=== PATIENT | female | born 1970 | race Two or more races ===

== ENCOUNTER 2016-06-03 14:31 | Emergency (ER) | payer SELFPAY ==
[2016-06-03] MEDS ORDERED: ACETAMINOPHEN 325 MG TABLET PO ONE (14:44)
--- NOTE | 2016-06-03 14:45 | ER Document Report ---
ED Medical Screen (RME) - General Stated Complaint: HEADACHE Mode of Arrival: Ambulatory Information source: Patient Notes: Patient presents to the emergency department with high blood pressure headache. Reports she's taken 2 doses of clonidine without relief of symptoms. Reports hot flashes denies fever vomiting diarrhea. She took 5 200 mg Advil and two 0.3 clonidine's. (0630 and 1130) I have consulted the attending provider dr hull per [facility] guidelines for medication order, advised tylenol at this time. I have greeted and performed a rapid initial assessment of this patient. A comprehensive ED assessment and evaluation of the patient, analysis of test results and completion of the medical decision making process will be conducted by additional ED providers. TRAVEL OUTSIDE OF THE [place] IN LAST 30 DAYS: No - Related Data Allergies/Adverse Reactions: ondansetron HCl [From Zofran] Allergy (Severe, Verified 06/03/16 14:43) resp distress azithromycin [From Zithromax] Allergy (Verified 06/03/16 14:43) Past Medical History - Past Medical History Cardiac Medical History: Reports: Hx Hypertension, Hx Heart Murmur - with Denies: Hx Atrial Fibrillation, Hx Congestive Heart Failure, Hx Coronary Artery Disease, Hx Heart Attack, Hx Hypercholesterolemia, Hx Peripheral Vascular Disease, Hx Pulmonary Embolism Pulmonary Medical History: Reports: Hx Pneumonia Denies: Hx Asthma, Hx Bronchitis, Hx COPD, Hx Respiratory Failure, Hx Sleep Apnea, Hx Tuberculosis Neurological Medical History: Denies: Hx Seizures Renal/ Medical History: Reports: Hx Ovarian Cysts - x 2. Denies: Hx Pelvic Inflammatory Disease Malignancy Medical History: Denies: Hx Breast Cancer, Hx Cervical Cancer, Hx Leukemia, Hx Lung Cancer, Hx Ovarian Cancer Musculoskeltal Medical History: Reports Hx Arthritis, Denies Hx Fibromyalgia, Denies Hx Muscular Dystrophy Skin Medical History: Denies Hx MRSA Psychiatric Medical History: Reports: Hx Depression Traumatic Medical History: Reports: Hx Fractures - rt knee, rt elbow Infectious Medical History: Denies: Hx HIV Past Surgical History: Reports: Hx Cholecystectomy, Hx Orthopedic Surgery - R knee replacement, elbow, Hx Tubal Ligation. Denies: Hx Appendectomy, Hx Bowel Surgery, Hx Section, Hx Coronary Artery Bypass Graft, Hx Gastric Bypass Surgery, Hx Herniorrhaphy, Hx Hysterectomy, Hx Mastectomy, Hx Pacemaker, Hx Tonsillectomy - Immunizations Hx Diphtheria, Pertussis, Tetanus Vaccination: Yes Physical Exam - Vital signs Vitals: Temp Pulse Resp BP Pulse Ox 98.0 F 95 18 230/114 H 99 06/03/16 14:36 06/03/16 14:36 06/03/16 14:36 06/03/16 14:36 06/03/16 14:36 Course - Vital Signs Vital signs: Temp Pulse Resp BP Pulse Ox 98.0 F 95 18 230/114 H 99 06/03/16 14:36 06/03/16 14:36 06/03/16 14:36 06/03/16 14:36 06/03/16 14:36
[2016-06-03 15:18] LABS: ABSOLUTE BASOPHILS # (AUTO) 0.1 10^3/uL (0.0-0.2); ABSOLUTE EOSINOPHILS # (AUTO) 0.3 10^3/uL (0.0-0.6); ABSOLUTE LYMPHOCYTES (AUTO) 3.3 10^3/uL (0.5-4.7); ABSOLUTE MONOCYTES (AUTO) 0.7 10^3/uL (0.1-1.4); ABSOLUTE NEUT (AUTO) 5.2 10^3/uL (1.7-8.2); BASOPHILS % (AUTO) 0.8 % (0-2); EOSINOPHILS % (AUTO) 2.6 % (0-6); HEMATOCRIT 43.5 % (36.0-47.0); HEMOGLOBIN 13.4 g/dL (12.0-15.5); HGB HCT DIFFERENCE -3.3; MEAN CORPUSCULAR HEMOGLOBIN 22.8 pg (27.0-33.4); MEAN CORPUSCULAR HGB CONC 30.7 g/dL (32.0-36.0); MEAN CORPUSCULAR VOLUME 74 fl (80-97); MONOCYTES % (AUTO) 7.6 % (3-13); RED BLOOD COUNT 5.86 10^6/uL (3.72-5.28); RED CELL DISTRIBUTION WIDTH 16.7 % (11.5-14.0); WHITE BLOOD COUNT 9.5 10^3/uL (4.0-10.5)
[2016-06-03 15:29] LABS: APPEARANCE,URINE SLIGHTLY-CLOUDY; BILIRUBIN,URINE NEGATIVE (NEGATIVE); GLUCOSE, URINE NEGATIVE (NEGATIVE); KETONES,URINE NEGATIVE (NEGATIVE); LEUKOCYTE ESTERASE,URINE MODERATE (NEGATIVE); NITRITE,URINE NEGATIVE (NEGATIVE); PROTEIN,URINE 100 mg/dL (NEGATIVE); URINE SPECIFIC GRAVITY 1.023; UROBILINOGEN,URINE NEGATIVE mg/dL (<2.0)
[2016-06-03 15:41] LABS: ALANINE AMINOTRANSFERASE 32 U/L (9-52); ALKALINE PHOSPHATASE 96 U/L (38-126); ANION GAP 13 (5-19); ASPARTATE AMINO TRANSFERASE 20 U/L (14-36); BILIRUBIN,TOTAL 0.4 mg/dL (0.2-1.3); BLOOD UREA NITROGEN 20 mg/dL (7-20); CALCIUM 9.5 mg/dL (8.4-10.2); CARBON DIOXIDE 27 mmol/L (22-30); CHLORIDE 103 mmol/L (98-107); CREATININE RESULT 0.62 mg/dL (0.52-1.25); GLUCOSE 86 mg/dL (75-110); POTASSIUM 4.1 mmol/L (3.6-5.0); SODIUM 143.1 mmol/L (137-145); TOTAL PROTEIN 7.8 g/dL (6.3-8.2)
[2016-06-03] MEDS ORDERED: PROMETHAZINE HCL INJ 25 MG/1 ML VIAL IV ONE (17:49)
[2016-06-03] MEDS ORDERED: HYDRALAZINE HCL INJ/PF 20 MG/1 ML SDV IV ONE ×2 (17:50→18:45)
[2016-06-03] MEDS ORDERED: MORPHINE SULFATE 10 MG/ML INJ IV ONE (17:50)
--- NOTE | 2016-06-03 18:14 | ER Document Report ---
ED General - General Chief Complaint: Headache Stated Complaint: HEADACHE Time seen by provider: 17:45 Mode of Arrival: Ambulatory Information source: Patient Notes: 45-year-old female who complains about bilateral occipital headache beginning this morning. This headache is typical for what she has been her blood pressures out of control. He reports that she has been compliant with all of her medications and took Advil and her usual morning blood pressure medicines after the headache began without improvement this morning. She took a second clonidine 0.3 mg about 11:30 again without improvement in her headache. She reports some nausea with it but no vomiting. She denies photophobia. She denies pain numbness weakness to extremities. She reports that in the past she' s required admission for uncontrolled hypertension and headaches like this. She denies earache, sore throat, chest pain, shortness of breath, vomiting, abdominal pain, or back pain. Physical Exam: General: Alert, appears uncomfortable. HEENT: Normocephalic. Atraumatic. PERRLA. Extraocular movements intact. Discs sharp tympanic membranes and canals clear Oropharynx clear. Neck: Supple. Non-tender. No adenopathy no JVD no nuchal rigidity Respiratory: No respiratory distress. Clear and equal breath sounds bilaterally. Cardiovascular: Regular rate and rhythm. Abdominal: Normal Inspection. Soft, non-tender. No distension. Normal Bowel Sounds. Back: Non-tender. No deformity or step off. Extremities: Moves all four extremities. Upper extremities: Normal inspection. Non-tender. Normal color. Normal ROM. Normal temperature. Lower extremities: Normal inspection. Non-tender. No edema. Normal color. Normal ROM. Normal temperature. Neurological: Cranial nerves III-XII grossly intact bilaterally. Strength 5/5 throughout. Sensation intact to light touch. Normal cognition. AAOx4. Normal speech. Cerebellar function intact by finger-nose test bilaterally Psychological: Normal affect. Normal Mood. Skin: Warm. Dry. Normal color. TRAVEL OUTSIDE OF THE [place] IN LAST 30 DAYS: No - Related Data Allergies/Adverse Reactions: ondansetron HCl [From Zofran] Allergy (Severe, Verified 06/03/16 14:43) resp distress azithromycin [From Zithromax] Allergy (Verified 06/03/16 14:43) Past Medical History - General Information source: Patient - Social History Smoking Status: Never Smoker Chew tobacco use (# tins/day): No Frequency of alcohol use: None Drug Abuse: None Family History: Reviewed & Not Pertinent Patient has suicidal ideation: No Patient has homicidal ideation: No - Past Medical History Cardiac Medical History: Reports: Hx Hypertension, Hx Heart Murmur - with Denies: Hx Atrial Fibrillation, Hx Congestive Heart Failure, Hx Coronary Artery Disease, Hx Heart Attack, Hx Hypercholesterolemia, Hx Peripheral Vascular Disease, Hx Pulmonary Embolism Pulmonary Medical History: Reports: Hx Pneumonia Denies: Hx Asthma, Hx Bronchitis, Hx COPD, Hx Respiratory Failure, Hx Sleep Apnea, Hx Tuberculosis Neurological Medical History: Denies: Hx Seizures Renal/ Medical History: Reports: Hx Ovarian Cysts - x 2. Denies: Hx Peritoneal Dialysis, Hx Pelvic Inflammatory Disease Malignancy Medical History: Denies: Hx Breast Cancer, Hx Cervical Cancer, Hx Leukemia, Hx Lung Cancer, Hx Ovarian Cancer Musculoskeltal Medical History: Reports Hx Arthritis, Denies Hx Fibromyalgia, Denies Hx Muscular Dystrophy Skin Medical History: Denies Hx MRSA Psychiatric Medical History: Reports: Hx Depression Traumatic Medical History: Reports: Hx Fractures - rt knee, rt elbow Infectious Medical History: Denies: Hx HIV Past Surgical History: Reports: Hx Cholecystectomy, Hx Orthopedic Surgery - R knee replacement, elbow, Hx Tubal Ligation. Denies: Hx Appendectomy, Hx Bowel Surgery, Hx Section, Hx Coronary Artery Bypass Graft, Hx Gastric Bypass Surgery, Hx Herniorrhaphy, Hx Hysterectomy, Hx Mastectomy, Hx Pacemaker, Hx Tonsillectomy - Immunizations Hx Diphtheria, Pertussis, Tetanus Vaccination: Yes Hx Pneumococcal Vaccination: 07/06/12 Review of Systems - Review of Systems Constitutional: denies: Chills, Fever EENT: denies: Blurred vision, Ear pain, Throat pain Cardiovascular: denies: Chest pain, Syncope, Dizziness Respiratory: denies: Cough, Short of breath Gastrointestinal: denies: Abdominal pain, Vomiting Genitourinary: denies: Burning, Dysuria Musculoskeletal: denies: Back pain Hematologic/Lymphatic: denies: Swollen glands Neurological/Psychological: denies: Weakness, Numbness Physical Exam - Vital signs Vitals: Temp Pulse Resp BP Pulse Ox 98.0 F 95 18 230/114 H 99 06/03/16 14:36 06/03/16 14:36 06/03/16 14:36 06/03/16 14:36 06/03/16 14:36 Course - Re-evaluation Re-evalutation: 06/03/16 20:35 Patient received 2 doses of 10 mg IV hydralazine in addition to her usual evening medications for blood pressure and with this her blood pressure is now 129/86 and she reports resolution of all of her symptoms. She is eager for discharge as emulating without difficulty. She reports that when her blood pressures well-controlled this is a normal range for her and do not have concerns at this point that we have overcorrected her blood pressure. She does have primary care physician follow-up has been managing her blood pressure closely recently - Vital Signs Vital signs: Temp Pulse Resp BP Pulse Ox 97.5 F 95 20 159/105 H 98 06/03/16 19:30 06/03/16 19:30 06/03/16 19:30 06/03/16 19:30 06/03/16 19:30 - Laboratory Result Diagrams: 06/03/16 14:50 06/03/16 14:50 Laboratory results interpreted by me: 06/03/16 06/03/16 14:50 14:50 RBC 5.86 H MCV 74 L MCH 22.8 L MCHC 30.7 L RDW 16.7 H Urine Protein 100 H Urine Blood SMALL H Ur Leukocyte Esterase MODERATE H Discharge - Discharge Clinical Impression: Hypertension Qualifiers: Hypertension type: essential hypertension Qualified Code(s): I10 - Essential ( primary) hypertension Headache Qualifiers: Headache type: unspecified Headache chronicity pattern: acute headache Intractability: not intractable Qualified Code(s): R51 - Headache Condition: Stable Disposition: HOME, SELF-CARE Instructions: Headache ([facility]) Additional Instructions: High Blood Pressure When your blood pressure was taken today it was elevated. Today's reading was . Pre-hypertension/Hypertension: The patient has been informed that they may have pre-hypertension or Hypertension based on a blood pressure reading in the emergency department. I recommend that the patient call the primary care provider listed on their dischargge instructions or a physician of their choice this wee to arrage follow up for further evaluation of possible pre- hypertension or Hypertension. Sometimes, stress or illness causes a temporary elevation of your blood pressure. We suggest that you get your blood pressure measured three more times during the next few days to see if this is more than a temporary abnormality. If your blood pressure is greater than 150/90 on each occasion, you must have treatment. Some simple things you can do to help are: If you have blood pressure medicine but aren't using it regularly, start taking it again. Get some aerobic exercise for at least 20 minutes on a daily basis. (See your doctor before beginning a new exercise program.) Eat a low-fat diet. Lose excess weight. Avoid salty foods and avoid adding salt to any of the foods you eat. Avoid diet pills, decongestants, "energizing" herbs, and other medicines that elevate blood pressure. If left untreated, hypertension greatly enhances your risk for developing heart disease and strokes. Please don't ignore this problem. Referrals: STEPHANI YAO MD [ACTIVE STAFF] - Follow up as needed
[2016-06-03] MEDS ORDERED: METOPROLOL TARTRATE 50 MG TABLET PO ONE (18:44)
[2016-06-03] MEDS ORDERED: CLONIDINE HCL 0.1 MG TABLET PO ONE (18:45)
[2016-06-03] MEDS ORDERED: ENALAPRIL MALEATE 10 MG TABLET PO ONE (18:45)
[2016-06-03] MEDS ORDERED: NORMAL SALINE 1000 ML 1,000 ML IV ONE (21:14)
[2016-06-03 22:14] VITALS: BP 132/61
== END 2016-06-03 22:00 | disposition home or self-care (01) ==
LOC: ER 14:31
DX: R51 Headache (principal); I10 Essential (primary) hypertension; R11.0 Nausea; R53.1 Weakness; Z88.3 Allergy status to other anti-infective agents; Z90.49 Acquired absence of other specified parts of digestive tract; Z96.651 Presence of right artificial knee joint; Z96.621 Presence of right artificial elbow joint; Z98.51 Tubal ligation status
CPT/HCPCS: 96376; 99283; 96361; 96374; 96375; 36415; 85025; 80053; 81001; J3490; J0360; J2270; J2550; J7030

== ENCOUNTER 2016-07-06 11:53 | Emergency (ER) | payer SELFPAY ==
[2016-07-06] MEDS ORDERED: PROMETHAZINE HCL 25 MG TABLET PO ONE (12:52)
--- NOTE | 2016-07-06 12:52 | ER Document Report ---
ED Medical Screen (RME) - General Stated Complaint: VOMITING Time seen by provider: 12:50 Mode of Arrival: Ambulatory Information source: Patient Notes: I have greeted and performed a rapid initial assessment of this patient. A comprehensive ED assessment and evaluation of the patient, analysis of test results and completion of the medical decision making process will be conducted by additional ED providers. TRAVEL OUTSIDE OF THE [place] IN LAST 30 DAYS: No - HPI Patient complains to provider of: CARDOSO, VOMITING AND DIARRHEA. Onset: This morning Onset/Duration: Sudden Quality of pain: Cramping Severity: Moderate Pain Level: 3 Associated Symptoms: Abdominal pain, Diarrhea, Nausea, Vomiting. denies: Fever Exacerbated by: Denies Relieved by: Denies Similar symptoms previously: No Recently seen / treated by doctor: No - Related Data Smoking: Non-smoker Frequency of alcohol use: None Drug Abuse: None Pertinent History: HTN - TAKES MEDS DAILY PER PT. Allergies/Adverse Reactions: ondansetron HCl [From Zofran] Allergy (Severe, Verified 07/06/16 12:49) resp distress azithromycin [From Zithromax] Allergy (Verified 07/06/16 12:49) Past Medical History - Past Medical History Cardiac Medical History: Reports: Hx Hypertension, Hx Heart Murmur - with Denies: Hx Atrial Fibrillation, Hx Congestive Heart Failure, Hx Coronary Artery Disease, Hx Heart Attack, Hx Hypercholesterolemia, Hx Peripheral Vascular Disease, Hx Pulmonary Embolism Pulmonary Medical History: Reports: Hx Pneumonia Denies: Hx Asthma, Hx Bronchitis, Hx COPD, Hx Respiratory Failure, Hx Sleep Apnea, Hx Tuberculosis Neurological Medical History: Denies: Hx Seizures Renal/ Medical History: Reports: Hx Ovarian Cysts - x 2. Denies: Hx Peritoneal Dialysis, Hx Pelvic Inflammatory Disease Malignancy Medical History: Denies: Hx Breast Cancer, Hx Cervical Cancer, Hx Leukemia, Hx Lung Cancer, Hx Ovarian Cancer Musculoskeltal Medical History: Reports Hx Arthritis, Denies Hx Fibromyalgia, Denies Hx Muscular Dystrophy Skin Medical History: Denies Hx MRSA Psychiatric Medical History: Reports: Hx Depression Traumatic Medical History: Reports: Hx Fractures - rt knee, rt elbow Infectious Medical History: Denies: Hx HIV Past Surgical History: Reports: Hx Cholecystectomy, Hx Orthopedic Surgery - R knee replacement, elbow, Hx Tubal Ligation. Denies: Hx Appendectomy, Hx Bowel Surgery, Hx Section, Hx Coronary Artery Bypass Graft, Hx Gastric Bypass Surgery, Hx Herniorrhaphy, Hx Hysterectomy, Hx Mastectomy, Hx Pacemaker, Hx Tonsillectomy - Immunizations Hx Diphtheria, Pertussis, Tetanus Vaccination: Yes Physical Exam - Vital signs Vitals: Temp Pulse Resp BP Pulse Ox 97.7 F 95 18 202/146 H 97 07/06/16 12:39 07/06/16 12:39 07/06/16 12:39 07/06/16 12:39 07/06/16 12:39 Course - Vital Signs Vital signs: Temp Pulse Resp BP Pulse Ox 97.7 F 95 18 202/146 H 97 07/06/16 12:39 07/06/16 12:39 07/06/16 12:39 07/06/16 12:39 07/06/16 12:39
[2016-07-06 13:23] LABS: ABSOLUTE BASOPHILS # (AUTO) 0.1 10^3/uL (0.0-0.2); ABSOLUTE EOSINOPHILS # (AUTO) 0.1 10^3/uL (0.0-0.6); ABSOLUTE LYMPHOCYTES (AUTO) 2.3 10^3/uL (0.5-4.7); ABSOLUTE MONOCYTES (AUTO) 0.6 10^3/uL (0.1-1.4); ABSOLUTE NEUT (AUTO) 8.2 10^3/uL (1.7-8.2); BASOPHILS % (AUTO) 1.1 % (0-2); EOSINOPHILS % (AUTO) 1.2 % (0-6); HEMATOCRIT 43.6 % (36.0-47.0); HEMOGLOBIN 13.9 g/dL (12.0-15.5); HGB HCT DIFFERENCE -1.9; MEAN CORPUSCULAR HEMOGLOBIN 23.2 pg (27.0-33.4); MEAN CORPUSCULAR HGB CONC 31.9 g/dL (32.0-36.0); MEAN CORPUSCULAR VOLUME 73 fl (80-97); MONOCYTES % (AUTO) 5.2 % (3-13); RED CELL DISTRIBUTION WIDTH 16.6 % (11.5-14.0); SEGMENTED NEUTROPHILS % (AUTO) 72.5 % (42-78); WHITE BLOOD COUNT 11.3 10^3/uL (4.0-10.5)
[2016-07-06 13:35] LABS: APPEARANCE,URINE CLOUDY; BILIRUBIN,URINE NEGATIVE (NEGATIVE); GLUCOSE, URINE NEGATIVE (NEGATIVE); KETONES,URINE NEGATIVE (NEGATIVE); LEUKOCYTE ESTERASE,URINE MODERATE (NEGATIVE); NITRITE,URINE NEGATIVE (NEGATIVE); PROTEIN,URINE 100 mg/dL (NEGATIVE); URINE SPECIFIC GRAVITY 1.026; UROBILINOGEN,URINE NEGATIVE mg/dL (<2.0)
[2016-07-06] MEDS ORDERED: NORMAL SALINE 1000 ML 1,000 ML IV PRN (13:42)
[2016-07-06] MEDS ORDERED: METOCLOPRAMIDE HCL INJ/PF 10 MG/2 ML SDV IV ONE (13:43)
--- NOTE | 2016-07-06 13:43 | ER Document Report ---
ED General - General Chief Complaint: High Blood Pressure Stated Complaint: VOMITING Mode of Arrival: Ambulatory Information source: Patient Notes: 45-year-old female presents with complaints of headache nausea vomiting dizziness. Patient noted to have a history of high blood pressure with vomiting episodes. Note she took clonidine 0.6 mg prior to arrival and blood pressure was still elevated. Denies any pain anywhere except for headache TRAVEL OUTSIDE OF THE [place] IN LAST 30 DAYS: No - HPI Onset: Just prior to arrival Onset/Duration: Persistent Quality of pain: Achy Severity: Mild Pain Level: 1 Associated symptoms: Headache, Nausea, Vomiting Exacerbated by: Denies Relieved by: Denies Similar symptoms previously: Yes Recently seen / treated by doctor: Yes - Related Data Allergies/Adverse Reactions: ondansetron HCl [From Zofran] Allergy (Severe, Verified 07/06/16 12:49) resp distress azithromycin [From Zithromax] Allergy (Verified 07/06/16 12:49) Past Medical History - General Information source: Patient - Social History Smoking Status: Never Smoker Cigarette use (# per day): No Chew tobacco use (# tins/day): No Smoking Education Provided: No Frequency of alcohol use: None Drug Abuse: None Family History: Reviewed & Not Pertinent Patient has suicidal ideation: No Patient has homicidal ideation: No - Past Medical History Cardiac Medical History: Reports: Hx Hypertension, Hx Heart Murmur - with Denies: Hx Atrial Fibrillation, Hx Congestive Heart Failure, Hx Coronary Artery Disease, Hx Heart Attack, Hx Hypercholesterolemia, Hx Peripheral Vascular Disease, Hx Pulmonary Embolism Pulmonary Medical History: Reports: Hx Pneumonia Denies: Hx Asthma, Hx Bronchitis, Hx COPD, Hx Respiratory Failure, Hx Sleep Apnea, Hx Tuberculosis Neurological Medical History: Denies: Hx Seizures Renal/ Medical History: Reports: Hx Ovarian Cysts - x 2. Denies: Hx Peritoneal Dialysis, Hx Pelvic Inflammatory Disease Malignancy Medical History: Denies: Hx Breast Cancer, Hx Cervical Cancer, Hx Leukemia, Hx Lung Cancer, Hx Ovarian Cancer Musculoskeltal Medical History: Reports Hx Arthritis, Denies Hx Fibromyalgia, Denies Hx Muscular Dystrophy Skin Medical History: Denies Hx MRSA Psychiatric Medical History: Reports: Hx Depression Traumatic Medical History: Reports: Hx Fractures - rt knee, rt elbow Infectious Medical History: Denies: Hx HIV Past Surgical History: Reports: Hx Cholecystectomy, Hx Orthopedic Surgery - R knee replacement, elbow, Hx Tubal Ligation. Denies: Hx Appendectomy, Hx Bowel Surgery, Hx Section, Hx Coronary Artery Bypass Graft, Hx Gastric Bypass Surgery, Hx Herniorrhaphy, Hx Hysterectomy, Hx Mastectomy, Hx Pacemaker, Hx Tonsillectomy - Immunizations Hx Diphtheria, Pertussis, Tetanus Vaccination: Yes Hx Pneumococcal Vaccination: 07/06/12 Review of Systems - Review of Systems Notes: REVIEW OF SYSTEMS: CONSTITUTIONAL : Denies fever, chills, or sweats. Denies recent illness. EENT: Denies eye, ear, throat, or mouth pain or symptoms. Denies nasal or sinus congestion or discharge. Denies throat, tongue, or mouth swelling or difficulty swallowing. CARDIOVASCULAR: Denies chest pain. Denies palpitations or racing or irregular heart beat. Denies ankle edema. RESPIRATORY: Denies cough, cold, or chest congestion. Denies shortness of breath, difficulty breathing, or wheezing. GASTROINTESTINAL: Admits nausea vomiting GENITOURINARY: Denies difficulty urinating, painful urination, burning, frequency, blood in urine, or discharge. FEMALE GENITOURINARY: Denies vaginal bleeding, heavy or abnormal periods, irregular periods. Denies vaginal discharge or odor. MUSCULOSKELETAL: Denies back or neck pain or stiffness. Denies joint pain or swelling. SKIN: Denies rash, lesions or sores. HEMATOLOGIC : Denies easy bruising or bleeding. LYMPHATIC: Denies swollen, enlarged glands. NEUROLOGICAL: Admits to headache PSYCHIATRIC: Denies anxiety or stress. Denies depression, suicidal ideation, or homicidal ideation. ALL OTHER SYSTEMS REVIEWED AND NEGATIVE. Dictation was performed using [employer] voice recognition software PHYSICAL EXAMINATION: GENERAL: Well-appearing, well-nourished and in no acute distress. Patient was actively vomiting HEAD: Atraumatic, normocephalic. EYES: Pupils equal round and reactive to light, extraocular movements intact, conjunctiva are normal. ENT: Nares patent, oropharynx clear without exudates. Moist mucous membranes. NECK: Normal range of motion, supple without lymphadenopathy LUNGS: Breath sounds clear to auscultation bilaterally and equal. No wheezes rales or rhonchi. HEART: Regular rate and rhythm without murmurs ABDOMEN: Soft, nontender, nondistended abdomen. No guarding, no rebound. No masses appreciated. Female : deferred Musculoskeletal: Normal range of motion, no pitting or edema. No cyanosis. NEUROLOGICAL: Cranial nerves grossly intact. Normal speech, normal gait. Normal sensory, motor exams PSYCH: Normal mood, normal affect. SKIN: Warm, Dry, normal turgor, no rashes or lesions noted. Physical Exam - Vital signs Vitals: Temp Pulse Resp BP Pulse Ox 97.7 F 95 18 202/146 H 97 07/06/16 12:39 07/06/16 12:39 07/06/16 12:39 07/06/16 12:39 07/06/16 12:39 Course - Re-evaluation Re-evalutation: 07/06/16 13:43 pt noted to be hypertensive, keerthi ordered, dr jane paged 07/06/16 15:18 Patient's blood pressure is improved significantly she is no longer vomiting is sleeping comfortably fluids have been bolused I expect discharge at this time 07/06/16 15:56 Patient blood pressure stable, she states she wishes to go home, she'll be discharged at this time After performing a Medical Screening Examination, I estimate there is LOW risk for ACUTE APPENDICITIS, BOWEL OBSTRUCTION, ACUTE CHOLECYSTITIS, PERFORATED DIVERTICULITIS, INCARCERATED HERNIA, PANCREATITIS, PELVIC INFLAMMATORY DISEASE, PERFORATED ULCER, ECTOPIC , or TUBO-OVARIAN ABSCESS, thus I consider the discharge disposition reasonable. Also, there is no evidence or peritonitis , sepsis, or toxicity. The patient and I have discussed the diagnosis and risks , and we agree with discharging home with close follow-up with the understanding that symptoms and presentations can change. We also discussed returning to the Emergency Department immediately if new or worsening symptoms occur. We have discussed the symptoms which are most concerning (e.g., bloody stool, fever, changing or worsening pain, vomiting) that necessitate immediate return. - Vital Signs Vital signs: Temp Pulse Resp BP Pulse Ox 97.7 F 95 25 H 139/78 H 99 07/06/16 12:39 07/06/16 12:39 07/06/16 14:37 07/06/16 14:37 07/06/16 14:37 - Laboratory Result Diagrams: 07/06/16 12:58 07/06/16 12:58 Laboratory results interpreted by me: 07/06/16 07/06/16 12:58 12:58 WBC 11.3 H RBC 6.00 H MCV 73 L MCH 23.2 L MCHC 31.9 L RDW 16.6 H Urine Protein 100 H Urine Blood SMALL H Ur Leukocyte Esterase MODERATE H Discharge - Discharge Clinical Impression: Hypertensive urgency Headache Qualifiers: Headache type: unspecified Headache chronicity pattern: acute headache Intractability: not intractable Qualified Code(s): R51 - Headache Nausea & vomiting Qualifiers: Vomiting type: unspecified Vomiting Intractability: non-intractable Qualified Code(s): R11.2 - Nausea with vomiting, unspecified Condition: Stable Disposition: HOME, SELF-CARE Instructions: Vomiting ([facility]) Prescriptions: Promethazine HCl [Phenergan 25 mg Tablet] 1 - 2 tab PO Q6H PRN #15 tablet PRN Reason: Referrals: LUIS MIGUEL VALLES MD [Primary Care Provider] - Follow up in 3-5 days
[2016-07-06] MEDS ORDERED: METOPROLOL TARTRATE PF/INJ 5 MG/5 ML SDV IV ONE (13:46)
[2016-07-06 13:47] LABS: ALANINE AMINOTRANSFERASE 26 U/L (9-52); ALBUMIN 4.2 g/dL (3.5-5.0); ALKALINE PHOSPHATASE 102 U/L (38-126); ANION GAP 10 (5-19); ASPARTATE AMINO TRANSFERASE 18 U/L (14-36); BILIRUBIN,TOTAL 0.5 mg/dL (0.2-1.3); BLOOD UREA NITROGEN 16 mg/dL (7-20); CALCIUM 9.4 mg/dL (8.4-10.2); CARBON DIOXIDE 26 mmol/L (22-30); CHLORIDE 102 mmol/L (98-107); CREATININE RESULT 0.56 mg/dL (0.52-1.25); GLUCOSE 96 mg/dL (75-110); LIPASE 149.2 U/L (23-300); POTASSIUM 4.2 mmol/L (3.6-5.0); SODIUM 138.2 mmol/L (137-145); TOTAL PROTEIN 7.7 g/dL (6.3-8.2)
[2016-07-06 16:09] VITALS: BP 167/101
== END 2016-07-06 16:10 | disposition home or self-care (01) ==
LOC: ER 11:53
DX: I16.0 Hypertensive urgency (principal); I10 Essential (primary) hypertension; R51 Headache; R11.2 Nausea with vomiting, unspecified; R42 Dizziness and giddiness; Z88.1 Allergy status to other antibiotic agents; Z88.8 Allergy status to other drugs, medicaments and biological substances
CPT/HCPCS: 99283; 96361; 96374; 96375; 36415; 83690; 85025; 80053; 81001; J2765; J3490; J7030

== ENCOUNTER 2016-08-04 17:29 | Inpatient (IN) | payer SELFPAY ==
--- NOTE | 2016-08-04 19:07 | ER Document Report ---
ED Medical Screen (RME) - General Stated Complaint: BLOOD PRESSURE PROBLEM Notes: 45 yo female c/o headache, elevated blood pressure. pt took double dose of Clonidine. posterior headache. typical headache for patient. no n/v, no chest pain. pt neurologically intact TRAVEL OUTSIDE OF THE [place] IN LAST 30 DAYS: No - Related Data Allergies/Adverse Reactions: ondansetron HCl [From Zofran] Allergy (Severe, Verified 08/04/16 19:04) resp distress azithromycin [From Zithromax] Allergy (Verified 08/04/16 19:04) Past Medical History - Past Medical History Cardiac Medical History: Reports: Hx Hypertension, Hx Heart Murmur - with Denies: Hx Atrial Fibrillation, Hx Congestive Heart Failure, Hx Coronary Artery Disease, Hx Heart Attack, Hx Hypercholesterolemia, Hx Peripheral Vascular Disease, Hx Pulmonary Embolism Pulmonary Medical History: Reports: Hx Pneumonia Denies: Hx Asthma, Hx Bronchitis, Hx COPD, Hx Respiratory Failure, Hx Sleep Apnea, Hx Tuberculosis Neurological Medical History: Denies: Hx Seizures Renal/ Medical History: Reports: Hx Ovarian Cysts - x 2. Denies: Hx Peritoneal Dialysis, Hx Pelvic Inflammatory Disease Malignancy Medical History: Denies: Hx Breast Cancer, Hx Cervical Cancer, Hx Leukemia, Hx Lung Cancer, Hx Ovarian Cancer Musculoskeltal Medical History: Reports Hx Arthritis, Denies Hx Fibromyalgia, Denies Hx Muscular Dystrophy Skin Medical History: Denies Hx MRSA Psychiatric Medical History: Reports: Hx Depression Traumatic Medical History: Reports: Hx Fractures - rt knee, rt elbow Infectious Medical History: Denies: Hx HIV Past Surgical History: Reports: Hx Cholecystectomy, Hx Orthopedic Surgery - R knee replacement, elbow, Hx Tubal Ligation. Denies: Hx Appendectomy, Hx Bowel Surgery, Hx Section, Hx Coronary Artery Bypass Graft, Hx Gastric Bypass Surgery, Hx Herniorrhaphy, Hx Hysterectomy, Hx Mastectomy, Hx Pacemaker, Hx Tonsillectomy - Immunizations Hx Diphtheria, Pertussis, Tetanus Vaccination: Yes Physical Exam - Vital signs Vitals: Temp Pulse Resp BP Pulse Ox 98.2 F 103 H 16 213/117 H 98 08/04/16 17:51 08/04/16 17:51 08/04/16 17:51 08/04/16 17:51 08/04/16 17:51 Course - Vital Signs Vital signs: Temp Pulse Resp BP Pulse Ox 98.2 F 103 H 16 213/117 H 98 08/04/16 17:51 08/04/16 17:51 08/04/16 17:51 08/04/16 17:51 08/04/16 17:51
[2016-08-04 19:34] LABS: ABSOLUTE BASOPHILS # (AUTO) 0.1 10^3/uL (0.0-0.2); ABSOLUTE EOSINOPHILS # (AUTO) 0.2 10^3/uL (0.0-0.6); ABSOLUTE LYMPHOCYTES (AUTO) 3.6 10^3/uL (0.5-4.7); ABSOLUTE MONOCYTES (AUTO) 0.8 10^3/uL (0.1-1.4); ABSOLUTE NEUT (AUTO) 8.5 10^3/uL (1.7-8.2); BASOPHILS % (AUTO) 0.5 % (0-2); EOSINOPHILS % (AUTO) 1.6 % (0-6); HEMOGLOBIN 13.1 g/dL (12.0-15.5); HGB HCT DIFFERENCE -1.7; LYMPHOCYTES % (AUTO) 27.3 % (13-45); MEAN CORPUSCULAR HGB CONC 31.9 g/dL (32.0-36.0); MEAN CORPUSCULAR VOLUME 72 fl (80-97); RED BLOOD COUNT 5.69 10^6/uL (3.72-5.28); RED CELL DISTRIBUTION WIDTH 16.6 % (11.5-14.0); SEGMENTED NEUTROPHILS % (AUTO) 64.6 % (42-78); WHITE BLOOD COUNT 13.1 10^3/uL (4.0-10.5)
[2016-08-04 19:42] LABS: APPEARANCE,URINE SLIGHTLY-CLOUDY; BILIRUBIN,URINE NEGATIVE (NEGATIVE); GLUCOSE, URINE NEGATIVE (NEGATIVE); KETONES,URINE NEGATIVE (NEGATIVE); LEUKOCYTE ESTERASE,URINE NEGATIVE (NEGATIVE); NITRITE,URINE NEGATIVE (NEGATIVE); PROTEIN,URINE 100 mg/dL (NEGATIVE); URINE SPECIFIC GRAVITY 1.026; UROBILINOGEN,URINE NEGATIVE mg/dL (<2.0)
[2016-08-04 19:47] LABS: ALANINE AMINOTRANSFERASE 20 U/L (9-52); ALKALINE PHOSPHATASE 96 U/L (38-126); ANION GAP 10 (5-19); ASPARTATE AMINO TRANSFERASE 17 U/L (14-36); BILIRUBIN,DIRECT 0.1 mg/dL (0.0-0.4); BILIRUBIN,TOTAL 0.3 mg/dL (0.2-1.3); BLOOD UREA NITROGEN 16 mg/dL (7-20); CALCIUM 9.5 mg/dL (8.4-10.2); CARBON DIOXIDE 28 mmol/L (22-30); CHLORIDE 103 mmol/L (98-107); CREATININE RESULT 0.64 mg/dL (0.52-1.25); GLUCOSE 90 mg/dL (75-110); POTASSIUM 4.1 mmol/L (3.6-5.0); SODIUM 141.3 mmol/L (137-145); TOTAL PROTEIN 7.1 g/dL (6.3-8.2)
[2016-08-04] MEDS ORDERED: HYDRALAZINE HCL INJ/PF 20 MG/1 ML SDV IV ONE (21:54)
[2016-08-04] MEDS ORDERED: NICARDIPINE HCL RTU, ISO-OS 200 ML IV PRN (22:47)
--- NOTE | 2016-08-04 22:49 | ER Document Report ---
ED General - General Chief Complaint: Headache Stated Complaint: BLOOD PRESSURE PROBLEM Notes: Patient is a 45-year-old female past medical history of severe hypertension and morbid obesity who presents with a headache. She described as a severe, constant, gradually worsening headache over the last 2 days. States this feels identical to when she's had severe hypertension the past for her headaches. She 's been taking all medications as prescribed and states that this has not controlled her blood pressure. She has required hospitalization in the past for similar presentations. Nothing is known to worsen her symptoms. Denies any associated weakness, numbness, altered mental status or fever. TRAVEL OUTSIDE OF THE [place] IN LAST 30 DAYS: No - Related Data Allergies/Adverse Reactions: ondansetron HCl [From Zofran] Allergy (Severe, Verified 08/04/16 19:04) resp distress azithromycin [From Zithromax] Allergy (Verified 08/04/16 19:04) Past Medical History - General Information source: Patient - Social History Smoking Status: Never Smoker Chew tobacco use (# tins/day): No Frequency of alcohol use: None Drug Abuse: None Lives with: Spouse/Significant other Family History: Reviewed & Not Pertinent Patient has suicidal ideation: No Patient has homicidal ideation: No - Past Medical History Cardiac Medical History: Reports: Hx Hypertension, Hx Heart Murmur - with Denies: Hx Atrial Fibrillation, Hx Congestive Heart Failure, Hx Coronary Artery Disease, Hx Heart Attack, Hx Hypercholesterolemia, Hx Peripheral Vascular Disease, Hx Pulmonary Embolism Pulmonary Medical History: Reports: Hx Pneumonia Denies: Hx Asthma, Hx Bronchitis, Hx COPD, Hx Respiratory Failure, Hx Sleep Apnea, Hx Tuberculosis Neurological Medical History: Denies: Hx Seizures Renal/ Medical History: Reports: Hx Ovarian Cysts - x 2. Denies: Hx Peritoneal Dialysis, Hx Pelvic Inflammatory Disease Malignancy Medical History: Denies: Hx Breast Cancer, Hx Cervical Cancer, Hx Leukemia, Hx Lung Cancer, Hx Ovarian Cancer Musculoskeltal Medical History: Reports Hx Arthritis, Denies Hx Fibromyalgia, Denies Hx Muscular Dystrophy Skin Medical History: Denies Hx MRSA Psychiatric Medical History: Reports: Hx Depression Traumatic Medical History: Reports: Hx Fractures - rt knee, rt elbow Infectious Medical History: Denies: Hx HIV Past Surgical History: Reports: Hx Cholecystectomy, Hx Orthopedic Surgery - R knee replacement, elbow, Hx Tubal Ligation. Denies: Hx Appendectomy, Hx Bowel Surgery, Hx Section, Hx Coronary Artery Bypass Graft, Hx Gastric Bypass Surgery, Hx Herniorrhaphy, Hx Hysterectomy, Hx Mastectomy, Hx Pacemaker, Hx Tonsillectomy - Immunizations Hx Diphtheria, Pertussis, Tetanus Vaccination: Yes Hx Pneumococcal Vaccination: 07/06/12 Review of Systems - Review of Systems Notes: Constitutional: Negative for fever. HENT: Negative for sore throat. Eyes: Negative for visual changes. Cardiovascular: Negative for chest pain. Respiratory: Negative for shortness of breath. Gastrointestinal: Negative for abdominal pain, vomiting or diarrhea. Genitourinary: Negative for dysuria. Musculoskeletal: Negative for back pain. Skin: Negative for rash. Neurological: Positive for headache 10 point ROS negative except as marked above and in HPI. Physical Exam - Vital signs Vitals: Temp Pulse Resp BP Pulse Ox 98.2 F 103 H 16 213/117 H 98 08/04/16 17:51 08/04/16 17:51 08/04/16 17:51 08/04/16 17:51 08/04/16 17:51 Interpretation: Hypertensive Notes: PHYSICAL EXAMINATION: GENERAL: Appears uncomfortable but in no acute distress HEAD: Atraumatic, normocephalic. EYES: Pupils equal round and reactive to light, extraocular movements intact, sclera anicteric, conjunctiva are normal. ENT: nares patent, oropharynx clear without exudates. Moist mucous membranes. NECK: Normal range of motion, supple without lymphadenopathy LUNGS: Breath sounds clear to auscultation bilaterally and equal. No wheezes rales or rhonchi. HEART: Regular tachycardia without murmurs ABDOMEN: Soft, nontender, normoactive bowel sounds. No guarding, no rebound. No masses appreciated. EXTREMITIES: Normal range of motion, no pitting or edema. No cyanosis. NEUROLOGICAL: Face symmetric. Tongue protrudes midline. Extraocular motions intact. Pupils are 2 mm and equally reactive. Normal speech, normal gait. 5 out of 5 strength in both the distal and proximal upper and lower extremities bilaterally. Sensation is grossly intact throughout. Finger to nose testing normal. Pronator drift normal. PSYCH: Normal mood, normal affect. SKIN: Warm, Dry, normal turgor, no rashes or lesions noted. Course - Re-evaluation Re-evalutation: 08/04/16 22:47 Patient presents with a severe headache in conjunction with critically high blood pressure. Patient has already taken 0.6 of clonidine at home with apparently no effect as her initial blood pressure time of presentation is 213/ 117. An initial bolus of hydralazine 10 mg was trialed with no effect. Patient 's laboratories are overall unremarkable with exception of proteinuria likely secondary to her hypertension. Given her ongoing headache and severely elevated blood pressure she will be started on nicardipine drip. Also obtain a CT of the head to evaluate for intraparenchymal bleed for which I have a low clinical suspicion. I do not suspect a subarachnoid hemorrhage as her headache was not sudden or maximal in onset and she states this is very similar to prior headaches in the setting of severe hypertension. 08/05/16 00:03 On the nicardipine drip patient's blood pressure is now decreased to the 150s systolic and her headache has resolved. Awaiting head CT and will plan for admission. 08/05/16 01:47 Patient's blood pressure has now mostly normalized at 140s systolic, nicardipine at 2.5 per hour. Headache has resolved. CT head unremarkable. I have discussed with who will admit. 08/05/16 03:20 Patient's nicardipine drip has required up titration to 5 mg per hour to maintain a normal blood pressure and to continue to keep her headache from recurring. Patient is otherwise remained well in appearance without any focal neurologic deficits. - Vital Signs Vital signs: Temp Pulse Resp BP Pulse Ox 98.2 F 103 H 32 H 174/120 H 93 08/04/16 17:51 08/04/16 20:59 08/05/16 02:30 08/05/16 02:30 08/05/16 02:30 - Laboratory Result Diagrams: 08/04/16 19:15 08/04/16 19:15 Laboratory results interpreted by me: 08/04/16 08/04/16 19:15 19:20 WBC 13.1 H RBC 5.69 H MCV 72 L MCH 23.0 L MCHC 31.9 L RDW 16.6 H Absolute Neutrophils 8.5 H Urine Protein 100 H - Diagnostic Test Radiology reviewed: Image reviewed, Reports reviewed Radiology results interpreted by me: 08/05/16 01:50 CT head: No acute intracranial bleed Critical Care Note - Critical Care Note Total time excluding time spent on procedures (mins): 35 Comments: Critical care time spent obtaining history from patient or surrogate, discussions with consultants, development of treatment plan with patient or surrogate, evaluation of patient's response to treatment, examination of patient , ordering and performing treatments and interventions, ordering and review of laboratory studies, re-evaluation of patient's condition, ordering and review of radiographic studies and review of old charts Discharge - Discharge Clinical Impression: Hypertensive urgency Headache Qualifiers: Headache type: unspecified Headache chronicity pattern: acute headache Intractability: not intractable Qualified Code(s): R51 - Headache Condition: Fair Disposition: ADMITTED INPATIENT Admitting Provider: [facility] Admitted: ICU
[2016-08-04] MEDS ORDERED: PROCHLORPERAZINE EDISYLATE INJ 10 MG/2 ML VIAL IV ONE (23:11)
[2016-08-04] MEDS ORDERED: DIPHENHYDRAMINE HCL 50 MG/ML VIAL IV ONE (23:11)
--- NOTE | 2016-08-05 08:14 | EKG REPORT ---
SEVERITY:- NORMAL ECG - SINUS RHYTHM : Confirmed by: Eddie Engel 05-Aug-2016 08:13:51
[2016-08-05] MEDS: CLONIDINE HCL 0.2 MG TABLET PO SCH ×3 (09:18→22:13)
[2016-08-05] MEDS: VALSARTAN 160 MG TABLET PO SCH ×2 (09:19→22:14)
[2016-08-05] MEDS: METOPROLOL TARTRATE 100 MG TABLET PO SCH ×2 (09:19→22:14)
[2016-08-05] MEDS: AMLODIPINE BESYLATE 10 MG TABLET PO SCH (09:20)
[2016-08-05] MEDS ORDERED: INFLUENZA ADLT QUAD (36MOS+) 2016-17 VAC 0.5 ML SYR IM PRN (12:03)
--- NOTE | 2016-08-05 19:54 | PDOC H&P ---
History of Present Illness Admission Date/PCP: 08/05/16 07:13 STEPHANI YAO MD History of Present Illness: BILL MARQUEZ is a 45 year old female with morbid obesity, body mass index 56 and uncontrolled chronic hypertension with multiple ED visits, poor compliance with office visits, she has no medical insurance and she does not follow up on a regular basis for the management of her blood pressure. She has severe uncontrolled hypertension she was evaluated in the past for secondary hypertension on all the evaluation came back negative. The obesity is also a factor in the etiology of the blood pressure, she came emergency room last night because of headache and she was found to have severely elevated blood pressure it was about 200 systolic, she was managed in the emergency room with nicardipine infusion and she also had CT head done and this was negative for any intracranial pathology. I have explained to patient on multiple occasions that she needs complete lifestyle therapeutic intervention she has to lose this massive weight ,changed her eating habits and also exercise regularly to achieve normalization of her blood pressure. Past Medical History Cardiac Medical History: Reports: Hypertension, Heart Murmur - with Pulmonary Medical History: Reports: Pneumonia Musculoskeltal Medical History: Reports: Arthritis Psychiatric Medical History: Reports: Depression Hematology: Reports: Anemia - heavy menses related Past Surgical History Past Surgical History: Reports: Cholecystectomy, Orthopedic Surgery - R knee replacement, elbow, Tubal Ligation Social History Lives with: Spouse/Significant other Smoking Status: Never Smoker Frequency of Alcohol Use: None Hx Recreational Drug Use: No Hx Prescription Drug Abuse: No Family History Family History: Reviewed & Not Pertinent Parental Family History Reviewed: Yes Children Family History Reviewed: Yes Sibling(s) Family History Reviewed.: Yes Medication/Allergy Home Medications: No Home Medications 08/05/16 Allergies/Adverse Reactions: ondansetron HCl [From Zofran] Allergy (Severe, Verified 08/04/16 19:04) resp distress azithromycin [From Zithromax] Allergy (Verified 08/04/16 19:04) Review of Systems Constitutional: ABSENT: chills, fever(s), headache(s), weight gain, weight loss Eyes: ABSENT: visual disturbances Ears: ABSENT: hearing changes Cardiovascular: ABSENT: chest pain, dyspnea on exertion, edema, orthropnea, palpitations Respiratory: ABSENT: cough, hemoptysis Gastrointestinal: ABSENT: abdominal pain, constipation, diarrhea, hematemesis, hematochezia, nausea, vomiting Genitourinary: ABSENT: dysuria, hematuria Musculoskeletal: ABSENT: joint swelling Integumentary: ABSENT: rash, wounds Neurological: PRESENT: other - Headache Psychiatric: PRESENT: depression Endocrine: ABSENT: cold intolerance, heat intolerance, menstrual abnormalities, polydipsia, polyuria Hematologic/Lymphatic: ABSENT: easy bleeding, easy bruising, lymphadenopathy Physical Exam Vital Signs: Temp Pulse Resp BP Pulse Ox 97.7 F 90 16 123/63 97 08/05/16 15:23 08/05/16 15:23 08/05/16 15:23 08/05/16 15:23 08/05/16 15:23 Intake & Output 08/04/16 08/05/16 08/06/16 06:59 06:59 06:59 Intake Total 1159 Balance 1159 Weight 157.5 kg General appearance: PRESENT: no acute distress, well-developed, well-nourished Head exam: PRESENT: atraumatic, normocephalic Eye exam: PRESENT: conjunctiva pink, EOMI, PERRLA Ear exam: PRESENT: normal external ear exam Mouth exam: PRESENT: moist, tongue midline Neck exam: PRESENT: full ROM Respiratory exam: PRESENT: clear to auscultation kelly Cardiovascular exam: PRESENT: RRR, +S1, +S2 GI/Abdominal exam: PRESENT: normal bowel sounds, soft Rectal exam: PRESENT: deferred Neurological exam: PRESENT: alert, CN II-XII grossly intact Psychiatric exam: PRESENT: appropriate affect, normal mood Skin exam: PRESENT: dry, intact, warm. ABSENT: cyanosis, rash Results Impressions: Head CT 08/04/16 22:47 IMPRESSION: New moderate pansinusitis with acute inflammatory components. No acute intracranial findings. Assessment & Plan - Diagnosis (1) Hypertensive emergency Is this a current diagnosis for this admission?: YesPlan: She has hypertensive emergency with a blood pressure of more than 180 on she is symptomatic, treatment was started in the emergency room with nicardipine infusion on she is presently off nicardipine infusion and she is started on p.o. medication (2) Proteinuria Qualifiers: Proteinuria type: unspecified Qualified Code(s): R80.9 - Proteinuria , unspecified Is this a current diagnosis for this admission?: YesPlan: She has proteinuria on dipstick, urine protein creatinine ratio will be requested this correlates nicely with 24-hour urine protein.
[2016-08-06] MEDS: CLONIDINE HCL 0.2 MG TABLET PO SCH ×2 (05:53→13:17)
[2016-08-06] MEDS: METOPROLOL TARTRATE 100 MG TABLET PO SCH (10:03)
[2016-08-06] MEDS: AMLODIPINE BESYLATE 10 MG TABLET PO SCH (10:03)
[2016-08-06] MEDS: VALSARTAN 160 MG TABLET PO SCH (10:04)
--- NOTE | 2016-08-06 18:05 | PDOC DISCHARGE SUMMARY ---
General - Admit/Disc Date/PCP Admission Date/Primary Care Provider: 08/05/16 07:13 STEPHANI YAO MD Discharge Date: 08/06/16 - Discharge Diagnosis (1) Hypertensive emergency Is this a current diagnosis for this admission?: Yes (2) Proteinuria Is this a current diagnosis for this admission?: Yes - Additional Information Home Medications: Amlodipine Besylate [Norvasc 10 mg Tablet] 10 mg PO DAILY #30 tablet 08/06/16 Clonidine HCl [Catapres 0.2 mg Tablet] 0.3 mg PO Q8 #90 tablet 08/06/16 Metoprolol Tartrate [Lopressor 100 mg Tablet] 100 mg PO Q12 #120 tablet Valsartan [Diovan 160 mg Tablet] 160 mg PO Q12 #120 tablet 08/06/16 History of Present Illness History of Present Illness: BILL MARQUEZ is a 45 year old female with morbid obesity, body mass index 56 and uncontrolled chronic hypertension with multiple ED visits, poor compliance with office visits, she has no medical insurance and she does not follow up on a regular basis for the management of her blood pressure. She has severe uncontrolled hypertension she was evaluated in the past for secondary hypertension on all the evaluation came back negative. The obesity is also a factor in the etiology of the blood pressure, she came emergency room last night because of headache and she was found to have severely elevated blood pressure it was about 200 systolic, she was managed in the emergency room with nicardipine infusion and she also had CT head done and this was negative for any intracranial pathology. I have explained to patient on multiple occasions that she needs complete lifestyle therapeutic intervention she has to lose this massive weight ,changed her eating habits and also exercise regularly to achieve normalization of her blood pressure. Hospital Course Hospital Course: Patient was admitted for hypertensive emergency, she was treated with p.o. medications and the blood pressure is well controlled on p.o. medications Physical Exam Vital Signs: Temp Pulse Resp BP Pulse Ox 97.7 F 83 19 95/49 L 93 08/06/16 15:33 08/06/16 15:33 08/06/16 15:33 08/06/16 15:33 08/06/16 15:33 Intake & Output 08/05/16 08/06/16 08/07/16 06:59 06:59 06:59 Intake Total 2974 237 Balance 2974 237 Weight 159.2 kg 159.2 kg General appearance: PRESENT: no acute distress, well-developed, well-nourished Head exam: PRESENT: atraumatic, normocephalic Eye exam: PRESENT: conjunctiva pink, EOMI, PERRLA Ear exam: PRESENT: normal external ear exam Mouth exam: PRESENT: moist, tongue midline Neck exam: PRESENT: full ROM Respiratory exam: PRESENT: clear to auscultation kelly Cardiovascular exam: PRESENT: RRR, +S1, +S2 Pulses: PRESENT: normal dorsalis pedis pul, +2 pedal pulses bilateral Vascular exam: PRESENT: normal capillary refill GI/Abdominal exam: PRESENT: normal bowel sounds, soft Rectal exam: PRESENT: deferred Neurological exam: PRESENT: alert, awake, oriented to person, oriented to place , oriented to time, oriented to situation, CN II-XII grossly intact Psychiatric exam: PRESENT: appropriate affect, normal mood Skin exam: PRESENT: dry, intact, warm Results Impressions: Head CT 08/04/16 22:47 IMPRESSION: New moderate pansinusitis with acute inflammatory components. No acute intracranial findings.
[2016-08-06 18:24] VITALS: BP 170/109
[2016-08-07 10:37] LABS: CREATININE URINE 199.4 mg/dL (Not Estab.)
== END 2016-08-06 18:53 | disposition home or self-care (01) | DRG 305 ==
LOC: ER 17:29 → EH 08-05 02:45 → UNDOADMIN 08-05 02:45 → 3W 08-05 07:11 → EH 08-05 07:11 → 3W 08-05 07:13
PROVIDERS: ADMIT Internal Medicine; ATTEND Internal Medicine
DX: I16.1 Hypertensive emergency (principal); Z68.43 Body mass index [BMI] 50.0-59.9, adult; R80.9 Proteinuria, unspecified; E66.01 Morbid (severe) obesity due to excess calories; F32.9 Major depressive disorder, single episode, unspecified
CPT/HCPCS: 36415; 70450; 80053; 81001; 82570; 84156; 85025; 90686; 93005; 93010; J0360; J0780; J1200; J3490

== ENCOUNTER 2016-09-09 07:46 | Emergency (ER) | payer SELFPAY ==
[2016-09-09] MEDS ORDERED: ALBUTEROL SULFATE 0.083% NEB 2.5 MG/3 ML AMPUL NEB ONE ×2 (08:36→09:36)
[2016-09-09] MEDS ORDERED: PREDNISONE 20 MG TABLET PO ONE (08:36)
[2016-09-09] MEDS ORDERED: IPRATROPIUM/ALBUTEROL 0.5-2.5 MG/3 ML AMPUL NEB ONE (08:36)
--- NOTE | 2016-09-09 10:24 | ER Document Report ---
ED Respiratory Problem - General Chief Complaint: Cough Stated Complaint: COUGH Mode of Arrival: Ambulatory Information source: Patient Notes: Patient presents complaining of body aches, cough and wheezing for the past 5 days. Patient reports fever off and on. Patient reports sick contacts in the household recently. Patient states she has had symptoms like this in the past when she was diagnosed with pneumonia and suspects the same today. Patient does have a history of hypertension but reports that she took all of her medications this morning as prescribed. TRAVEL OUTSIDE OF THE [place] IN LAST 30 DAYS: No - HPI Patient complains to provider of: Chest pain, Cough Onset: Other - 5 days Duration: Worse/persistent Initiating Event: URI Quality of pain: Achy Pain Level: 4 Context: denies: Hx asthma, Hx COPD, Recent foreign travel, Recent long distance trvl, Recent immobilization, Recent surgery, Smoker Cough: Nonproductive Associated symptoms: Chest pain/discomfort - Chest pain with coughing, Cough, Fever, Muscle spasms, Wheezing. denies: Bloody cough Similar symptoms previously: Yes Recently seen / treated by doctor: No - Related Data Allergies/Adverse Reactions: ondansetron HCl [From Zofran] Allergy (Severe, Verified 09/09/16 07:55) resp distress azithromycin [From Zithromax] Allergy (Verified 09/09/16 07:55) Past Medical History - General Information source: Patient - Social History Smoking Status: Never Smoker Chew tobacco use (# tins/day): No Frequency of alcohol use: None Drug Abuse: None Occupation: none Lives with: Family Family History: Reviewed & Not Pertinent. denies: CAD Patient has suicidal ideation: No Patient has homicidal ideation: No - Past Medical History Cardiac Medical History: Reports: Hx Hypertension, Hx Heart Murmur - with Denies: Hx Atrial Fibrillation, Hx Congestive Heart Failure, Hx Coronary Artery Disease, Hx Heart Attack, Hx Hypercholesterolemia, Hx Peripheral Vascular Disease, Hx Pulmonary Embolism Pulmonary Medical History: Reports: Hx Pneumonia Denies: Hx Asthma, Hx Bronchitis, Hx COPD, Hx Respiratory Failure, Hx Sleep Apnea, Hx Tuberculosis Neurological Medical History: Denies: Hx Seizures Renal/ Medical History: Reports: Hx Ovarian Cysts - x 2. Denies: Hx Peritoneal Dialysis, Hx Pelvic Inflammatory Disease Malignancy Medical History: Denies: Hx Breast Cancer, Hx Cervical Cancer, Hx Leukemia, Hx Lung Cancer, Hx Ovarian Cancer Musculoskeltal Medical History: Reports Hx Arthritis, Denies Hx Fibromyalgia, Denies Hx Muscular Dystrophy Skin Medical History: Denies Hx MRSA Psychiatric Medical History: Reports: Hx Depression Traumatic Medical History: Reports: Hx Fractures - rt knee, rt elbow Infectious Medical History: Denies: Hx HIV Past Surgical History: Reports: Hx Cholecystectomy, Hx Orthopedic Surgery - R knee replacement, elbow, Hx Tubal Ligation. Denies: Hx Appendectomy, Hx Bowel Surgery, Hx Section, Hx Coronary Artery Bypass Graft, Hx Gastric Bypass Surgery, Hx Herniorrhaphy, Hx Hysterectomy, Hx Mastectomy, Hx Pacemaker, Hx Tonsillectomy - Immunizations Hx Diphtheria, Pertussis, Tetanus Vaccination: Yes Hx Pneumococcal Vaccination: 07/06/12 Review of Systems - Review of Systems Constitutional: Fever EENT: No symptoms reported Cardiovascular: Chest pain - With coughing Respiratory: Cough, Wheezing Gastrointestinal: No symptoms reported. denies: Abdominal pain, Nausea, Vomiting Genitourinary: No symptoms reported Female Genitourinary: No symptoms reported Musculoskeletal: Muscle pain - Generalized body aches Skin: No symptoms reported Hematologic/Lymphatic: No symptoms reported Neurological/Psychological: No symptoms reported Physical Exam - Vital signs Vitals: Temp Pulse Resp BP Pulse Ox 98.4 F 104 H 20 185/97 H 98 09/09/16 07:59 09/09/16 07:59 09/09/16 07:59 09/09/16 07:59 09/09/16 07:59 - General General appearance: Appears well, Alert In distress: None - HEENT Head: Normocephalic, Atraumatic Eyes: Normal Conjunctiva: Normal Ears: Normal External canal: Normal Nasal: Normal Mouth/Lips: Normal Mucous membranes: Normal Pharynx: Erythema. No: Exudate, Peritonsillar abscess, Tonsillar hypertrophy Neck: Normal, Supple. No: Lymphadenopathy, Meningismus - Respiratory Respiratory status: No respiratory distress Chest status: Pain with cough Breath sounds: Nonproductive cough, Wheezing - With coughing Chest palpation: Tender - Anterior upper chest wall tenderness, tenderness along lower costal margin - Cardiovascular Rhythm: Regular Heart sounds: S1 appreciated, S2 appreciated Murmur: No - Abdominal Inspection: Morbidly Obese - Back Back: Normal, Nontender. No: CVA tenderness, Vertebra tenderness - Extremities General upper extremity: Normal inspection, Normal strength General lower extremity: Normal inspection, Normal strength - Neurological Neuro grossly intact: Yes Cognition: Normal Marce Coma Scale Eye Opening: Spontaneous [place] Coma Scale Verbal: Oriented [place] Coma Scale Motor: Obeys Commands [place] Coma Scale Total: 15 - Psychological Associated symptoms: Normal affect, Normal mood - Skin Skin Temperature: Warm Skin Moisture: Dry Skin Color: Normal Course - Re-evaluation Re-evalutation: 09/09/16 10:19 Patient with improved air movement to bilateral upper lobes. Patient continues with bilateral upper lobe wheezing. Patient still complains of chest tightness that is worse when she coughs. Consulted with Dr. Arellano regarding patient presentation, exam findings, ekg, and diagnostic evaluation. Does not recommend any additional diagnostic tests at this time. 09/09/16 The patient has atypical chest pain as the patient's chest pain is not suggestive of pulmonary embolus, cardiac ischemia, aortic dissection, or other serious etiology. Given the extremely low risk of these diagnoses for the test in evaluation for these possibilities does not appear to be indicated at this time. Patient has been instructed to return if the symptoms worsen or change in any way. - Vital Signs Vital signs: Temp Pulse Resp BP Pulse Ox 97.9 F 104 H 20 185/107 H 95 09/09/16 11:09 09/09/16 11:09 09/09/16 11:09 09/09/16 11:09 09/09/16 11:09 - Diagnostic Test Radiology reviewed: Reports reviewed Discharge - Discharge Clinical Impression: Hx of essential hypertension, Wheezing Upper respiratory infection Qualifiers: URI type: unspecified URI Qualified Code(s): J06.9 - Acute upper respiratory infection, unspecified Chest pain Qualifiers: Chest pain type: unspecified Qualified Code(s): R07.9 - Chest pain, unspecified Condition: Stable Disposition: HOME, SELF-CARE Additional Instructions: Return immediately for any new or worsening symptoms, worsening cough, fever, shortness of breath, or any concerning new symptoms. Followup with your primary care provider, call tomorrow to make a followup appointment Your blood pressure was elevated today, recheck with your primary doctor in 1-2 days, they may need to adjust her medications. UPPER RESPIRATORY ILLNESS: You have a viral infection of the respiratory passages -- a "cold." This common infection causes nasal congestion, drainage, and often sore throat and cough. It is highly contagious. The disease usually lasts about 10 to 14 days. There is no "cure" for the viral infection -- it must run its course. If there is a complication, such as bacterial infection in the nose, sinuses, middle ear, or bronchial tubes, antibiotics may be required. The antibiotics won't affect the virus. Drink plenty of fluids. A humidifier may help. An expectorant medication or decongestant may make you more comfortable. Use acetaminophen or ibuprofen for fever or aches. See the doctor if fever persists over two days, if there is any significant worsening of your symptoms, or if you simply fail to improve as expected. BRONCHOSPASM: You have tightness in the bronchial tubes, called bronchospasm. This often occurs with bronchial infections. Allergies, inhaled chemicals, and polluted or cold air can also provoke bronchospasm. It's more likely in patients with asthma in the family. Emergency treatment of bronchospasm may include adrenaline shots or bronchodilator aerosol. You may feel lightheaded and have a rapid pulse for an hour or two. Rest and get plenty of fluids. At home, we'll treat you with a bronchodilator inhaler. Antibiotics and corticosteroids may be required for some patients. Until you recover, avoid chemical fumes, dusts, pollens, and exercising in very cold or dry air. If you smoke, stop now!! If you develop a fever, increased wheezing, chest pain, or severe shortness of breath, you should contact the doctor immediately. INHALED BRONCHODILATORS: You have received a treatment of and/or prescription for an inhaled bronchodilator -- a medication which stimulates the airways in the lung to dilate. This improves the flow of air in asthma, bronchitis, and emphysema. These medicines have some similarity to adrenaline, and can cause similar side effects: shakiness, racing heart, and a sense of nervousness. These side effects decrease with time. Contact your doctor if these side effects are severe. Do not over-use the medicine. Too-frequent use of the inhaler may make it ineffective. Call your doctor if the inhaler is not controlling your symptoms at the prescribed doses. STEROID MEDICATION: You have been given an injection of or oral medicine of the cortisone/ steroid class. This medication is used to control inflammation or allergy. Andreas t is usually only given for a short period of time, until the acute process subsides. There are usually no side effects from short-term use of cortisone-like medications. Some persons feel an increased sense of well-being and are not sleepy at bedtime. Long-term use of cortisone medications is best avoided, unless required for a severe condition. If your condition does not remit, or relapses after the course of corticosteroid medication, you should consult your physician. USE OF ACETAMINOPHEN (Tylenol): Acetaminophen may be taken for pain relief or fever control. It's much safer than aspirin, offering a wider range of "safe" dosages. It is safe during . Some brand names are Tylenol, Panadol, Datril, Anacin 3, Tempra, and Liquiprin. Acetaminophen can be repeated every four hours. The following are maximum recommended dosages: >89 pounds or adults 650 mg to 900 mg Acetaminophen can be repeated every four hours. Maximum dose not to exceed 4000 mg a day. FOLLOW-UP CARE: If you have been referred to a physician for follow-up care, call the physician s office for an appointment as you were instructed or within the next two days. If you experience worsening or a significant change in your symptoms, notify the physician immediately or return to the Emergency Department at any time for re-evaluation. Prescriptions: Albuterol Sulfate [Ventolin Hfa] 2 puff IH Q4HP PRN #17 gm PRN Reason: Hydrocodone/Acetaminophen [[place] 5-325 Tablet] 1 each PO Q8 PRN #15 tablet PRN Reason: Prednisone [Deltasone 20 mg Tablet] 3 tab PO DAILY 4 Days Forms: Elevated Blood Pressure Referrals: STEPHANI YAO MD [ACTIVE STAFF] - Follow up tomorrow
[2016-09-09 11:11] VITALS: BP 185/107
--- NOTE | 2016-09-10 08:01 | EKG REPORT ---
SEVERITY:- ABNORMAL ECG - SINUS RHYTHM PROBABLE LEFT ATRIAL ABNORMALITY ABNORMAL T, CONSIDER ISCHEMIA, LATERAL LEADS : Confirmed by: Lele Garza MD 10-Sep-2016 08:01:04
== END 2016-09-09 11:20 | disposition home or self-care (01) ==
LOC: ER 07:46
DX: J06.9 Acute upper respiratory infection, unspecified (principal); R07.9 Chest pain, unspecified; I10 Essential (primary) hypertension; R06.2 Wheezing; R05 Cough; R50.9 Fever, unspecified
CPT/HCPCS: 93005; 94640 ×2; 99283; 71020; 93010; J7512; J7620

== ENCOUNTER 2016-11-25 13:23 | Emergency (ER) | payer SELFPAY ==
--- NOTE | 2016-11-25 13:39 | ER Document Report ---
ED Medical Screen (RME) - General Stated Complaint: HEADACHE,ELEVATED BLOOD PRESSURE Time Seen by Provider: 11/25/16 13:37 Notes: Patient presents with severe bilateral headache that started this morning. She states this is a kind of headache she gets when her blood pressure is elevated. Patient states that one month ago her blood pressure medications were changed by her family practice medical doctor. She has been taking them as prescribed. Her initial blood pressure here is approximately 225/130. Patient denies any significant chest pain or shortness of breath. Patient will be expedited to the main emergency department for blood pressure control. TRAVEL OUTSIDE OF THE [place] IN LAST 30 DAYS: No - Related Data Allergies/Adverse Reactions: ondansetron HCl [From Zofran] Allergy (Severe, Verified 09/09/16 07:55) resp distress azithromycin [From Zithromax] Allergy (Verified 09/09/16 07:55) Past Medical History - Past Medical History Cardiac Medical History: Reports: Hx Hypertension, Hx Heart Murmur - with Denies: Hx Atrial Fibrillation, Hx Congestive Heart Failure, Hx Coronary Artery Disease, Hx Heart Attack, Hx Hypercholesterolemia, Hx Peripheral Vascular Disease, Hx Pulmonary Embolism Pulmonary Medical History: Reports: Hx Pneumonia Denies: Hx Asthma, Hx Bronchitis, Hx COPD, Hx Respiratory Failure, Hx Sleep Apnea, Hx Tuberculosis Neurological Medical History: Denies: Hx Seizures Renal/ Medical History: Reports: Hx Ovarian Cysts - x 2. Denies: Hx Peritoneal Dialysis, Hx Pelvic Inflammatory Disease Malignancy Medical History: Denies: Hx Breast Cancer, Hx Cervical Cancer, Hx Leukemia, Hx Lung Cancer, Hx Ovarian Cancer Musculoskeltal Medical History: Reports Hx Arthritis, Denies Hx Fibromyalgia, Denies Hx Muscular Dystrophy Skin Medical History: Denies Hx MRSA Psychiatric Medical History: Reports: Hx Depression Traumatic Medical History: Reports: Hx Fractures - rt knee, rt elbow Infectious Medical History: Denies: Hx HIV Past Surgical History: Reports: Hx Cholecystectomy, Hx Orthopedic Surgery - R knee replacement, elbow, Hx Tubal Ligation. Denies: Hx Appendectomy, Hx Bowel Surgery, Hx Section, Hx Coronary Artery Bypass Graft, Hx Gastric Bypass Surgery, Hx Herniorrhaphy, Hx Hysterectomy, Hx Mastectomy, Hx Pacemaker, Hx Tonsillectomy - Immunizations Hx Diphtheria, Pertussis, Tetanus Vaccination: Yes
[2016-11-25] MEDS ORDERED: OXYCODONE-ACETAMINOPHEN 5-325 MG TABLET PO ONE (14:01)
[2016-11-25] MEDS ORDERED: FUROSEMIDE 20 MG TABLET PO ONE (14:01)
[2016-11-25] MEDS ORDERED: PROMETHAZINE HCL 25 MG TABLET PO ONE (14:01)
[2016-11-25] MEDS ORDERED: SPIRONOLACTONE 25 MG TABLET PO ONE (14:02)
[2016-11-25 14:07] LABS: ABSOLUTE BASOPHILS # (AUTO) 0.1 10^3/uL (0.0-0.2); ABSOLUTE EOSINOPHILS # (AUTO) 0.2 10^3/uL (0.0-0.6); ABSOLUTE MONOCYTES (AUTO) 0.7 10^3/uL (0.1-1.4); ABSOLUTE NEUT (AUTO) 6.9 10^3/uL (1.7-8.2); BASOPHILS % (AUTO) 0.9 % (0-2); HEMATOCRIT 42.3 % (36.0-47.0); HEMOGLOBIN 13.7 g/dL (12.0-15.5); HGB HCT DIFFERENCE -1.2; LYMPHOCYTES % (AUTO) 27.1 % (13-45); MEAN CORPUSCULAR HEMOGLOBIN 23.8 pg (27.0-33.4); MEAN CORPUSCULAR HGB CONC 32.3 g/dL (32.0-36.0); MEAN CORPUSCULAR VOLUME 74 fl (80-97); MONOCYTES % (AUTO) 6.8 % (3-13); RED BLOOD COUNT 5.73 10^6/uL (3.72-5.28); RED CELL DISTRIBUTION WIDTH 16.8 % (11.5-14.0); SEGMENTED NEUTROPHILS % (AUTO) 63.2 % (42-78); WHITE BLOOD COUNT 10.9 10^3/uL (4.0-10.5)
--- NOTE | 2016-11-25 14:07 | ER Document Report ---
ED Blood Pressure Problem - General Chief Complaint: Blood Pressure Problem Stated Complaint: HEADACHE,ELEVATED BLOOD PRESSURE Time Seen by Provider: 11/25/16 13:37 Notes: Patient is complaining of high blood pressure starting this morning when she awakened, along with headache, nausea, and tingling of her fingers and swelling of her fingers. Patient has had headaches like this previously due to elevated blood pressure. She says her headache is located in the occipital region of her head. Has not had any neurologic deficits or loss of consciousness. Has not been sick recently. Denies chest pains, shortness of breath, fever, UTI symptoms. Patient has a history of severe hypertension for which she currently is seen by Dr. Jennifer Weiss at [facility] in [place]. Her current medications for hypertension are: Amlodipine 10 mg twice a day Clonidine 0.3 mg 3 times daily Furosemide 20 mg daily Metoprolol XL 100 mg twice a day Spironolactone 25 mg daily Valsartan 160 mg twice a day Patient says that she saw that doctor in [place] about a month and a half ago and she stopped a couple of medications and added the furosemide, Spironolactone, and valsartan. Previously was a patient of Dr. Yao's TRAVEL OUTSIDE OF THE [place] IN LAST 30 DAYS: No - Related Data Allergies/Adverse Reactions: ondansetron HCl [From Zofran] Allergy (Severe, Verified 09/09/16 07:55) resp distress azithromycin [From Zithromax] Allergy (Verified 09/09/16 07:55) Past Medical History - Social History Smoking Status: Unknown if Ever Smoked Cigarette use (# per day): No Family History: Reviewed & Not Pertinent. denies: CAD Patient has suicidal ideation: No Patient has homicidal ideation: No - Past Medical History Cardiac Medical History: Reports: Hx Hypertension, Hx Heart Murmur - with Pulmonary Medical History: Reports: Hx Pneumonia Renal/ Medical History: Reports: Hx Ovarian Cysts - x 2 Musculoskeltal Medical History: Reports Hx Arthritis Psychiatric Medical History: Reports: Hx Depression Traumatic Medical History: Reports: Hx Fractures - rt knee, rt elbow Past Surgical History: Reports: Hx Cholecystectomy, Hx Orthopedic Surgery - R knee replacement, elbow, Hx Tubal Ligation - Immunizations Hx Diphtheria, Pertussis, Tetanus Vaccination: Yes Hx Pneumococcal Vaccination: 07/06/12 Review of Systems - Review of Systems Notes: REVIEW OF SYSTEMS: CONSTITUTIONAL : Denies fever. EENT: Denies eye, ear, nose or mouth or throat pain or other symptoms. CARDIOVASCULAR: Denies chest pain. RESPIRATORY: Denies cough, chest congestion, or shortness of breath. GASTROINTESTINAL: Denies abdominal pain or nausea, vomiting, or diarrhea. GENITOURINARY: Denies difficulty or painful urinating, urinary frequency, blood in urine. MUSCULOSKELETAL: Denies back or neck pain. Denies joint pain or swelling. SKIN: Denies rash or skin lesions. NEUROLOGICAL: Denies LOC or altered mental status. Has an occipital headache which she has had previously with elevated blood pressures. Denies sensory loss or motor deficits. ALL OTHER SYSTEMS REVIEWED AND NEGATIVE. Physical Exam - Vital signs Vitals: Temp Pulse Resp BP Pulse Ox 97.9 F 112 H 20 226/134 H 94 11/25/16 13:34 11/25/16 13:34 11/25/16 13:34 11/25/16 13:34 11/25/16 13:34 Interpretation: Hypertensive - Notes Notes: PHYSICAL EXAMINATION: GENERAL: Well-appearing, appears uncomfortable, but in no acute distress. HEAD: Atraumatic, normocephalic. EYES: Pupils equal round and reactive to light, extraocular movements intact. ENT: oropharynx clear without exudates. Moist mucous membranes. NECK: Normal range of motion, supple. LUNGS: Breath sounds clear and equal bilaterally. HEART: Regular rate and rhythm without murmurs. ABDOMEN: Soft, nontender. No guarding or rebound. BACK: No tenderness throughout entire back. EXTREMITIES: Normal range of motion without pain. NEUROLOGICAL: Normal speech, normal gait. Normal sensory, motor, and reflex exams. Awake, alert, and oriented x3. Cranial nerves normal. PSYCH: Normal mood, normal affect. SKIN: Warm, dry, no rashes. Course - Re-evaluation Re-evalutation: 11/25/16 19:01 Patient was given additional doses of her Spironolactone and her furosemide. In addition, she was given a Percocet and Phenergan. She said she got some very minimal relief of her to take with these medications. I then gave her a Dilaudid 2 mg and she got significant relief of her headache. Her blood pressure also trended down during this time from 202/125 at my initial evaluation to 183/112 at the time that we decided she is wanted to go home. I called her convention services manager office in [place] and that doctor is out of the country for vacation for a couple of weeks. I was not able to contact another doctor with [facility] nephrology. I spoke with the patient about either admitting her for further control of her blood pressure or letting her try to take some additional medications for her headache to see if that may help with the blood pressure medicines and lowering her blood pressure and she wishes to go home and try that approach. She has her own blood pressure device at home and is very familiar with her medications and how to take them. She was cautioned to return if she develops significantly worsened symptoms or headache or elevation of her blood pressure. - Vital Signs Vital signs: Temp Pulse Resp BP Pulse Ox 97.9 F 112 H 23 H 183/112 H 98 11/25/16 13:34 11/25/16 13:34 11/25/16 18:17 11/25/16 18:17 11/25/16 17:02 - Laboratory Result Diagrams: 11/25/16 13:55 11/25/16 13:55 Laboratory results interpreted by me: 11/25/16 11/25/16 13:55 14:50 WBC 10.9 H RBC 5.73 H MCV 74 L MCH 23.8 L RDW 16.8 H Urine Protein 100 H Ur Leukocyte Esterase SMALL H - Diagnostic Test Radiology reviewed: Image reviewed, Reports reviewed - CT scan of the brain is normal. Discharge - Discharge Clinical Impression: Hypertension Qualifiers: Hypertension type: essential hypertension Qualified Code(s): I10 - Essential ( primary) hypertension Headache Qualifiers: Headache type: unspecified Headache chronicity pattern: episodic headache Intractability: not intractable Qualified Code(s): R51 - Headache Condition: Stable Disposition: HOME, SELF-CARE Additional Instructions: HEADACHE: The physician does not feel that the headache you are experiencing has a serious underlying cause. Most headaches are due to emotional stress, with resultant muscle tension (tension headache). Occasionally, headaches are secondary to changes in the blood vessels of the scalp (vascular headache and migraine headache). Sometimes, a headache is the first symptom of another developing illness, such as a viral infection. You have no evidence of stroke, bleeding, meningitis, or other serious cause of your headache. The treatment of headaches varies with the severity and cause of the pain. Not all headaches need pain shots. In fact, there is evidence that using narcotics for headaches may make them worse in the long run. The physician will determine the therapy that's in your best interest. If you develop a fever, if the headache is different from any you've previously experienced, or if the headache progressively worsens, then call your physician at once or go to the emergency room. HIGH BLOOD PRESSURE REQUIRING TREATMENT: Your blood pressure is high. This is called "hypertension." Today's reading was (normal is less than 140/90). Your history and exam suggest that this is not a temporary problem. You need treatment of your blood pressure. If left untreated, high blood pressure greatly increases your risk of heart attack and stroke. Please don't ignore this problem. If you have blood pressure medicine but aren't using it regularly, start taking it again. Some simple things you can do to help are: Get some aerobic exercise for at least 20 minutes on a daily basis. (See your doctor before beginning any new exercise program.) Eat a low-fat diet. Lose excess weight. Avoid salty foods and avoid adding salt to any of the foods you eat. Avoid diet pills, decongestants, "energizing" herbs, and other medicines that elevate blood pressure. There are many different medicines that treat blood pressure. If your medication causes unpleasant side effects, call your doctor. There are others you can try. Treating hypertension is a life-long investment in your health. CLONIDINE (CATAPRES): Clonidine is blood-pressure medicine. It works in your brain, making the nervous system relax the blood vessels. This medicine can also be used for symptoms of narcotic withdrawal. Clonidine frequently causes dry mouth, drowsiness, and dizziness. These symptoms go away as you continue to use it. Rest for the first couple of days. Don't drive or use machinery until you're back to normal. Never stop clonidine suddenly! There can be a "rebound" severe increase in blood pressure, headache, and agitation. Be sure you always have enough of the medicine. Call the doctor if you have any new symptoms such as skin rash, weakness, severe lightheadedness, chest pain, headache, or depression. HYDROCHLOROTHIAZIDE: Hydrochlorothiazide is a diuretic medication. Diuretics are often called "water pills." The medicine flushes excess salt and water from the body. Diuretics are used for fluid retention (such as heart failure, cirrhosis, or lung disease) and for blood pressure control. Often hydrochlorothiazide is combined with other medicines in the same pill. Most patients prefer to take the medicine in the morning. Hydrochlorothiazide makes extra urine, which can be a problem if you take the pill at night. Diuretics make you lose potassium. Sometimes a good diet with plenty of fruit is enough to replace it. Sometimes a potassium supplement is necessary. Or, hydrochlorothiazide may be combined with medicines that prevent potassium loss. We usually recommend a blood potassium test in a few weeks. Contact your doctor if you develop extreme fatigue, muscle weakness, lethargy, confusion, or palpitations. ANGIOTENSIN CONVERTING ENZYME INHIBITOR MEDICATION: "ANA MARIA inhibitor" drugs are used to lower high blood pressure (or to reduce the "work" of the heart in patients with heart failure). These drugs block an enzyme that makes your blood vessels constrict and makes you retain salt. The result is lower blood pressure. ANA MARIA inhibitors cause few side effects. The most common side effect is a dry nagging cough. Occasionally, lightheadedness may occur while you get used to the medicine. Some patients may retain extra potassium (this is a problem if you are taking potassium supplements, potassium-containing salt substitutes, or a potassium-retaining drug such as triamterene, spironolactone, or amiloride) . If you are taking lithium, the lithium level must be rechecked after starting an ANA MARIA inhibitor. ANA MARIA inhibitors should NOT be used during . Contact the doctor or return if you develop severe lightheadedness, wheeze , weakness, palpitations or other new symptoms. CALCIUM CHANNEL BLOCKERS: A medication of the calcium channel rolando type has been prescribed for you. Examples of this type of medicine are Calan, Isoptin, Procardia, and Cardizem. These medicines have a variety of uses, including prevention of angina attacks, treatment of blood pressure, regulation of certain heart rhythm problems, and prevention of migraine headaches. Calcium channel blockers work by interfering with the flow of calcium in cell membranes. This results in dilation of blood vessels, and slowing of electrical conduction in the heart. A slight dizziness (due to a fall in blood pressure) may occur with the first dose, and sometimes even with later doses. This may make you prone to dizziness if you stand up suddenly. Call the doctor if lightheadedness is severe, or if you develop palpitations, shortness of breath, or any other new or alarming symptoms. BETA BLOCKERS: You have been given a prescription for a beta-rolando medication. This class of drugs is used for many purposes, including angina, high blood pressure , heart rhythm disturbances, tremors, and migraines. The medication works by interfering with the effects of the sympathetic nervous system (the sympathetic system has adrenaline-like effects of constricting blood vessels, increasing heart rate, and increasing blood pressure). This medication is usually well-tolerated. However, some patients have side effects such as fatigue, depression, or dizziness. Persons with asthma may develop wheezing from this medicine. Contact your doctor if you are bothered by any side effects. Do not take any cold or allergy medication without first consulting your doctor. Do not stop the medicine without consulting your doctor, as a "rebound " worsening of your condition can result. ORAL NARCOTIC MEDICATION: You have been given a prescription for pain control. This medication is a narcotic. It's best taken with food, as nausea can result if taken on an empty stomach. Don't operate machinery or drive within six hours of taking this medication. Do not combine this medicine with alcohol, or with any medication which can cause sedation (such as cold tablets or sleeping pills) unless you get permission from the physician. Narcotics tend to cause constipation. If possible, drink plenty of fluids and eat a diet high in fiber and fruits. Benzodiazepines You have been given a benzodiazepine medication. Examples of this type of medicine include Valium, Xanax, Librium, Ativan, and Halcion. Benzodiazepines have many uses. Medications of this type are used for insomnia, anxiety, muscle spasms, seizures, and drug and alcohol withdrawal. You may become very drowsy when you first take the medication. You should not drive or operate machinery while under its effects. Do not combine the medication with alcohol, or with any other medication without talking to your doctor. Do not take if without specific instruction from your oil dispenser. Some benzodiazepines may have harmful interactions with oral antifungal medicines such as ketoconazole, itraconazole, and nefazodone. If you are taking an antifungal medicine, discuss this with your doctor before taking benzodiazepines. Antinausea Medication You have been given a medication to suppress nausea and vomiting. This type of medication can be given as a shot, pill, or suppository. It will usually last for many hours. Pills and shots usually last six to eight hours, suppositories last about 12 hours. For the typical illness, only one or two doses of the medication may be necessary. Mild lightheadedness may occur. This type of medicine can cause drowsiness. Do not drive or operate dangerous machinery while under its influence. Do not mix with alcohol. See your doctor at once if you have muscle spasms or tightness, or uncontrollable motions (particularly of the neck, mouth, or jaw). Persistent vomiting or severe lightheadedness should also be evaluated by the physician. Increase your furosemide to 20 mg twice a day. Increase your Spironolactone 25 mg to twice a day Return if your blood pressure gets as high as it was earlier an you are having continued symptoms. FOLLOW-UP CARE: If you have been referred to a physician for follow-up care, call the physician s office for an appointment as you were instructed or within the next two days. If you experience worsening or a significant change in your symptoms, notify the physician immediately or return to the Emergency Department at any time for re-evaluation. Follow-up with your doctor in [place] next week. Prescriptions: Hydromorphone HCl [Dilaudid 2 mg Tablet] 2 mg PO Q4HP PRN #12 tablet PRN Reason: Lorazepam [Ativan 1 mg Tablet] 1 - 2 mg PO Q4 PRN #15 tab PRN Reason: Promethazine HCl [Phenergan 25 mg Tablet] 1 - 2 tab PO Q6H PRN #15 tablet PRN Reason: Referrals: STEPHANI YAO MD [Primary Care Provider] - Follow up as needed
[2016-11-25 14:27] LABS: ALANINE AMINOTRANSFERASE 26 U/L (9-52); ALKALINE PHOSPHATASE 90 U/L (38-126); ANION GAP 10 (5-19); ASPARTATE AMINO TRANSFERASE 17 U/L (14-36); BILIRUBIN,DIRECT 0.3 mg/dL (0.0-0.4); BILIRUBIN,TOTAL 0.3 mg/dL (0.2-1.3); BLOOD UREA NITROGEN 18 mg/dL (7-20); CALCIUM 8.9 mg/dL (8.4-10.2); CARBON DIOXIDE 27 mmol/L (22-30); CHLORIDE 103 mmol/L (98-107); CREATININE RESULT 0.67 mg/dL (0.52-1.25); GLUCOSE 92 mg/dL (75-110); POTASSIUM 4.2 mmol/L (3.6-5.0); SODIUM 139.9 mmol/L (137-145); TOTAL PROTEIN 7.3 g/dL (6.3-8.2)
--- NOTE | 2016-11-25 14:50 | RADIOLOGY REPORT (SQ) ---
EXAM DESCRIPTION: CT HEAD WITHOUT COMPLETED DATE/TIME: 11/25/2016 2:40 pm REASON FOR STUDY: Headache with severe hypertension. COMPARISON: 08/05/2016 TECHNIQUE: Axial images acquired through the brain without intravenous contrast. Images reviewed wi th bone, brain and subdural windows. Images stored on PACS. All CT scanners at this facility use dose modulation, iterative reconstruction, and/or weight based d osing when appropriate to reduce radiation dose to as low as reasonably achievable (ALARA). [facility]: Dose Right [facility]: CareDose [facility]: Dose Right [facility]: Teradose 4D [facility]: Smart Juristat RADIATION DOSE: Up-to-date CT equipment and radiation dose reduction techniques were employed. CTDIv ol: 63.3 mGy. DLP: 1163 mGy-cm. mGy. LIMITATIONS: None. FINDINGS: VENTRICLES: Normal size and contour. CEREBRUM: No masses. No hemorrhage. No midline shift. Normal monroy/white matter differentiation. N o evidence for acute infarction. CEREBELLUM: No masses. No hemorrhage. No alteration of density. No evidence for acute infarction. EXTRAAXIAL SPACES: No fluid collections. No masses. ORBITS AND GLOBE: No intra- or extraconal masses. Normal contour of globe without masses. CALVARIUM: No fracture. PARANASAL SINUSES: No fluid or mucosal thickening. SOFT TISSUES: No mass or hematoma. OTHER: No other significant finding. IMPRESSION: NORMAL BRAIN CT WITHOUT CONTRAST. TECHNICAL DOCUMENTATION: JOB ID: [id number] Quality ID # [id number]: Final reports with documentation of one or more dose reduction techniques (e.g., Au tomated exposure control, adjustment of the mA and/or kV according to patient size, use of iterative reconstruction technique) 2010 [employer]- All Rights Reserved
[2016-11-25 15:19] LABS: APPEARANCE,URINE CLOUDY; BILIRUBIN,URINE NEGATIVE (NEGATIVE); GLUCOSE, URINE NEGATIVE (NEGATIVE); KETONES,URINE NEGATIVE (NEGATIVE); LEUKOCYTE ESTERASE,URINE SMALL (NEGATIVE); NITRITE,URINE NEGATIVE (NEGATIVE); PROTEIN,URINE 100 mg/dL (NEGATIVE); URINE SPECIFIC GRAVITY 1.026; UROBILINOGEN,URINE NEGATIVE mg/dL (<2.0)
[2016-11-25] MEDS ORDERED: HYDROMORPHONE HCL 2 MG TABLET PO ONE (17:15)
[2016-11-25 18:18] VITALS: BP 183/112
== END 2016-11-25 18:52 | disposition home or self-care (01) ==
LOC: ER 13:23
DX: I10 Essential (primary) hypertension (principal); Z79.899 Other long term (current) drug therapy; R51 Headache; R11.0 Nausea; R20.2 Paresthesia of skin; M79.89 Other specified soft tissue disorders; Z88.8 Allergy status to other drugs, medicaments and biological substances; Z88.1 Allergy status to other antibiotic agents
CPT/HCPCS: 36415; 70450; 80053; 81001; 85025; 99284

== ENCOUNTER 2016-12-07 12:27 | Emergency (ER) | payer SELFPAY ==
[2016-12-07] MEDS ORDERED: LABETALOL HCL INJ 20 MG/4 ML DISP.SYRIN IV ONE (12:58)
--- NOTE | 2016-12-07 13:01 | ER Document Report ---
ED Medical Screen (RME) - General Chief Complaint: Hyperventilation Stated Complaint: BLOOD PRESSURE PROBLEM Time Seen by Provider: 12/07/16 12:55 Notes: Patient states she is here for blood pressure control. Patient was seen here 2 days ago and given multiple oral medications which eventually brought the blood pressure down to approximately 180/110. Today blood pressure was back up to 230 systolic. She did try the oral Dilaudid that she was given but this did not help with the headache. She also states she took all of her blood pressure medications this morning with no relief. 2 of her blood pressure medications were just recently increased 2 days ago. Patient denies any significant chest pain or shortness of breath. Patient denies drug use. Is followed by nephrology. TRAVEL OUTSIDE OF THE [place] IN LAST 30 DAYS: No - Related Data Allergies/Adverse Reactions: ondansetron HCl [From Zofran] Allergy (Severe, Verified 12/07/16 12:33) resp distress azithromycin [From Zithromax] Allergy (Verified 12/07/16 12:33) Past Medical History - Past Medical History Cardiac Medical History: Reports: Hx Hypertension, Hx Heart Murmur - with Denies: Hx Atrial Fibrillation, Hx Congestive Heart Failure, Hx Coronary Artery Disease, Hx Heart Attack, Hx Hypercholesterolemia, Hx Peripheral Vascular Disease, Hx Pulmonary Embolism Pulmonary Medical History: Reports: Hx Pneumonia Denies: Hx Asthma, Hx Bronchitis, Hx COPD, Hx Respiratory Failure, Hx Sleep Apnea, Hx Tuberculosis Neurological Medical History: Denies: Hx Seizures Renal/ Medical History: Reports: Hx Ovarian Cysts - x 2. Denies: Hx Peritoneal Dialysis, Hx Pelvic Inflammatory Disease Malignancy Medical History: Denies: Hx Breast Cancer, Hx Cervical Cancer, Hx Leukemia, Hx Lung Cancer, Hx Ovarian Cancer Musculoskeltal Medical History: Reports Hx Arthritis, Denies Hx Fibromyalgia, Denies Hx Muscular Dystrophy Skin Medical History: Denies Hx MRSA Psychiatric Medical History: Reports: Hx Depression Traumatic Medical History: Reports: Hx Fractures - rt knee, rt elbow Infectious Medical History: Denies: Hx HIV Past Surgical History: Reports: Hx Cholecystectomy, Hx Orthopedic Surgery - R knee replacement, elbow, Hx Tubal Ligation. Denies: Hx Appendectomy, Hx Bowel Surgery, Hx Section, Hx Coronary Artery Bypass Graft, Hx Gastric Bypass Surgery, Hx Herniorrhaphy, Hx Hysterectomy, Hx Mastectomy, Hx Pacemaker, Hx Tonsillectomy - Immunizations Hx Diphtheria, Pertussis, Tetanus Vaccination: Yes Physical Exam - Vital signs Vitals: BP 218/128 H 12/07/16 12:52 Course - Vital Signs Vital signs: Temp Pulse Resp BP Pulse Ox 218/128 H 12/07/16 12:52
[2016-12-07] MEDS ORDERED: DIPHENHYDRAMINE HCL 50 MG/ML VIAL IV ONE (13:29)
[2016-12-07] MEDS ORDERED: PROCHLORPERAZINE EDISYLATE INJ 10 MG/2 ML VIAL IV ONE (13:29)
--- NOTE | 2016-12-07 13:29 | ER Document Report ---
ED General - General Chief Complaint: Hyperventilation Stated Complaint: BLOOD PRESSURE PROBLEM Time Seen by Provider: 12/07/16 12:55 Mode of Arrival: Ambulatory Information source: Patient Notes: 46-year-old female history of hypertension who is on extensive medications which she states she has been taking appropriately presents with complaints of a headache. Patient denies any nausea or vomiting. Admits to headaches. Patient has been seen here multiple times for similar episodes. Pt is seen by Dr. Jennifer Weiss at [facility] in [place]. Her current medications for hypertension are: Amlodipine 10 mg twice a day Clonidine 0.3 mg 3 times daily Furosemide 20 mg daily Metoprolol XL 100 mg twice a day Spironolactone 25 mg daily Valsartan 160 mg twice a day TRAVEL OUTSIDE OF THE [place] IN LAST 30 DAYS: No - HPI Onset: Other Onset/Duration: Intermittent Quality of pain: Pressure Severity: Mild Pain Level: 1 Associated symptoms: Headache Exacerbated by: Denies Relieved by: Denies Similar symptoms previously: Yes Recently seen / treated by doctor: Yes - Related Data Allergies/Adverse Reactions: ondansetron HCl [From Zofran] Allergy (Severe, Verified 12/07/16 12:33) resp distress azithromycin [From Zithromax] Allergy (Verified 12/07/16 12:33) Past Medical History - Social History Smoking Status: Never Smoker Cigarette use (# per day): No Chew tobacco use (# tins/day): No Smoking Education Provided: No Family History: Reviewed & Not Pertinent. denies: CAD - Past Medical History Cardiac Medical History: Reports: Hx Hypertension, Hx Heart Murmur - with Denies: Hx Atrial Fibrillation, Hx Congestive Heart Failure, Hx Coronary Artery Disease, Hx Heart Attack, Hx Hypercholesterolemia, Hx Peripheral Vascular Disease, Hx Pulmonary Embolism Pulmonary Medical History: Reports: Hx Pneumonia Denies: Hx Asthma, Hx Bronchitis, Hx COPD, Hx Respiratory Failure, Hx Sleep Apnea, Hx Tuberculosis Neurological Medical History: Denies: Hx Seizures Renal/ Medical History: Reports: Hx Ovarian Cysts - x 2. Denies: Hx Peritoneal Dialysis, Hx Pelvic Inflammatory Disease Malignancy Medical History: Denies: Hx Breast Cancer, Hx Cervical Cancer, Hx Leukemia, Hx Lung Cancer, Hx Ovarian Cancer Musculoskeltal Medical History: Reports Hx Arthritis, Denies Hx Fibromyalgia, Denies Hx Muscular Dystrophy Skin Medical History: Denies Hx MRSA Psychiatric Medical History: Reports: Hx Depression Traumatic Medical History: Reports: Hx Fractures - rt knee, rt elbow Infectious Medical History: Denies: Hx HIV Past Surgical History: Reports: Hx Cholecystectomy, Hx Orthopedic Surgery - R knee replacement, elbow, Hx Tubal Ligation. Denies: Hx Appendectomy, Hx Bowel Surgery, Hx Section, Hx Coronary Artery Bypass Graft, Hx Gastric Bypass Surgery, Hx Herniorrhaphy, Hx Hysterectomy, Hx Mastectomy, Hx Pacemaker, Hx Tonsillectomy - Immunizations Hx Diphtheria, Pertussis, Tetanus Vaccination: Yes Hx Pneumococcal Vaccination: 07/06/12 Review of Systems - Review of Systems Notes: REVIEW OF SYSTEMS: CONSTITUTIONAL : Denies fever, chills, or sweats. Denies recent illness. EENT: Denies eye, ear, throat, or mouth pain or symptoms. Denies nasal or sinus congestion or discharge. Denies throat, tongue, or mouth swelling or difficulty swallowing. CARDIOVASCULAR: Denies chest pain. Denies palpitations or racing or irregular heart beat. Denies ankle edema. RESPIRATORY: Denies cough, cold, or chest congestion. Denies shortness of breath, difficulty breathing, or wheezing. GASTROINTESTINAL: Denies abdominal pain or distention. Denies nausea, vomiting , or diarrhea. Denies blood in vomitus, stools, or per rectum. Denies black, tarry stools. Denies constipation. GENITOURINARY: Denies difficulty urinating, painful urination, burning, frequency, blood in urine, or discharge. FEMALE GENITOURINARY: Denies vaginal bleeding, heavy or abnormal periods, irregular periods. Denies vaginal discharge or odor. MUSCULOSKELETAL: Denies back or neck pain or stiffness. Denies joint pain or swelling. SKIN: Denies rash, lesions or sores. HEMATOLOGIC : Denies easy bruising or bleeding. LYMPHATIC: Denies swollen, enlarged glands. NEUROLOGICAL: Admits to headache PSYCHIATRIC: Denies anxiety or stress. Denies depression, suicidal ideation, or homicidal ideation. ALL OTHER SYSTEMS REVIEWED AND NEGATIVE. PHYSICAL EXAMINATION: GENERAL: Well-appearing, well-nourished and in no acute distress. Patient is noted to be hypertensive HEAD: Atraumatic, normocephalic. EYES: Pupils equal round and reactive to light, extraocular movements intact, conjunctiva are normal. ENT: Nares patent, oropharynx clear without exudates. Moist mucous membranes. NECK: Normal range of motion, supple without lymphadenopathy LUNGS: Breath sounds clear to auscultation bilaterally and equal. No wheezes rales or rhonchi. HEART: Regular rate and rhythm without murmurs ABDOMEN: Soft, nontender, nondistended abdomen. No guarding, no rebound. No masses appreciated. Female : deferred Musculoskeletal: Normal range of motion, no pitting or edema. No cyanosis. NEUROLOGICAL: Cranial nerves grossly intact. Normal speech, normal gait. Normal sensory, motor exams PSYCH: Normal mood, normal affect. SKIN: Warm, Dry, normal turgor, no rashes or lesions noted. Dictation was performed using [employer] voice recognition software Physical Exam - Vital signs Vitals: Temp Pulse Resp BP Pulse Ox 98.7 F 110 H 20 231/149 H 93 12/07/16 12:34 12/07/16 12:34 12/07/16 12:34 12/07/16 12:34 12/07/16 12:34 Course - Re-evaluation Re-evalutation: 12/07/16 13:29 Patient has been noted to be here multiple times for uncontrolled hypertension, lab work has been ordered. Patient denies any neurological deficits therefore do not believe a CT head is appropriate at this time. 12/07/16 15:20 Patient was given labetalolBlood pressures improved significantly, she was also given Benadryl Compazine for headache. On evaluation patient states she feels much better wishes to be discharged home. I will discharge her with understand that she must return immediately if there are any other concerns. Patient is very happy with this plan After performing a Medical Screening Examination, I estimate there is LOW risk for ACUTE GLAUCOMA, TEMPORAL ARTERITIS, MENINGITIS, INCRANIAL HEMORRHAGE, or ISCHEMIC STROKE thus I consider the discharge disposition reasonable. I have reevaluated this patient multiple times and no significant life threatening changes are noted. The patient and I have discussed the diagnosis and risks, and we agree with discharging home with close follow-up with the understanding that symptoms and presentations can change. We also discussed returning to the Emergency Department immediately if new or worsening symptoms occur. We have discussed the symptoms which are most concerning (e.g., changing or worsening symptoms, new numbness or weakness, vomiting, fever) that necessitate immediate return. - Vital Signs Vital signs: Temp Pulse Resp BP Pulse Ox 98.7 F 110 H 20 151/93 H 95 12/07/16 12:34 12/07/16 12:34 12/07/16 14:01 12/07/16 14:01 12/07/16 14:01 - Laboratory Result Diagrams: 12/07/16 13:05 12/07/16 13:05 Laboratory results interpreted by me: 12/07/16 12/07/16 13:05 13:05 RBC 5.36 H MCV 74 L MCH 24.3 L RDW 16.7 H Urine Protein 100 H Urine Blood LARGE H Ur Leukocyte Esterase TRACE H Critical Care Note - Critical Care Note Total time excluding time spent on procedures (mins): 32 Comments: minutes of critical care time spent in direct contact evaluating and reevaluating the patient, treating symptoms, reviewing labs and studies and speaking with family and consultants excluding any procedures Discharge - Discharge Clinical Impression: Hypertensive urgency Hypertension Qualifiers: Hypertension type: essential hypertension Qualified Code(s): I10 - Essential ( primary) hypertension Headache Qualifiers: Headache type: unspecified Headache chronicity pattern: acute headache Intractability: not intractable Qualified Code(s): R51 - Headache Condition: Stable Disposition: HOME, SELF-CARE Instructions: High Blood Pressure, Requiring Treatment ([facility]), Headache ([facility]) Additional Instructions: You were given 20mg of labetolol which improved your blood pressure Return immediately if there are any other concerns Referrals: STEPHANI YAO MD [Primary Care Provider] - Follow up as needed
[2016-12-07 13:33] LABS: APPEARANCE,URINE SLIGHTLY-CLOUDY; BILIRUBIN,URINE NEGATIVE (NEGATIVE); GLUCOSE, URINE NEGATIVE (NEGATIVE); KETONES,URINE NEGATIVE (NEGATIVE); LEUKOCYTE ESTERASE,URINE TRACE (NEGATIVE); NITRITE,URINE NEGATIVE (NEGATIVE); PROTEIN,URINE 100 mg/dL (NEGATIVE); URINE SPECIFIC GRAVITY 1.013; UROBILINOGEN,URINE NEGATIVE mg/dL (<2.0)
[2016-12-07 13:38] LABS: ABSOLUTE BASOPHILS # (AUTO) 0.1 10^3/uL (0.0-0.2); ABSOLUTE EOSINOPHILS # (AUTO) 0.2 10^3/uL (0.0-0.6); ABSOLUTE LYMPHOCYTES (AUTO) 2.6 10^3/uL (0.5-4.7); ABSOLUTE MONOCYTES (AUTO) 0.6 10^3/uL (0.1-1.4); ABSOLUTE NEUT (AUTO) 5.1 10^3/uL (1.7-8.2); BASOPHILS % (AUTO) 0.7 % (0-2); EOSINOPHILS % (AUTO) 2.3 % (0-6); HEMATOCRIT 39.5 % (36.0-47.0); HGB HCT DIFFERENCE -0.5; MEAN CORPUSCULAR HEMOGLOBIN 24.3 pg (27.0-33.4); MEAN CORPUSCULAR HGB CONC 32.9 g/dL (32.0-36.0); MEAN CORPUSCULAR VOLUME 74 fl (80-97); MONOCYTES % (AUTO) 6.6 % (3-13); RED BLOOD COUNT 5.36 10^6/uL (3.72-5.28); RED CELL DISTRIBUTION WIDTH 16.7 % (11.5-14.0); SEGMENTED NEUTROPHILS % (AUTO) 59.4 % (42-78); WHITE BLOOD COUNT 8.5 10^3/uL (4.0-10.5)
[2016-12-07 13:46] LABS: URINE BARBITURATES SCREEN NEGATIVE; URINE METHADONE SCREEN NEGATIVE; URINE OPIATES LOW NEGATIVE; URINE PHENCYCLIDINE SCREEN NEGATIVE
[2016-12-07 13:54] LABS: ALANINE AMINOTRANSFERASE 28 U/L (9-52); ALKALINE PHOSPHATASE 102 U/L (38-126); ANION GAP 10 (5-19); ASPARTATE AMINO TRANSFERASE 18 U/L (14-36); BILIRUBIN,DIRECT 0.3 mg/dL (0.0-0.4); BILIRUBIN,TOTAL 0.4 mg/dL (0.2-1.3); BLOOD UREA NITROGEN 15 mg/dL (7-20); CALCIUM 8.7 mg/dL (8.4-10.2); CARBON DIOXIDE 28 mmol/L (22-30); CHLORIDE 102 mmol/L (98-107); CREATININE RESULT 0.73 mg/dL (0.52-1.25); GLUCOSE 89 mg/dL (75-110); POTASSIUM 4.4 mmol/L (3.6-5.0); SODIUM 140.2 mmol/L (137-145); TOTAL PROTEIN 7.3 g/dL (6.3-8.2)
[2016-12-07 14:29] VITALS: BP 151/93
== END 2016-12-07 14:55 | disposition home or self-care (01) ==
LOC: ER 12:27
DX: I16.0 Hypertensive urgency (principal); I10 Essential (primary) hypertension; R51 Headache; Z79.899 Other long term (current) drug therapy; Z88.8 Allergy status to other drugs, medicaments and biological substances; Z88.1 Allergy status to other antibiotic agents
CPT/HCPCS: 99285; 36415; 85025; 80053; 81001; 80307; J1200; J3490; J0780

== ENCOUNTER 2017-01-13 08:45 | Emergency (ER) | payer SELFPAY ==
[2017-01-13] MEDS ORDERED: LABETALOL HCL INJ 20 MG/4 ML DISP.SYRIN IV ONE (09:12)
--- NOTE | 2017-01-13 09:13 | ER Document Report ---
ED Medical Screen (RME) - General Chief Complaint: High Blood Pressure Stated Complaint: BLOOD PRESSURE PROBLEM Time Seen by Provider: 01/13/17 09:11 Notes: Patient presents stating that she feels "bad". She states her blood pressure is elevated. She states she has felt like this before when her blood pressures been elevated. She is on multiple medications for blood pressure states she has had an extensive workup with her unable to diagnose why her blood pressure is still high. At triage blood pressure was significantly different in the right arm versus the left arm. However patient denies any chest pain or shortness of breath. She complains only of headache. TRAVEL OUTSIDE OF THE [place] IN LAST 30 DAYS: No - Related Data Allergies/Adverse Reactions: ondansetron HCl [From Zofran] Allergy (Severe, Verified 01/13/17 08:46) resp distress azithromycin [From Zithromax] Allergy (Verified 01/13/17 08:46) Past Medical History - Social History Frequency of alcohol use: None Drug Abuse: None - Past Medical History Cardiac Medical History: Reports: Hx Hypertension, Hx Heart Murmur - with Denies: Hx Atrial Fibrillation, Hx Congestive Heart Failure, Hx Coronary Artery Disease, Hx Heart Attack, Hx Hypercholesterolemia, Hx Peripheral Vascular Disease, Hx Pulmonary Embolism Pulmonary Medical History: Reports: Hx Pneumonia Denies: Hx Asthma, Hx Bronchitis, Hx COPD, Hx Respiratory Failure, Hx Sleep Apnea, Hx Tuberculosis Neurological Medical History: Denies: Hx Seizures Renal/ Medical History: Reports: Hx Ovarian Cysts - x 2. Denies: Hx Peritoneal Dialysis, Hx Pelvic Inflammatory Disease Malignancy Medical History: Denies: Hx Breast Cancer, Hx Cervical Cancer, Hx Leukemia, Hx Lung Cancer, Hx Ovarian Cancer Musculoskeltal Medical History: Reports Hx Arthritis, Denies Hx Fibromyalgia, Denies Hx Muscular Dystrophy Skin Medical History: Denies Hx MRSA Psychiatric Medical History: Reports: Hx Depression Traumatic Medical History: Reports: Hx Fractures - rt knee, rt elbow Infectious Medical History: Denies: Hx HIV Past Surgical History: Reports: Hx Cholecystectomy, Hx Orthopedic Surgery - R knee replacement, elbow, Hx Tubal Ligation. Denies: Hx Appendectomy, Hx Bowel Surgery, Hx Section, Hx Coronary Artery Bypass Graft, Hx Gastric Bypass Surgery, Hx Herniorrhaphy, Hx Hysterectomy, Hx Mastectomy, Hx Pacemaker, Hx Tonsillectomy - Immunizations Hx Diphtheria, Pertussis, Tetanus Vaccination: Yes Physical Exam - Vital signs Vitals: Temp Pulse Resp BP Pulse Ox 97.6 F 114 H 22 H 115/112 H 95 01/13/17 08:46 01/13/17 08:46 01/13/17 08:46 01/13/17 08:46 01/13/17 08:46 Course - Vital Signs Vital signs: Temp Pulse Resp BP Pulse Ox 97.6 F 114 H 22 H 155/112 H 95 01/13/17 08:50 01/13/17 08:50 01/13/17 08:50 01/13/17 08:50 01/13/17 08:50
[2017-01-13] MEDS ORDERED: PROCHLORPERAZINE EDISYLATE INJ 10 MG/2 ML VIAL IV ONE (09:39)
[2017-01-13] MEDS ORDERED: DIPHENHYDRAMINE HCL 50 MG/ML VIAL IV ONE (09:39)
[2017-01-13 09:46] LABS: ABSOLUTE BASOPHILS # (AUTO) 0.1 10^3/uL (0.0-0.2); ABSOLUTE EOSINOPHILS # (AUTO) 0.1 10^3/uL (0.0-0.6); ABSOLUTE LYMPHOCYTES (AUTO) 1.9 10^3/uL (0.5-4.7); ABSOLUTE MONOCYTES (AUTO) 0.4 10^3/uL (0.1-1.4); ABSOLUTE NEUT (AUTO) 4.9 10^3/uL (1.7-8.2); BASOPHILS % (AUTO) 0.8 % (0-2); EOSINOPHILS % (AUTO) 1.9 % (0-6); HEMATOCRIT 44.3 % (36.0-47.0); HEMOGLOBIN 13.9 g/dL (12.0-15.5); HGB HCT DIFFERENCE -2.6; MEAN CORPUSCULAR HEMOGLOBIN 23.1 pg (27.0-33.4); MEAN CORPUSCULAR HGB CONC 31.4 g/dL (32.0-36.0); MEAN CORPUSCULAR VOLUME 74 fl (80-97); MONOCYTES % (AUTO) 5.9 % (3-13); RED BLOOD COUNT 6.01 10^6/uL (3.72-5.28); RED CELL DISTRIBUTION WIDTH 16.6 % (11.5-14.0); SEGMENTED NEUTROPHILS % (AUTO) 65.4 % (42-78); WHITE BLOOD COUNT 7.5 10^3/uL (4.0-10.5)
--- NOTE | 2017-01-13 09:47 | ER Document Report ---
ED Blood Pressure Problem - General Chief Complaint: High Blood Pressure Stated Complaint: BLOOD PRESSURE PROBLEM Time Seen by Provider: 01/13/17 09:11 Mode of Arrival: Ambulatory Information source: Patient, [facility] Records Notes: This 46-year-old female patient comes emergency room complaining of posterior cervical headache with blood pressure extremely high. There is nausea vomiting associated with this. She reports it started about 7 AM this morning. The patient denies any chest pain with this. She does report yesterday evening it felt like her heart was skipping beats. She was last seen here 5 weeks ago for the same problem. She has a long history of blood pressure which is quite difficult to control and is followed by Dr. Jennifer Weiss at [facility] in [place]. She reports that they have never identified why her pressure remains so difficult to control. They have never identified the triggers for spikes in her blood pressure such as today. She reports her blood pressure normally runs about 160/100. At triage her blood pressure was 243/120. Her medications for hypertension are: Amlodipine 10 mg twice a day Clonidine 0.3 mg 3 times a day Furosemide 20 mg daily Metoprolol XL 100 mg twice a day Spironolactone 25 mg daily Valsartan 160 mg twice a day She has not missed any doses of her medication. TRAVEL OUTSIDE OF THE [place] IN LAST 30 DAYS: No - Related Data Allergies/Adverse Reactions: ondansetron HCl [From Zofran] Allergy (Severe, Verified 01/13/17 08:46) resp distress azithromycin [From Zithromax] Allergy (Verified 01/13/17 08:46) Past Medical History - General Information source: Patient, [facility] Records - Social History Smoking Status: Never Smoker Cigarette use (# per day): No Chew tobacco use (# tins/day): No Smoking Education Provided: No Frequency of alcohol use: None Drug Abuse: None Occupation: Unemployed Lives with: Family Family History: CAD - Father, Hypertension - Father Patient has suicidal ideation: No Patient has homicidal ideation: No - Past Medical History Cardiac Medical History: Reports: Hx Hypertension, Hx Heart Murmur - with Pulmonary Medical History: Reports: Hx Pneumonia EENT Medical History: Reports: None Neurological Medical History: Reports: None Endocrine Medical History: Reports: None Renal/ Medical History: Reports: Hx Ovarian Cysts - x 2 GI Medical History: Reports: None Musculoskeltal Medical History: Reports Hx Arthritis Psychiatric Medical History: Reports: Hx Depression Traumatic Medical History: Reports: Hx Fractures - rt knee, rt elbow Past Surgical History: Reports: Hx Cholecystectomy, Hx Orthopedic Surgery - R knee replacement, elbow, Hx Tubal Ligation - Immunizations Hx Diphtheria, Pertussis, Tetanus Vaccination: Yes Hx Pneumococcal Vaccination: 07/06/12 Review of Systems - Review of Systems Constitutional: No symptoms reported EENT: No symptoms reported Cardiovascular: No symptoms reported. denies: Chest pain Respiratory: No symptoms reported Gastrointestinal: No symptoms reported Genitourinary: No symptoms reported Female Genitourinary: No symptoms reported Musculoskeletal: No symptoms reported Skin: No symptoms reported Hematologic/Lymphatic: No symptoms reported Neurological/Psychological: Depression, Headaches Physical Exam - Vital signs Vitals: Temp Pulse Resp Pulse Ox 97.6 F 114 H 22 H 95 01/13/17 08:46 01/13/17 08:46 01/13/17 08:46 01/13/17 08:46 Interpretation: Hypertensive - General General appearance: Alert In distress: Mild - Nausea with headache - HEENT Head: Normocephalic, Atraumatic Eyes: Normal Pupils: PERRL Neck: Other - Posterior cervical muscles are tender to palpate more on the left than the right. Neck is supple with good range of motion. - Respiratory Respiratory status: No respiratory distress Breath sounds: Normal - Cardiovascular Rhythm: Regular Heart sounds: Normal auscultation Murmur: No - Abdominal Inspection: Morbidly Obese Bowel sounds: Normal Tenderness: Nontender - Back Back: Normal - Extremities General upper extremity: Normal inspection General lower extremity: Normal inspection - Neurological Neuro grossly intact: Yes - Psychological Associated symptoms: Normal affect, Normal mood - Skin Skin Temperature: Warm Skin Moisture: Dry Skin Color: Normal Course - Re-evaluation Re-evalutation: 01/13/17 10:47 Patient is feeling much better, she has been napping. She states her headache is improved but not completely gone. Her blood pressure is much improved. She does feel comfortable going home and continue her regular medications and resting. - Vital Signs Vital signs: Temp Pulse Resp BP Pulse Ox 97.6 F 114 H 21 H 182/112 H 98 01/13/17 08:50 01/13/17 08:50 01/13/17 10:21 01/13/17 10:21 01/13/17 10:21 - Laboratory Result Diagrams: 01/13/17 09:20 01/13/17 09:20 Laboratory results interpreted by me: 01/13/17 09:20 RBC 6.01 H MCV 74 L MCH 23.1 L MCHC 31.4 L RDW 16.6 H - EKG Interpretation by Me EKG shows normal: Sinus rhythm, [place], Intervals, QRS Complexes. abnormal: ST-T Waves - Lateral T abnormalities Rate: Normal - 91 Rhythm: NSR When compared to previous EKG there are: No significant change Discharge - Discharge Clinical Impression: Tension-type headache Qualifiers: Headache chronicity pattern: acute headache Intractability: not intractable Qualified Code(s): G44.209 - Tension-type headache, unspecified, not intractable Hypertension Qualifiers: Hypertension type: essential hypertension Qualified Code(s): I10 - Essential ( primary) hypertension Nausea and vomiting Qualifiers: Vomiting type: unspecified Vomiting Intractability: non-intractable Qualified Code(s): R11.2 - Nausea with vomiting, unspecified Condition: Stable Disposition: HOME, SELF-CARE Additional Instructions: Tension Headache: Your problem has been diagnosed as muscle tension headache. This very common type of headache occurs because of tightness in the muscles of the head and neck. The cause may be neck or jaw joint problems, but most commonly the cause is emotional stress. The headache may last hours or days. The treatment of uncomplicated tension headaches is rest and pain medication. Often, the newer antiinflammatory pain medications are prescribed, as these also decrease the irritability of the painful tissues. Muscle relaxers , cold packs, or warm packs are sometimes helpful. Anti-anxiety medication or narcotics are sometimes needed temporarily, but are best avoided in the long run. Your doctor has evaluated your headache problem, and finds no evidence of a serious health problem as a cause for the headache. If your headache becomes more severe, or if new symptoms develop (such as fever, stiff neck, vomiting, or decreasing alertness) you should be re-examined by the physician. High Blood Pressure: Your blood pressure is high. If left uncontrolled, high blood pressure greatly increases your risk of heart attack and stroke. Some simple things you can do to help are: Get some aerobic exercise for at least 20 minutes on a daily basis. (See your doctor before beginning any new exercise program.) Eat a low-fat diet. Lose excess weight. Avoid salty foods and avoid adding salt to any of the foods you eat. Avoid diet pills, decongestants, "energizing" herbs, and other medicines that elevate blood pressure. There are many different medicines that treat blood pressure. If your medication causes unpleasant side effects, call your doctor. There are others you can try. Treating hypertension is a life-long investment in your health. Continue your regular medications. Try ice packs and/or moist heat to the painful posterior neck muscles. Rest. Follow-up with your doctor if not improving. RETURN TO THE EMERGENCY ROOM IF ANY NEW OR WORSENING SYMPTOMS. Referrals: STEPHANI YAO MD [Primary Care Provider] - Follow up as needed
[2017-01-13 09:55] LABS: ADD ON TESTING BLD IN LAB ACKNOWLEDGE
[2017-01-13 10:00] LABS: ALANINE AMINOTRANSFERASE 40 U/L (9-52); ALBUMIN 4.3 g/dL (3.5-5.0); ALKALINE PHOSPHATASE 114 U/L (38-126); ANION GAP 9 (5-19); ASPARTATE AMINO TRANSFERASE 35 U/L (14-36); BILIRUBIN,DIRECT 0.3 mg/dL (0.0-0.4); BILIRUBIN,TOTAL 0.8 mg/dL (0.2-1.3); BLOOD UREA NITROGEN 15 mg/dL (7-20); CALCIUM 9.5 mg/dL (8.4-10.2); CARBON DIOXIDE 29 mmol/L (22-30); CHLORIDE 103 mmol/L (98-107); CREATININE RESULT 0.64 mg/dL (0.52-1.25); GLUCOSE 110 mg/dL (75-110); POTASSIUM 4.1 mmol/L (3.6-5.0); SODIUM 141.3 mmol/L (137-145); TOTAL PROTEIN 7.5 g/dL (6.3-8.2)
[2017-01-13 10:14] LABS: CREATINE KINASE 60 U/L (30-135)
[2017-01-13 10:53] VITALS: BP 165/60
--- NOTE | 2017-01-13 13:48 | EKG REPORT ---
SEVERITY:- ABNORMAL ECG - SINUS RHYTHM ABNORMAL T, CONSIDER ISCHEMIA, LATERAL LEADS : Confirmed by: Lele Garza MD 13-Jan-2017 13:48:07
== END 2017-01-13 11:03 | disposition home or self-care (01) ==
LOC: ER 08:45
DX: G44.209 Tension-type headache, unspecified, not intractable (principal); I10 Essential (primary) hypertension; R11.2 Nausea with vomiting, unspecified; Z96.651 Presence of right artificial knee joint; Z98.51 Tubal ligation status; Z90.49 Acquired absence of other specified parts of digestive tract
CPT/HCPCS: 93005; 99284; 96374; 96375; 36415; 82550; 85025; 80053; 84484; 93010; J1200; J3490; J0780

== ENCOUNTER 2017-04-17 09:17 | Observation (INO) | payer OTHER ==
--- NOTE | 2017-04-17 09:51 | ER Document Report ---
ED Medical Screen (RME) - General Chief Complaint: Chest Congestion Stated Complaint: COUGH Time Seen by Provider: 04/17/17 09:33 Mode of Arrival: Ambulatory Information source: Patient Notes: 46-year-old female presents to ED for cough congestion short of breath. She states she woke up this morning because she could not breathe. She states she took her blood pressure this morning. States last night when she was coughing so hard that a vein popped out on the back of her left side of her neck. She is very short of breath. We checked her vital signs while I was examining her pulse was 118 O2 sat 94 temperature 98.4 respirations 32 blood pressure 232/ 147. We will transfer her over to the main ER and have another physician examine her. Her lungs are very coarse with wheezes and she states she feels like she is very tight. TRAVEL OUTSIDE OF THE [place] IN LAST 30 DAYS: No - Related Data Allergies/Adverse Reactions: ondansetron HCl [From Zofran] Allergy (Severe, Verified 04/17/17 09:18) resp distress azithromycin [From Zithromax] Allergy (Verified 04/17/17 09:18) Past Medical History - Past Medical History Cardiac Medical History: Reports: Hx Hypertension, Hx Heart Murmur - with Denies: Hx Atrial Fibrillation, Hx Congestive Heart Failure, Hx Coronary Artery Disease, Hx Heart Attack, Hx Hypercholesterolemia, Hx Peripheral Vascular Disease, Hx Pulmonary Embolism Pulmonary Medical History: Reports: Hx Pneumonia Denies: Hx Asthma, Hx Bronchitis, Hx COPD, Hx Respiratory Failure, Hx Sleep Apnea, Hx Tuberculosis Neurological Medical History: Denies: Hx Seizures Renal/ Medical History: Reports: Hx Ovarian Cysts - x 2. Denies: Hx Peritoneal Dialysis, Hx Pelvic Inflammatory Disease Malignancy Medical History: Denies: Hx Breast Cancer, Hx Cervical Cancer, Hx Leukemia, Hx Lung Cancer, Hx Ovarian Cancer Musculoskeltal Medical History: Reports Hx Arthritis, Denies Hx Fibromyalgia, Denies Hx Muscular Dystrophy Skin Medical History: Denies Hx MRSA Psychiatric Medical History: Reports: Hx Depression Traumatic Medical History: Reports: Hx Fractures - rt knee, rt elbow Infectious Medical History: Denies: Hx HIV Past Surgical History: Reports: Hx Cholecystectomy, Hx Orthopedic Surgery - R knee replacement, elbow, Hx Tubal Ligation. Denies: Hx Appendectomy, Hx Bowel Surgery, Hx Section, Hx Coronary Artery Bypass Graft, Hx Gastric Bypass Surgery, Hx Herniorrhaphy, Hx Hysterectomy, Hx Mastectomy, Hx Pacemaker, Hx Tonsillectomy - Immunizations Hx Diphtheria, Pertussis, Tetanus Vaccination: Yes Physical Exam - Vital signs Vitals: Temp Pulse Resp BP Pulse Ox 98.8 F 118 H 24 H 188/121 H 95 04/17/17 09:22 04/17/17 09:22 04/17/17 09:22 04/17/17 09:22 04/17/17 09:22 Course - Vital Signs Vital signs: Temp Pulse Resp BP Pulse Ox 98.8 F 118 H 24 H 188/121 H 95 04/17/17 09:22 04/17/17 09:22 04/17/17 09:22 04/17/17 09:22 04/17/17 09:22
--- NOTE | 2017-04-17 10:16 | RADIOLOGY REPORT (SQ) ---
EXAM DESCRIPTION: CHEST PA/LAT COMPLETED DATE/TIME: 04/17/2017 10:02 am REASON FOR STUDY: cough congestion short of breath COMPARISON: 09/09/2016 EXAM PARAMETERS: NUMBER OF VIEWS: two views TECHNIQUE: Digital Frontal and Lateral radiographic views of the chest acquired. RADIATION DOSE: NA LIMITATIONS: none FINDINGS: LUNGS AND PLEURA: No opacities, masses or pneumothorax. No pleural effusion. MEDIASTINUM AND HILAR STRUCTURES: No masses or contour abnormalities. HEART AND VASCULAR STRUCTURES: Heart normal size. No evidence for failure. BONES: No acute findings. HARDWARE: None in the chest. OTHER: No other significant finding. IMPRESSION: NO SIGNIFICANT RADIOGRAPHIC FINDING IN THE CHEST. TECHNICAL DOCUMENTATION: JOB ID: [id number] [email or web address] All Rights Reserved
[2017-04-17 10:32] LABS: ABSOLUTE BASOPHILS # (AUTO) 0.1 10^3/uL (0.0-0.2); ABSOLUTE EOSINOPHILS # (AUTO) 0.4 10^3/uL (0.0-0.6); ABSOLUTE LYMPHOCYTES (AUTO) 1.9 10^3/uL (0.5-4.7); ABSOLUTE MONOCYTES (AUTO) 0.9 10^3/uL (0.1-1.4); ABSOLUTE NEUT (AUTO) 12.5 10^3/uL (1.7-8.2); BASOPHILS % (AUTO) 0.6 % (0-2); EOSINOPHILS % (AUTO) 2.3 % (0-6); HEMATOCRIT 41.2 % (36.0-47.0); HEMOGLOBIN 13.3 g/dL (12.0-15.5); HGB HCT DIFFERENCE -1.3; LYMPHOCYTES % (AUTO) 11.9 % (13-45); MEAN CORPUSCULAR HEMOGLOBIN 23.3 pg (27.0-33.4); MEAN CORPUSCULAR HGB CONC 32.2 g/dL (32.0-36.0); MEAN CORPUSCULAR VOLUME 72 fl (80-97); RED BLOOD COUNT 5.71 10^6/uL (3.72-5.28); RED CELL DISTRIBUTION WIDTH 16.6 % (11.5-14.0); SEGMENTED NEUTROPHILS % (AUTO) 79.2 % (42-78); WHITE BLOOD COUNT 15.8 10^3/uL (4.0-10.5)
--- NOTE | 2017-04-17 10:38 | ER Document Report ---
ED Respiratory Problem - General Chief Complaint: Chest Congestion Stated Complaint: COUGH Time Seen by Provider: 04/17/17 09:33 Mode of Arrival: Ambulatory Notes: 46 years old female with no significant past medical history, presents with sudden onset of shortness of breath as well as chest tightness since this morning. She traveled to [place] by call and returned recently. Denies any swelling over the calf muscles. Denies any precordial chest pain left arm numbness tingling sensation. Denies any wheezing. Denies any cough. Denies any fever chills or other constitutional symptoms. Had a history of pneumonia in the past. TRAVEL OUTSIDE OF THE [place] IN LAST 30 DAYS: No - Related Data Allergies/Adverse Reactions: ondansetron HCl [From Zofran] Allergy (Severe, Verified 04/17/17 10:26) resp distress azithromycin [From Zithromax] Allergy (Verified 04/17/17 10:26) Past Medical History - General Information source: Patient - Social History Smoking Status: Never Smoker Family History: Reviewed & Not Pertinent - Past Medical History Cardiac Medical History: Reports: Hx Hypertension, Hx Heart Murmur - with Denies: Hx Atrial Fibrillation, Hx Congestive Heart Failure, Hx Coronary Artery Disease, Hx Heart Attack, Hx Hypercholesterolemia, Hx Peripheral Vascular Disease, Hx Pulmonary Embolism Pulmonary Medical History: Reports: Hx Pneumonia Denies: Hx Asthma, Hx Bronchitis, Hx COPD, Hx Respiratory Failure, Hx Sleep Apnea, Hx Tuberculosis Neurological Medical History: Denies: Hx Seizures Renal/ Medical History: Reports: Hx Ovarian Cysts - x 2. Denies: Hx Peritoneal Dialysis, Hx Pelvic Inflammatory Disease Malignancy Medical History: Denies: Hx Breast Cancer, Hx Cervical Cancer, Hx Leukemia, Hx Lung Cancer, Hx Ovarian Cancer Musculoskeltal Medical History: Reports Hx Arthritis, Denies Hx Fibromyalgia, Denies Hx Muscular Dystrophy Skin Medical History: Denies Hx MRSA Psychiatric Medical History: Reports: Hx Depression Traumatic Medical History: Reports: Hx Fractures - rt knee, rt elbow Infectious Medical History: Denies: Hx HIV Past Surgical History: Reports: Hx Cholecystectomy, Hx Orthopedic Surgery - R knee replacement, elbow, Hx Tubal Ligation. Denies: Hx Appendectomy, Hx Bowel Surgery, Hx Section, Hx Coronary Artery Bypass Graft, Hx Gastric Bypass Surgery, Hx Herniorrhaphy, Hx Hysterectomy, Hx Mastectomy, Hx Pacemaker, Hx Tonsillectomy - Immunizations Hx Diphtheria, Pertussis, Tetanus Vaccination: Yes Hx Pneumococcal Vaccination: 07/06/12 Review of Systems - Review of Systems Notes: REVIEW OF SYSTEMS: CONSTITUTIONAL : Denies fever, chills, or sweats. Denies recent illness. EENT: Denies eye, ear, throat, or mouth pain or symptoms. Denies nasal or sinus congestion or discharge. Denies throat, tongue, or mouth swelling or difficulty swallowing. CARDIOVASCULAR: Denies chest pain. Denies palpitations or racing or irregular heart beat. Denies ankle edema. RESPIRATORY: As per history of complain GASTROINTESTINAL: Denies abdominal pain or distention. Denies nausea, vomiting , or diarrhea. Denies blood in vomitus, stools, or per rectum. Denies black, tarry stools. Denies constipation. GENITOURINARY: Denies difficulty urinating, painful urination, burning, frequency, blood in urine, or discharge. FEMALE GENITOURINARY: Denies vaginal bleeding, heavy or abnormal periods, irregular periods. Denies vaginal discharge or odor. MUSCULOSKELETAL: Denies back or neck pain or stiffness. Denies joint pain or swelling. SKIN: Denies rash, lesions or sores. HEMATOLOGIC : Denies easy bruising or bleeding. LYMPHATIC: Denies swollen, enlarged glands. NEUROLOGICAL: Denies confusion or altered mental status. Denies passing out or loss of consciousness. Denies dizziness or lightheadedness. Denies headache. Denies weakness or paralysis or loss of use of either side. Denies problems with gait or speech. Denies sensory loss, numbness, or tingling. Denies seizures. PSYCHIATRIC: Denies anxiety or stress. Denies depression, suicidal ideation, or homicidal ideation. ALL OTHER SYSTEMS REVIEWED AND NEGATIVE. PHYSICAL EXAMINATION: GENERAL: Well-appearing, well-nourished and in moderate acute distress. Morbidly obese HEAD: Atraumatic, normocephalic. EYES: Pupils equal round and reactive to light, extraocular movements intact, conjunctiva are normal. ENT: Nares patent, oropharynx clear without exudates. Moist mucous membranes. NECK: Normal range of motion, supple without lymphadenopathy LUNGS: Breath sounds clear to auscultation bilaterally and equal. No wheezes rales or rhonchi. HEART: Regular rate and rhythm without murmurs ABDOMEN: Soft, nontender, nondistended abdomen. No guarding, no rebound. No masses appreciated. Female : deferred Musculoskeletal: Normal range of motion, no pitting or edema. No cyanosis. NEUROLOGICAL: Cranial nerves grossly intact. Normal speech, normal gait. Normal sensory, motor exams PSYCH: Normal mood, normal affect. SKIN: Warm, Dry, normal turgor, no rashes or lesions noted. Dictation was performed using [employer] voice recognition software Physical Exam - Vital signs Vitals: Temp Pulse Resp BP Pulse Ox 98.8 F 118 H 24 H 188/121 H 95 04/17/17 09:22 04/17/17 09:22 04/17/17 09:22 04/17/17 09:22 04/17/17 09:22 Course - Vital Signs Vital signs: Temp Pulse Resp BP Pulse Ox 98.8 F 118 H 24 H 188/121 H 95 04/17/17 09:22 04/17/17 09:22 04/17/17 09:22 04/17/17 09:22 04/17/17 09:22 - Laboratory Result Diagrams: 04/17/17 10:13 04/17/17 10:13 Laboratory results interpreted by me: 04/17/17 04/17/17 04/17/17 10:13 10:13 10:13 WBC 15.8 H RBC 5.71 H MCV 72 L MCH 23.3 L RDW 16.6 H Seg Neutrophils % 79.2 H Lymphocytes % 11.9 L Absolute Neutrophils 12.5 H ABG pO2 ABG Total CO2 ABG O2 Saturation AST 49 H Alkaline Phosphatase 151 H NT-Pro-B Natriuret Pep 314 H 04/17/17 15:06 WBC RBC MCV MCH RDW Seg Neutrophils % Lymphocytes % Absolute Neutrophils ABG pO2 66.0 L ABG Total CO2 27.1 H ABG O2 Saturation 93.7 L AST Alkaline Phosphatase NT-Pro-B Natriuret Pep Discharge - Discharge Clinical Impression: Lymphadenopathy of head and neck, Hypoxia Reactive airway disease Qualifiers: Asthma severity: moderate Asthma complication type: with acute exacerbation Condition: Fair Disposition: ADMITTED INPATIENT Admitting Provider: Hospitalist Unit Admitted: Telemetry
[2017-04-17 10:56] LABS: ALANINE AMINOTRANSFERASE 44 U/L (9-52); ALBUMIN 4.2 g/dL (3.5-5.0); ALKALINE PHOSPHATASE 151 U/L (38-126); ANION GAP 12 (5-19); ASPARTATE AMINO TRANSFERASE 49 U/L (14-36); BILIRUBIN,DIRECT 0.3 mg/dL (0.0-0.4); BILIRUBIN,TOTAL 0.9 mg/dL (0.2-1.3); BLOOD UREA NITROGEN 13 mg/dL (7-20); CALCIUM 8.8 mg/dL (8.4-10.2); CARBON DIOXIDE 27 mmol/L (22-30); CHLORIDE 101 mmol/L (98-107); CREATINE KINASE 58 U/L (30-135); CREATININE RESULT 0.61 mg/dL (0.52-1.25); GLUCOSE 104 mg/dL (75-110); POTASSIUM 4.2 mmol/L (3.6-5.0); SODIUM 139.8 mmol/L (137-145); TOTAL PROTEIN 7.7 g/dL (6.3-8.2)
[2017-04-17 11:08] LABS: CREATINE KINASE MB 0.92 ng/mL (<4.55)
[2017-04-17 11:09] LABS: TROPONIN I < 0.012 ng/mL
[2017-04-17] MEDS ORDERED: IPRATROPIUM/ALBUTEROL 0.5-2.5 MG/3 ML AMPUL NEB ONE (12:01)
--- NOTE | 2017-04-17 12:48 | RADIOLOGY REPORT (SQ) ---
EXAM DESCRIPTION: CTA CHEST COMPLETED DATE/TIME: 04/17/2017 11:20 am REASON FOR STUDY: Pulmonary embolism COMPARISON: Chest radiograph TECHNIQUE: CT scan of the chest performed using helical scanning technique with dynamic intravenous contrast injection. Images reviewed with lung, soft tissue and bone windows. Reconstructed coronal and sagittal MPR images reviewed. Additional 3 dimensional post-processing performed to develop Maximal Intensity Projection images (IN P). All images stored on PACS. All CT scanners at this facility use dose modulation, iterative reconstruction, and/or weight based d osing when appropriate to reduce radiation dose to as low as reasonably achievable (ALARA). [facility]: Dose Right [facility]: CareDose [facility]: Dose Right [facility]: Teradose 4D [facility]: Moverati CONTRAST TYPE AND DOSE: contrast/concentration: Isovue 370.00 mg/ml; Total Contrast Delivered: 86.0 ml; Total Saline Delivered: 110.0 ml Contrast bolus adequate for pulmonary arteries and aorta. RENAL FUNCTION: GFR > 60. RADIATION DOSE: . LIMITATIONS: None. FINDINGS: LUNGS AND PLEURA: No masses, infiltrates, pneumothorax. No pleural effusions, calcificati ons. AORTA AND GREAT VESSELS: No aneurysm. Contrast bolus not optimized for the aorta. HEART: No pericardial effusion. No significant coronary artery calcifications. PULMONARY ARTERIES: No emboli visualized in the main pulmonary arteries or the segmental branches. HILAR AND MEDIASTINAL STRUCTURES: No identified masses or abnormal nodes. HARDWARE: None in the chest. UPPER ABDOMEN: No significant findings. Limited exam. THYROID AND OTHER SOFT TISSUES: No masses. No adenopathy. BONES: No acute or significant finding. 3D MIPS: Confirm above findings. OTHER: No other significant finding. IMPRESSION: NORMAL CTA OF THE CHEST. NO PULMONARY EMBOLI. COMMENT: Quality ID # [id number]: Final reports with documentation of one or more dose reduction techniques (e.g., Automated exposure control, adjustment of the mA and/or kV according to patient size, use of iterative reconstruction technique) TECHNICAL DOCUMENTATION: JOB ID: [id number] [employer]- All Rights Reserved
[2017-04-17 15:18] LABS: ARTERIAL BLOOD BASE EXCESS 1.6 mmol/L; ARTERIAL BLOOD O2 SATURATION 93.7 % (94-98)
[2017-04-17] MEDS ORDERED: METHYLPREDNISOLONE INJ 125 MG/2 ML SDV IV ONE (15:29)
[2017-04-17] MEDS ORDERED: NORMAL SALINE 1000 ML 1,000 ML IV PRN (15:30)
[2017-04-17] MEDS ORDERED: CEFTRIAXONE 1 GM/D5W RTU 1 GM/50 ML RTUPB IV ONE (16:00)
[2017-04-17] MEDS ORDERED: ACETAMINOPHEN 325 MG TABLET PO PRN (16:56)
--- NOTE | 2017-04-17 16:56 | PDOC H&P ---
History of Present Illness Admission Date/PCP: April 17 2017 History of Present Illness: BILL MARQUEZ is a 46 year old female. The patient has had a long history of uncontrolled hypertension. Her medications have required readjustment on a frequent basis. The patient has had a nonproductive cough for the last 4 weeks. Her cough is worse with lying flat. She feels a smothering sensation as if she cannot breathe. She does not have any fevers. She has associated orthopnea, PND. She denies chest pain or palpitations. She has not had any hemoptysis. Her review of systems is otherwise unremarkable. She has not had any visual changes or headaches. She denies nausea, vomiting or diarrhea. She denies any pain or burning with urination. Past Medical History Cardiac Medical History: Reports: Hypertension, Heart Murmur - with Denies: Atrial Fibrillation, Congestive Heart Failure, Coronary Artery Disease, Myocardial Infarction, Hyperlipidema, Peripheral Vascular Disease, Pulmonary Embolism Pulmonary Medical History: Reports: Pneumonia Denies: Asthma, Bronchitis, Chronic Obstructive Pulmonary Disease (COPD), Respiratory Failure, Sleep Apnea, Tuberculosis Neurological Medical History: Denies: Seizures Malignancy Medical History: Denies: Breast Cancer, Cervical Cancer, Leukemia, Lung Cancer, Ovarian Cancer Musculoskeltal Medical History: Reports: Arthritis Denies: Fibromyalgia Psychiatric Medical History: Reports: Depression Hematology: Reports: Anemia - heavy menses related Infectious Medical History: Denies: HIV Past Surgical History Past Surgical History: Reports: Cholecystectomy, Orthopedic Surgery - R knee replacement, elbow, Tubal Ligation Denies: Appendectomy, Section, Coronary Artery Bypass Graft, Gastric Bypass Surgery, Herniorrhaphy, Hysterectomy, Mastectomy, Pacemaker, Tonsillectomy Social History Smoking Status: Never Smoker Frequency of Alcohol Use: None Hx Recreational Drug Use: No Hx Prescription Drug Abuse: No - Advance Directive Resuscitation Status: Full Code Family History Family History: Reviewed & Not Pertinent Parental Family History Reviewed: Yes Children Family History Reviewed: Yes Sibling(s) Family History Reviewed.: NA Medication/Allergy Home Medications: Amlodipine Besylate [Norvasc 10 mg Tablet] 10 mg PO DAILY #30 tablet 08/06/16 Clonidine HCl [Catapres 0.2 mg Tablet] 0.3 mg PO Q8 #90 tablet 08/06/16 Metoprolol Tartrate [Lopressor 100 mg Tablet] 100 mg PO Q12 #120 tablet Valsartan [Diovan 160 mg Tablet] 160 mg PO Q12 #120 tablet 08/06/16 Albuterol Sulfate [Ventolin Hfa] 2 puff IH Q4HP PRN #17 gm 09/09/16 Hydrocodone/Acetaminophen [Volga 5-325 Tablet] 1 each PO Q8 PRN #15 tablet 09/09 Prednisone [Deltasone 20 mg Tablet] 3 tab PO DAILY 4 Days tablet 09/09/16 Hydromorphone HCl [Dilaudid 2 mg Tablet] 2 mg PO Q4HP PRN #12 tablet 11/25/16 Lorazepam [Ativan 1 mg Tablet] 1 - 2 mg PO Q4 PRN #15 tab 11/25/16 Promethazine HCl [Phenergan 25 mg Tablet] 1 - 2 tab PO Q6H PRN #15 tablet Allergies/Adverse Reactions: ondansetron HCl [From Zofran] Allergy (Severe, Verified 04/17/17 10:26) resp distress azithromycin [From Zithromax] Allergy (Verified 04/17/17 10:26) Review of Systems Constitutional: ABSENT: chills, fever(s), headache(s), weight gain, weight loss Eyes: ABSENT: visual disturbances Ears: ABSENT: hearing changes Nose, Mouth, and Throat: ABSENT: as per HPI, headache(s), mouth pain, sore throat, vertigo, other Breasts: ABSENT: as per HPI, other Cardiovascular: PRESENT: as per HPI Respiratory: PRESENT: as per HPI Gastrointestinal: ABSENT: abdominal pain, constipation, diarrhea, hematemesis, hematochezia, nausea, vomiting Genitourinary: ABSENT: dysuria, hematuria Musculoskeletal: ABSENT: joint swelling Integumentary: ABSENT: rash, wounds Neurological: ABSENT: abnormal gait, abnormal speech, confusion, dizziness, focal weakness, syncope Psychiatric: ABSENT: anxiety, depression, homidical ideation, suicidal ideation Endocrine: ABSENT: cold intolerance, heat intolerance, polydipsia, polyuria Hematologic/Lymphatic: ABSENT: easy bleeding, easy bruising Allergic/Immunologic: ABSENT: as per HPI, seasonal rhinorrhea, other Physical Exam Vital Signs: Temp Pulse Resp BP Pulse Ox 98.8 F 118 H 24 H 188/121 H 95 04/17/17 09:22 04/17/17 09:22 04/17/17 09:22 04/17/17 09:22 04/17/17 09:22 Intake & Output 04/16/17 04/17/17 04/18/17 06:59 06:59 06:59 Weight 159.3 kg Additional comments: The patient is a super morbidly obese female who is sitting upright. She appears to be in mild distress. Her facial appearance is normal with the exception of wearing oxygen. Her lips are moist and mucous membranes are moist. Her oropharynx is benign. She does not have any JVD. Thyroid is nonpalpable. Trachea is midline. The patient's lungs do show end expiratory wheezing throughout all lung cespedes. Her cardiac exam is distant but regular. I do not appreciate any murmurs, gallops or rubs. The abdomen is obese. It appears to be benign, but the exam is limited. The patient's lower extremities do not demonstrate pitting edema. The skin is otherwise warm, dry and intact without pitting edema. Results Laboratory Results: 04/17/17 10:13 04/17/17 10:13 04/17/17 04/17/17 04/17/17 10:13 10:13 10:13 WBC 15.8 H RBC 5.71 H Hgb 13.3 Hct 41.2 MCV 72 L MCH 23.3 L MCHC 32.2 RDW 16.6 H Plt Count 292 Seg Neutrophils % 79.2 H Lymphocytes % 11.9 L Monocytes % 6.0 Eosinophils % 2.3 Basophils % 0.6 Absolute Neutrophils 12.5 H Absolute Lymphocytes 1.9 Absolute Monocytes 0.9 Absolute Eosinophils 0.4 Absolute Basophils 0.1 Carbonic Acid HCO3/H2CO3 Ratio ABG pH ABG pCO2 ABG pO2 ABG HCO3 ABG O2 Saturation ABG Base Excess FiO2 Sodium 139.8 Potassium 4.2 Chloride 101 Carbon Dioxide 27 Anion Gap 12 BUN 13 Creatinine 0.61 Est GFR ( Amer) > 60 Est GFR (Non-Af Amer) > 60 Glucose 104 Calcium 8.8 Total Bilirubin 0.9 AST 49 H ALT 44 Alkaline Phosphatase 151 H Total Protein 7.7 Albumin 4.2 Serum HCG, Qual NEGATIVE 04/17/17 15:06 WBC RBC Hgb Hct MCV MCH MCHC RDW Plt Count Seg Neutrophils % Lymphocytes % Monocytes % Eosinophils % Basophils % Absolute Neutrophils Absolute Lymphocytes Absolute Monocytes Absolute Eosinophils Absolute Basophils Carbonic Acid 1.19 HCO3/H2CO3 Ratio 21:1 ABG pH 7.43 ABG pCO2 39.5 ABG pO2 66.0 L ABG HCO3 25.9 ABG O2 Saturation 93.7 L ABG Base Excess 1.6 FiO2 2L Sodium Potassium Chloride Carbon Dioxide Anion Gap BUN Creatinine Est GFR ( Amer) Est GFR (Non-Af Amer) Glucose Calcium Total Bilirubin AST ALT Alkaline Phosphatase Total Protein Albumin Serum HCG, Qual 04/17/17 04/17/17 10:13 10:13 Creatine Kinase 58 CK-MB (CK-2) 0.92 Troponin I < 0.012 NT-Pro-B Natriuret Pep 314 H Impressions: Chest X-Ray 04/17/17 09:41 IMPRESSION: NO SIGNIFICANT RADIOGRAPHIC FINDING IN THE CHEST. Chest/Abdomen CTA 04/17/17 10:39 IMPRESSION: NORMAL CTA OF THE CHEST. NO PULMONARY EMBOLI. Assessment & Plan - Diagnosis (1) Hypertensive urgency Is this a current diagnosis for this admission?: Yes (2) Morbid obesity Is this a current diagnosis for this admission?: Yes (3) Leucocytosis Is this a current diagnosis for this admission?: Yes (4) Elevated liver function tests Is this a current diagnosis for this admission?: Yes - Inpatient Certification Medical Necessity: Failure to Improve With Outpatient Therapy, Need Close Monitoring Due to Risk of Patient Decompensation, Need For Continuous Telemetry Monitoring, Risk of Complication if Not Cared For in Hospital - Plan Summary Plan Summary: The patient presents with probable diastolic congestive heart failure with exacerbation secondary to uncontrolled blood pressure. Her diastolic congestive heart failure is also likely due to her super morbid obesity. She will be admitted for diuresis and urgent control of her blood pressure. She does have a leukocytosis but does not have any evidence of infection based on her clinical symptoms or based on her radiographs were performed in the emergency department which included chest x-ray and CTA of the chest. Therefore , I will not use antibiotics. The patient also has elevated LFTs including alkaline phosphatase. She is certainly at increased risk for Aviles. These need to be followed on a chronic basis. Patient will be placed on observation status pending additional tests. She will be ruled out overnight. If an echocardiogram has not been done in the last 6 months I will order an echocardiogram. Also, echocardiogram testing will be needed pending the results of troponins.
[2017-04-17] MEDS ORDERED: HYDROMORPHONE HCL 2 MG TABLET PO PRN (17:03)
[2017-04-17] MEDS ORDERED: LORAZEPAM 1 MG TABLET PO PRN (17:03)
[2017-04-17] MEDS ORDERED: HYDROCODONE/ACETAMINOPHEN 5-325 MG TABLET PO PRN (17:03)
[2017-04-17] MEDS ORDERED: HYDRALAZINE HCL INJ/PF 20 MG/1 ML SDV IV PRN (17:04)
[2017-04-17] MEDS ORDERED: INFLUENZA ADLT QUAD (36MOS+) 2017-18 VAC 0.5 ML SYR IM PRN (17:51)
[2017-04-17] MEDS ORDERED: PROMETHAZINE HCL 25 MG TABLET PO PRN (18:16)
[2017-04-17] MEDS: CLONIDINE HCL 0.2 MG TABLET PO SCH (20:41)
[2017-04-17] MEDS: IPRATROPIUM/ALBUTEROL 0.5-2.5 MG/3 ML AMPUL NEB PRN (21:37)
[2017-04-17] MEDS: METOPROLOL TARTRATE 100 MG TABLET PO SCH (21:44)
[2017-04-17] MEDS: VALSARTAN 160 MG TABLET PO SCH (21:45)
[2017-04-18] MEDS: GUAIFENESIN SYRP 200 MG/10 ML UDC PO PRN ×2 (01:49→10:17)
[2017-04-18] MEDS: CLONIDINE HCL 0.2 MG TABLET PO SCH ×2 (05:29→13:17)
[2017-04-18 05:57] LABS: HEMATOCRIT 41.4 % (36.0-47.0); HEMOGLOBIN 13.4 g/dL (12.0-15.5); HGB HCT DIFFERENCE -1.2; MEAN CORPUSCULAR HEMOGLOBIN 23.3 pg (27.0-33.4); MEAN CORPUSCULAR HGB CONC 32.4 g/dL (32.0-36.0); MEAN CORPUSCULAR VOLUME 72 fl (80-97); RED BLOOD COUNT 5.74 10^6/uL (3.72-5.28)
[2017-04-18 06:08] LABS: ANION GAP 13 (5-19); BLOOD UREA NITROGEN 18 mg/dL (7-20); CALCIUM 8.6 mg/dL (8.4-10.2); CARBON DIOXIDE 22 mmol/L (22-30); CHLORIDE 104 mmol/L (98-107); CHOLESTEROL 155.66 mg/dL (0-200); CREATININE RESULT 0.57 mg/dL (0.52-1.25); Direct HDL 75 mg/dL (>40); GLUCOSE 153 mg/dL (75-110); MAGNESIUM 1.8 mg/dL (1.6-2.3); PHOSPHORUS 2.6 mg/dL (2.5-4.5); POTASSIUM 4.4 mmol/L (3.6-5.0); SODIUM 139.1 mmol/L (137-145); TRIGLYCERIDES 56 mg/dL (<150)
[2017-04-18 06:18] LABS: DIRECT LDL 74 mg/dL (<100)
[2017-04-18] MEDS: VALSARTAN 160 MG TABLET PO SCH (09:17)
[2017-04-18] MEDS: METOPROLOL TARTRATE 100 MG TABLET PO SCH (09:17)
[2017-04-18] MEDS ORDERED: ENOXAPARIN SODIUM INJ 40 MG/0.4 ML DISP.SYRIN SUBCUT SCH (10:00)
[2017-04-18] MEDS: IPRATROPIUM/ALBUTEROL 0.5-2.5 MG/3 ML AMPUL NEB PRN (12:05)
[2017-04-18 12:31] VITALS: BP 136/72
[2017-04-18] MEDS ORDERED: ALBUTEROL SULFATE HFA (90 MCG/PUFF) 200 PUFF/8.5 GM MDI IH PRN (12:41)
--- NOTE | 2017-04-18 12:59 | PDOC DISCHARGE SUMMARY ---
General - Admit/Disc Date/PCP Admission Date/Primary Care Provider: 04/17/17 16:53 Discharge Date: 04/18/17 - Discharge Diagnosis (1) Hypertensive urgency Is this a current diagnosis for this admission?: Yes (2) Morbid obesity Is this a current diagnosis for this admission?: Yes (3) Leucocytosis Is this a current diagnosis for this admission?: Yes (4) Elevated liver function tests Is this a current diagnosis for this admission?: Yes (5) Acute bronchitis Is this a current diagnosis for this admission?: Yes - Additional Information Resuscitation Status: Full Code Discharge Diet: Other (Comments) - 2 gram sodium Discharge Activity: Balance Activity w/Rest Home Medications: Acetaminophen [Tylenol 325 mg Tablet] 650 mg PO Q4HP PRN tablet 04/18/17 Albuterol Sulfate [Proair HFA Inhalation Aerosol 8.5 gm MDI] 2 puff IH Q4HP PRN #1 hfa.aer.[id number] 04/18/17 Amox Tr/Potassium Clavulanate [Augmentin "500" Tablet] 1 tab PO MEALS 7 Days # 20 tablet 04/18/17 Benzonatate [Tessalon Perles 100 mg Capsule] 100 mg PO Q8 7 Days #20 capsule 03/25 Clonidine HCl [Catapres 0.2 mg Tablet] 0.3 mg PO Q8 tablet 04/18/17 Guaifenesin [Robitussin Syrup 200 mg/10 ml Ud Cup] 100 mg PO Q6HP PRN udc 04/18 Hydralazine HCl [Apresoline 25 mg Tablet] 25 mg PO Q8 7 Days #20 tablet Lorazepam [Ativan 1 mg Tablet] 1 mg PO Q4HP PRN tablet 04/18/17 Metoprolol Tartrate [Lopressor 100 mg Tablet] 100 mg PO Q12 tablet 04/18/17 Prednisone [Deltasone 20 mg Tablet] 40 mg PO DAILY 5 Days #10 tablet 04/18/17 Promethazine HCl [Phenergan 25 mg Tablet] 25 mg PO Q6HP PRN tablet 04/18/17 Valsartan [Diovan 160 mg Tablet] 160 mg PO Q12 tablet 04/18/17 History of Present Illness History of Present Illness: BILL MARQUEZ is a 46 year old female. The patient has had a long history of uncontrolled hypertension. Her medications have required readjustment on a frequent basis. The patient has had a nonproductive cough for the last 4 weeks. Her cough is worse with lying flat. She feels a smothering sensation as if she cannot breathe. She does not have any fevers. She has associated orthopnea, PND. She denies chest pain or palpitations. She has not had any hemoptysis. Her review of systems is otherwise unremarkable. She has not had any visual changes or headaches. She denies nausea, vomiting or diarrhea. She denies any pain or burning with urination. Hospital Course Hospital Course: Patient was admitted to observation status. Her blood pressure was well controlled once she was admitted. However, she did receive 1 dose of intravenous hydralazine. Therefore, upon discharge I will add hydralazine to her regimen. When I spoke to the patient this morning she told me that she was not receiving prednisone prior to this admission. While she does not have a diagnosis of asthma she did have significant wheezing both yesterday and today. She does feel some tightness in her chest and she is having a productive cough. Many of her family are ill at home. She has some young family members were diagnosed with Streptococcus pharyngitis. Therefore, I have initiated a short course of prednisone, therapy with inhaled albuterol and amoxicillin with clavulanate. Patient is afebrile. She is able to take oral medications. She does have a leukocytosis but this can be followed as an outpatient. Her white blood cell count did go up overnight, however, she did receive 125 mg of Solu- Medrol in the emergency department and this could account for the increase in her white blood cell count. She did have a chest x-ray and a CT angiogram of the chest which both did not demonstrate any concerns for infection. Therefore , I think that the patient has acute tracheobronchitis and not pneumonia. She may require further evaluation for asthma if her symptoms persist. She has been having uncontrolled blood pressure for many years. She has now been referred to see a alumina plant supervisor in [place] and she agrees to follow-up with alumina plant supervisor in [place]. Upon discharge, she does agree to follow-up with Dr. Hoyt. Physical Exam Vital Signs: Temp Pulse Resp BP Pulse Ox 97.8 F 86 20 136/72 H 93 04/18/17 11:24 04/18/17 12:06 04/18/17 12:06 04/18/17 11:24 04/18/17 12:06 Intake & Output 04/17/17 04/18/17 04/19/17 06:59 06:59 06:59 Intake Total 873 Balance 873 Weight 155.9 kg Additional comments: The patient is in no distress. She states that she is feeling better than yesterday. She does not appear to be tachypneic at all. She is speaking in full sentences. Her cognition and mentation are appropriate. She is extremely polite. She is morbidly obese. Her lung exam does show wheezing both anteriorly and posteriorly. Her cardiac exam is regular without murmurs, gallops or rubs. The abdomen is obese but soft. The lower extremities do not demonstrate any pitting edema on the skin is clean, warm, dry and intact. Results Laboratory Results: 04/18/17 05:41 04/18/17 05:41 04/18/17 04/18/17 04/18/17 05:41 05:41 05:41 WBC 18.0 H RBC 5.74 H Hgb 13.4 Hct 41.4 MCV 72 L MCH 23.3 L MCHC 32.4 RDW 17.0 H Plt Count 256 Sodium 139.1 Potassium 4.4 Chloride 104 Carbon Dioxide 22 Anion Gap 13 BUN 18 Creatinine 0.57 Est GFR ( Amer) > 60 Est GFR (Non-Af Amer) > 60 Glucose 153 H Calcium 8.6 Phosphorus 2.6 Magnesium 1.8 Triglycerides 56 Cholesterol 155.66 LDL Cholesterol Direct 74 VLDL Cholesterol 11.0 HDL Cholesterol 75 TSH 1.45 04/17/17 04/17/17 04/18/17 17:33 23:00 05:41 Troponin I < 0.012 < 0.012 < 0.012 Impressions: Chest X-Ray 04/17/17 09:41 IMPRESSION: NO SIGNIFICANT RADIOGRAPHIC FINDING IN THE CHEST. Chest/Abdomen CTA 04/17/17 10:39 IMPRESSION: NORMAL CTA OF THE CHEST. NO PULMONARY EMBOLI. Plan Discharge Plan: 1. The patient was counseled to follow a low sodium, 2 g limitation diet 2. Follow-up with Dr. Lai Laboy in 1 week 3. Follow-up with alumina plant supervisor in [place] as scheduled
[2017-04-18] MEDS ORDERED: BENZONATATE 100 MG CAPSULE PO SCH (14:00)
[2017-04-18] MEDS ORDERED: HYDRALAZINE HCL 25 MG TABLET PO SCH (14:00)
[2017-04-18] MEDS ORDERED: AMOXICILLIN TR/POT CLAVULANATE 500-125 MG TAB PO SCH (17:00)
[2017-04-19] MEDS ORDERED: PREDNISONE 20 MG TABLET PO SCH (10:00)
== END 2017-04-18 14:01 | disposition home or self-care (01) ==
LOC: ER 09:17 → EH 16:53 → INTOOBSV 16:53 → 3W 20:06
PROVIDERS: ADMIT Internal Medicine; ATTEND Internal Medicine
PROC: 3E0234Z Introduction of Serum, Toxoid and Vaccine into Muscle, Percutaneous Approach (ICD-10-PCS; principal; 2017-04-18)
PROC: 3E0F7GC Introduction of Other Therapeutic Substance into Respiratory Tract, Via Natural or Artificial Opening (ICD-10-PCS; 2017-04-18)
PROC: 5A09357 Assistance with Respiratory Ventilation, Less than 24 Consecutive Hours, Continuous Positive Airway Pressure (ICD-10-PCS; 2017-04-18)
DX: I16.0 Hypertensive urgency (principal); E66.01 Morbid (severe) obesity due to excess calories; D72.829 Elevated white blood cell count, unspecified; R79.89 Other specified abnormal findings of blood chemistry; J20.9 Acute bronchitis, unspecified; R74.8 Abnormal levels of other serum enzymes; Z79.899 Other long term (current) drug therapy; Z20.828 Contact with and (suspected) exposure to other viral communicable diseases; Z87.01 Personal history of pneumonia (recurrent); Z90.49 Acquired absence of other specified parts of digestive tract; Z98.51 Tubal ligation status; Z68.43 Body mass index [BMI] 50.0-59.9, adult; Z23 Encounter for immunization
CPT/HCPCS: 94640 ×3; 99285; 36415 ×2; 82553; 82803; 82550; 83735; 84100; 84443; 84703; 85025; 85027; 80048; 80053; 84484 ×2; 85379; 80061; 83880; 71020; 71275; 90686; 94660 ×2; J0360; J2930; J1650; J3490; J7030; J0696; J7620 ×2

== ENCOUNTER 2017-05-06 16:15 | Emergency (ER) | payer OTHER ==
[2017-05-06] MEDS ORDERED: NORMAL SALINE 1000 ML 1,000 ML IV ONE (16:44)
[2017-05-06] MEDS ORDERED: MORPHINE SULFATE 10 MG/ML INJ IV ONE (16:45)
[2017-05-06] MEDS ORDERED: METOCLOPRAMIDE HCL INJ/PF 10 MG/2 ML SDV IV ONE (16:45)
--- NOTE | 2017-05-06 16:54 | ER Document Report ---
ED Medical Screen (RME) - General Mode of Arrival: Ambulatory Information source: Patient TRAVEL OUTSIDE OF THE [place] IN LAST 30 DAYS: No <ALEX KELLOGG - Last Filed: 05/06/17 16:54> <LORIN BARTON - Last Filed: 05/06/17 19:26> - General Chief Complaint: Abdominal Pain Stated Complaint: ABDOMINAL PAIN Time Seen by Provider: 05/06/17 16:42 Notes: Patient is a 46 year old female presenting to the emergency department complaining of right lower quadrant abdominal pain onset 3 days ago. Patient states she is nauseous and has a decreased appetite. Patient denies any vomiting. I have greeted and performed a rapid initial assessment of this patient. A comprehensive ED assessment and evaluation of the patient, analysis of test results and completion of the medical decision making process will be conducted by additional ED providers. (ALEX KELLOGG) - Related Data Allergies/Adverse Reactions: ondansetron HCl [From Zofran] Allergy (Severe, Verified 05/06/17 17:52) resp distress azithromycin [From Zithromax] Allergy (Verified 05/06/17 17:52) Past Medical History - General Information source: Patient - Social History Chew tobacco use (# tins/day): No Frequency of alcohol use: None Drug Abuse: None - Past Medical History Cardiac Medical History: Reports: Hx Hypertension, Hx Heart Murmur - with Denies: Hx Atrial Fibrillation, Hx Congestive Heart Failure, Hx Coronary Artery Disease, Hx Heart Attack, Hx Hypercholesterolemia, Hx Peripheral Vascular Disease, Hx Pulmonary Embolism Pulmonary Medical History: Reports: Hx Pneumonia Denies: Hx Asthma, Hx Bronchitis, Hx COPD, Hx Respiratory Failure, Hx Sleep Apnea, Hx Tuberculosis Neurological Medical History: Denies: Hx Seizures Renal/ Medical History: Reports: Hx Ovarian Cysts - x 2. Denies: Hx Peritoneal Dialysis, Hx Pelvic Inflammatory Disease Malignancy Medical History: Denies: Hx Breast Cancer, Hx Cervical Cancer, Hx Leukemia, Hx Lung Cancer, Hx Ovarian Cancer Musculoskeltal Medical History: Reports Hx Arthritis, Denies Hx Fibromyalgia, Denies Hx Muscular Dystrophy Skin Medical History: Denies Hx MRSA Psychiatric Medical History: Reports: Hx Depression Traumatic Medical History: Reports: Hx Fractures - rt knee, rt elbow Infectious Medical History: Denies: Hx HIV Past Surgical History: Reports: Hx Cholecystectomy, Hx Orthopedic Surgery - R knee replacement, elbow, Hx Tubal Ligation. Denies: Hx Appendectomy, Hx Bowel Surgery, Hx Section, Hx Coronary Artery Bypass Graft, Hx Gastric Bypass Surgery, Hx Herniorrhaphy, Hx Hysterectomy, Hx Mastectomy, Hx Pacemaker, Hx Tonsillectomy - Immunizations Hx Diphtheria, Pertussis, Tetanus Vaccination: Yes History of Influenza Vaccine for 02/2017 - 07/2017 Season: Unknown <ALEX KELLOGG - Last Filed: 05/06/17 16:54> Physical Exam - General General appearance: Appears well, Alert In distress: None - HEENT Head: Normocephalic, Atraumatic - Respiratory Respiratory status: No respiratory distress - Abdominal Inspection: Obese Tenderness: Tender - RLQ tender to palpation. <ALEX KELLOGG - Last Filed: 05/06/17 16:54> - Vital signs Vitals: Temp Pulse Resp BP Pulse Ox 98.2 F 112 H 18 220/130 H 98 05/06/17 16:32 05/06/17 16:32 05/06/17 16:32 05/06/17 16:32 05/06/17 16:32 Course <ALEX KELLOGG - Last Filed: 05/06/17 16:54> - Laboratory Result Diagrams: 05/06/17 16:53 05/06/17 16:53 <LORIN BARTON - Last Filed: 05/06/17 19:26> - Re-evaluation Re-evalutation: 05/06/17 19:26 I personally performed the services described in the documentation, reviewed and edited the documentation which was dictated to the scribe in my presence, and it accurately records my words and actions. (LORIN BARTON) - Vital Signs Vital signs: Temp Pulse Resp BP Pulse Ox 98.2 F 93 18 230/122 H 99 05/06/17 16:32 05/06/17 18:52 05/06/17 16:32 05/06/17 18:52 05/06/17 18:52 - Laboratory Laboratory results interpreted by me: 05/06/17 05/06/17 16:53 16:53 RBC 5.64 H MCV 73 L MCH 23.2 L MCHC 31.9 L RDW 16.9 H Urine Protein >=500 H Ur Leukocyte Esterase TRACE H Doctor's Discharge <ALEX KELLOGG - Last Filed: 05/06/17 16:54> <LORIN BARTON - Last Filed: 05/06/17 19:26> - Discharge Clinical Impression: Abdominal pain, Sacroiliitis, Strain of right inguinal muscle, Hypertensive emergency Condition: Fair Disposition: HOME, SELF-CARE Instructions: Abdominal Pain ([facility]), Oral Narcotic Medication ([facility]), Pain Medication Injection ([facility]) Prescriptions: Clonidine HCl 0.3 mg PO BID #60 tablet Hydrocodone/Acetaminophen [[place] 10-325 Tablet] 1 each PO TID #14 tablet Scribe Documentation - Scribe Written by Jose F:: Jose F Flores, 05/06/2017 16:54 acting as scribe for :: Melani <ALEX KELLOGG - Last Filed: 05/06/17 16:54>
[2017-05-06 17:32] LABS: ABSOLUTE BASOPHILS # (AUTO) 0.1 10^3/uL (0.0-0.2); ABSOLUTE EOSINOPHILS # (AUTO) 0.2 10^3/uL (0.0-0.6); ABSOLUTE LYMPHOCYTES (AUTO) 2.6 10^3/uL (0.5-4.7); ABSOLUTE MONOCYTES (AUTO) 0.6 10^3/uL (0.1-1.4); ABSOLUTE NEUT (AUTO) 5.1 10^3/uL (1.7-8.2); EOSINOPHILS % (AUTO) 2.6 % (0-6); HEMATOCRIT 41.1 % (36.0-47.0); HEMOGLOBIN 13.1 g/dL (12.0-15.5); LYMPHOCYTES % (AUTO) 30.4 % (13-45); MEAN CORPUSCULAR HEMOGLOBIN 23.2 pg (27.0-33.4); MEAN CORPUSCULAR HGB CONC 31.9 g/dL (32.0-36.0); MEAN CORPUSCULAR VOLUME 73 fl (80-97); MONOCYTES % (AUTO) 7.5 % (3-13); PLATELET COUNT 299 10^3/uL (150-450); RED BLOOD COUNT 5.64 10^6/uL (3.72-5.28); RED CELL DISTRIBUTION WIDTH 16.9 % (11.5-14.0); SEGMENTED NEUTROPHILS % (AUTO) 58.5 % (42-78); TOTAL CELLS COUNTED % (AUTO) 100 %; WHITE BLOOD COUNT 8.7 10^3/uL (4.0-10.5)
--- NOTE | 2017-05-06 17:40 | RADIOLOGY REPORT (SQ) ---
EXAM DESCRIPTION: CT ABD/PELVIS NO ORAL OR IV COMPLETED DATE/TIME: 05/06/2017 5:29 pm REASON FOR STUDY: RLQ pain, nausea COMPARISON: 07/30/2014. TECHNIQUE: CT scan of the abdomen and pelvis performed without intravenous or oral contrast. Images reviewed with lung, soft tissue, and bone windows. Reconstructed coronal and sagittal MPR images revi ewed. All images stored on PACS. All CT scanners at this facility use dose modulation, iterative reconstruction, and/or weight based d osing when appropriate to reduce radiation dose to as low as reasonably achievable (ALARA). [facility]: Dose Right [facility]: CareDose [facility]: Dose Right [facility]: Teradose 4D [facility]: Smart [employer] RADIATION DOSE: CT Rad equipment meets quality standard of care and radiation dose reduction techniq ues were employed. CTDIvol: 27.2 mGy. DLP: 1602 mGy-cm.mGy. LIMITATIONS: None. FINDINGS: LOWER CHEST: No significant findings. No nodules or infiltrates. NON-CONTRASTED LIVER, SPLEEN, ADRENALS: Evaluation limited by lack of IV contrast. No identified sign ificant masses. PANCREAS: No masses. No peripancreatic inflammatory changes. GALLBLADDER: Surgically absent. RIGHT KIDNEY AND URETER: No suspicious masses. Assessment limited by lack of IV contrast. No signif icant calcifications. No hydronephrosis or hydroureter. LEFT KIDNEY AND URETER: No suspicious masses. Assessment limited by lack of IV contrast. No signifi cant calcifications. No hydronephrosis or hydroureter. AORTA AND RETROPERITONEUM: No aneurysm. No retroperitoneal masses or adenopathy. BOWEL AND PERITONEAL CAVITY: No obvious masses or inflammatory changes. No free fluid. APPENDIX: Not visualized. PELVIS, BLADDER, AND ABDOMINAL WALL:No abnormal masses. No free fluid. Bladder normal. BONES: No significant findings. OTHER: No other significant finding. IMPRESSION: NO SIGNIFICANT OR ACUTE PROCESS IN THE ABDOMEN OR PELVIS. COMMENT: Quality ID # [id number]: Final reports with documentation of one or more dose reduction techniques (e.g., Automated exposure control, adjustment of the mA and/or kV according to patient size, use of iterative reconstruction technique) TECHNICAL DOCUMENTATION: JOB ID: [id number]- All Rights Reserved
--- NOTE | 2017-05-06 17:43 | ER Document Report ---
ED General - General Chief Complaint: Abdominal Pain Stated Complaint: ABDOMINAL PAIN Time Seen by Provider: 05/06/17 16:42 Mode of Arrival: Ambulatory Information source: Patient Notes: 46 years old female presents today with 1 day history of right lower quadrant pain associated with nausea and radiating to the right sacroiliac region. Denies any dysuria frequency urgency denies any vaginal discharges. Denies any fever chills. Denies any vomiting. Denies any other constitutional symptoms Pain is not exacerbated by any change of position. TRAVEL OUTSIDE OF THE [place] IN LAST 30 DAYS: No - Related Data Allergies/Adverse Reactions: ondansetron HCl [From Zofran] Allergy (Severe, Verified 05/06/17 17:52) resp distress azithromycin [From Zithromax] Allergy (Verified 05/06/17 17:52) Past Medical History - General Information source: Patient - Social History Smoking Status: Never Smoker Chew tobacco use (# tins/day): No Frequency of alcohol use: None Drug Abuse: None Family History: Reviewed & Not Pertinent, Hyperlipidemia, Hypertension Patient has suicidal ideation: No Patient has homicidal ideation: No - Past Medical History Cardiac Medical History: Reports: Hx Hypertension, Hx Heart Murmur - with Denies: Hx Atrial Fibrillation, Hx Congestive Heart Failure, Hx Coronary Artery Disease, Hx Heart Attack, Hx Hypercholesterolemia, Hx Peripheral Vascular Disease, Hx Pulmonary Embolism Pulmonary Medical History: Reports: Hx Pneumonia Denies: Hx Asthma, Hx Bronchitis, Hx COPD, Hx Respiratory Failure, Hx Sleep Apnea, Hx Tuberculosis Neurological Medical History: Denies: Hx Seizures Renal/ Medical History: Reports: Hx Ovarian Cysts - x 2. Denies: Hx Peritoneal Dialysis, Hx Pelvic Inflammatory Disease Malignancy Medical History: Denies: Hx Breast Cancer, Hx Cervical Cancer, Hx Leukemia, Hx Lung Cancer, Hx Ovarian Cancer Musculoskeltal Medical History: Reports Hx Arthritis, Denies Hx Fibromyalgia, Denies Hx Muscular Dystrophy Skin Medical History: Denies Hx MRSA Psychiatric Medical History: Reports: Hx Depression Traumatic Medical History: Reports: Hx Fractures - rt knee, rt elbow Infectious Medical History: Denies: Hx HIV Past Surgical History: Reports: Hx Cholecystectomy, Hx Orthopedic Surgery - R knee replacement, elbow, Hx Tubal Ligation. Denies: Hx Appendectomy, Hx Bowel Surgery, Hx Section, Hx Coronary Artery Bypass Graft, Hx Gastric Bypass Surgery, Hx Herniorrhaphy, Hx Hysterectomy, Hx Mastectomy, Hx Pacemaker, Hx Tonsillectomy - Immunizations Hx Diphtheria, Pertussis, Tetanus Vaccination: Yes Hx Pneumococcal Vaccination: 07/06/12 Review of Systems - Review of Systems Notes: REVIEW OF SYSTEMS: CONSTITUTIONAL : Denies fever, chills, or sweats. Denies recent illness. EENT: Denies eye, ear, throat, or mouth pain or symptoms. Denies nasal or sinus congestion or discharge. Denies throat, tongue, or mouth swelling or difficulty swallowing. CARDIOVASCULAR: Denies chest pain. Denies palpitations or racing or irregular heart beat. Denies ankle edema. RESPIRATORY: Denies cough, cold, or chest congestion. Denies shortness of breath, difficulty breathing, or wheezing. GASTROINTESTINAL: As per history of complain. GENITOURINARY: Denies difficulty urinating, painful urination, burning, frequency, blood in urine, or discharge. FEMALE GENITOURINARY: Denies vaginal bleeding, heavy or abnormal periods, irregular periods. Denies vaginal discharge or odor. MUSCULOSKELETAL: Denies back or neck pain or stiffness. Denies joint pain or swelling. SKIN: Denies rash, lesions or sores. HEMATOLOGIC : Denies easy bruising or bleeding. LYMPHATIC: Denies swollen, enlarged glands. NEUROLOGICAL: Denies confusion or altered mental status. Denies passing out or loss of consciousness. Denies dizziness or lightheadedness. Denies headache. Denies weakness or paralysis or loss of use of either side. Denies problems with gait or speech. Denies sensory loss, numbness, or tingling. Denies seizures. PSYCHIATRIC: Denies anxiety or stress. Denies depression, suicidal ideation, or homicidal ideation. ALL OTHER SYSTEMS REVIEWED AND NEGATIVE. PHYSICAL EXAMINATION: GENERAL: Well-appearing, well-nourished and in no acute distress. Morbidly obese HEAD: Atraumatic, normocephalic. EYES: Pupils equal round and reactive to light, extraocular movements intact, conjunctiva are normal. ENT: Nares patent, oropharynx clear without exudates. Moist mucous membranes. NECK: Normal range of motion, supple without lymphadenopathy LUNGS: Breath sounds clear to auscultation bilaterally and equal. No wheezes rales or rhonchi. HEART: Regular rate and rhythm without murmurs ABDOMEN: Right lower quadrant sharp tenderness with guarding noted no rebound tenderness. Female : deferred Musculoskeletal: Normal range of motion, no pitting or edema. No cyanosis. NEUROLOGICAL: Cranial nerves grossly intact. Normal speech, normal gait. Normal sensory, motor exams PSYCH: Normal mood, normal affect. SKIN: Warm, Dry, normal turgor, no rashes or lesions noted. Dictation was performed using [employer] voice recognition software Physical Exam - Vital signs Vitals: Temp Pulse Resp BP Pulse Ox 98.2 F 112 H 18 220/130 H 98 05/06/17 16:32 05/06/17 16:32 05/06/17 16:32 05/06/17 16:32 05/06/17 16:32 Course - Re-evaluation Re-evalutation: 05/06/17 18:30 She was given trigger point injection to the right sacroiliac joint region, as well as clonidine. Her lower back pain has completely resolved but the pain over the right groin is still persistent. - Vital Signs Vital signs: Temp Pulse Resp BP Pulse Ox 98.2 F 112 H 18 220/130 H 98 05/06/17 16:32 05/06/17 16:32 05/06/17 16:32 05/06/17 16:32 05/06/17 16:32 - Laboratory Result Diagrams: 05/06/17 16:53 05/06/17 16:53 Laboratory results interpreted by me: 05/06/17 05/06/17 16:53 16:53 RBC 5.64 H MCV 73 L MCH 23.2 L MCHC 31.9 L RDW 16.9 H Urine Protein >=500 H Ur Leukocyte Esterase TRACE H Procedures - Additional Procedures Trigger point injection Time performed: 18:30 - Trigger point injection Notes: 05/06/17 18:31 Under aseptic condition using sterile technique after cleaning with alcohol 80 mg of Depo-Medrol mixed with Marcaine 8 cc was infiltrated along the right sacroiliac joint region without any complications. Discharge - Discharge Clinical Impression: Sacroiliitis, Hypertensive emergency Abdominal pain Qualifiers: Abdominal location: right lower quadrant Qualified Code(s): R10.31 - Right lower quadrant pain Strain of right inguinal muscle Qualifiers: Encounter type: initial encounter Qualified Code(s): S39.013A - Strain of muscle, fascia and tendon of pelvis, initial encounter Condition: Fair Disposition: HOME, SELF-CARE Instructions: Abdominal Pain ([facility]), Oral Narcotic Medication ([facility]), Pain Medication Injection ([facility]) Prescriptions: Clonidine HCl 0.3 mg PO BID #60 tablet Hydrocodone/Acetaminophen [[place] 10-325 Tablet] 1 each PO TID #14 tablet
[2017-05-06 17:50] LABS: ALANINE AMINOTRANSFERASE 25 U/L (9-52); ALBUMIN 4.2 g/dL (3.5-5.0); ALKALINE PHOSPHATASE 106 U/L (38-126); ANION GAP 9 (5-19); ASPARTATE AMINO TRANSFERASE 20 U/L (14-36); BILIRUBIN,DIRECT 0.3 mg/dL (0.0-0.4); BILIRUBIN,TOTAL 0.3 mg/dL (0.2-1.3); BLOOD UREA NITROGEN 15 mg/dL (7-20); CALCIUM 9.5 mg/dL (8.4-10.2); CARBON DIOXIDE 30 mmol/L (22-30); CHLORIDE 101 mmol/L (98-107); GLUCOSE 98 mg/dL (75-110); LIPASE 250.2 U/L (23-300); POTASSIUM 4.1 mmol/L (3.6-5.0); SODIUM 139.9 mmol/L (137-145); TOTAL PROTEIN 7.5 g/dL (6.3-8.2)
[2017-05-06] MEDS ORDERED: METHYLPREDNISOLONE ACETATE INJ 80 MG/1 ML VIAL IM PRN (18:08)
[2017-05-06] MEDS ORDERED: BUPIVACAINE HCL 0.75% INJ/PF (7.5 MG/1 ML) 10 ML SDV INJ ONE (18:08)
[2017-05-06 18:23] LABS: APPEARANCE,URINE SLIGHTLY-CLOUDY; BILIRUBIN,URINE NEGATIVE (NEGATIVE); COLOR,URINE YELLOW; GLUCOSE, URINE NEGATIVE (NEGATIVE); KETONES,URINE NEGATIVE (NEGATIVE); LEUKOCYTE ESTERASE,URINE TRACE (NEGATIVE); NITRITE,URINE NEGATIVE (NEGATIVE); PROTEIN,URINE >=500 mg/dL (NEGATIVE); URINE SPECIFIC GRAVITY 1.024; UROBILINOGEN,URINE NEGATIVE mg/dL (<2.0)
[2017-05-06] MEDS ORDERED: CLONIDINE HCL 0.2 MG TABLET PO ONE (18:30)
[2017-05-06 18:56] VITALS: BP 230/122
== END 2017-05-06 18:56 | disposition home or self-care (01) ==
LOC: ER 16:15
DX: M46.1 Sacroiliitis, not elsewhere classified (principal); S39.013A Strain of muscle, fascia and tendon of pelvis, initial encounter; X58.XXXA Exposure to other specified factors, initial encounter; I16.1 Hypertensive emergency; I10 Essential (primary) hypertension; R10.31 Right lower quadrant pain; M54.5 Low back pain; R11.0 Nausea; Z87.42 Personal history of other diseases of the female genital tract; Z90.49 Acquired absence of other specified parts of digestive tract; Z98.51 Tubal ligation status; Z88.8 Allergy status to other drugs, medicaments and biological substances; Z88.1 Allergy status to other antibiotic agents
CPT/HCPCS: 99284; 96372; 96361; 96374; 96375; 36415; 83690; 85025; 80053; 81001; 74176; 20552; J3490; J1040; J2765; J2270; J7030

== ENCOUNTER 2017-06-04 09:16 | Emergency (ER) | payer OTHER ==
[2017-06-04] MEDS ORDERED: HYDRALAZINE HCL INJ/PF 20 MG/1 ML SDV IV ONE ×2 (09:31→11:26)
--- NOTE | 2017-06-04 09:41 | ER Document Report ---
ED Medical Screen (RME) - General Chief Complaint: High Blood Pressure Stated Complaint: BLOOD PRESSURE CONCERN Time Seen by Provider: 06/04/17 09:35 Mode of Arrival: Ambulatory Information source: Patient Notes: 46-year-old female history of hypertension multiple previous episodes for hypertensive urgency requiring hydralazine presents with complaints of high blood pressure. Patient notes that she doubled on her clonidine in the past 2 days. She denies any other complaints except for mild headache TRAVEL OUTSIDE OF THE [place] IN LAST 30 DAYS: No - HPI Onset: Yesterday Onset/Duration: Persistent Quality of pain: Pressure Severity: Mild Pain Level: 1 Associated Symptoms: Headache Exacerbated by: Denies Relieved by: Denies Similar symptoms previously: Yes Recently seen / treated by doctor: Yes - Related Data Allergies/Adverse Reactions: ondansetron HCl [From Zofran] Allergy (Severe, Verified 06/04/17 09:17) resp distress azithromycin [From Zithromax] Allergy (Verified 06/04/17 09:17) Past Medical History - Social History Cigarette use (# per day): No Chew tobacco use (# tins/day): No Frequency of alcohol use: None Drug Abuse: None Family history: Hypertension - Past Medical History Cardiac Medical History: Reports: Hx Hypertension, Hx Heart Murmur - with Denies: Hx Atrial Fibrillation, Hx Congestive Heart Failure, Hx Coronary Artery Disease, Hx Heart Attack, Hx Hypercholesterolemia, Hx Peripheral Vascular Disease, Hx Pulmonary Embolism Pulmonary Medical History: Reports: Hx Pneumonia Denies: Hx Asthma, Hx Bronchitis, Hx COPD, Hx Respiratory Failure, Hx Sleep Apnea, Hx Tuberculosis Neurological Medical History: Denies: Hx Seizures Renal/ Medical History: Reports: Hx Ovarian Cysts - x 2. Denies: Hx Peritoneal Dialysis, Hx Pelvic Inflammatory Disease Malignancy Medical History: Denies: Hx Breast Cancer, Hx Cervical Cancer, Hx Leukemia, Hx Lung Cancer, Hx Ovarian Cancer Musculoskeltal Medical History: Reports Hx Arthritis, Denies Hx Fibromyalgia, Denies Hx Muscular Dystrophy Skin Medical History: Denies Hx MRSA Psychiatric Medical History: Reports: Hx Depression Traumatic Medical History: Reports: Hx Fractures - rt knee, rt elbow Infectious Medical History: Denies: Hx HIV Past Surgical History: Reports: Hx Cholecystectomy, Hx Orthopedic Surgery - R knee replacement, elbow, Hx Tubal Ligation. Denies: Hx Appendectomy, Hx Bowel Surgery, Hx Section, Hx Coronary Artery Bypass Graft, Hx Gastric Bypass Surgery, Hx Herniorrhaphy, Hx Hysterectomy, Hx Mastectomy, Hx Pacemaker, Hx Tonsillectomy - Immunizations Hx Diphtheria, Pertussis, Tetanus Vaccination: Yes History of Influenza Vaccine for 02/2017 - 07/2017 Season: Unknown Review of Systems - Review of Systems Notes: REVIEW OF SYSTEMS: CONSTITUTIONAL : Denies fever, chills, or sweats. Denies recent illness. EENT: Denies eye, ear, throat, or mouth pain or symptoms. Denies nasal or sinus congestion or discharge. Denies throat, tongue, or mouth swelling or difficulty swallowing. CARDIOVASCULAR: Denies chest pain. Denies palpitations or racing or irregular heart beat. Denies ankle edema. RESPIRATORY: Denies cough, cold, or chest congestion. Denies shortness of breath, difficulty breathing, or wheezing. GASTROINTESTINAL: Denies abdominal pain or distention. Denies nausea, vomiting , or diarrhea. Denies blood in vomitus, stools, or per rectum. Denies black, tarry stools. Denies constipation. GENITOURINARY: Denies difficulty urinating, painful urination, burning, frequency, blood in urine, or discharge. FEMALE GENITOURINARY: Denies vaginal bleeding, heavy or abnormal periods, irregular periods. Denies vaginal discharge or odor. MUSCULOSKELETAL: Denies back or neck pain or stiffness. Denies joint pain or swelling. SKIN: Denies rash, lesions or sores. HEMATOLOGIC : Denies easy bruising or bleeding. LYMPHATIC: Denies swollen, enlarged glands. NEUROLOGICAL: admits ot mild headache PSYCHIATRIC: Denies anxiety or stress. Denies depression, suicidal ideation, or homicidal ideation. ALL OTHER SYSTEMS REVIEWED AND NEGATIVE. PHYSICAL EXAMINATION: GENERAL: morbidly obese. HEAD: Atraumatic, normocephalic. EYES: Pupils equal round and reactive to light, extraocular movements intact, conjunctiva are normal. ENT: Nares patent, oropharynx clear without exudates. Moist mucous membranes. NECK: Normal range of motion, supple without lymphadenopathy LUNGS: Breath sounds clear to auscultation bilaterally and equal. No wheezes rales or rhonchi. HEART: Regular rate and rhythm without murmurs ABDOMEN: Soft, nontender, nondistended abdomen. No guarding, no rebound. No masses appreciated. Female : deferred Musculoskeletal: Normal range of motion, no pitting or edema. No cyanosis. NEUROLOGICAL: Cranial nerves grossly intact. Normal speech, normal gait. Normal sensory, motor exams PSYCH: Normal mood, normal affect. SKIN: Warm, Dry, normal turgor, no rashes or lesions noted. Dictation was performed using [employer] voice recognition software Physical Exam - Vital signs Vitals: Temp Pulse Resp BP Pulse Ox 97.9 F 81 20 208/122 H 96 06/04/17 09:21 06/04/17 09:21 06/04/17 09:21 06/04/17 09:21 06/04/17 09:21 Course - Re-evaluation Re-evalutation: 06/04/17 09:41 Patient will be given hydralazine otherwise she looks well is in no distress, 06/04/17 14:48 Patient required a second dose of hydralazine and her blood pressures improved her symptoms have been much better she wishes to be discharged After performing a Medical Screening Examination, I estimate there is LOW risk for ACUTE GLAUCOMA, TEMPORAL ARTERITIS, MENINGITIS, INCRANIAL HEMORRHAGE, or ISCHEMIC STROKE thus I consider the discharge disposition reasonable. I have reevaluated this patient multiple times and no significant life threatening changes are noted. The patient and I have discussed the diagnosis and risks, and we agree with discharging home with close follow-up with the understanding that symptoms and presentations can change. We also discussed returning to the Emergency Department immediately if new or worsening symptoms occur. We have discussed the symptoms which are most concerning (e.g., changing or worsening symptoms, new numbness or weakness, vomiting, fever) that necessitate immediate return. - Vital Signs Vital signs: Temp Pulse Resp BP Pulse Ox 97.5 F 71 15 158/109 H 100 06/04/17 11:24 06/04/17 11:24 06/04/17 12:55 06/04/17 12:51 06/04/17 12:55 - Laboratory Result Diagrams: 06/04/17 09:40 06/04/17 09:40 Laboratory results interpreted by me: 06/04/17 09:40 RBC 5.71 H MCV 74 L MCH 23.8 L RDW 17.5 H Critical Care Note - Critical Care Note Total time excluding time spent on procedures (mins): 34 Comments: 34 minutes of critical care time spent in direct contact evaluating and reevaluating the patient, treating symptoms, reviewing labs and studies and speaking with family and consultants excluding any procedures Doctor's Discharge - Discharge Clinical Impression: Accelerated hypertension Condition: Stable Disposition: HOME, SELF-CARE Instructions: High Blood Pressure ([facility]), High Blood Pressure, Requiring Treatment ([facility]) Additional Instructions: Follow up with your physician tomorrow for further care or return to the ED IMMEDIATELY if symptoms worsen or new concerns occur. If you cannot afford to follow up with your primary care physician a list of low cost clinics have been provided at the end of your discharge papers as well.
[2017-06-04 10:00] LABS: ABSOLUTE BASOPHILS # (AUTO) 0.1 10^3/uL (0.0-0.2); ABSOLUTE EOSINOPHILS # (AUTO) 0.2 10^3/uL (0.0-0.6); ABSOLUTE LYMPHOCYTES (AUTO) 2.2 10^3/uL (0.5-4.7); ABSOLUTE MONOCYTES (AUTO) 0.5 10^3/uL (0.1-1.4); ABSOLUTE NEUT (AUTO) 4.5 10^3/uL (1.7-8.2); EOSINOPHILS % (AUTO) 2.1 % (0-6); HEMATOCRIT 42.1 % (36.0-47.0); HEMOGLOBIN 13.6 g/dL (12.0-15.5); LYMPHOCYTES % (AUTO) 29.4 % (13-45); MEAN CORPUSCULAR HEMOGLOBIN 23.8 pg (27.0-33.4); MEAN CORPUSCULAR HGB CONC 32.2 g/dL (32.0-36.0); MEAN CORPUSCULAR VOLUME 74 fl (80-97); MONOCYTES % (AUTO) 6.4 % (3-13); PLATELET COUNT 266 10^3/uL (150-450); RED BLOOD COUNT 5.71 10^6/uL (3.72-5.28); RED CELL DISTRIBUTION WIDTH 17.5 % (11.5-14.0); SEGMENTED NEUTROPHILS % (AUTO) 61.1 % (42-78); TOTAL CELLS COUNTED % (AUTO) 100 %; WHITE BLOOD COUNT 7.4 10^3/uL (4.0-10.5)
[2017-06-04 10:15] LABS: ALANINE AMINOTRANSFERASE 23 U/L (9-52); ALBUMIN 3.9 g/dL (3.5-5.0); ALKALINE PHOSPHATASE 92 U/L (38-126); ANION GAP 8 (5-19); ASPARTATE AMINO TRANSFERASE 17 U/L (14-36); BILIRUBIN,DIRECT 0.1 mg/dL (0.0-0.4); BILIRUBIN,TOTAL 0.4 mg/dL (0.2-1.3); BLOOD UREA NITROGEN 16 mg/dL (7-20); CALCIUM 9.3 mg/dL (8.4-10.2); CARBON DIOXIDE 28 mmol/L (22-30); CHLORIDE 105 mmol/L (98-107); GLUCOSE 96 mg/dL (75-110); POTASSIUM 4.4 mmol/L (3.6-5.0); SODIUM 141.1 mmol/L (137-145)
[2017-06-04 13:03] VITALS: BP 158/109
--- NOTE | 2017-06-05 11:51 | EKG REPORT ---
SEVERITY:- ABNORMAL ECG - SINUS RHYTHM ABNORMAL T, CONSIDER ISCHEMIA, LATERAL LEADS : Confirmed by: Vanessa Lucas MD 05-Jun-2017 11:51:36
== END 2017-06-04 13:03 | disposition home or self-care (01) ==
LOC: ER 09:16
DX: I10 Essential (primary) hypertension (principal); Z79.899 Other long term (current) drug therapy; R51 Headache; E66.01 Morbid (severe) obesity due to excess calories; Z68.43 Body mass index [BMI] 50.0-59.9, adult; Z88.8 Allergy status to other drugs, medicaments and biological substances; Z88.1 Allergy status to other antibiotic agents
CPT/HCPCS: 93005; 96376; 99285; 96374; 36415; 85025; 80053; 93010; J0360

== ENCOUNTER 2017-07-01 08:53 | Emergency (ER) | payer OTHER ==
--- NOTE | 2017-07-01 10:29 | ER Document Report ---
ED General - General Chief Complaint: Knee Pain Stated Complaint: LEFT KNEE PAIN Time Seen by Provider: 07/01/17 09:55 Mode of Arrival: Ambulatory Information source: Patient TRAVEL OUTSIDE OF THE [place] IN LAST 30 DAYS: No - HPI Notes: 46-year-old female presents today with complaints of left knee pain 3 days, states she heard a "popping". Pain 6/10, throbbing and constant. Tried otc motrin without full relief. Reports some swelling. Has not tried any icing. denies previous injury of knee. Unable to bear full weight. Denies any n/t in affected limb. Worse with ambulation, better when at rest. denies hitting head or change in loc. .Patient had a right knee replacement back [place] [address] Epstein. Denies fevers, chills, chest pain,palpitations, shortness of breath, dyspnea, nausea, vomiting, diarrhea, abdominal pain, hematuria,blurred vision, double vision, loss of vision, speech changes, LH, dizziness, syncope, headaches , wheezing, ST, URI, neck pain, weakness, bowel or bladder dysfunction, saddle anesthesia, numbness or tingling in bilateral upper or lower extremities equally , muscle paralysis, weakness in bilateral upper or lower extremities equally or rash. Denies IV drug use. E - Related Data Allergies/Adverse Reactions: ondansetron HCl [From Zofran] Allergy (Severe, Verified 06/04/17 09:17) resp distress azithromycin [From Zithromax] Allergy (Verified 06/04/17 09:17) Past Medical History - General Information source: Patient - Social History Smoking Status: Never Smoker Chew tobacco use (# tins/day): No Frequency of alcohol use: None Drug Abuse: None Family History: Reviewed & Not Pertinent Patient has suicidal ideation: No Patient has homicidal ideation: No - Past Medical History Cardiac Medical History: Reports: Hx Hypertension, Hx Heart Murmur - with Denies: Hx Atrial Fibrillation, Hx Congestive Heart Failure, Hx Coronary Artery Disease, Hx Heart Attack, Hx Hypercholesterolemia, Hx Peripheral Vascular Disease, Hx Pulmonary Embolism Pulmonary Medical History: Reports: Hx Pneumonia Denies: Hx Asthma, Hx Bronchitis, Hx COPD, Hx Respiratory Failure, Hx Sleep Apnea, Hx Tuberculosis Neurological Medical History: Denies: Hx Seizures Renal/ Medical History: Reports: Hx Ovarian Cysts - x 2. Denies: Hx Peritoneal Dialysis, Hx Pelvic Inflammatory Disease Malignancy Medical History: Denies: Hx Breast Cancer, Hx Cervical Cancer, Hx Leukemia, Hx Lung Cancer, Hx Ovarian Cancer Musculoskeltal Medical History: Reports Hx Arthritis, Denies Hx Fibromyalgia, Denies Hx Muscular Dystrophy Skin Medical History: Denies Hx MRSA Psychiatric Medical History: Reports: Hx Depression Traumatic Medical History: Reports: Hx Fractures - rt knee, rt elbow Infectious Medical History: Denies: Hx HIV Past Surgical History: Reports: Hx Cholecystectomy, Hx Orthopedic Surgery - R knee replacement, elbow, Hx Tubal Ligation. Denies: Hx Appendectomy, Hx Bowel Surgery, Hx Section, Hx Coronary Artery Bypass Graft, Hx Gastric Bypass Surgery, Hx Herniorrhaphy, Hx Hysterectomy, Hx Mastectomy, Hx Pacemaker, Hx Tonsillectomy - Immunizations Hx Diphtheria, Pertussis, Tetanus Vaccination: Yes Hx Pneumococcal Vaccination: 07/06/12 Review of Systems - Review of Systems Notes: REVIEW OF SYSTEMS: CONSTITUTIONAL : Denies fever, chills, or sweats. Denies recent illness. EENT: Denies eye, ear, throat, or mouth pain or symptoms. Denies nasal or sinus congestion or discharge. Denies throat, tongue, or mouth swelling or difficulty swallowing. CARDIOVASCULAR: Denies chest pain. Denies palpitations or racing or irregular heart beat. Denies ankle edema. RESPIRATORY: Denies cough, cold, or chest congestion. Denies shortness of breath, difficulty breathing, or wheezing. GASTROINTESTINAL: Denies abdominal pain or distention. Denies nausea, vomiting , or diarrhea. Denies blood in vomitus, stools, or per rectum. Denies black, tarry stools. Denies constipation. GENITOURINARY: Denies difficulty urinating, painful urination, burning, frequency, blood in urine, or discharge. FEMALE GENITOURINARY: Denies vaginal bleeding, heavy or abnormal periods, irregular periods. Denies vaginal discharge or odor. MUSCULOSKELETAL: positive left knee pain Denies back or neck pain or stiffness. Denies joint pain or swelling. SKIN: Denies rash, lesions or sores. HEMATOLOGIC : Denies easy bruising or bleeding. LYMPHATIC: Denies swollen, enlarged glands. NEUROLOGICAL: Denies confusion or altered mental status. Denies passing out or loss of consciousness. Denies dizziness or lightheadedness. Denies headache. Denies weakness or paralysis or loss of use of either side. Denies problems with gait or speech. Denies sensory loss, numbness, or tingling. Denies seizures. PSYCHIATRIC: Denies anxiety or stress. Denies depression, suicidal ideation, or homicidal ideation. ALL OTHER SYSTEMS REVIEWED AND NEGATIVE. Physical Exam - Vital signs Vitals: Temp Pulse Resp BP Pulse Ox 98.5 F 89 18 222/154 H 100 07/01/17 09:24 07/01/17 09:24 07/01/17 09:24 07/01/17 09:24 07/01/17 09:24 - Notes Notes: PHYSICAL EXAMINATION: GENERAL: Well-appearing, well-nourished and in no acute distress. HEAD: Atraumatic, normocephalic. EYES: Pupils equal round and reactive to light, extraocular movements intact, conjunctiva are normal. ENT: Nares patent, oropharynx clear without exudates. Moist mucous membranes. NECK: Normal range of motion, supple without lymphadenopathy LUNGS: Breath sounds clear to auscultation bilaterally and equal. No wheezes rales or rhonchi. HEART: Regular rate and rhythm without murmurs ABDOMEN: Soft, nontender, nondistended abdomen. No guarding, no rebound. No masses appreciated. Female : deferred Musculoskeletal: Normal range of motion, no pitting or edema. No cyanosis. left knee pain with palpation to lateral aspect of knee with noted swelling. negative jovanny's sign. anterior and posterior drawer test negative.Dtr + 2 in BLE. Full motor and sensory function. Negative lachmans test and posterior/ anterior drawer test. No open wounds. No induration or drainage. pulses + 2 bilaterally and equally. NEUROLOGICAL: Cranial nerves grossly intact. Normal speech, normal gait. Normal sensory, motor exams PSYCH: Normal mood, normal affect. SKIN: Warm, Dry, normal turgor, no rashes or lesions noted. Dictation was performed using [employer] voice recognition software Course - Re-evaluation Re-evalutation: 60 mg of Toradol given IM. Discussed the results of the radiology as well as the diagnosis at great length. Advised patient that she had an effusion in her left knee. Discussed with patient that we will give her crutches and a knee immobilizer, rice, take ibuprofen as needed for pain and swelling. Following up with facility specialist. Patient states she suspected that she will likely need a knee replacement since she had a right knee replacement back in [address] Epstein. Discussed the need to return to the ER for any new or worsening sx. Patient understands to take the Rx as directed. All questions answered. Patient comfortable with the decision to go home. - Vital Signs Vital signs: Temp Pulse Resp BP Pulse Ox 98.5 F 89 18 222/154 H 100 07/01/17 09:24 07/01/17 09:24 07/01/17 09:24 07/01/17 09:24 07/01/17 09:24 Discharge - Discharge Clinical Impression: Effusion of left knee Condition: Good Disposition: HOME, SELF-CARE Instructions: Use of Crutches ([facility]), Ice & Elevation ([facility]), Knee Immobilizing Splint ([facility]), Sprained Knee ([facility]) Additional Instructions: Return immediately for any new or worsening symptoms. Follow up with primary care provider, call tomorrow to make followup appointment. Prescriptions: Ibuprofen 800 mg PO QIDP PRN #30 tablet PRN Reason: Forms: Return to Work Referrals: CECE CARLOS MD [ACTIVE STAFF] - Follow up in 3-5 days JUHI JEAN BAPTISTE MD [ACTIVE STAFF] - Follow up as needed
--- NOTE | 2017-07-01 11:07 | RADIOLOGY REPORT (SQ) ---
EXAM DESCRIPTION: KNEE LEFT 4 VIEW COMPLETED DATE/TIME: 07/01/2017 10:55 am REASON FOR STUDY: left knee pain COMPARISON: None. NUMBER OF VIEWS: Four views. TECHNIQUE: AP, lateral, and both oblique radiographic images acquired of the left knee. LIMITATIONS: None. FINDINGS: MINERALIZATION: Normal. BONES: No acute fracture or dislocation. No worrisome bone lesions. JOINT: Small suprapatellar knee joint effusion. There is moderate patellofemoral and medial compartm ent joint space narrowing and bony spurring. SOFT TISSUES: No soft tissue swelling. No radio-opaque foreign body. OTHER: No other significant finding. IMPRESSION: Small suprapatellar knee joint effusion Osteoarthritis in the patellofemoral and medial compartments No acute fracture. TECHNICAL DOCUMENTATION: JOB ID: [id number] [employer]- All Rights Reserved
[2017-07-01] MEDS ORDERED: KETOROLAC TROMETHAMINE 60 MG/2 ML SDV IM ONE (11:10)
[2017-07-01 11:35] VITALS: BP 199/124
== END 2017-07-01 11:35 | disposition home or self-care (01) ==
LOC: ER 08:53
DX: M25.462 Effusion, left knee (principal); M25.562 Pain in left knee; M79.89 Other specified soft tissue disorders; Z96.651 Presence of right artificial knee joint; I10 Essential (primary) hypertension
CPT/HCPCS: 99283; 96372; 73562; L1830; J1885

== ENCOUNTER 2017-07-06 16:20 | Emergency (ER) | payer OTHER ==
[2017-07-06] MEDS ORDERED: LABETALOL HCL INJ 20 MG/4 ML DISP.SYRIN IV ONE (16:50)
--- NOTE | 2017-07-06 16:51 | ER Document Report ---
ED Medical Screen (RME) - General Chief Complaint: Chest Pain Stated Complaint: DIZZY, CHEST PAIN Time Seen by Provider: 07/06/17 16:49 Notes: cp/andres and blurry vision. has not missed any med doses. denies hx dvt/pe TRAVEL OUTSIDE OF THE [place] IN LAST 30 DAYS: No - Related Data Allergies/Adverse Reactions: ondansetron HCl [From Zofran] Allergy (Severe, Verified 06/04/17 09:17) resp distress azithromycin [From Zithromax] Allergy (Verified 06/04/17 09:17) Past Medical History - Social History Family history: Hypertension - Past Medical History Cardiac Medical History: Reports: Hx Hypertension, Hx Heart Murmur - with Denies: Hx Atrial Fibrillation, Hx Congestive Heart Failure, Hx Coronary Artery Disease, Hx Heart Attack, Hx Hypercholesterolemia, Hx Peripheral Vascular Disease, Hx Pulmonary Embolism Pulmonary Medical History: Reports: Hx Pneumonia Denies: Hx Asthma, Hx Bronchitis, Hx COPD, Hx Respiratory Failure, Hx Sleep Apnea, Hx Tuberculosis Neurological Medical History: Denies: Hx Seizures Renal/ Medical History: Reports: Hx Ovarian Cysts - x 2. Denies: Hx Peritoneal Dialysis, Hx Pelvic Inflammatory Disease Malignancy Medical History: Denies: Hx Breast Cancer, Hx Cervical Cancer, Hx Leukemia, Hx Lung Cancer, Hx Ovarian Cancer Musculoskeltal Medical History: Reports Hx Arthritis, Denies Hx Fibromyalgia, Denies Hx Muscular Dystrophy Skin Medical History: Denies Hx MRSA Psychiatric Medical History: Reports: Hx Depression Traumatic Medical History: Reports: Hx Fractures - rt knee, rt elbow Infectious Medical History: Denies: Hx HIV Past Surgical History: Reports: Hx Cholecystectomy, Hx Orthopedic Surgery - R knee replacement, elbow, Hx Tubal Ligation. Denies: Hx Appendectomy, Hx Bowel Surgery, Hx Section, Hx Coronary Artery Bypass Graft, Hx Gastric Bypass Surgery, Hx Herniorrhaphy, Hx Hysterectomy, Hx Mastectomy, Hx Pacemaker, Hx Tonsillectomy - Immunizations Hx Diphtheria, Pertussis, Tetanus Vaccination: Yes History of Influenza Vaccine for 02/2017 - 07/2017 Season: Unknown Physical Exam - Vital signs Vitals: Temp Pulse Resp BP Pulse Ox 98.2 F 107 H 20 215/126 H 100 07/06/17 16:33 07/06/17 16:33 07/06/17 16:33 07/06/17 16:33 07/06/17 16:33 Course - Vital Signs Vital signs: Temp Pulse Resp BP Pulse Ox 98.2 F 107 H 20 215/126 H 100 07/06/17 16:33 07/06/17 16:33 07/06/17 16:33 07/06/17 16:33 07/06/17 16:33
[2017-07-06 17:23] LABS: ABSOLUTE BASOPHILS # (AUTO) 0.1 10^3/uL (0.0-0.2); ABSOLUTE EOSINOPHILS # (AUTO) 0.2 10^3/uL (0.0-0.6); ABSOLUTE LYMPHOCYTES (AUTO) 2.7 10^3/uL (0.5-4.7); ABSOLUTE MONOCYTES (AUTO) 0.4 10^3/uL (0.1-1.4); ABSOLUTE NEUT (AUTO) 5.7 10^3/uL (1.7-8.2); BASOPHILS % (AUTO) 0.7 % (0-2); EOSINOPHILS % (AUTO) 1.8 % (0-6); HEMATOCRIT 40.5 % (36.0-47.0); HEMOGLOBIN 13.1 g/dL (12.0-15.5); LYMPHOCYTES % (AUTO) 30.4 % (13-45); MEAN CORPUSCULAR HEMOGLOBIN 23.5 pg (27.0-33.4); MEAN CORPUSCULAR HGB CONC 32.3 g/dL (32.0-36.0); MEAN CORPUSCULAR VOLUME 73 fl (80-97); MONOCYTES % (AUTO) 4.4 % (3-13); PLATELET COUNT 264 10^3/uL (150-450); RED BLOOD COUNT 5.56 10^6/uL (3.72-5.28); RED CELL DISTRIBUTION WIDTH 16.8 % (11.5-14.0); SEGMENTED NEUTROPHILS % (AUTO) 62.7 % (42-78); TOTAL CELLS COUNTED % (AUTO) 100 %
[2017-07-06 17:38] LABS: ALANINE AMINOTRANSFERASE 24 U/L (9-52); ALBUMIN 4.1 g/dL (3.5-5.0); ALKALINE PHOSPHATASE 86 U/L (38-126); ANION GAP 9 (5-19); ASPARTATE AMINO TRANSFERASE 19 U/L (14-36); BILIRUBIN,DIRECT 0.3 mg/dL (0.0-0.4); BILIRUBIN,TOTAL 0.3 mg/dL (0.2-1.3); BLOOD UREA NITROGEN 18 mg/dL (7-20); CALCIUM 9.2 mg/dL (8.4-10.2); CARBON DIOXIDE 27 mmol/L (22-30); CHLORIDE 104 mmol/L (98-107); GLUCOSE 136 mg/dL (75-110); LIPASE 187.4 U/L (23-300); POTASSIUM 4.1 mmol/L (3.6-5.0); SODIUM 140.4 mmol/L (137-145); TOTAL PROTEIN 7.2 g/dL (6.3-8.2)
--- NOTE | 2017-07-06 18:06 | RADIOLOGY REPORT (SQ) ---
EXAM DESCRIPTION: CHEST PA/LAT COMPLETED DATE/TIME: 07/06/2017 5:34 pm REASON FOR STUDY: cp COMPARISON: 04/17/2017. EXAM PARAMETERS: NUMBER OF VIEWS: two views TECHNIQUE: Digital Frontal and Lateral radiographic views of the chest acquired. RADIATION DOSE: NA LIMITATIONS: none FINDINGS: LUNGS AND PLEURA: No opacities, masses or pneumothorax. No pleural effusion. MEDIASTINUM AND HILAR STRUCTURES: No masses or contour abnormalities. HEART AND VASCULAR STRUCTURES: Heart normal size. No evidence for failure. BONES: No acute findings. HARDWARE: None in the chest. OTHER: No other significant finding. IMPRESSION: NO SIGNIFICANT RADIOGRAPHIC FINDING IN THE CHEST. TECHNICAL DOCUMENTATION: JOB ID: [id number] [employer]- All Rights Reserved Reading location - IP/workstation name: [email or web address]
--- NOTE | 2017-07-06 19:53 | EKG REPORT ---
SEVERITY:- ABNORMAL ECG - SINUS TACHYCARDIA YUDY, CONSIDER BIATRIAL ABNORMALITIES CONSIDER POSTERIOR INFARCT REPOL ABNRM SUGGESTS ISCHEMIA, ANT-LAT LEADS : Confirmed by: Lele Garza MD 06-Jul-2017 19:53:16
[2017-07-06] MEDS ORDERED: MECLIZINE HCL 25 MG TABLET PO ONE (20:17)
[2017-07-06] MEDS ORDERED: ONDANSETRON 4 MG TAB.RAPDIS PO ONE (20:17)
--- NOTE | 2017-07-06 20:21 | ER Document Report ---
ED General - General Mode of Arrival: Ambulatory Information source: Patient TRAVEL OUTSIDE OF THE [place] IN LAST 30 DAYS: No <ALEX KELLOGG - Last Filed: 07/07/17 00:58> <LORIN BARTON - Last Filed: 07/07/17 02:11> - General Chief Complaint: Chest Pain Stated Complaint: DIZZY, CHEST PAIN Time Seen by Provider: 07/06/17 16:49 Notes: Patient is a 46 year old female with a history of hypertension presents to the emergency department complaining of dizziness with hot flashes, chest pain, and nausea onset 2 days ago worsening today. Patient states her dizziness is intermittent and she feels as if her ears close during the episode. Patient states she is currently on Clonidine. (ALEX KELLOGG) - Related Data Allergies/Adverse Reactions: ondansetron HCl [From Zofran] Allergy (Severe, Verified 06/04/17 09:17) resp distress azithromycin [From Zithromax] Allergy (Verified 06/04/17 09:17) Past Medical History - General Information source: Patient - Social History Smoking Status: Former Smoker Family History: Reviewed & Not Pertinent Patient has suicidal ideation: No Patient has homicidal ideation: No - Past Medical History Cardiac Medical History: Reports: Hx Hypertension, Hx Heart Murmur - with Pulmonary Medical History: Reports: Hx Pneumonia Renal/ Medical History: Reports: Hx Ovarian Cysts - x 2 Musculoskeltal Medical History: Reports Hx Arthritis Psychiatric Medical History: Reports: Hx Depression Traumatic Medical History: Reports: Hx Fractures - rt knee, rt elbow Past Surgical History: Reports: Hx Cholecystectomy, Hx Orthopedic Surgery - R knee replacement, elbow, Hx Tubal Ligation - Immunizations Hx Diphtheria, Pertussis, Tetanus Vaccination: Yes Hx Pneumococcal Vaccination: 07/06/12 <ALEX KELLOGG - Last Filed: 07/07/17 00:58> Review of Systems - Review of Systems Constitutional: See HPI EENT: See HPI, Blurred vision Cardiovascular: See HPI, Chest pain Respiratory: No symptoms reported Gastrointestinal: See HPI, Nausea Genitourinary: No symptoms reported Female Genitourinary: No symptoms reported Musculoskeletal: No symptoms reported Skin: No symptoms reported Hematologic/Lymphatic: No symptoms reported Neurological/Psychological: No symptoms reported -: Yes All other systems reviewed and negative <ALEX KELLOGG - Last Filed: 07/07/17 00:58> Physical Exam <ALEX KELLOGG - Last Filed: 07/07/17 00:58> <LORIN BARTON - Last Filed: 07/07/17 02:11> - Vital signs Vitals: Temp Pulse Resp BP Pulse Ox 98.2 F 107 H 20 215/126 H 100 07/06/17 16:33 07/06/17 16:33 07/06/17 16:33 07/06/17 16:33 07/06/17 16:33 - Notes Notes: GENERAL: Alert, interacts well. No acute distress. Hypertensive. HEAD: Normocephalic, atraumatic. EYES: Pupils equal, round, and reactive to light. Extraocular movements intact. ENT: Oral mucosa moist, tongue midline. TMs intact. NECK: Full range of motion. Supple. Trachea midline. LUNGS: Clear to auscultation bilaterally, no wheezes, rales, or rhonchi. No respiratory distress. HEART: Regular rate and rhythm. No murmurs, gallops, or rubs. ABDOMEN: Soft, non-tender, obese. Non-distended. Bowel sounds present in all 4 quadrants. EXTREMITIES: Moves all 4 extremities spontaneously. NEUROLOGICAL: Alert and oriented x3. Normal speech. PSYCH: Normal affect, normal mood. SKIN: Warm, dry, normal turgor. No rashes or lesions noted. (ALEX KELLOGG) Course - Laboratory Result Diagrams: 07/06/17 17:14 07/06/17 17:14 <ALEX KELLOGG - Last Filed: 07/07/17 00:58> - Laboratory Result Diagrams: 07/06/17 17:14 07/06/17 17:14 - Diagnostic Test Radiology reviewed: Reports reviewed <LORIN BARTON - Last Filed: 07/07/17 02:11> - Re-evaluation Re-evalutation: 07/07/17 01:40 Patient comes in complaining of dizziness that feels like room spinning sensation. Patient has not followed up with a primary care doctor since having more antihypertensive started in the emergency department. She says that she has an appointment on for this. No acute findings on blood work including 2 negative troponins. No acute findings on head CT. Patient feels better after meclizine. Patient would like to go home and she is feeling better. Ambulates without difficulty. She is neurologically intact. She will be given a prescription for meclizine. Patient's blood pressure has started to go up again. Patient is due for her home blood pressure medications and would prefer to go home at this time. Stable at time of discharge. Return for any worsening or concerning symptoms. (LORIN BARTON) - Vital Signs Vital signs: Temp Pulse Resp BP Pulse Ox 97.8 F 91 20 216/127 H 95 07/06/17 22:57 07/06/17 22:57 07/06/17 22:57 07/06/17 22:57 07/06/17 22:57 - Laboratory Laboratory results interpreted by me: 07/06/17 07/06/17 17:14 17:14 RBC 5.56 H MCV 73 L MCH 23.5 L RDW 16.8 H Glucose 136 H Discharge <ALEX KELLOGG - Last Filed: 07/07/17 00:58> <LORIN BARTON - Last Filed: 07/07/17 02:11> - Discharge Clinical Impression: Vertigo Hypertension Qualifiers: Hypertension type: unspecified Qualified Code(s): I10 - Essential (primary) hypertension Condition: Stable Disposition: HOME, SELF-CARE Instructions: Vertigo ([facility]) Additional Instructions: Please follow-up with your doctor on as scheduled. Please make sure you are taking your blood pressure medication as prescribed. Prescriptions: Meclizine HCl [Antivert 25 mg Tablet] 25 mg PO TID PRN #21 tablet PRN Reason: Scribe Attestation: 07/07/17 02:11 I personally performed the services described in the documentation, reviewed and edited the documentation which was dictated to the scribe in my presence, and it accurately records my words and actions. (LORIN BARTON) Scribe Documentation - Scribe Written by Jose F:: Jose F Flores, 07/06/2017 20:21 acting as scribe for :: Melani <ALEX KELLOGG - Last Filed: 07/07/17 00:58>
--- NOTE | 2017-07-06 20:49 | RADIOLOGY REPORT (SQ) ---
EXAM DESCRIPTION: CT HEAD WITHOUT COMPLETED DATE/TIME: 07/06/2017 8:36 pm REASON FOR STUDY: htn, dizziness COMPARISON: 11/25/2016. TECHNIQUE: Axial images acquired through the brain without intravenous contrast. Images reviewed wi th bone, brain and subdural windows. Images stored on PACS. All CT scanners at this facility use dose modulation, iterative reconstruction, and/or weight based d osing when appropriate to reduce radiation dose to as low as reasonably achievable (ALARA). [facility]: Dose Right [facility]: CareDose [facility]: Dose Right [facility]: Teradose 4D [facility]: Smart Plink Search RADIATION DOSE: CT Rad equipment meets quality standard of care and radiation dose reduction techniq ues were employed. CTDIvol: 64.6 mGy. DLP: 1163 mGy-cm. mGy. LIMITATIONS: None. FINDINGS: VENTRICLES: Normal size and contour. CEREBRUM: No masses. No hemorrhage. No midline shift. No evidence for acute infarction. Normal gra y/white matter differentiation. No areas of low density in the white matter. CEREBELLUM: No masses. No hemorrhage. No alteration of density. No evidence for acute infarction. EXTRAAXIAL SPACES: No fluid collections. No masses. ORBITS AND GLOBE: No intra- or extraconal masses. Normal contour of globe without masses. CALVARIUM: No fracture. PARANASAL SINUSES: No fluid or mucosal thickening. SOFT TISSUES: No mass or hematoma. OTHER: No other significant finding. IMPRESSION: NORMAL BRAIN CT WITHOUT CONTRAST. EVIDENCE OF ACUTE STROKE: NO. COMMENT: Quality ID # [id number]: Final reports with documentation of one or more dose reduction techniques (e.g., Automated exposure control, adjustment of the mA and/or kV according to patient size, use of iterative reconstruction technique) TECHNICAL DOCUMENTATION: JOB ID: [id number] [employer]- All Rights Reserved Reading location - IP/workstation name: [email or web address]
[2017-07-06 23:14] VITALS: BP 216/127
== END 2017-07-06 22:58 | disposition home or self-care (01) ==
LOC: ER 16:20
DX: R42 Dizziness and giddiness (principal); I10 Essential (primary) hypertension; R07.9 Chest pain, unspecified; R11.0 Nausea; Z87.891 Personal history of nicotine dependence
CPT/HCPCS: 93005; 99285; 96374; 36415; 83690; 85025; 80053; 84484; 85379; 71046; 70450; 93010; J3490

== ENCOUNTER → 2017-08-06 | Outpatient (CLI) | payer OTHER ==
--- NOTE | 2017-08-06 13:08 | RADIOLOGY REPORT (SQ) ---
EXAM DESCRIPTION: MRI LT LOWER JOINT WITHOUT COMPLETED DATE/TIME: 08/06/2017 11:27 am REASON FOR STUDY: INTERNAL DERANGEMENT OF LEFT KNEE M23.92 UNSPECIFIED INTERNAL DERANGEMENT OF LEFT KNEE COMPARISON: Plain radiograph 07/01/2017 TECHNIQUE: Leftknee images acquired and stored on PACS. Multiplanar images include fat sensitive se quences as T1, water sensitive sequences as FST2 or STIR, cartilage sensitive sequences as FSPD, and gradient echo sequences. LIMITATIONS: None. FINDINGS: JOINT AND BURSAE: Joint effusion. No popliteal cyst. BONE CORTEX AND MARROW: No alteration of signal to suggest marrow replacement. No worrisome bone lesi ons. No occult fracture. ACL: Intact. No degeneration or ganglion cyst. PCL: Intact. MCL: Intact. No periligamentous edema or fluid. LCL: Intact. No periligamentous edema or fluid. MEDIAL MENISCUS: Central flap tear. No displaced fragment. LATERAL MENISCUS: No tears. No abnormal signal. MEDIAL COMPARTMENT: Diffuse irregular cartilaginous loss along the medial femoral condyle with contou r deformity. Osteophytes. Reactive marrow edema. LATERAL COMPARTMENT: Cartilage preserved. No bone bruises or reactive marrow edema. No osteophytes. Loose body in the popliteal tendon sheath. PATELLA: Generalize chondromalacia. Cartilaginous loss of the trochlear cartilage. Patellofemoral. EXTENSOR MECHANISM: Intact. Quadriceps and patella tendons normal. SOFT TISSUES: Adjacent muscles and subcutaneous tissues normal. Normal flow void in popliteal artery and vein. OTHER: No other significant finding. IMPRESSION: Flap tear medial meniscus. Marked degenerative changes in medial compartment. Patellofemoral chondromalacia and osteophytes. Joint effusion. Loose body in the popliteal tendon sheath. TECHNICAL DOCUMENTATION: JOB ID: [id number] [email or web address]- All Rights Reserved Reading location - IP/workstation name: [email or web address]
== END ==
LOC: RAD 10:45
PROVIDERS: ATTEND Physician Assistant
DX: M23.92 Unspecified internal derangement of left knee (principal)

== ENCOUNTER 2017-08-12 15:44 | Inpatient (IN) | payer OTHER ==
[2017-08-12] MEDS ORDERED: LABETALOL HCL INJ 20 MG/4 ML DISP.SYRIN IV ONE (16:29)
--- NOTE | 2017-08-12 16:40 | ER Document Report ---
ED Medical Screen (RME) - General Chief Complaint: Feet Swelling Stated Complaint: BLOOD PRESSURE ISSUE, FEET SWELLING, HEADACHE Time Seen by Provider: 08/12/17 16:22 Notes: RME DISCLOSURE I have seen this patient as part of a Rapid Medical Evaluation and, if applicable, placed any initially appropriate orders. The patient will be seen and fully evaluated, including a full history and physical exam, by a provider ( in Main ED or Fast Track) when a room becomes available. 46-year-old female PMH hypertension on clonidine 0.3 mg daily here with complaints of shortness of breath, feet swelling, headache ongoing for the past 4 days. She reports that her baseline blood pressure is 200/100 but over the past few days it has been much higher and she has been doubling up on her blood pressure medications. She does not have any chest pain discomfort tightness. The last time she was here for this, "they gave me too much blood pressure medication through the IV and I bottomed out". TRAVEL OUTSIDE OF THE [place] IN LAST 30 DAYS: No - Related Data Allergies/Adverse Reactions: ondansetron HCl [From Zofran] Allergy (Severe, Verified 06/04/17 09:17) resp distress azithromycin [From Zithromax] Allergy (Verified 06/04/17 09:17) Past Medical History - Social History Chew tobacco use (# tins/day): No Frequency of alcohol use: None Drug Abuse: None Family history: Hypertension - Past Medical History Cardiac Medical History: Reports: Hx Hypertension, Hx Heart Murmur - with Denies: Hx Atrial Fibrillation, Hx Congestive Heart Failure, Hx Coronary Artery Disease, Hx Heart Attack, Hx Hypercholesterolemia, Hx Peripheral Vascular Disease, Hx Pulmonary Embolism Pulmonary Medical History: Reports: Hx Pneumonia Denies: Hx Asthma, Hx Bronchitis, Hx COPD, Hx Respiratory Failure, Hx Sleep Apnea, Hx Tuberculosis Neurological Medical History: Denies: Hx Seizures Renal/ Medical History: Reports: Hx Ovarian Cysts - x 2. Denies: Hx Peritoneal Dialysis, Hx Pelvic Inflammatory Disease Malignancy Medical History: Denies: Hx Breast Cancer, Hx Cervical Cancer, Hx Leukemia, Hx Lung Cancer, Hx Ovarian Cancer Musculoskeltal Medical History: Reports Hx Arthritis, Denies Hx Fibromyalgia, Denies Hx Muscular Dystrophy Skin Medical History: Denies Hx MRSA Psychiatric Medical History: Reports: Hx Depression Traumatic Medical History: Reports: Hx Fractures - rt knee, rt elbow Infectious Medical History: Denies: Hx HIV Past Surgical History: Reports: Hx Cholecystectomy, Hx Orthopedic Surgery - R knee replacement, elbow, Hx Tubal Ligation. Denies: Hx Appendectomy, Hx Bowel Surgery, Hx Section, Hx Coronary Artery Bypass Graft, Hx Gastric Bypass Surgery, Hx Herniorrhaphy, Hx Hysterectomy, Hx Mastectomy, Hx Pacemaker, Hx Tonsillectomy - Immunizations Hx Diphtheria, Pertussis, Tetanus Vaccination: Yes History of Influenza Vaccine for 02/2017 - 07/2017 Season: Unknown Physical Exam - Vital signs Vitals: Temp Pulse Resp BP Pulse Ox 98.3 F 115 H 20 228/124 H 96 08/12/17 16:00 08/12/17 16:00 08/12/17 16:00 08/12/17 16:00 08/12/17 16:00 Course - Vital Signs Vital signs: Temp Pulse Resp BP Pulse Ox 98.3 F 115 H 20 228/124 H 96 08/12/17 16:00 08/12/17 16:00 08/12/17 16:00 08/12/17 16:00 08/12/17 16:00
[2017-08-12 16:49] LABS: ABSOLUTE BASOPHILS # (AUTO) 0.1 10^3/uL (0.0-0.2); ABSOLUTE EOSINOPHILS # (AUTO) 0.2 10^3/uL (0.0-0.6); ABSOLUTE LYMPHOCYTES (AUTO) 2.3 10^3/uL (0.5-4.7); ABSOLUTE MONOCYTES (AUTO) 0.7 10^3/uL (0.1-1.4); ABSOLUTE NEUT (AUTO) 7.4 10^3/uL (1.7-8.2); BASOPHILS % (AUTO) 0.7 % (0-2); EOSINOPHILS % (AUTO) 1.8 % (0-6); HEMATOCRIT 41.9 % (36.0-47.0); HEMOGLOBIN 13.3 g/dL (12.0-15.5); LYMPHOCYTES % (AUTO) 21.7 % (13-45); MEAN CORPUSCULAR HEMOGLOBIN 23.1 pg (27.0-33.4); MEAN CORPUSCULAR HGB CONC 31.7 g/dL (32.0-36.0); MEAN CORPUSCULAR VOLUME 73 fl (80-97); MONOCYTES % (AUTO) 6.7 % (3-13); PLATELET COUNT 291 10^3/uL (150-450); RED BLOOD COUNT 5.75 10^6/uL (3.72-5.28); RED CELL DISTRIBUTION WIDTH 17.3 % (11.5-14.0); SEGMENTED NEUTROPHILS % (AUTO) 69.1 % (42-78); TOTAL CELLS COUNTED % (AUTO) 100 %; WHITE BLOOD COUNT 10.6 10^3/uL (4.0-10.5)
--- NOTE | 2017-08-12 17:09 | ER Document Report ---
ED General - General Chief Complaint: Feet Swelling Stated Complaint: BLOOD PRESSURE ISSUE, FEET SWELLING, HEADACHE Time Seen by Provider: 08/12/17 16:22 Notes: This is a pleasant 46-year-old female to emergency department chief complaint of shortness of breath. Swelling of her feet. Patient has long-standing history of significant hypertension. Has been hospitalized on multiple occasions for hypertensive urgency. Over the last several days she states that her feet have gotten progressively more swollen. Cannot get her blood pressure down. Is taking approximately 4 5 medications for blood pressure. Recently started having more swelling in her feet. Some mild shortness of breath with exertion. TRAVEL OUTSIDE OF THE [place] IN LAST 30 DAYS: No - HPI Onset/Duration: Gradual, Worse Severity: Moderate Pain Level: 2 Associated symptoms: Shortness of breath - Related Data Allergies/Adverse Reactions: ondansetron HCl [From Zofran] Allergy (Severe, Verified 06/04/17 09:17) resp distress azithromycin [From Zithromax] Allergy (Verified 06/04/17 09:17) Past Medical History - General Information source: Patient - Social History Smoking Status: Never Smoker Chew tobacco use (# tins/day): No Frequency of alcohol use: None Drug Abuse: None Lives with: Family Family History: Reviewed & Not Pertinent Patient has suicidal ideation: No Patient has homicidal ideation: No - Past Medical History Cardiac Medical History: Reports: Hx Hypertension, Hx Heart Murmur - with Denies: Hx Atrial Fibrillation, Hx Congestive Heart Failure, Hx Coronary Artery Disease, Hx Heart Attack, Hx Hypercholesterolemia, Hx Peripheral Vascular Disease, Hx Pulmonary Embolism Pulmonary Medical History: Reports: Hx Pneumonia Denies: Hx Asthma, Hx Bronchitis, Hx COPD, Hx Respiratory Failure, Hx Sleep Apnea, Hx Tuberculosis Neurological Medical History: Denies: Hx Seizures Renal/ Medical History: Reports: Hx Ovarian Cysts - x 2. Denies: Hx Peritoneal Dialysis, Hx Pelvic Inflammatory Disease Malignancy Medical History: Denies: Hx Breast Cancer, Hx Cervical Cancer, Hx Leukemia, Hx Lung Cancer, Hx Ovarian Cancer Musculoskeltal Medical History: Reports Hx Arthritis, Denies Hx Fibromyalgia, Denies Hx Muscular Dystrophy Skin Medical History: Denies Hx MRSA Psychiatric Medical History: Reports: Hx Depression Traumatic Medical History: Reports: Hx Fractures - rt knee, rt elbow Infectious Medical History: Denies: Hx HIV Past Surgical History: Reports: Hx Cholecystectomy, Hx Orthopedic Surgery - R knee replacement, elbow, Hx Tubal Ligation. Denies: Hx Appendectomy, Hx Bowel Surgery, Hx Section, Hx Coronary Artery Bypass Graft, Hx Gastric Bypass Surgery, Hx Herniorrhaphy, Hx Hysterectomy, Hx Mastectomy, Hx Pacemaker, Hx Tonsillectomy - Immunizations Hx Diphtheria, Pertussis, Tetanus Vaccination: Yes Hx Pneumococcal Vaccination: 07/06/12 Review of Systems - Review of Systems Constitutional: No symptoms reported EENT: No symptoms reported Cardiovascular: Dyspnea, Edema. denies: Chest pain, Palpitations Respiratory: No symptoms reported Gastrointestinal: No symptoms reported Genitourinary: No symptoms reported Female Genitourinary: No symptoms reported Musculoskeletal: Leg swelling, Ankle swelling. denies: Muscle pain, Muscle stiffness Skin: No symptoms reported Hematologic/Lymphatic: No symptoms reported Neurological/Psychological: No symptoms reported, Headaches Physical Exam - Vital signs Vitals: Temp Pulse Resp BP Pulse Ox 98.3 F 115 H 20 228/124 H 96 08/12/17 16:00 08/12/17 16:00 08/12/17 16:00 08/12/17 16:00 08/12/17 16:00 Interpretation: Hypertensive - General General appearance: Appears well, Alert - HEENT Head: Normocephalic, Atraumatic Eyes: Normal Pupils: PERRL - Respiratory Respiratory status: No respiratory distress Chest status: Nontender Breath sounds: Normal Chest palpation: Normal - Cardiovascular Rhythm: Regular, Tachycardia Heart sounds: Normal auscultation Murmur: No - Abdominal Inspection: Normal Distension: No distension Bowel sounds: Normal Tenderness: Nontender Organomegaly: No organomegaly - Back Back: Normal, Nontender - Extremities General upper extremity: Normal inspection, Nontender, Normal color, Normal ROM , Normal temperature General lower extremity: Normal inspection, Nontender, Edema, Normal color, Normal ROM, Normal temperature, Normal weight bearing. No: Brandon's sign - Neurological Neuro grossly intact: Yes Cognition: Normal Orientation: AAOx4 [place] Coma Scale Eye Opening: Spontaneous [place] Coma Scale Verbal: Oriented [place] Coma Scale Motor: Obeys Commands [place] Coma Scale Total: 15 Speech: Normal Motor strength normal: LUE, RUE, LLE, RLE Sensory: Normal - Psychological Associated symptoms: Normal affect, Normal mood - Skin Skin Temperature: Warm Skin Moisture: Dry Skin Color: Normal Course - Re-evaluation Re-evalutation: 08/12/17 19:03 Patient's labs are completely unremarkable. Blood pressure elevated but asymptomatic. No signs of CHF. Will order some oral medications as patient has had a bottom and out of blood pressure on some IV drips in the past. Patient is comfortable with this plan. 08/12/17 20:59 Multiple blood pressure medications have been given to no avail. Starting on a nitro drip at this time. Patient will need to be admitted for hypertensive urgency. Consulted hospitalist for admission at this time. 08/12/17 20:59 08/12/17 21:00 Laboratory 08/12/17 08/12/17 08/12/17 16:35 16:35 16:35 WBC 10.6 H RBC 5.75 H Hgb 13.3 Hct 41.9 MCV 73 L MCH 23.1 L MCHC 31.7 L RDW 17.3 H Plt Count 291 Seg Neutrophils % 69.1 Lymphocytes % 21.7 Monocytes % 6.7 Eosinophils % 1.8 Basophils % 0.7 Absolute Neutrophils 7.4 Absolute Lymphocytes 2.3 Absolute Monocytes 0.7 Absolute Eosinophils 0.2 Absolute Basophils 0.1 Sodium 142.2 Potassium 4.0 Chloride 103 Carbon Dioxide 30 Anion Gap 9 BUN 20 Creatinine 0.73 Est GFR ( Amer) > 60 Est GFR (Non-Af Amer) > 60 Glucose 135 H Calcium 9.4 Total Bilirubin Direct Bilirubin Neonat Total Bilirubin Neonat Direct Bilirubin Neonat Indirect Bili AST ALT Alkaline Phosphatase Troponin I < 0.012 NT-Pro-B Natriuret Pep 348 H Total Protein Albumin Urine Color Urine Appearance Urine pH Ur Specific [place] Urine Protein Urine Glucose (UA) Urine Ketones Urine Blood Urine Nitrite Urine Bilirubin Urine Urobilinogen Ur Leukocyte Esterase Urine WBC (Auto) Urine RBC (Auto) U Hyaline Cast (Auto) Urine Bacteria (Auto) Squamous Epi Cells Auto Urine Mucus (Auto) Urine Ascorbic Acid 08/12/17 08/12/17 16:35 17:45 WBC RBC Hgb Hct MCV MCH MCHC RDW Plt Count Seg Neutrophils % Lymphocytes % Monocytes % Eosinophils % Basophils % Absolute Neutrophils Absolute Lymphocytes Absolute Monocytes Absolute Eosinophils Absolute Basophils Sodium Potassium Chloride Carbon Dioxide Anion Gap BUN Creatinine Est GFR ( Amer) Est GFR (Non-Af Amer) Glucose Calcium Total Bilirubin 0.3 Direct Bilirubin 0.3 Neonat Total Bilirubin Not Reportable Neonat Direct Bilirubin Not Reportable Neonat Indirect Bili Not Reportable AST 20 ALT 41 Alkaline Phosphatase 100 Troponin I NT-Pro-B Natriuret Pep Total Protein 7.1 Albumin 3.8 Urine Color YELLOW Urine Appearance SLIGHTLY-CLOUDY Urine pH 5.0 Ur Specific [place] 1.027 Urine Protein >=500 H Urine Glucose (UA) NEGATIVE Urine Ketones NEGATIVE Urine Blood LARGE H Urine Nitrite NEGATIVE Urine Bilirubin NEGATIVE Urine Urobilinogen NEGATIVE Ur Leukocyte Esterase TRACE H Urine WBC (Auto) 8 Urine RBC (Auto) 5 U Hyaline Cast (Auto) 3 Urine Bacteria (Auto) TRACE Squamous Epi Cells Auto 11 Urine Mucus (Auto) MOD Urine Ascorbic Acid NEGATIVE Chest X-Ray 08/12/17 16:28 IMPRESSION: NO ACUTE RADIOGRAPHIC FINDING IN THE CHEST. - Vital Signs Vital signs: Temp Pulse Resp BP Pulse Ox 98.3 F 111 H 30 H 194/82 H 96 08/12/17 16:00 08/12/17 19:40 08/12/17 20:01 08/12/17 20:01 08/12/17 20:01 - Laboratory Result Diagrams: 08/12/17 16:35 08/12/17 16:35 Laboratory results interpreted by me: 08/12/17 08/12/17 08/12/17 16:35 16:35 16:35 WBC 10.6 H RBC 5.75 H MCV 73 L MCH 23.1 L MCHC 31.7 L RDW 17.3 H Glucose 135 H NT-Pro-B Natriuret Pep 348 H Urine Protein Urine Blood Ur Leukocyte Esterase 08/12/17 17:45 WBC RBC MCV MCH MCHC RDW Glucose NT-Pro-B Natriuret Pep Urine Protein >=500 H Urine Blood LARGE H Ur Leukocyte Esterase TRACE H Critical Care Note - Critical Care Note Total time excluding time spent on procedures (mins): 45 Comments: Hypertensive emergency, blood pressure management, consultation with specialists Discharge - Discharge Clinical Impression: Hypertensive urgency, malignant Condition: Good Disposition: ADMITTED INPATIENT Admitting Provider: Hospitalist Unit Admitted: [facility] Mariela
[2017-08-12 17:13] LABS: ANION GAP 9 (5-19); BLOOD UREA NITROGEN 20 mg/dL (7-20); CALCIUM 9.4 mg/dL (8.4-10.2); CARBON DIOXIDE 30 mmol/L (22-30); CHLORIDE 103 mmol/L (98-107); GLUCOSE 135 mg/dL (75-110); SODIUM 142.2 mmol/L (137-145)
[2017-08-12 17:25] LABS: NT PRO BNP 348 pg/mL (<125)
[2017-08-12 17:29] LABS: TROPONIN I < 0.012 ng/mL
[2017-08-12 17:42] LABS: ALANINE AMINOTRANSFERASE 41 U/L (9-52); ALBUMIN 3.8 g/dL (3.5-5.0); ALKALINE PHOSPHATASE 100 U/L (38-126); ASPARTATE AMINO TRANSFERASE 20 U/L (14-36); BILIRUBIN,DIRECT 0.3 mg/dL (0.0-0.4); BILIRUBIN,TOTAL 0.3 mg/dL (0.2-1.3); TOTAL PROTEIN 7.1 g/dL (6.3-8.2)
[2017-08-12] MEDS ORDERED: METOPROLOL TARTRATE 25 MG TABLET PO ONE (18:07)
[2017-08-12] MEDS ORDERED: HYDRALAZINE HCL 25 MG TABLET PO ONE (18:07)
[2017-08-12] MEDS ORDERED: CLONIDINE HCL 0.1 MG TABLET PO ONE (18:07)
--- NOTE | 2017-08-12 18:14 | RADIOLOGY REPORT (SQ) ---
EXAM DESCRIPTION: CHEST 2 VIEWS COMPLETED DATE/TIME: 08/12/2017 5:42 pm REASON FOR STUDY: CP SOB COMPARISON: 07/06/2017 EXAM PARAMETERS: NUMBER OF VIEWS: two views TECHNIQUE: Digital Frontal and Lateral radiographic views of the chest acquired. RADIATION DOSE: NA LIMITATIONS: none FINDINGS: LUNGS AND PLEURA: No opacities, masses or pneumothorax. No pleural effusion. MEDIASTINUM AND HILAR STRUCTURES: No masses or contour abnormalities. HEART AND VASCULAR STRUCTURES: Heart normal size. No evidence for failure. BONES: No acute findings. HARDWARE: None in the chest. OTHER: No other significant finding. IMPRESSION: NO ACUTE RADIOGRAPHIC FINDING IN THE CHEST. TECHNICAL DOCUMENTATION: JOB ID: [id number] [employer]- All Rights Reserved Reading location - IP/workstation name: [email or web address]
[2017-08-12] MEDS ORDERED: FUROSEMIDE INJ/PF 20 MG/2 ML SDV IV ONE (18:30)
[2017-08-12 18:32] LABS: APPEARANCE,URINE SLIGHTLY-CLOUDY; BILIRUBIN,URINE NEGATIVE (NEGATIVE); COLOR,URINE YELLOW; GLUCOSE, URINE NEGATIVE (NEGATIVE); KETONES,URINE NEGATIVE (NEGATIVE); LEUKOCYTE ESTERASE,URINE TRACE (NEGATIVE); NITRITE,URINE NEGATIVE (NEGATIVE); PROTEIN,URINE >=500 mg/dL (NEGATIVE); URINE SPECIFIC GRAVITY 1.027; UROBILINOGEN,URINE NEGATIVE mg/dL (<2.0)
[2017-08-12] MEDS ORDERED: METOPROLOL TARTRATE PF/INJ 5 MG/5 ML SDV IV ONE (19:51)
--- NOTE | 2017-08-12 20:56 | EKG REPORT ---
SEVERITY:- ABNORMAL ECG - SINUS TACHYCARDIA BIATRIAL ABNORMALITIES PROBABLE LVH WITH SECONDARY REPOL ABNRM : Confirmed by: Eddie Engel 12-Aug-2017 20:55:57
[2017-08-12] MEDS ORDERED: NITROGLYCERIN/D5W 50 MG/250 ML RTUINJ IV PRN (20:59)
[2017-08-12 21:08] LABS: FREE T4 (FREE THYROXINE) 1.42 ng/dL (0.78-2.19)
[2017-08-12 21:22] LABS: THYROID STIMULATING HORMONE 1.67 uIU/mL (0.47-4.68)
[2017-08-12] MEDS ORDERED: DOCUSATE SODIUM 100 MG CAPSULE PO ONE (23:00)
--- NOTE | 2017-08-12 23:42 | PDOC H&P ---
History of Present Illness Admission Date/PCP: 08/12/17 21:08 History of Present Illness: BILL MARQUEZ is a 46 year old female patient presents with chief complaint of shortness of breath and bilateral feet swelling. Patient has a long-standing history of uncontrolled hypertension and for which she has had frequent visits to this hospital. At presentation her blood pressure was in the hypertensive emergency range and it was 239/130. She is given Catapres, hydralazine, metoprolol p.o. still her blood pressure remained high so they are attending decided to start her on nitroglycerin drip. Gradually her blood pressure tapered down to 187/117. Patient claims that she is compliant with her medication. She denies any chest pain, palpitation, diaphoresis, dizziness , headache, blurry of vision or any seizure activities. Past Medical History Cardiac Medical History: Reports: Hypertension, Heart Murmur - with Denies: Atrial Fibrillation, Congestive Heart Failure, Coronary Artery Disease, Myocardial Infarction, Hyperlipidema, Peripheral Vascular Disease, Pulmonary Embolism Pulmonary Medical History: Reports: Pneumonia Denies: Asthma, Bronchitis, Chronic Obstructive Pulmonary Disease (COPD), Respiratory Failure, Sleep Apnea, Tuberculosis Neurological Medical History: Denies: Seizures Malignancy Medical History: Denies: Breast Cancer, Cervical Cancer, Leukemia, Lung Cancer, Ovarian Cancer Musculoskeltal Medical History: Reports: Arthritis Denies: Fibromyalgia Psychiatric Medical History: Reports: Depression Hematology: Reports: Anemia - heavy menses related Infectious Medical History: Denies: HIV Past Surgical History Past Surgical History: Reports: Cholecystectomy, Orthopedic Surgery - R knee replacement, elbow, Tubal Ligation Denies: Appendectomy, Section, Coronary Artery Bypass Graft, Gastric Bypass Surgery, Herniorrhaphy, Hysterectomy, Mastectomy, Pacemaker, Tonsillectomy Social History Lives with: Family Smoking Status: Never Smoker Frequency of Alcohol Use: None Hx Recreational Drug Use: No Hx Prescription Drug Abuse: No Family History Family History: Reviewed & Not Pertinent Parental Family History Reviewed: Yes Children Family History Reviewed: Yes Sibling(s) Family History Reviewed.: Yes Medication/Allergy Home Medications: Hydralazine HCl [Apresoline 25 mg Tablet] 25 mg PO Q8 7 Days #20 tablet Metoprolol Tartrate [Lopressor 100 mg Tablet] 100 mg PO Q12 tablet 04/18/17 Clonidine HCl 0.6 mg PO DAILY PRN 06/04/17 Clonidine HCl [Catapres 0.3 mg Tablet] 0.3 mg PO Q8 08/12/17 Meclizine HCl [Antivert 25 mg Tablet] 25 mg PO TIDP PRN 08/12/17 Allergies/Adverse Reactions: ondansetron HCl [From Zofran] Allergy (Severe, Verified 06/04/17 09:17) resp distress azithromycin [From Zithromax] Allergy (Verified 06/04/17 09:17) Review of Systems Constitutional: PRESENT: as per HPI Eyes: PRESENT: as per HPI Cardiovascular: PRESENT: as per HPI Respiratory: PRESENT: as per HPI Gastrointestinal: PRESENT: as per HPI Physical Exam Vital Signs: Temp Pulse Resp BP Pulse Ox 98.3 F 111 H 18 193/130 H 98 08/12/17 16:00 08/12/17 19:40 08/12/17 23:11 08/12/17 23:11 08/12/17 23:11 General appearance: PRESENT: no acute distress Head exam: PRESENT: atraumatic, normocephalic Mouth exam: PRESENT: moist Respiratory exam: PRESENT: clear to auscultation kelly. ABSENT: rales, rhonchi, wheezes Cardiovascular exam: PRESENT: RRR. ABSENT: diastolic murmur, rubs, systolic murmur GI/Abdominal exam: PRESENT: other - Morbidly obese Psychiatric exam: PRESENT: appropriate affect, normal mood. ABSENT: homicidal ideation, suicidal ideation Results Impressions: Chest X-Ray 08/12/17 16:28 IMPRESSION: NO ACUTE RADIOGRAPHIC FINDING IN THE CHEST. Assessment & Plan - Diagnosis (1) Hypertensive emergency Is this a current diagnosis for this admission?: Yes Plan: Patient has been started on nitroglycerin drip. Patient will be admitted to [facility] with continuous cardiac monitoring. We will taper her nitroglycerin as she respondes. In the meantime she is started on metoprolol 100 mg twice a day and hydralazine 50 mg 3 times a day. Patient needs evaluation by mechanical car checker but identified the cause of her uncontrolled hypertension. (2) Morbid obesity Is this a current diagnosis for this admission?: Yes Plan: Patient advised to do lifestyle modification in the form of healthy diet, regular active exercise and weight loss. - Time Time Spent: 30 to 50 Minutes Within: within 72 hours - Inpatient Certification Medical Necessity: Need For IV Fluids
[2017-08-12] MEDS ORDERED: METOPROLOL TARTRATE 100 MG TABLET PO ONE (23:45)
[2017-08-13] MEDS ORDERED: NITROGLYCERIN/D5W 50 MG/250 ML RTUINJ IV PRN (00:03)
[2017-08-13] MEDS ORDERED: ACETAMINOPHEN 325 MG TABLET PO ONE (00:11)
[2017-08-13] MEDS ORDERED: ACETAMINOPHEN 325 MG TABLET ONE (00:14)
[2017-08-13] MEDS: HYDRALAZINE HCL 50 MG TABLET PO SCH ×2 (02:36→11:06)
[2017-08-13 05:30] LABS: HEMOGLOBIN 12.4 g/dL (12.0-15.5); MEAN CORPUSCULAR HEMOGLOBIN 23.1 pg (27.0-33.4); MEAN CORPUSCULAR HGB CONC 31.8 g/dL (32.0-36.0); MEAN CORPUSCULAR VOLUME 72 fl (80-97); PLATELET COUNT 237 10^3/uL (150-450); RED BLOOD COUNT 5.39 10^6/uL (3.72-5.28); RED CELL DISTRIBUTION WIDTH 16.9 % (11.5-14.0); WHITE BLOOD COUNT 10.1 10^3/uL (4.0-10.5)
[2017-08-13 05:55] LABS: ANION GAP 6 (5-19); BLOOD UREA NITROGEN 22 mg/dL (7-20); CALCIUM 8.9 mg/dL (8.4-10.2); CARBON DIOXIDE 29 mmol/L (22-30); CHLORIDE 104 mmol/L (98-107); GLUCOSE 101 mg/dL (75-110); POTASSIUM 4.2 mmol/L (3.6-5.0); SODIUM 139.3 mmol/L (137-145)
[2017-08-13] MEDS ORDERED: LANSOPRAZOLE 30 MG TAB.RAP.DR PO SCH (06:00)
[2017-08-13] MEDS ORDERED: DEXTROSE 5%-WATER 250 ML with NITROPRUSSIDE SODIUM 50 MG IV PRN ×2 (06:05)
[2017-08-13] MEDS: IBUPROFEN 400 MG TABLET PO PRN ×2 (06:15→11:20)
[2017-08-13] MEDS ORDERED: DOCUSATE SODIUM 100 MG CAPSULE PO SCH (10:00)
[2017-08-13] MEDS ORDERED: METOPROLOL TARTRATE 100 MG TABLET PO SCH (10:00)
[2017-08-13] MEDS ORDERED: ENOXAPARIN SODIUM INJ 40 MG/0.4 ML DISP.SYRIN SUBCUT SCH (10:00)
[2017-08-13] MEDS ORDERED: PROMETHAZINE HCL 25 MG TABLET PO PRN (13:09)
[2017-08-13 14:15] VITALS: BP 132/59
[2017-08-13] MEDS ORDERED: NORMAL SALINE 1000 ML 250 ML IV ONE (15:00)
--- NOTE | 2017-08-13 15:13 | PDOC DISCHARGE SUMMARY ---
General - Admit/Disc Date/PCP Admission Date/Primary Care Provider: 08/12/17 21:08 Discharge Date: 08/13/17 - Discharge Diagnosis (1) Hypertensive urgency Is this a current diagnosis for this admission?: Yes (2) Morbid obesity Is this a current diagnosis for this admission?: Yes - Additional Information Discharge Diet: Cardiac Discharge Activity: Activity As Tolerated Home Medications: Hydralazine HCl [Apresoline 25 mg Tablet] 25 mg PO Q8 7 Days #20 tablet Metoprolol Tartrate [Lopressor 100 mg Tablet] 100 mg PO Q12 tablet 04/18/17 Clonidine HCl 0.6 mg PO DAILY PRN 06/04/17 Clonidine HCl [Catapres 0.3 mg Tablet] 0.3 mg PO Q8 08/12/17 Meclizine HCl [Antivert 25 mg Tablet] 25 mg PO TIDP PRN 08/12/17 History of Present Illness History of Present Illness: BILL MARQUEZ is a 46 year old female with a history of hypertension who presented to the emergency department with bilateral feet swelling and uncontrolled blood pressure. In the ED she had a blood pressure of 239/130. She was given Catapres, hydralazine, and metoprolol by mouth. Despite this, her pressure remained high. As result, she was started on a nitroglycerin drip. The hospitalist team was asked to admit her for further care. She did not report chest pain, palpitation, diaphoresis, dizziness, headache or visual changes. Hospital Course Hospital Course: She was admitted for uncontrolled hypertension. She was started on her usual oral hypertensive medications. At the same time, the nitroglycerin infusion was gradually tapered off. Her blood pressure was well-controlled at the time of discharge. Her hospital stay was uneventful. The swelling that she reported on admission, resolved. Physical Exam Vital Signs: Temp Pulse Resp BP Pulse Ox 98.3 F 73 18 132/59 H 98 08/13/17 11:20 08/13/17 14:00 08/13/17 11:20 08/13/17 14:02 08/13/17 11:20 Intake & Output 08/12/17 08/13/17 08/14/17 06:59 06:59 06:59 Intake Total 120 675 Output Total 0 Balance 120 675 Weight 161.6 kg 161.6 kg General appearance: PRESENT: no acute distress, morbidly obese Head exam: PRESENT: atraumatic, normocephalic Eye exam: PRESENT: EOMI, PERRLA Respiratory exam: PRESENT: clear to auscultation kelly. ABSENT: rales, rhonchi, wheezes Cardiovascular exam: PRESENT: RRR. ABSENT: diastolic murmur, rubs, systolic murmur Extremities exam: PRESENT: full ROM. ABSENT: calf tenderness, clubbing, pedal edema Neurological exam: PRESENT: alert, awake, oriented to person, oriented to place , oriented to time, oriented to situation, CN II-XII grossly intact. ABSENT: motor sensory deficit Psychiatric exam: PRESENT: appropriate affect, normal mood. ABSENT: homicidal ideation, suicidal ideation Results Laboratory Results: 08/13/17 04:15 08/13/17 04:15 08/13/17 08/13/17 04:15 04:15 WBC 10.1 RBC 5.39 H Hgb 12.4 Hct 39.0 MCV 72 L MCH 23.1 L MCHC 31.8 L RDW 16.9 H Plt Count 237 Sodium 139.3 Potassium 4.2 Chloride 104 Carbon Dioxide 29 Anion Gap 6 BUN 22 H Creatinine 0.67 Est GFR ( Amer) > 60 Est GFR (Non-Af Amer) > 60 Glucose 101 Calcium 8.9 Impressions: Chest X-Ray 08/12/17 16:28 IMPRESSION: NO ACUTE RADIOGRAPHIC FINDING IN THE CHEST. Qualifiers - * [place] BEING DISCHARGED WITH ANY OF THE FOLLOWING DIAGNOSIS?: No Plan Discharge Plan: Home Time Spent: Less than 30 Minutes
== END 2017-08-13 15:45 | disposition home or self-care (01) | DRG 305 ==
LOC: ER 15:44 → EH 21:08 → 3N 08-13 00:27
PROVIDERS: ADMIT Internal Medicine; ATTEND Internal Medicine
DX: I16.0 Hypertensive urgency (principal); Z68.43 Body mass index [BMI] 50.0-59.9, adult; I10 Essential (primary) hypertension; F32.9 Major depressive disorder, single episode, unspecified; M19.90 Unspecified osteoarthritis, unspecified site; E66.01 Morbid (severe) obesity due to excess calories; Z96.651 Presence of right artificial knee joint; Z71.3 Dietary counseling and surveillance
CPT/HCPCS: 36415; 71046; 80048; 80076; 81001; 83880; 84439; 84443; 84484; 85025; 85027; 87086; 93005; 93010; 96374; 96375; 99291; J1650; J1940; J3490

== ENCOUNTER 2017-09-03 10:37 | Emergency (ER) | payer OTHER ==
--- NOTE | 2017-09-03 11:04 | ER Document Report ---
ED Medical Screen (RME) - General Chief Complaint: Rash Stated Complaint: RASH Time Seen by Provider: 09/03/17 11:01 Notes: Patient is here to be seen for a rash that suddenly appeared on the back of her right lower leg about a week and a half ago. She also has some on the left lateral ankle and in between her toes on the left foot. Has never had this before. Has been using [id number] medications including hydrocortisone cream, but no improvement. It does itch. Has never had this before. Does not recall any exposure to vegetation or outdoors or in the jo in the past couple of weeks. Patient has what appears to be a fairly straightforward contact dermatitis as it is only on exposed areas of both legs and nowhere else on her body. It has streaks from her scratching it and the pruritic nature also suggests a contact dermatitis. Unfortunately, patient's blood pressure is extremely high, 230/141, and she says that she has had to be admitted to ICU in the past to control her blood pressure. She is currently taking metoprolol 25 mg daily, clonidine 0.3 mg 3 times a day plus additional pills as needed, and hydrochlorothiazide 25 mg daily. Denies chest pains. Denies shortness of breath except when she walks. Because of patient's extremely high blood pressure, I have decided not to treat her here and discharge her from triage as she may require lengthy care to get her blood pressure under reasonable control. TRAVEL OUTSIDE OF THE [place] IN LAST 30 DAYS: No - Related Data Allergies/Adverse Reactions: ondansetron HCl [From Zofran] Allergy (Severe, Verified 09/03/17 10:39) resp distress azithromycin [From Zithromax] Allergy (Verified 09/03/17 10:39) Past Medical History - Social History Chew tobacco use (# tins/day): No Frequency of alcohol use: None Family history: Hypertension - Past Medical History Cardiac Medical History: Reports: Hx Hypertension, Hx Heart Murmur - with Denies: Hx Atrial Fibrillation, Hx Congestive Heart Failure, Hx Coronary Artery Disease, Hx Heart Attack, Hx Hypercholesterolemia, Hx Peripheral Vascular Disease, Hx Pulmonary Embolism Pulmonary Medical History: Reports: Hx Pneumonia Denies: Hx Asthma, Hx Bronchitis, Hx COPD, Hx Respiratory Failure, Hx Sleep Apnea, Hx Tuberculosis Neurological Medical History: Denies: Hx Seizures Renal/ Medical History: Reports: Hx Ovarian Cysts - x 2. Denies: Hx Peritoneal Dialysis, Hx Pelvic Inflammatory Disease Malignancy Medical History: Denies: Hx Breast Cancer, Hx Cervical Cancer, Hx Leukemia, Hx Lung Cancer, Hx Ovarian Cancer Musculoskeltal Medical History: Reports Hx Arthritis, Denies Hx Fibromyalgia, Denies Hx Muscular Dystrophy Skin Medical History: Denies Hx MRSA Psychiatric Medical History: Reports: Hx Depression Traumatic Medical History: Reports: Hx Fractures - rt knee, rt elbow Infectious Medical History: Denies: Hx HIV Past Surgical History: Reports: Hx Cholecystectomy, Hx Orthopedic Surgery - R knee replacement, elbow, Hx Tubal Ligation. Denies: Hx Appendectomy, Hx Bowel Surgery, Hx Section, Hx Coronary Artery Bypass Graft, Hx Gastric Bypass Surgery, Hx Herniorrhaphy, Hx Hysterectomy, Hx Mastectomy, Hx Pacemaker, Hx Tonsillectomy - Immunizations Hx Diphtheria, Pertussis, Tetanus Vaccination: Yes History of Influenza Vaccine for 02/2017 - 07/2017 Season: Unknown Physical Exam - Vital signs Vitals: Temp Pulse Resp BP Pulse Ox 97.3 F 111 H 16 230/141 H 97 09/03/17 10:46 09/03/17 10:46 09/03/17 10:46 09/03/17 10:46 09/03/17 10:46 Course - Vital Signs Vital signs: Temp Pulse Resp BP Pulse Ox 97.3 F 111 H 16 230/141 H 97 09/03/17 10:46 09/03/17 10:46 09/03/17 10:46 09/03/17 10:46 09/03/17 10:46
--- NOTE | 2017-09-03 11:50 | ER Document Report ---
ED General - General Chief Complaint: Rash Stated Complaint: RASH Time Seen by Provider: 09/03/17 11:01 Information source: Patient Notes: Patient is a 47-year-old female who presents today with a small rash to her right lower leg as well as her left ankle. She states it started around a week ago. She states it is very itchy. She denies any obvious bite shaw, allergy contacts, or other contact dermatitis exposures. She denies any fevers or vomiting. She was seen in triage and they were concerned about the patient's elevated blood pressure. Patient states she has a long-standing history of elevated blood pressure and is currently on hydrochlorothiazide, metoprolol, and clonidine 3 times a day. She states she did take her morning medications. She denies any headache, chest pain, leg swelling, nausea, vomiting, or fevers. She is followed by the [facility] here locally. Recent blood pressure is currently 200/143 and she states "that is actually pretty good for me". TRAVEL OUTSIDE OF THE [place] IN LAST 30 DAYS: No - HPI Onset: Other - See above Onset/Duration: Gradual Quality of pain: No pain Severity: Mild Pain Level: Denies Associated symptoms: Other - See above Exacerbated by: Denies Relieved by: Denies Similar symptoms previously: No Recently seen / treated by doctor: No - Related Data Allergies/Adverse Reactions: ondansetron HCl [From Zofran] Allergy (Severe, Verified 09/03/17 10:39) resp distress azithromycin [From Zithromax] Allergy (Verified 09/03/17 10:39) Past Medical History - General Information source: Patient - Social History Smoking Status: Never Smoker Cigarette use (# per day): No Chew tobacco use (# tins/day): No Smoking Education Provided: No Frequency of alcohol use: None Family History: Reviewed & Not Pertinent Patient has suicidal ideation: No Patient has homicidal ideation: No - Past Medical History Cardiac Medical History: Reports: Hx Hypertension, Hx Heart Murmur - with Denies: Hx Atrial Fibrillation, Hx Congestive Heart Failure, Hx Coronary Artery Disease, Hx Heart Attack, Hx Hypercholesterolemia, Hx Peripheral Vascular Disease, Hx Pulmonary Embolism Pulmonary Medical History: Reports: Hx Pneumonia Denies: Hx Asthma, Hx Bronchitis, Hx COPD, Hx Respiratory Failure, Hx Sleep Apnea, Hx Tuberculosis Neurological Medical History: Denies: Hx Seizures Renal/ Medical History: Reports: Hx Ovarian Cysts - x 2. Denies: Hx Peritoneal Dialysis, Hx Pelvic Inflammatory Disease Malignancy Medical History: Denies: Hx Breast Cancer, Hx Cervical Cancer, Hx Leukemia, Hx Lung Cancer, Hx Ovarian Cancer Musculoskeltal Medical History: Reports Hx Arthritis, Denies Hx Fibromyalgia, Denies Hx Muscular Dystrophy Skin Medical History: Denies Hx MRSA Psychiatric Medical History: Reports: Hx Depression Traumatic Medical History: Reports: Hx Fractures - rt knee, rt elbow Infectious Medical History: Denies: Hx HIV Past Surgical History: Reports: Hx Cholecystectomy, Hx Orthopedic Surgery - R knee replacement, elbow, Hx Tubal Ligation. Denies: Hx Appendectomy, Hx Bowel Surgery, Hx Section, Hx Coronary Artery Bypass Graft, Hx Gastric Bypass Surgery, Hx Herniorrhaphy, Hx Hysterectomy, Hx Mastectomy, Hx Pacemaker, Hx Tonsillectomy - Immunizations Hx Diphtheria, Pertussis, Tetanus Vaccination: Yes Hx Pneumococcal Vaccination: 07/06/12 Review of Systems - Review of Systems Constitutional: denies: Fever Cardiovascular: denies: Chest pain, Palpitations Respiratory: denies: Short of breath Gastrointestinal: denies: Vomiting Musculoskeletal: denies: Leg swelling Neurological/Psychological: Other - no slurred speech -: Yes All other systems reviewed and negative Physical Exam - Vital signs Vitals: Temp Pulse Resp BP Pulse Ox 97.3 F 111 H 16 230/141 H 97 09/03/17 10:46 09/03/17 10:46 09/03/17 10:46 09/03/17 10:46 09/03/17 10:46 Interpretation: Normal Notes: Reviewed vital signs and nursing note as charted by RN. CONSTITUTIONAL: Alert and oriented and responds appropriately to questions. Well -appearing; well-nourished HEAD: Normocephalic; atraumatic EYES: PERRL CARD: Regular rate and rhythm; no murmurs, no clicks, no rubs, no gallops; symmetric distal pulses RESP: Normal chest excursion without splinting or tachypnea; breath sounds clear and equal bilaterally EXT: Normal ROM in all joints; non-tender to palpation, no edema SKIN: Patient has a blanching rash mostly to the right posterior calf region. There are also scattered linear intertriginous zone lesions to the feet. No palm or sole lesions. No other trunk or upper extremity lesions. No lip or posterior pharyngeal lesions present NEURO: CN 2-12 intact. Moves all extremities equally; Motor and sensory function intact PSYCH: The patient's mood and manner are appropriate. Grooming and personal hygiene are appropriate. Course - Re-evaluation Re-evalutation: 09/03/17 11:52 EKG shows a heart of 92, normal sinus rhythm, normal axis, inverted T waves in leads I and aVL with slight depression in lead I. Poor R-wave progression. I have compared this EKG to a previous EKG August 12, 2017 and see no appreciable change. 09/03/17 13:26 Blood pressure has improved. Labs as recorded. No change in rash examination. Labs, creatinine, and troponin as recorded. Given the location of the rash, there is some concern possibly for scabies. However, the patient states that her sleeps beside her and he has had no similar symptomatology. Patient is adamant that she does not believe it is scabies. I will therefore try a course of triamcinolone cream with strict return precautions. Patient states she does have follow-up with the primary care physician. - Vital Signs Vital signs: Temp Pulse Resp BP Pulse Ox 97.3 F 111 H 16 256/140 H 97 09/03/17 10:46 09/03/17 10:46 09/03/17 10:46 09/03/17 11:03 09/03/17 10:46 - Laboratory Result Diagrams: 09/03/17 11:32 09/03/17 11:32 Laboratory results interpreted by me: 09/03/17 11:32 RBC 5.76 H MCV 73 L MCH 23.2 L RDW 17.2 H Discharge - Discharge Clinical Impression: Rash Hypertension Qualifiers: Hypertension type: unspecified Qualified Code(s): I10 - Essential (primary) hypertension Condition: Good Disposition: HOME, SELF-CARE Additional Instructions: Come back immediately with any worsening rash, fevers, or vomiting. Return also for chest pain, lightheadedness, shortness of breath, leg swelling, or any other acute problems related to high blood pressure. Please make sure that you follow-up with the primary care physician for reevaluation at the [facility]. Please make sure that they also adjust your blood pressure medications as needed.
[2017-09-03 12:07] LABS: ABSOLUTE BASOPHILS # (AUTO) 0.1 10^3/uL (0.0-0.2); ABSOLUTE EOSINOPHILS # (AUTO) 0.2 10^3/uL (0.0-0.6); ABSOLUTE LYMPHOCYTES (AUTO) 2.2 10^3/uL (0.5-4.7); ABSOLUTE MONOCYTES (AUTO) 0.7 10^3/uL (0.1-1.4); ABSOLUTE NEUT (AUTO) 6.3 10^3/uL (1.7-8.2); BASOPHILS % (AUTO) 0.9 % (0-2); EOSINOPHILS % (AUTO) 2.5 % (0-6); HEMATOCRIT 41.8 % (36.0-47.0); HEMOGLOBIN 13.4 g/dL (12.0-15.5); LYMPHOCYTES % (AUTO) 23.4 % (13-45); MEAN CORPUSCULAR HEMOGLOBIN 23.2 pg (27.0-33.4); MEAN CORPUSCULAR VOLUME 73 fl (80-97); MONOCYTES % (AUTO) 7.1 % (3-13); PLATELET COUNT 301 10^3/uL (150-450); RED BLOOD COUNT 5.76 10^6/uL (3.72-5.28); RED CELL DISTRIBUTION WIDTH 17.2 % (11.5-14.0); SEGMENTED NEUTROPHILS % (AUTO) 66.1 % (42-78); TOTAL CELLS COUNTED % (AUTO) 100 %; WHITE BLOOD COUNT 9.6 10^3/uL (4.0-10.5)
[2017-09-03 12:22] LABS: ANION GAP 12 (5-19); BLOOD UREA NITROGEN 18 mg/dL (7-20); CALCIUM 9.7 mg/dL (8.4-10.2); CARBON DIOXIDE 30 mmol/L (22-30); CHLORIDE 102 mmol/L (98-107); GLUCOSE 109 mg/dL (75-110); POTASSIUM 3.9 mmol/L (3.6-5.0); SODIUM 143.7 mmol/L (137-145)
--- NOTE | 2017-09-03 14:11 | EKG REPORT ---
SEVERITY:- ABNORMAL ECG - SINUS RHYTHM PROBABLE LEFT ATRIAL ABNORMALITY ABNORMAL T, CONSIDER ISCHEMIA, LATERAL LEADS : Confirmed by: Lele Garza MD 03-Sep-2017 14:10:36
[2017-09-03 14:26] VITALS: BP 193/112
== END 2017-09-03 14:25 | disposition home or self-care (01) ==
LOC: ER 10:37
DX: R21 Rash and other nonspecific skin eruption (principal); L29.8 Other pruritus; I10 Essential (primary) hypertension; Z79.899 Other long term (current) drug therapy; Z88.8 Allergy status to other drugs, medicaments and biological substances; Z88.1 Allergy status to other antibiotic agents
CPT/HCPCS: 36415; 80048; 84484; 85025; 93005; 93010; 99283

== ENCOUNTER 2017-09-23 08:16 | Emergency (ER) | payer OTHER ==
[2017-09-23 08:23] VITALS: BP 134/91
--- NOTE | 2017-09-23 09:08 | ER Document Report ---
ED ENT - General Chief Complaint: Sore Throat Stated Complaint: COUGH Time Seen by Provider: 09/23/17 09:08 Mode of Arrival: Ambulatory Information source: Patient Notes: 47-year-old female presents to ED for complaint of cough congestion hoarse voice for the last 8 days. She states she is getting laryngitis and she has had it in the past. She states she is aware that her blood pressure is high and does not want anybody messing with her treatment with anything for it because she takes blood pressure medications. He states she has a nebulizer at home that she has been using but is not coughing anything up. She states she has not had an elevated temperature. She states she is taken Mucinex at home. I have encouraged her not to take Mucinex with her blood pressure. TRAVEL OUTSIDE OF THE [place] IN LAST 30 DAYS: No - HPI Patient complains to provider of: Nose problem, Throat problem, Other - Cough Onset: Other - 8 days Onset/Duration: Persistent, Worse Quality of pain: Achy, Sharp Severity: Moderate Pain Level: 3 Context: Recent Illness Location of pain: Nose, Sinus, Throat Associated symptoms: Congestion, Cough, Hoarse voice, Runny nose, Sinus pain, Sinus drainage, Sore throat Similar symptoms previously: Yes Recently seen / treated by doctor: No - Related Data Allergies/Adverse Reactions: ondansetron HCl [From Zofran] Allergy (Severe, Verified 09/03/17 10:39) resp distress azithromycin [From Zithromax] Allergy (Verified 09/03/17 10:39) Past Medical History - General Information source: Patient - Social History Smoking Status: Never Smoker Cigarette use (# per day): No Chew tobacco use (# tins/day): No Smoking Education Provided: No Frequency of alcohol use: None Drug Abuse: None Family History: Reviewed & Not Pertinent - Past Medical History Cardiac Medical History: Reports: Hx Hypertension, Hx Heart Murmur - with Pulmonary Medical History: Reports: Hx Pneumonia EENT Medical History: Reports: None Neurological Medical History: Reports: None Endocrine Medical History: Reports: None Renal/ Medical History: Reports: Hx Ovarian Cysts - x 2 Malignancy Medical History: Reports: None Musculoskeltal Medical History: Reports Hx Arthritis Psychiatric Medical History: Reports: Hx Depression Traumatic Medical History: Reports: Hx Fractures - rt knee, rt elbow Infectious Medical History: Reports: None Past Surgical History: Reports: Hx Cholecystectomy, Hx Orthopedic Surgery - R knee replacement, elbow, Hx Tubal Ligation - Immunizations Hx Diphtheria, Pertussis, Tetanus Vaccination: Yes Hx Pneumococcal Vaccination: 07/06/12 Review of Systems - Review of Systems Constitutional: No symptoms reported EENT: Nose discharge, Sinus discharge, Throat pain Cardiovascular: No symptoms reported Respiratory: Cough, Short of breath, Wheezing Gastrointestinal: No symptoms reported Genitourinary: No symptoms reported Female Genitourinary: No symptoms reported Musculoskeletal: No symptoms reported Skin: No symptoms reported Hematologic/Lymphatic: No symptoms reported Neurological/Psychological: No symptoms reported -: Yes All other systems reviewed and negative Physical Exam - Vital signs Vitals: Temp Pulse Resp BP Pulse Ox 98.0 F 102 H 22 H 134/91 H 100 09/23/17 08:21 09/23/17 08:21 09/23/17 08:21 09/23/17 08:21 09/23/17 08:21 Interpretation: Normal - General General appearance: Appears well, Alert - HEENT Head: Normocephalic, Atraumatic Eyes: Normal Pupils: PERRL Ears: Normal External canal: Normal Tympanic membrane: Normal Sinus: Normal Nasal: Purulent discharge, Swelling Mouth/Lips: Normal Mucous membranes: Normal Pharynx: Post nasal drainage, Other - Hoarse voice Neck: Normal - Respiratory Respiratory status: No respiratory distress Chest status: Nontender Breath sounds: Normal, Nonproductive cough. No: Wheezing Chest palpation: Normal - Cardiovascular Rhythm: Regular Heart sounds: Normal auscultation Murmur: No - Abdominal Inspection: Normal Distension: No distension Bowel sounds: Normal Tenderness: Nontender Organomegaly: No organomegaly - Back Back: Normal, Nontender - Extremities General upper extremity: Normal inspection, Nontender, Normal color, Normal ROM , Normal temperature General lower extremity: Normal inspection, Nontender, Normal color, Normal ROM , Normal temperature, Normal weight bearing. No: Brandon's sign - Neurological Neuro grossly intact: Yes Cognition: Normal Orientation: AAOx4 Marce Coma Scale Eye Opening: Spontaneous Marce Coma Scale Verbal: Oriented [place] Coma Scale Motor: Obeys Commands Marce Coma Scale Total: 15 Speech: Normal Motor strength normal: LUE, RUE, LLE, RLE Sensory: Normal - Psychological Associated symptoms: Normal affect, Normal mood - Skin Skin Temperature: Warm Skin Moisture: Dry Skin Color: Normal Course - Re-evaluation Re-evalutation: 09/23/17 10:17 After performing a Medical Screening Examination, I estimate there is LOW risk for ACUTE CORONARY SYNDROME, RESPIRATORY FAILURE, SEPSIS OR MENINGITIS, thus I consider the discharge disposition reasonable. I have reevaluated this patient multiple times and no significant life threatening changes are noted. The patient and I have discussed the diagnosis and risks, and we agree with discharging home with close follow-up. We also discussed returning to the Emergency Department immediately if new or worsening symptoms occur. We have discussed the symptoms which are most concerning (e.g., changing or worsening pain, trouble swallowing or breathing, neck stiffness, fever) that necessitate immediate return. - Vital Signs Vital signs: Temp Pulse Resp BP Pulse Ox 98.0 F 102 H 22 H 134/91 H 100 09/23/17 08:21 09/23/17 08:21 09/23/17 08:21 09/23/17 08:21 09/23/17 08:21 - Diagnostic Test Radiology reviewed: Image reviewed, Reports reviewed Discharge - Discharge Clinical Impression: Viral sore throat, Laryngitis URI (upper respiratory infection) Qualifiers: URI type: unspecified URI Qualified Code(s): J06.9 - Acute upper respiratory infection, unspecified HTN (hypertension) Qualifiers: Hypertension type: unspecified Qualified Code(s): I10 - Essential (primary) hypertension Condition: Stable Disposition: HOME, SELF-CARE Additional Instructions: UPPER RESPIRATORY ILLNESS: You have a viral infection of the respiratory passages -- a "cold." This common infection causes nasal congestion, drainage, and often sore throat and cough. It is highly contagious. The disease usually lasts about 10 to 14 days. There is no "cure" for the viral infection -- it must run its course. If there is a complication, such as bacterial infection in the nose, sinuses, middle ear, or bronchial tubes, antibiotics may be required. The antibiotics won't affect the virus. Drink plenty of fluids. A humidifier may help. An expectorant medication or decongestant may make you more comfortable. Use acetaminophen or ibuprofen for fever or aches. See the doctor if fever persists over two days, if there is any significant worsening of your symptoms, or if you simply fail to improve as expected. STEROID MEDICATION: You have been given an injection of or oral medicine of the cortisone/ steroid class. This medication is used to control inflammation or allergy. Andreas t is usually only given for a short period of time, until the acute process subsides. There are usually no side effects from short-term use of cortisone-like medications. Some persons feel an increased sense of well-being and are not sleepy at bedtime. Long-term use of cortisone medications is best avoided, unless required for a severe condition. If your condition does not remit, or relapses after the course of corticosteroid medication, you should consult your physician. USE OF ACETAMINOPHEN (Tylenol): Acetaminophen may be taken for pain relief or fever control. It's much safer than aspirin, offering a wider range of "safe" dosages. It is safe during . Some brand names are Tylenol, Panadol, Datril, Anacin 3, Tempra, and Liquiprin. Acetaminophen can be repeated every four hours. The following are maximum recommended dosages: >89 pounds or adults 650 mg to 900 mg Acetaminophen can be repeated every four hours. Maximum dose not to exceed 4000 mg a day. Salt and soda solution 1 quart of water 1 tablespoon of salt 1 teaspoon of baking soda Mixed 3 ingredients together and boil for 1 minute Placed in a covered quart jar Use 1/2 ounce of cold solution to gargle 3 times a day With your elevated blood pressure I would prefer you not take ibuprofen or Mucinex as these were both major blood pressure. Coricidin HB if the medication you need to take for cough and cold with high blood pressure. Also use [id number] cough drops Chloraseptic [place] and salt and soda solution that I have listed above. Chest x-ray was negative no acute changes. Follow-up with your primary doctor in the next 1-2 days call his office today to schedule a appointment. FOLLOW-UP CARE: If you have been referred to a physician for follow-up care, call the physician s office for an appointment as you were instructed or within the next two days. If you experience worsening or a significant change in your symptoms, notify the physician immediately or return to the Emergency Department at any time for re-evaluation. Forms: Elevated Blood Pressure, Return to Work
--- NOTE | 2017-09-23 09:29 | RADIOLOGY REPORT (SQ) ---
EXAM DESCRIPTION: CHEST 2 VIEWS COMPLETED DATE/TIME: 09/23/2017 9:17 am REASON FOR STUDY: Cough congestion sore throat COMPARISON: 08/12/2017. EXAM PARAMETERS: NUMBER OF VIEWS: two views TECHNIQUE: Digital Frontal and Lateral radiographic views of the chest acquired. RADIATION DOSE: NA LIMITATIONS: none FINDINGS: LUNGS AND PLEURA: No opacities, masses or pneumothorax. No pleural effusion. MEDIASTINUM AND HILAR STRUCTURES: No masses or contour abnormalities. HEART AND VASCULAR STRUCTURES: Heart normal size. No evidence for failure. BONES: No acute findings. HARDWARE: None in the chest. OTHER: No other significant finding. IMPRESSION: NO ACUTE RADIOGRAPHIC FINDING IN THE CHEST. TECHNICAL DOCUMENTATION: JOB ID: [id number] [employer]- All Rights Reserved Reading location - IP/workstation name: [email or web address]
[2017-09-23] MEDS ORDERED: DEXAMETHASONE SOD PHOS INJ 10 MG/1 ML VIAL IM ONE (09:56)
== END 2017-09-23 10:17 | disposition home or self-care (01) ==
LOC: ER 08:16
DX: J04.0 Acute laryngitis (principal); J06.9 Acute upper respiratory infection, unspecified; I10 Essential (primary) hypertension; Z88.3 Allergy status to other anti-infective agents; Z90.49 Acquired absence of other specified parts of digestive tract; Z96.621 Presence of right artificial elbow joint; Z96.651 Presence of right artificial knee joint
CPT/HCPCS: 99283; 96372; 71046; J1100

== ENCOUNTER 2017-09-29 11:45 | Inpatient (IN) | payer OTHER ==
[2017-09-29] MEDS ORDERED: HYDRALAZINE HCL INJ/PF 20 MG/1 ML SDV IV ONE (12:28)
--- NOTE | 2017-09-29 12:32 | ER Document Report ---
ED Medical Screen (RME) - General Chief Complaint: Neck Problem Stated Complaint: NECK PAIN, LOST VOICE Time Seen by Provider: 09/29/17 12:21 Notes: RAPID MEDICAL EVALUATION DISCLOSURE I have seen this patient as part of a Rapid Medical Evaluation and, if applicable, placed any initially appropriate orders. The patient will be seen and fully evaluated, including a full history and physical exam, by a provider ( in Main ED or Fast Track) when a room becomes available. 47-year-old female here with ongoing throat pain and "hoarse voice" since 2017. She was seen here on 09/23/2017 and x-rays were performed which were unremarkable, per her reports, she is here today because the symptoms have persisted. She is not having some left neck pain as of 2 days ago. She denies any chest pain shortness of breath extremity weakness numbness tingling headache vision change. Her neck pain is worse with movement and pressing on the area. She takes 4 different blood pressure medications and denies that she has skipped any doses. She has not had any changes in the dosing in several months. She reports her blood pressure is normally this high (230/130s) however per chart review it appears that she was started on a nitro infusion back in August. Denies any history of dissection. EXAM No carotid bruit auscultated No left neck swelling No significant oropharyngeal erythema or tonsillar swelling/exudates CTAB Mildly tachycardic rate TRAVEL OUTSIDE OF THE [place] IN LAST 30 DAYS: No - Related Data Allergies/Adverse Reactions: ondansetron HCl [From Zofran] Allergy (Severe, Verified 09/03/17 10:39) resp distress azithromycin [From Zithromax] Allergy (Verified 09/03/17 10:39) Past Medical History - Social History Family history: Hypertension - Past Medical History Cardiac Medical History: Reports: Hx Hypertension, Hx Heart Murmur - with Denies: Hx Atrial Fibrillation, Hx Congestive Heart Failure, Hx Coronary Artery Disease, Hx Heart Attack, Hx Hypercholesterolemia, Hx Peripheral Vascular Disease, Hx Pulmonary Embolism Pulmonary Medical History: Reports: Hx Pneumonia Denies: Hx Asthma, Hx Bronchitis, Hx COPD, Hx Respiratory Failure, Hx Sleep Apnea, Hx Tuberculosis Neurological Medical History: Denies: Hx Seizures Renal/ Medical History: Reports: Hx Ovarian Cysts - x 2. Denies: Hx Peritoneal Dialysis, Hx Pelvic Inflammatory Disease Malignancy Medical History: Denies: Hx Breast Cancer, Hx Cervical Cancer, Hx Leukemia, Hx Lung Cancer, Hx Ovarian Cancer Musculoskeltal Medical History: Reports Hx Arthritis, Denies Hx Fibromyalgia, Denies Hx Muscular Dystrophy Skin Medical History: Denies Hx MRSA Psychiatric Medical History: Reports: Hx Depression Traumatic Medical History: Reports: Hx Fractures - rt knee, rt elbow Infectious Medical History: Denies: Hx HIV Past Surgical History: Reports: Hx Cholecystectomy, Hx Orthopedic Surgery - R knee replacement, elbow, Hx Tubal Ligation. Denies: Hx Appendectomy, Hx Bowel Surgery, Hx Section, Hx Coronary Artery Bypass Graft, Hx Gastric Bypass Surgery, Hx Herniorrhaphy, Hx Hysterectomy, Hx Mastectomy, Hx Pacemaker, Hx Tonsillectomy - Immunizations Hx Diphtheria, Pertussis, Tetanus Vaccination: Yes History of Influenza Vaccine for 02/2017 - 07/2017 Season: Unknown Physical Exam - Vital signs Vitals: Temp Pulse Resp BP Pulse Ox 98.5 F 108 H 24 H 232/130 H 98 09/29/17 12:08 09/29/17 12:08 09/29/17 12:08 09/29/17 12:08 09/29/17 12:08 Course - Vital Signs Vital signs: Temp Pulse Resp BP Pulse Ox 98.5 F 108 H 24 H 232/130 H 98 09/29/17 12:08 09/29/17 12:08 09/29/17 12:08 09/29/17 12:08 09/29/17 12:08
--- NOTE | 2017-09-29 13:27 | ER Document Report ---
ED General - General Chief Complaint: Neck Problem Stated Complaint: NECK PAIN, LOST VOICE Time Seen by Provider: 09/29/17 12:21 Mode of Arrival: Ambulatory Information source: Patient TRAVEL OUTSIDE OF THE [place] IN LAST 30 DAYS: No - HPI Notes: 47-year-old female history of uncontrolled hypertension presents to the emergency room with complaints of voice, neck stiffness on the left with intermittent numbness and tingling down bilateral lower extremities. Patient states that next stiffness started this morning. She denies any difficulty speaking or swallowing. States worse with time, nothing makes better. Patient was seen approximately 4 days ago in the ER with similar complaints of sore throat, was diagnosed with pharyngitis. Patient follows with Dr. Harding, has not been seen by supervisor assembly stock for hypertension for "at least 10 years" states she did have a stress test done approximately 10 years ago with , supervisor assembly stock, but does not remember the results. Patient's blood pressure on arrival was 232 systolically over 130 diastolically with a heart rate of 108. Patient states she takes a total of 4 different antihypertensive medications daily and does not skip doses. Patient was recently hospitalized the beginning of August for hypertensive urgency, was placed in a nitroprusside drip when her blood pressure was normalized. Patient reports chills unsure fevers. Denies chest pain,palpitations, shortness of breath, dyspnea, nausea, vomiting, diarrhea, abdominal pain, hematuria,blurred vision, double vision, loss of vision, speech changes, LH, dizziness, syncope, headaches, wheezing, weakness, bowel or bladder dysfunction, saddle anesthesia, numbness or tingling in bilateral lower extremities equally, muscle paralysis, weakness in bilateral upper or lower extremities equally or rash. Denies IV drug use. - Related Data Allergies/Adverse Reactions: ondansetron HCl [From Zofran] Allergy (Severe, Verified 09/03/17 10:39) resp distress azithromycin [From Zithromax] Allergy (Verified 09/03/17 10:39) Past Medical History - General Information source: Patient - Social History Smoking Status: Never Smoker Chew tobacco use (# tins/day): No Frequency of alcohol use: None Drug Abuse: None Family History: Reviewed & Not Pertinent Patient has suicidal ideation: No Patient has homicidal ideation: No - Past Medical History Cardiac Medical History: Reports: Hx Hypertension, Hx Heart Murmur - with Denies: Hx Atrial Fibrillation, Hx Congestive Heart Failure, Hx Coronary Artery Disease, Hx Heart Attack, Hx Hypercholesterolemia, Hx Peripheral Vascular Disease, Hx Pulmonary Embolism Pulmonary Medical History: Reports: Hx Pneumonia Denies: Hx Asthma, Hx Bronchitis, Hx COPD, Hx Respiratory Failure, Hx Sleep Apnea, Hx Tuberculosis Neurological Medical History: Denies: Hx Seizures Renal/ Medical History: Reports: Hx Ovarian Cysts - x 2. Denies: Hx Peritoneal Dialysis, Hx Pelvic Inflammatory Disease Malignancy Medical History: Denies: Hx Breast Cancer, Hx Cervical Cancer, Hx Leukemia, Hx Lung Cancer, Hx Ovarian Cancer Musculoskeltal Medical History: Reports Hx Arthritis, Denies Hx Fibromyalgia, Denies Hx Muscular Dystrophy Skin Medical History: Denies Hx MRSA Psychiatric Medical History: Reports: Hx Depression Traumatic Medical History: Reports: Hx Fractures - rt knee, rt elbow Infectious Medical History: Denies: Hx HIV Past Surgical History: Reports: Hx Cholecystectomy, Hx Orthopedic Surgery - R knee replacement, elbow, Hx Tubal Ligation. Denies: Hx Appendectomy, Hx Bowel Surgery, Hx Section, Hx Coronary Artery Bypass Graft, Hx Gastric Bypass Surgery, Hx Herniorrhaphy, Hx Hysterectomy, Hx Mastectomy, Hx Pacemaker, Hx Tonsillectomy - Immunizations Hx Diphtheria, Pertussis, Tetanus Vaccination: Yes Hx Pneumococcal Vaccination: 07/06/12 Review of Systems - Review of Systems Constitutional: See HPI EENT: See HPI Cardiovascular: No symptoms reported Respiratory: No symptoms reported Gastrointestinal: No symptoms reported Genitourinary: No symptoms reported Female Genitourinary: No symptoms reported Musculoskeletal: No symptoms reported Skin: No symptoms reported Hematologic/Lymphatic: No symptoms reported Neurological/Psychological: No symptoms reported Physical Exam - Vital signs Vitals: Temp Pulse Resp BP Pulse Ox 98.5 F 108 H 24 H 232/130 H 98 09/29/17 12:08 09/29/17 12:08 09/29/17 12:08 09/29/17 12:08 09/29/17 12:08 - Notes Notes: PHYSICAL EXAMINATION: GENERAL: Well-appearing, well-nourished and in no acute distress. HEAD: Atraumatic, normocephalic. EYES: Pupils equal round and reactive to light, extraocular movements intact, conjunctiva are normal. ENT: tympanic membranes are normal appearing with pearly color, normal- appearing landmarks and normal light reflex. Hearing is grossly intact. Has normal facial sensation to light touch in 3 branches of the trigeminal nerve. Normal facial movement. No clicking or popping when jaw opens or closes. The nasal mucosa is moist. The septum is midline. There is no evidence of septal hematoma. The turbinates are without abnormality. No obvious abnormalities to the lips. The teeth are unremarkableNo swelling no erythema no exudate no angioedema no drooling no trismus bilateral arches equal. Uvula midline. The salivary glands appear unremarkable. The tongue is midline. The posterior pharynx is without erythema or exudate. The tonsils are normal appearing. NECK: Normal range of motion, supple without lymphadenopathy. unable to rotate neck laterally, some flexion and extension, but reports pain. negative spurlings test. System Operation Superintendent + 2 bilaterally and equally. Dtr +2 bilaterally and equally in BUE. Perrla, full eomi. Face symmetrical. No rashes observed. Point tenderness to right paraspinal muscles near C6. No lymphadenopathy. Full APROM with shoulders. TM intact bilaterally. No meningismus. No noted lymphadenopathy. LUNGS: Breath sounds clear to auscultation bilaterally and equal. No wheezes rales or rhonchi. HEART: Regular rate and rhythm without murmurs ABDOMEN: Soft, nontender, nondistended abdomen. No guarding, no rebound. No masses appreciated. Female : deferred Musculoskeletal: Normal range of motion, no pitting or edema. No cyanosis. NEUROLOGICAL: Cranial nerves grossly intact. Normal speech, normal gait. Normal sensory, motor exams PSYCH: Normal mood, normal affect. SKIN: Warm, Dry, normal turgor, no rashes or lesions noted. Course - Re-evaluation Re-evalutation: 09/29/17 18:09 47-year-old female who has uncontrolled hypertension with initial blood pressure [id number] tachycardic in mild distress here for evaluation of sudden onset neck stiffness and pain that started today. CBC shows slight leukocytosis. CMP unremarkable. Cardiac enzymes on initial set are negative. EKG negative for any acute STEMI. BNP 385. Urinalysis shows leukocytosis with proteinuria. Patient given 20 mg of hydralazine, blood pressure ranges 20 points. On reevaluation patient still remains hypertensive, will add losartan [address] of neck negative for any acute., Normal CTA of the extracranial carotid and vertebral arteries. Due to leukocytosis, MRI cervical spine ordered , negative for abscess, noted disc osteophyte complex C5-C6 with moderate narrowing of the right exit foramen and mild central canal stenosis with mild central canal stenosis. 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 Consulted with Dr. Nikolai Giraldo, hospitalist at 1745, will admit to [facility] for management of malignant hypertensive. - Vital Signs Vital signs: Temp Pulse Resp BP Pulse Ox 98.5 F 108 H 21 H 187/110 H 99 09/29/17 12:08 09/29/17 12:08 09/29/17 16:01 09/29/17 16:00 09/29/17 16:01 - Laboratory Result Diagrams: 09/29/17 13:09 09/29/17 13:09 Laboratory results interpreted by me: 09/29/17 09/29/17 09/29/17 13:09 13:09 13:09 WBC 11.8 H RBC 5.75 H MCV 72 L MCH 22.8 L MCHC 31.8 L RDW 17.7 H Carbon Dioxide 32 H Creatine Kinase NT-Pro-B Natriuret Pep 385 H Urine Protein Ur Leukocyte Esterase 09/29/17 09/29/17 13:09 18:04 WBC RBC MCV MCH MCHC RDW Carbon Dioxide Creatine Kinase 29 L NT-Pro-B Natriuret Pep Urine Protein >=500 H Ur Leukocyte Esterase TRACE H Discharge - Discharge Clinical Impression: Hypertensive urgency, malignant, Stiffness of neck, Neck pain on left side UTI (urinary tract infection) Qualifiers: Urinary tract infection type: acute cystitis Hematuria presence: without hematuria Qualified Code(s): N30.00 - Acute cystitis without hematuria Disposition: ADMITTED INPATIENT Admitting Provider: Hospitalist - Dr. Nikolai Giraldo Unit Admitted: [facility]
[2017-09-29 13:43] LABS: ABSOLUTE BASOPHILS # (AUTO) 0.1 10^3/uL (0.0-0.2); ABSOLUTE EOSINOPHILS # (AUTO) 0.3 10^3/uL (0.0-0.6); ABSOLUTE LYMPHOCYTES (AUTO) 2.5 10^3/uL (0.5-4.7); ABSOLUTE MONOCYTES (AUTO) 0.8 10^3/uL (0.1-1.4); ABSOLUTE NEUT (AUTO) 8.1 10^3/uL (1.7-8.2); BASOPHILS % (AUTO) 0.7 % (0-2); EOSINOPHILS % (AUTO) 2.4 % (0-6); HEMATOCRIT 41.3 % (36.0-47.0); HEMOGLOBIN 13.1 g/dL (12.0-15.5); LYMPHOCYTES % (AUTO) 21.1 % (13-45); MEAN CORPUSCULAR HEMOGLOBIN 22.8 pg (27.0-33.4); MEAN CORPUSCULAR HGB CONC 31.8 g/dL (32.0-36.0); MEAN CORPUSCULAR VOLUME 72 fl (80-97); MONOCYTES % (AUTO) 6.8 % (3-13); PLATELET COUNT 308 10^3/uL (150-450); RED BLOOD COUNT 5.75 10^6/uL (3.72-5.28); RED CELL DISTRIBUTION WIDTH 17.7 % (11.5-14.0); TOTAL CELLS COUNTED % (AUTO) 100 %; WHITE BLOOD COUNT 11.8 10^3/uL (4.0-10.5)
[2017-09-29 13:51] LABS: ANION GAP 9 (5-19); BLOOD UREA NITROGEN 17 mg/dL (7-20); CALCIUM 9.2 mg/dL (8.4-10.2); CARBON DIOXIDE 32 mmol/L (22-30); CHLORIDE 101 mmol/L (98-107); CREATINE KINASE 35 U/L (30-135); GLUCOSE 101 mg/dL (75-110); POTASSIUM 4.3 mmol/L (3.6-5.0); SODIUM 142.1 mmol/L (137-145)
--- NOTE | 2017-09-29 14:00 | RADIOLOGY REPORT (SQ) ---
EXAM DESCRIPTION: CTA NECK COMPLETED DATE/TIME: 09/29/2017 1:45 pm REASON FOR STUDY: BP230/130, L neck pain; eval dissection COMPARISON: CT brain 07/06/2017 TECHNIQUE: Axial dynamic scanning technique with dynamic contrast enhancement through the extra-cranberry grower nial carotid and vertebral arteries. Multiplanar reconstruction. 3-D MIPS and Volume-rendered imag es acquired at the workstation and saved to PACS. Images are reviewed in soft tissue, bone, lung w indows. All CT scanners at this facility use dose modulation, iterative reconstruction, and/or weight based d osing when appropriate to reduce radiation dose to as low as reasonably achievable (ALARA). [facility]: Dose Right [facility]: CareDose [facility]: Dose Right [facility]: Teradose 4D [facility]: Roseonly CONTRAST TYPE AND DOSE: contrast/concentration: Isovue 370.00 mg/ml; Total Contrast Delivered: 70.0 ml; Total Saline Delivered: 56.0 ml RENAL FUNCTION: Creatinine 0.64 LIMITATIONS: Morbidly obese patient. Suboptimal arterial contrast bolus. FINDINGS: AORTIC ARCH: Normal three-vessel origin. Bilateral subclavian arteries are patent. No d issection. RIGHT CAROTIDS: Patent common, internal and external carotid arteries without suggestion of significa nt stenosis or irregular plaque. No gross evidence of dissection. RIGHT VERTEBRAL: Patent. No gross evidence of dissection. LEFT CAROTIDS: Patent common, internal and external carotid arteries without suggestion of significan t stenosis or irregular plaque. No dissection. LEFT VERTEBRAL: Patent. No dissection. Limited view of the inferior brain parenchyma and lummi of [place]: No other significant finding. OTHER: 3-D reconstructions confirm findings. Please note that the bilateral carotid bifurcations are displaced medially into the prevertebral spac e, best shown on coronal reconstruction images 40-44. Carotid bifurcations are widely patent. Lung apices are grossly clear. Airway widely patent. Normal size thyroid without gross masses. Cer vical spine unremarkable. Results discussed with Dr. Faustin. IMPRESSION: NORMAL CTA OF THE EXTRA-CRANIAL CAROTID AND VERTEBRAL ARTERIES. COMMENT: Quality ID #[id number]: Measurements of distal internal carotid diameter were used as the denomina tor for stenosis measurement. TECHNICAL DOCUMENTATION: JOB ID: [id number] Quality ID # [id number]: Final reports with documentation of one or more dose reduction techniques (e.g., Au tomated exposure control, adjustment of the mA and/or kV according to patient size, use of iterative reconstruction technique) 2010 [employer]- All Rights Reserved Reading location - IP/workstation name: [email or web address]
[2017-09-29 14:03] LABS: CREATINE KINASE MB 1.05 ng/mL (<4.55); TROPONIN I 0.018 ng/mL
[2017-09-29] MEDS ORDERED: MORPHINE SULFATE 10 MG/ML INJ IV ONE (15:03)
[2017-09-29] MEDS ORDERED: CLONIDINE HCL 0.1 MG TABLET PO ONE (15:07)
[2017-09-29] MEDS ORDERED: LOSARTAN POTASSIUM 50 MG TABLET PO ONE (15:07)
[2017-09-29 15:24] LABS: APPEARANCE,URINE CLOUDY; BILIRUBIN,URINE NEGATIVE (NEGATIVE); COLOR,URINE YELLOW; GLUCOSE, URINE NEGATIVE (NEGATIVE); KETONES,URINE NEGATIVE (NEGATIVE); LEUKOCYTE ESTERASE,URINE TRACE (NEGATIVE); NITRITE,URINE NEGATIVE (NEGATIVE); PROTEIN,URINE >=500 mg/dL (NEGATIVE); URINE SPECIFIC GRAVITY 1.024; UROBILINOGEN,URINE NEGATIVE mg/dL (<2.0)
[2017-09-29] MEDS ORDERED: LORAZEPAM INJ 2 MG/1 ML VIAL IV ONE (15:59)
--- NOTE | 2017-09-29 17:29 | RADIOLOGY REPORT (SQ) ---
EXAM DESCRIPTION: MRI CERVICAL SPINE WITHOUT COMPLETED DATE/TIME: 09/29/2017 5:17 pm REASON FOR STUDY: new onset neck stiffness, leuks, r/o abscess COMPARISON: None. TECHNIQUE: Sagittal and Axial imaging includes T1, T2, STIR and gradient echo sequences. LIMITATIONS: Motion. Morbidly obese. FINDINGS: ALIGNMENT: Slight reversal the normal cervical lordotic curve. VERTEBRAE: Intact. BONE MARROW: Normal. No marrow replacement or reactive changes. DISCS: Normal. No significant abnormal signal or loss of height. HARDWARE: None in the spine. CORD AND BASE OF BRAIN: Normal in size and signal intensity. SOFT TISSUES: No soft tissue masses. C1-C2: No significant spinal stenosis. C2-C3: No significant spinal stenosis or exit foraminal stenosis. C3-C4: No significant spinal stenosis or exit foraminal stenosis. C4-C5: No significant spinal stenosis or exit foraminal stenosis. C5-C6: Disc osteophyte complex asymmetric right with flattening of the anterior thecal sac and modera te narrowing of the right exit foramina. C6-C7: No significant spinal stenosis or exit foraminal stenosis. C7-T1: No significant spinal stenosis or exit foraminal stenosis. UPPER THORACIC: Incompletely imaged. No significant spinal stenosis or exit foraminal stenosis. OTHER: No other significant finding. IMPRESSION: Disc osteophyte complex C5-6 asymmetric right with moderate narrowing of the right exit foramina and mild central canal stenosis. No obvious abscess. Limited study TECHNICAL DOCUMENTATION: JOB ID: [id number] [employer]- All Rights Reserved Reading location - IP/workstation name: [email or web address]
[2017-09-29] MEDS ORDERED: NITROFURANTOIN MONOHYD/M-CRYST 100 MG CAPSULE PO ONE (18:02)
[2017-09-29] MEDS ORDERED: ONDANSETRON 4 MG TAB.RAPDIS PO PRN (18:03)
[2017-09-29] MEDS ORDERED: PROMETHAZINE HCL INJ 25 MG/1 ML VIAL IV PRN (18:03)
[2017-09-29] MEDS ORDERED: ALBUTEROL SULFATE 0.083% NEB 2.5 MG/3 ML AMPUL NEB PRN (18:03)
[2017-09-29] MEDS ORDERED: LISINOPRIL 10 MG TABLET PO SCH (18:15)
[2017-09-29] MEDS ORDERED: CLONIDINE HCL 0.2 MG TABLET PO PRN (18:15)
--- NOTE | 2017-09-29 18:26 | EKG REPORT ---
SEVERITY:- ABNORMAL ECG - SINUS RHYTHM YUDY, CONSIDER BIATRIAL ABNORMALITIES REPOL ABNRM SUGGESTS ISCHEMIA, LATERAL LEADS : Confirmed by: Lele Garza MD 29-Sep-2017 18:26:03
--- NOTE | 2017-09-29 18:40 | PDOC H&P ---
History of Present Illness Patient complains of: Sore throat History of Present Illness: BILL MARQUEZ is a 47 year old female who is had progressive sore throat over the last 5 days. Seen in the ED about 4 days ago diagnosed with pharyngitis. This morning she woke up with a stiff neck, chills, more severe pain so she came into the emergency department. She reports feeling confused with numbness and tingling in her legs, but has had no chest pain, shortness of breath, cough, difficulty swallowing, bowel or bladder dysfunction. She is a history of very difficult to control blood pressure. She states she has been taking her medications as directed. Past Medical History Cardiac Medical History: Reports: Hypertension, Heart Murmur - with Denies: Atrial Fibrillation, Congestive Heart Failure, Coronary Artery Disease, Myocardial Infarction, Hyperlipidema, Peripheral Vascular Disease, Pulmonary Embolism Pulmonary Medical History: Reports: Pneumonia Denies: Asthma, Bronchitis, Chronic Obstructive Pulmonary Disease (COPD), Respiratory Failure, Sleep Apnea, Tuberculosis Neurological Medical History: Denies: Seizures Endocrine Medical History: Reports: Obesity Malignancy Medical History: Denies: Breast Cancer, Cervical Cancer, Leukemia, Lung Cancer, Ovarian Cancer Musculoskeltal Medical History: Reports: Arthritis Denies: Fibromyalgia Psychiatric Medical History: Reports: Depression Hematology: Reports: Anemia - heavy menses related Infectious Medical History: Denies: HIV Past Surgical History Past Surgical History: Reports: Cholecystectomy, Orthopedic Surgery - R knee replacement, elbow, Tubal Ligation Denies: Appendectomy, Section, Coronary Artery Bypass Graft, Gastric Bypass Surgery, Herniorrhaphy, Hysterectomy, Mastectomy, Pacemaker, Tonsillectomy Social History Information Source: Patient Smoking Status: Never Smoker Frequency of Alcohol Use: None - She took a couple shots of Tequila 2 days ago on the advice of her friend to treat her sore throat. Did not help, made her feel terrible. Hx Recreational Drug Use: No Hx Prescription Drug Abuse: No - Advance Directive Resuscitation Status: Full Code Family History Family History: Reviewed & Not Pertinent Parental Family History Reviewed: Yes Children Family History Reviewed: No Sibling(s) Family History Reviewed.: No Medication/Allergy Home Medications: Hydralazine HCl [Apresoline 25 mg Tablet] 25 mg PO Q8 7 Days #20 tablet Metoprolol Tartrate [Lopressor 100 mg Tablet] 100 mg PO Q12 tablet 04/18/17 Clonidine HCl 0.6 mg PO DAILY PRN 06/04/17 Clonidine HCl [Catapres 0.3 mg Tablet] 0.3 mg PO Q8 08/12/17 Meclizine HCl [Antivert 25 mg Tablet] 25 mg PO TIDP PRN 08/12/17 Allergies/Adverse Reactions: ondansetron HCl [From Zofran] Allergy (Severe, Verified 09/03/17 10:39) resp distress azithromycin [From Zithromax] Allergy (Verified 09/03/17 10:39) Review of Systems All systems: reviewed and no additional remarkable complaints except as stated Physical Exam Vital Signs: Temp Pulse Resp BP Pulse Ox 98.5 F 108 H 21 H 187/110 H 99 09/29/17 12:08 09/29/17 12:08 09/29/17 16:01 09/29/17 16:00 09/29/17 16:01 Intake & Output 09/28/17 09/29/17 09/30/17 05:59 05:59 05:59 Weight 362 lb 7.039 oz General appearance: PRESENT: mild distress, morbidly obese Exam: Sitting on the side of the gurney decidedly uncomfortable appearing. Squinting her eyes. Pleasant and cooperative Head exam: ABSENT: atraumatic Respiratory exam: PRESENT: clear to auscultation kelly Cardiovascular exam: PRESENT: RRR GI/Abdominal exam: PRESENT: soft Extremities exam: PRESENT: pedal edema - Trace Musculoskeletal exam: PRESENT: normal inspection Neurological exam: PRESENT: alert, CN II-XII grossly intact, other - Able to answer all her orientation questions but is slow processing. ABSENT: motor sensory deficit Psychiatric exam: PRESENT: flat affect Skin exam: PRESENT: dry, warm Results Laboratory Results: 09/29/17 13:09 09/29/17 13:09 09/29/17 09/29/17 09/29/17 13:09 13:09 13:09 WBC 11.8 H RBC 5.75 H Hgb 13.1 Hct 41.3 MCV 72 L MCH 22.8 L MCHC 31.8 L RDW 17.7 H Plt Count 308 Seg Neutrophils % 69.0 Lymphocytes % 21.1 Monocytes % 6.8 Eosinophils % 2.4 Basophils % 0.7 Absolute Neutrophils 8.1 Absolute Lymphocytes 2.5 Absolute Monocytes 0.8 Absolute Eosinophils 0.3 Absolute Basophils 0.1 Sodium 142.1 Potassium 4.3 Chloride 101 Carbon Dioxide 32 H Anion Gap 9 BUN 17 Creatinine 0.61 Est GFR ( Amer) > 60 Est GFR (Non-Af Amer) > 60 Glucose 101 Lactic Acid Calcium 9.2 Urine Color YELLOW Urine Appearance CLOUDY Urine pH 6.0 Ur Specific [place] 1.024 Urine Protein >=500 H Urine Glucose (UA) NEGATIVE Urine Ketones NEGATIVE Urine Blood NEGATIVE Urine Nitrite NEGATIVE Ur Leukocyte Esterase TRACE H Urine WBC (Auto) 9 Urine RBC (Auto) 2 09/29/17 14:10 WBC RBC Hgb Hct MCV MCH MCHC RDW Plt Count Seg Neutrophils % Lymphocytes % Monocytes % Eosinophils % Basophils % Absolute Neutrophils Absolute Lymphocytes Absolute Monocytes Absolute Eosinophils Absolute Basophils Sodium Potassium Chloride Carbon Dioxide Anion Gap BUN Creatinine Est GFR ( Amer) Est GFR (Non-Af Amer) Glucose Lactic Acid 0.9 Calcium Urine Color Urine Appearance Urine pH Ur Specific [place] Urine Protein Urine Glucose (UA) Urine Ketones Urine Blood Urine Nitrite Ur Leukocyte Esterase Urine WBC (Auto) Urine RBC (Auto) 09/29/17 09/29/17 09/29/17 13:09 13:09 13:09 Creatine Kinase 35 CK-MB (CK-2) 1.05 Troponin I 0.018 NT-Pro-B Natriuret Pep 385 H Impressions: Neck CTA 09/29/17 12:28 IMPRESSION: NORMAL CTA OF THE EXTRA-CRANIAL CAROTID AND VERTEBRAL ARTERIES. Cervical Spine MRI 09/29/17 15:02 IMPRESSION: Disc osteophyte complex C5-6 asymmetric right with moderate narrowing of the right exit foramina and mild central canal stenosis. No obvious abscess. Limited study Assessment & Plan - Diagnosis (1) Hypertensive emergency Is this a current diagnosis for this admission?: Yes Plan: I will aggressively increase her antihypertensives, and provide as needed medication. Continue to titrate until we have improved control (2) Sore throat Is this a current diagnosis for this admission?: Yes Plan: I will check a rapid strep. Probably viral (3) Headache Qualifiers: Headache type: unspecified Headache chronicity pattern: acute headache Intractability: not intractable Qualified Code(s): R51 - Headache Is this a current diagnosis for this admission?: Yes Plan: Due to her severe hypertension and probably her infection as well. Treat her hypertension and provide symptomatic treatment. (4) Morbid obesity Is this a current diagnosis for this admission?: Yes
[2017-09-29 18:52] LABS: CREATINE KINASE MB 0.74 ng/mL (<4.55); TROPONIN I 0.016 ng/mL
[2017-09-29] MEDS ORDERED: ENOXAPARIN SODIUM INJ 40 MG/0.4 ML DISP.SYRIN SUBCUT ONE (21:00)
[2017-09-29] MEDS ORDERED: LISINOPRIL 10 MG TABLET PO ONE (21:00)
[2017-09-29] MEDS ORDERED: MINOXIDIL 10 MG TABLET PO SCH (22:00)
[2017-09-29] MEDS ORDERED: (PENDING PHARMACY ID) (Clonidine Hcl [Catapres 0.3 Mg Tablet] 0.3 MG) PO SCH (22:00)
[2017-09-29] MEDS ORDERED: CEFTRIAXONE 1 GM/D5W RTU 1 GM/50 ML RTUPB IV SCH (22:00)
[2017-09-29] MEDS ORDERED: CEFTRIAXONE SODIUM 1,000 MG in DEXTROSE 5%-WATER 50 ML IV SCH (22:00)
[2017-09-29] MEDS: ACETAMINOPHEN 325 MG TABLET PO PRN (22:11)
[2017-09-29] MEDS: CLONIDINE HCL 0.2 MG TABLET PO SCH (22:13)
[2017-09-29] MEDS: METOPROLOL TARTRATE 100 MG TABLET PO SCH (22:13)
[2017-09-29] MEDS: BENZOCAINE/MENTHOL SORE THROAT LOZENGE BUCCAL PRN (22:14)
[2017-09-29] MEDS: HYDRALAZINE HCL 50 MG TABLET PO SCH (22:15)
[2017-09-29] MEDS: FAMOTIDINE 20 MG TABLET PO SCH (22:15)
[2017-09-30] MEDS: BENZOCAINE/MENTHOL SORE THROAT LOZENGE BUCCAL PRN ×3 (01:16→12:22)
[2017-09-30] MEDS: LISINOPRIL 10 MG TABLET PO SCH (09:25)
[2017-09-30] MEDS: METOPROLOL TARTRATE 100 MG TABLET PO SCH ×2 (09:26→21:06)
[2017-09-30] MEDS: FAMOTIDINE 20 MG TABLET PO SCH ×2 (09:26→21:04)
[2017-09-30] MEDS: CLONIDINE HCL 0.2 MG TABLET PO SCH ×3 (09:27→21:06)
[2017-09-30] MEDS: HYDRALAZINE HCL 50 MG TABLET PO SCH (09:28)
[2017-09-30] MEDS ORDERED: ENOXAPARIN SODIUM INJ 40 MG/0.4 ML DISP.SYRIN SUBCUT SCH (10:00)
[2017-09-30] MEDS ORDERED: HYDROCOD/ACETAMIN 7.5-325 MG/15 ML ORAL SOLN UDCUP PO PRN (11:03)
[2017-09-30] MEDS: LIDOCAINE 2% VISCOUS SOLN 20 ML UDCUP PO PRN (12:22)
--- NOTE | 2017-09-30 13:37 | PDOC PROGRESS REPORT ---
Subjective Progress Note for:: 09/30/17 Subjective:: Still feels awful. Sore throat not improved. Has not had any further confusion since the ER. Reason For Visit: HYPERTENSIVE EMERGENCY Physical Exam Vital Signs: Temp Pulse Resp BP Pulse Ox 98.2 F 84 20 132/80 H 97 09/30/17 12:35 09/30/17 12:35 09/30/17 12:35 09/30/17 12:35 09/30/17 12:35 Intake & Output 09/29/17 09/30/17 10/01/17 05:59 05:59 05:59 Intake Total 200 160 Balance 200 160 Weight 360 lb 10.82 oz General appearance: PRESENT: no acute distress, morbidly obese Throat exam: PRESENT: other - Unable to visualize her posterior pharynx due to her habitus Respiratory exam: PRESENT: clear to auscultation kelly Cardiovascular exam: PRESENT: RRR GI/Abdominal exam: PRESENT: soft Extremities exam: ABSENT: pedal edema Neurological exam: PRESENT: alert Psychiatric exam: PRESENT: appropriate affect Skin exam: PRESENT: dry, warm Results Impressions: Neck CTA 09/29/17 12:28 IMPRESSION: NORMAL CTA OF THE EXTRA-CRANIAL CAROTID AND VERTEBRAL ARTERIES. Cervical Spine MRI 09/29/17 15:02 IMPRESSION: Disc osteophyte complex C5-6 asymmetric right with moderate narrowing of the right exit foramina and mild central canal stenosis. No obvious abscess. Limited study Assessment & Plan - Diagnosis (1) Hypertensive emergency Is this a current diagnosis for this admission?: Yes Plan: Well-controlled with current antihypertensives. Probably dropped her a little more than necessary over the short-term, though this would be an ideal pressure long-term. I will back off on her blood pressure medicines a little with the aim of lowering her blood pressure and the normal range over the next few weeks. (2) Strep sore throat Is this a current diagnosis for this admission?: Yes Plan: I will change her Rocephin over to penicillin (3) Headache Qualifiers: Headache type: unspecified Headache chronicity pattern: acute headache Intractability: not intractable Qualified Code(s): R51 - Headache Is this a current diagnosis for this admission?: Yes Plan: Due to her severe hypertension and probably her infection as well. Treat her hypertension and provide symptomatic treatment. (4) Morbid obesity Is this a current diagnosis for this admission?: Yes
[2017-09-30] MEDS: ACETAMINOPHEN 325 MG TABLET PO PRN (16:48)
[2017-09-30] MEDS: PENICILLIN V POTASSIUM 250 MG/5 ML SUSP 100 ML PO SCH (17:24)
[2017-09-30] MEDS ORDERED: PENICILLIN V POTASS 125 MG/5 ML SUSP 100 ML PO SCH (18:00)
[2017-09-30] MEDS ORDERED: MINOXIDIL 2.5 MG TABLET PO SCH (22:00)
[2017-10-01] MEDS: CLONIDINE HCL 0.2 MG TABLET PO SCH (05:25)
[2017-10-01] MEDS: PENICILLIN V POTASSIUM 250 MG/5 ML SUSP 100 ML PO SCH ×2 (05:25→18:16)
[2017-10-01] MEDS: LISINOPRIL 10 MG TABLET PO SCH (09:08)
[2017-10-01] MEDS: ACETAMINOPHEN 325 MG TABLET PO PRN (09:09)
[2017-10-01] MEDS: METOPROLOL TARTRATE 100 MG TABLET PO SCH ×2 (09:09→21:34)
[2017-10-01] MEDS: FAMOTIDINE 20 MG TABLET PO SCH ×2 (09:10→21:35)
[2017-10-01] MEDS: BENZOCAINE/MENTHOL SORE THROAT LOZENGE BUCCAL PRN ×3 (09:10→21:34)
--- NOTE | 2017-10-01 12:23 | PDOC PROGRESS REPORT ---
Subjective Progress Note for:: 10/01/17 Subjective:: Feels slightly better today though still awful. Reason For Visit: HYPERTENSIVE EMERGENCY Physical Exam Vital Signs: Temp Pulse Resp BP Pulse Ox 97.3 F 82 18 151/81 H 97 10/01/17 07:07 10/01/17 09:40 10/01/17 09:40 10/01/17 07:07 10/01/17 09:40 Intake & Output 09/30/17 10/01/17 10/02/17 05:59 05:59 05:59 Intake Total 200 1072 20 Balance 200 1072 20 Weight 367 lb 4.642 oz General appearance: PRESENT: mild distress, morbidly obese Respiratory exam: PRESENT: clear to auscultation kelly Cardiovascular exam: PRESENT: RRR GI/Abdominal exam: PRESENT: soft Musculoskeletal exam: PRESENT: normal inspection Neurological exam: PRESENT: alert Psychiatric exam: PRESENT: appropriate affect Skin exam: PRESENT: other - Hot, flushed, and moist Results Laboratory Results: 09/29/17 19:42 Throat Throat Culture - Final Group C Beta Streptococcus Normal Sharla Impressions: Neck CTA 09/29/17 12:28 IMPRESSION: NORMAL CTA OF THE EXTRA-CRANIAL CAROTID AND VERTEBRAL ARTERIES. Cervical Spine MRI 09/29/17 15:02 IMPRESSION: Disc osteophyte complex C5-6 asymmetric right with moderate narrowing of the right exit foramina and mild central canal stenosis. No obvious abscess. Limited study Assessment & Plan - Diagnosis (1) Hypertensive emergency Is this a current diagnosis for this admission?: Yes Plan: Blood pressure has been relatively low for her. Her Catapres and minoxidil have been held for hypotension. Hydralazine was stopped yesterday. I believe this to be the result of her acute illness (2) Strep sore throat Is this a current diagnosis for this admission?: Yes Plan: Continue Pen-VK (3) SIRS (systemic inflammatory response syndrome) Is this a current diagnosis for this admission?: Yes (4) Headache Qualifiers: Headache type: unspecified Headache chronicity pattern: acute headache Intractability: not intractable Qualified Code(s): R51 - Headache Is this a current diagnosis for this admission?: Yes Plan: At this point due to her acute infection. Has not had severe hypertension since the ER. (5) Morbid obesity Is this a current diagnosis for this admission?: Yes
[2017-10-01] MEDS ORDERED: ENOXAPARIN SODIUM INJ 40 MG/0.4 ML DISP.SYRIN SUBCUT ONE (12:30)
[2017-10-01] MEDS: LIDOCAINE 2% VISCOUS SOLN 20 ML UDCUP PO PRN (18:55)
[2017-10-02] MEDS: PENICILLIN V POTASSIUM 250 MG/5 ML SUSP 100 ML PO SCH (05:14)
[2017-10-02] MEDS: LIDOCAINE 2% VISCOUS SOLN 20 ML UDCUP PO PRN (05:17)
[2017-10-02 05:35] LABS: ABSOLUTE BASOPHILS # (AUTO) 0.1 10^3/uL (0.0-0.2); ABSOLUTE EOSINOPHILS # (AUTO) 0.3 10^3/uL (0.0-0.6); ABSOLUTE LYMPHOCYTES (AUTO) 3.1 10^3/uL (0.5-4.7); ABSOLUTE MONOCYTES (AUTO) 0.9 10^3/uL (0.1-1.4); ABSOLUTE NEUT (AUTO) 6.4 10^3/uL (1.7-8.2); BASOPHILS % (AUTO) 1.1 % (0-2); EOSINOPHILS % (AUTO) 2.9 % (0-6); HEMATOCRIT 37.6 % (36.0-47.0); HEMOGLOBIN 11.9 g/dL (12.0-15.5); LYMPHOCYTES % (AUTO) 28.5 % (13-45); MEAN CORPUSCULAR HGB CONC 31.7 g/dL (32.0-36.0); MEAN CORPUSCULAR VOLUME 73 fl (80-97); MONOCYTES % (AUTO) 8.3 % (3-13); PLATELET COUNT 305 10^3/uL (150-450); RED BLOOD COUNT 5.18 10^6/uL (3.72-5.28); RED CELL DISTRIBUTION WIDTH 17.8 % (11.5-14.0); SEGMENTED NEUTROPHILS % (AUTO) 59.2 % (42-78); TOTAL CELLS COUNTED % (AUTO) 100 %; WHITE BLOOD COUNT 10.8 10^3/uL (4.0-10.5)
[2017-10-02 06:31] LABS: ALBUMIN 3.2 g/dL (3.5-5.0); ANION GAP 9 (5-19); BLOOD UREA NITROGEN 25 mg/dL (7-20); CALCIUM 8.9 mg/dL (8.4-10.2); CARBON DIOXIDE 25 mmol/L (22-30); CHLORIDE 108 mmol/L (98-107); GLUCOSE 98 mg/dL (75-110); PHOSPHORUS 4.6 mg/dL (2.5-4.5); POTASSIUM 4.8 mmol/L (3.6-5.0); SODIUM 142.4 mmol/L (137-145)
[2017-10-02 08:59] VITALS: BP 157/94
[2017-10-02] MEDS: FAMOTIDINE 20 MG TABLET PO SCH (09:40)
[2017-10-02] MEDS: METOPROLOL TARTRATE 100 MG TABLET PO SCH (09:40)
[2017-10-02] MEDS: LISINOPRIL 10 MG TABLET PO SCH (09:40)
[2017-10-02] MEDS ORDERED: ENOXAPARIN SODIUM INJ 40 MG/0.4 ML DISP.SYRIN SUBCUT SCH (10:00)
--- NOTE | 2017-10-02 15:11 | PDOC DISCHARGE SUMMARY ---
General - Admit/Disc Date/PCP Admission Date/Primary Care Provider: 09/29/17 19:16 Discharge Date: 10/02/17 - Discharge Diagnosis (1) Hypertensive emergency Is this a current diagnosis for this admission?: Yes Summary: Initially quite dramatic in the emergency department, associated with confusion , facial numbness. Medications have been adjusted throughout this admission, and her blood pressure is currently reasonable. I suspect further outpatient adjustment will be necessary as she continues to improve. (2) Strep sore throat Is this a current diagnosis for this admission?: Yes Summary: Treated with penicillin, she will be discharged on another 8 days. (3) SIRS (systemic inflammatory response syndrome) Is this a current diagnosis for this admission?: Yes Summary: Presumably from strep (4) Morbid obesity Is this a current diagnosis for this admission?: Yes - Additional Information Resuscitation Status: Full Code Discharge Diet: As Tolerated, Regular Discharge Activity: Activity As Tolerated Prescriptions: Lisinopril/Hydrochlorothiazide [Lisinopril-Hctz 20-25 mg Tab] 1 each PO DAILY # 30 tablet Penicillin V Potassium [Penicillin Vk 250 mg/5 ml Susp 100 ml] 500 mg PO Q12A # 16 dose Home Medications: Metoprolol Tartrate [Lopressor 100 mg Tablet] 100 mg PO Q12 tablet 04/18/17 Acetaminophen [Tylenol 325 mg Tablet] 650 mg PO Q4HP PRN tablet 10/02/17 Lisinopril/Hydrochlorothiazide [Lisinopril-Hctz 20-25 mg Tab] 1 each PO DAILY # 30 tablet 10/02/17 Penicillin V Potassium [Penicillin Vk 250 mg/5 ml Susp 100 ml] 500 mg PO Q12A # 16 dose 10/02/17 History of Present Illness Patient complains of: Sore throat History of Present Illness: BILL MARQUEZ is a 47 year old female who is had progressive sore throat over the last 5 days. Seen in the ED about 4 days ago diagnosed with pharyngitis. This morning she woke up with a stiff neck, chills, more severe pain so she came into the emergency department. She reports feeling confused with numbness and tingling in her legs, but has had no chest pain, shortness of breath, cough, difficulty swallowing, bowel or bladder dysfunction. She is a history of very difficult to control blood pressure. She states she has been taking her medications as directed. Her initial blood pressure in the emergency department was 232/130 which was treated with modest success with multiple doses of IV hydralazine and oral clonidine. Hospital Course Hospital Course: Her blood pressure was aggressively treated with oral antihypertensives which we have steadily decreased. Her throat culture came back positive for beta strep so she was started on Pen- VK. Currently she is markedly less toxic appearing, is able to take a little food without excessive discomfort, up in a chair and asking to go home. Physical Exam Vital Signs: Temp Pulse Resp BP Pulse Ox 98.6 F 85 18 157/94 H 97 10/02/17 10:50 10/02/17 10:50 10/02/17 10:50 10/02/17 07:46 10/02/17 10:50 Intake & Output 10/01/17 10/02/17 10/03/17 05:59 05:59 05:59 Intake Total 1072 2026 0 Balance 1072 2027 0 Weight 367 lb 4.642 oz 364 lb 10.313 oz General appearance: PRESENT: no acute distress, cooperative, morbidly obese Respiratory exam: PRESENT: clear to auscultation kelly Cardiovascular exam: PRESENT: RRR GI/Abdominal exam: PRESENT: soft Extremities exam: PRESENT: other - No edema Neurological exam: PRESENT: alert Psychiatric exam: PRESENT: appropriate affect Skin exam: PRESENT: dry, warm Results Laboratory Results: 10/02/17 04:42 10/02/17 04:42 10/02/17 10/02/17 04:42 04:42 WBC 10.8 H RBC 5.18 Hgb 11.9 L Hct 37.6 MCV 73 L MCH 23.0 L MCHC 31.7 L RDW 17.8 H Plt Count 305 Seg Neutrophils % 59.2 Lymphocytes % 28.5 Monocytes % 8.3 Eosinophils % 2.9 Basophils % 1.1 Absolute Neutrophils 6.4 Absolute Lymphocytes 3.1 Absolute Monocytes 0.9 Absolute Eosinophils 0.3 Absolute Basophils 0.1 Sodium 142.4 Potassium 4.8 Chloride 108 H Carbon Dioxide 25 Anion Gap 9 BUN 25 H Creatinine 0.70 Est GFR ( Amer) > 60 Est GFR (Non-Af Amer) > 60 Glucose 98 Calcium 8.9 Phosphorus 4.6 H Magnesium 1.9 Albumin 3.2 L Impressions: Neck CTA 09/29/17 12:28 IMPRESSION: NORMAL CTA OF THE EXTRA-CRANIAL CAROTID AND VERTEBRAL ARTERIES. Cervical Spine MRI 09/29/17 15:02 IMPRESSION: Disc osteophyte complex C5-6 asymmetric right with moderate narrowing of the right exit foramina and mild central canal stenosis. No obvious abscess. Limited study Qualifiers - * PATIENT BEING DISCHARGED WITH ANY OF THE FOLLOWING DIAGNOSIS: No
== END 2017-10-02 11:21 | disposition home or self-care (01) | DRG 305 ==
LOC: ER 11:45 → EH 19:16 → 3N 20:33
PROVIDERS: ADMIT Internal Medicine; ATTEND Internal Medicine
DX: I16.1 Hypertensive emergency (principal); Z68.43 Body mass index [BMI] 50.0-59.9, adult; J02.0 Streptococcal pharyngitis; E66.01 Morbid (severe) obesity due to excess calories; F41.9 Anxiety disorder, unspecified; D64.9 Anemia, unspecified; I10 Essential (primary) hypertension; R20.0 Anesthesia of skin; Z98.51 Tubal ligation status; Z90.49 Acquired absence of other specified parts of digestive tract
CPT/HCPCS: 36415; 70498; 72141; 80048; 80069; 81001; 81025; 82550; 82553; 83605; 83735; 83880; 84484; 85025; 87040; 87070; 87077; 87086; 87880; 93005; 93010; 94640; 96374; 96375; 99285; J0360; J0696; J1650; J2060; J2270; J3490; J8499

== ENCOUNTER 2017-10-14 10:21 | Inpatient (IN) | payer OTHER ==
--- NOTE | 2017-10-14 10:43 | ER Document Report ---
ED Medical Screen (RME) - General Chief Complaint: Headache Stated Complaint: HEADACHE Time Seen by Provider: 10/14/17 10:37 Notes: Patient with headache. Multiple admissions in the past for hypertensive emergency. Blood pressure extremely elevated today. Complaining of headache. Not the worst headache of her life. States that her medications recently been changed. Managed by Dr. Giraldo when she was hospitalized. I have greeted and performed a rapid initial assessment of this patient. A comprehensive ED assessment and evaluation of the patient, analysis of test results and completion of the medical decision making process will be conducted by additional ED providers. TRAVEL OUTSIDE OF THE [place] IN LAST 30 DAYS: No - Related Data Allergies/Adverse Reactions: ondansetron HCl [From Zofran] Allergy (Severe, Verified 10/14/17 10:22) resp distress azithromycin [From Zithromax] Allergy (Verified 10/14/17 10:22) Past Medical History - Social History Chew tobacco use (# tins/day): No Frequency of alcohol use: None Drug Abuse: None Family history: Hypertension - Past Medical History Cardiac Medical History: Reports: Hx Hypertension, Hx Heart Murmur - with Denies: Hx Atrial Fibrillation, Hx Congestive Heart Failure, Hx Coronary Artery Disease, Hx Heart Attack, Hx Hypercholesterolemia, Hx Peripheral Vascular Disease, Hx Pulmonary Embolism Pulmonary Medical History: Reports: Hx Pneumonia Denies: Hx Asthma, Hx Bronchitis, Hx COPD, Hx Respiratory Failure, Hx Sleep Apnea, Hx Tuberculosis Neurological Medical History: Denies: Hx Seizures Renal/ Medical History: Reports: Hx Ovarian Cysts - x 2. Denies: Hx Peritoneal Dialysis, Hx Pelvic Inflammatory Disease Malignancy Medical History: Denies: Hx Breast Cancer, Hx Cervical Cancer, Hx Leukemia, Hx Lung Cancer, Hx Ovarian Cancer Musculoskeltal Medical History: Reports Hx Arthritis, Denies Hx Fibromyalgia, Denies Hx Muscular Dystrophy Skin Medical History: Denies Hx MRSA Psychiatric Medical History: Reports: Hx Depression Traumatic Medical History: Reports: Hx Fractures - rt knee, rt elbow Infectious Medical History: Denies: Hx HIV Past Surgical History: Reports: Hx Cholecystectomy, Hx Orthopedic Surgery - R knee replacement, elbow, Hx Tubal Ligation. Denies: Hx Appendectomy, Hx Bowel Surgery, Hx Section, Hx Coronary Artery Bypass Graft, Hx Gastric Bypass Surgery, Hx Herniorrhaphy, Hx Hysterectomy, Hx Mastectomy, Hx Pacemaker, Hx Tonsillectomy - Immunizations Hx Diphtheria, Pertussis, Tetanus Vaccination: Yes History of Influenza Vaccine for 02/2017 - 07/2017 Season: Yes Influenza Administration Date for 02/2017 - 07/2017 Season: 02/06/17 Physical Exam - Vital signs Vitals: Temp Pulse Resp BP Pulse Ox 98.8 F 95 32 H 228/126 H 98 10/14/17 10:27 10/14/17 10:27 10/14/17 10:27 10/14/17 10:27 10/14/17 10:27 Course - Vital Signs Vital signs: Temp Pulse Resp BP Pulse Ox 98.8 F 95 32 H 228/126 H 98 10/14/17 10:27 10/14/17 10:27 10/14/17 10:27 10/14/17 10:27 10/14/17 10:27
[2017-10-14] MEDS ORDERED: PROCHLORPERAZINE EDISYLATE INJ 10 MG/2 ML VIAL IV ONE (10:58)
[2017-10-14] MEDS ORDERED: DIPHENHYDRAMINE HCL 50 MG/ML VIAL IV ONE (10:58)
[2017-10-14] MEDS ORDERED: HYDRALAZINE HCL INJ/PF 20 MG/1 ML SDV IV ONE (10:58)
[2017-10-14 11:30] LABS: ABSOLUTE BASOPHILS # (AUTO) 0.1 10^3/uL (0.0-0.2); ABSOLUTE EOSINOPHILS # (AUTO) 0.2 10^3/uL (0.0-0.6); ABSOLUTE LYMPHOCYTES (AUTO) 2.1 10^3/uL (0.5-4.7); ABSOLUTE MONOCYTES (AUTO) 0.6 10^3/uL (0.1-1.4); ABSOLUTE NEUT (AUTO) 5.6 10^3/uL (1.7-8.2); BASOPHILS % (AUTO) 0.7 % (0-2); EOSINOPHILS % (AUTO) 2.3 % (0-6); HEMATOCRIT 39.4 % (36.0-47.0); HEMOGLOBIN 12.6 g/dL (12.0-15.5); LYMPHOCYTES % (AUTO) 24.6 % (13-45); MEAN CORPUSCULAR HEMOGLOBIN 23.2 pg (27.0-33.4); MEAN CORPUSCULAR VOLUME 73 fl (80-97); MONOCYTES % (AUTO) 6.5 % (3-13); PLATELET COUNT 286 10^3/uL (150-450); RED BLOOD COUNT 5.44 10^6/uL (3.72-5.28); RED CELL DISTRIBUTION WIDTH 18.5 % (11.5-14.0); SEGMENTED NEUTROPHILS % (AUTO) 65.9 % (42-78); TOTAL CELLS COUNTED % (AUTO) 100 %; WHITE BLOOD COUNT 8.5 10^3/uL (4.0-10.5)
--- NOTE | 2017-10-14 11:42 | ER Document Report ---
ED General - General Chief Complaint: Headache Stated Complaint: HEADACHE Time Seen by Provider: 10/14/17 10:37 Mode of Arrival: Ambulatory Information source: Patient, [facility] Records Notes: 47-year-old female extensive history of hypertensive emergencies intermittently require admission presents with complaints of headache with high blood pressure. Patient notes she was taken off clonidine by the hospitalist here a few days prior, denies any chest pain shortness of breath difficulty breathing TRAVEL OUTSIDE OF THE [place] IN LAST 30 DAYS: No - HPI Onset: Last week Onset/Duration: Persistent Quality of pain: Pressure Severity: Mild Pain Level: 1 Associated symptoms: Headache Exacerbated by: Denies Relieved by: Denies Similar symptoms previously: Yes Recently seen / treated by doctor: Yes - Related Data Allergies/Adverse Reactions: ondansetron HCl [From Zofran] Allergy (Severe, Verified 10/14/17 10:22) resp distress azithromycin [From Zithromax] Allergy (Verified 10/14/17 10:22) Past Medical History - Social History Smoking Status: Never Smoker Cigarette use (# per day): No Chew tobacco use (# tins/day): No Smoking Education Provided: No Frequency of alcohol use: None Drug Abuse: None Family History: Reviewed & Not Pertinent Patient has suicidal ideation: No Patient has homicidal ideation: No - Past Medical History Cardiac Medical History: Reports: Hx Hypertension, Hx Heart Murmur - with Denies: Hx Atrial Fibrillation, Hx Congestive Heart Failure, Hx Coronary Artery Disease, Hx Heart Attack, Hx Hypercholesterolemia, Hx Peripheral Vascular Disease, Hx Pulmonary Embolism Pulmonary Medical History: Reports: Hx Pneumonia Denies: Hx Asthma, Hx Bronchitis, Hx COPD, Hx Respiratory Failure, Hx Sleep Apnea, Hx Tuberculosis Neurological Medical History: Denies: Hx Seizures Renal/ Medical History: Reports: Hx Ovarian Cysts - x 2. Denies: Hx Peritoneal Dialysis, Hx Pelvic Inflammatory Disease Malignancy Medical History: Denies: Hx Breast Cancer, Hx Cervical Cancer, Hx Leukemia, Hx Lung Cancer, Hx Ovarian Cancer Musculoskeltal Medical History: Reports Hx Arthritis, Denies Hx Fibromyalgia, Denies Hx Muscular Dystrophy Skin Medical History: Denies Hx MRSA Psychiatric Medical History: Reports: Hx Depression Traumatic Medical History: Reports: Hx Fractures - rt knee, rt elbow Infectious Medical History: Denies: Hx HIV Past Surgical History: Reports: Hx Cholecystectomy, Hx Orthopedic Surgery - R knee replacement, elbow, Hx Tubal Ligation. Denies: Hx Appendectomy, Hx Bowel Surgery, Hx Section, Hx Coronary Artery Bypass Graft, Hx Gastric Bypass Surgery, Hx Herniorrhaphy, Hx Hysterectomy, Hx Mastectomy, Hx Pacemaker, Hx Tonsillectomy - Immunizations Hx Diphtheria, Pertussis, Tetanus Vaccination: Yes Hx Pneumococcal Vaccination: 07/06/12 Review of Systems - Review of Systems Notes: REVIEW OF SYSTEMS: CONSTITUTIONAL : Denies fever, chills, or sweats. Denies recent illness. EENT: Denies eye, ear, throat, or mouth pain or symptoms. Denies nasal or sinus congestion or discharge. Denies throat, tongue, or mouth swelling or difficulty swallowing. CARDIOVASCULAR: Denies chest pain. Denies palpitations or racing or irregular heart beat. Denies ankle edema. RESPIRATORY: Denies cough, cold, or chest congestion. Denies shortness of breath, difficulty breathing, or wheezing. GASTROINTESTINAL: Denies abdominal pain or distention. Denies nausea, vomiting , or diarrhea. Denies blood in vomitus, stools, or per rectum. Denies black, tarry stools. Denies constipation. GENITOURINARY: Denies difficulty urinating, painful urination, burning, frequency, blood in urine, or discharge. FEMALE GENITOURINARY: Denies vaginal bleeding, heavy or abnormal periods, irregular periods. Denies vaginal discharge or odor. MUSCULOSKELETAL: Denies back or neck pain or stiffness. Denies joint pain or swelling. SKIN: Denies rash, lesions or sores. HEMATOLOGIC : Denies easy bruising or bleeding. LYMPHATIC: Denies swollen, enlarged glands. NEUROLOGICAL: Admits to headache PSYCHIATRIC: Denies anxiety or stress. Denies depression, suicidal ideation, or homicidal ideation. ALL OTHER SYSTEMS REVIEWED AND NEGATIVE. PHYSICAL EXAMINATION: GENERAL: Morbidly obese hypertensive HEAD: Atraumatic, normocephalic. EYES: Pupils equal round and reactive to light, extraocular movements intact, conjunctiva are normal. ENT: Nares patent, oropharynx clear without exudates. Moist mucous membranes. NECK: Normal range of motion, supple without lymphadenopathy LUNGS: Breath sounds clear to auscultation bilaterally and equal. No wheezes rales or rhonchi. HEART: Regular rate and rhythm without murmurs ABDOMEN: Soft, nontender, nondistended abdomen. No guarding, no rebound. No masses appreciated. Female : deferred Musculoskeletal: Normal range of motion, no pitting or edema. No cyanosis. NEUROLOGICAL: Cranial nerves grossly intact. Normal speech, normal gait. Normal sensory, motor exams PSYCH: Normal mood, normal affect. SKIN: Warm, Dry, normal turgor, no rashes or lesions noted. Dictation was performed using [employer] voice recognition software Physical Exam - Vital signs Vitals: Temp Pulse Resp BP Pulse Ox 98.8 F 95 32 H 228/126 H 98 10/14/17 10:27 10/14/17 10:27 10/14/17 10:27 10/14/17 10:27 10/14/17 10:27 Course - Re-evaluation Re-evalutation: 10/14/17 11:42 Based on the patient's history hydralazine seems to improve her blood pressure significantly, a dose will be given here lab work imaging pending given headache 10/14/17 14:19 Patient's blood pressure did go back up, I did have the hospitalist evaluate her and will admit to IMCU for hypertensive emergency again - Vital Signs Vital signs: Temp Pulse Resp BP Pulse Ox 98.8 F 95 26 H 188/112 H 95 10/14/17 10:27 10/14/17 10:27 10/14/17 14:15 10/14/17 14:01 10/14/17 14:15 - Laboratory Result Diagrams: 10/14/17 11:11 10/14/17 11:11 Laboratory results interpreted by me: 10/14/17 10/14/17 10/14/17 11:11 11:11 11:11 RBC 5.44 H MCV 73 L MCH 23.2 L RDW 18.5 H Carbon Dioxide 32 H AST 43 H NT-Pro-B Natriuret Pep 404 H Urine Blood 10/14/17 12:55 RBC MCV MCH RDW Carbon Dioxide AST NT-Pro-B Natriuret Pep Urine Blood MODERATE H - Diagnostic Test Radiology reviewed: Image reviewed - CT head without contrast noted no acute abnormality, Reports reviewed Critical Care Note - Critical Care Note Total time excluding time spent on procedures (mins): 33 Comments: 33 minutes of critical care time spent in direct contact evaluating and reevaluating the patient, treating symptoms, reviewing labs and studies and speaking with family and consultants excluding any procedures Discharge - Discharge Clinical Impression: Hypertensive emergency Condition: Fair Disposition: ADMITTED INPATIENT Admitting Provider: Hospitalist Unit Admitted: [facility]
[2017-10-14 11:48] LABS: ALANINE AMINOTRANSFERASE 34 U/L (9-52); ALBUMIN 3.9 g/dL (3.5-5.0); ALKALINE PHOSPHATASE 113 U/L (38-126); ANION GAP 10 (5-19); ASPARTATE AMINO TRANSFERASE 43 U/L (14-36); BILIRUBIN,DIRECT 0.4 mg/dL (0.0-0.4); BILIRUBIN,TOTAL 0.5 mg/dL (0.2-1.3); BLOOD UREA NITROGEN 16 mg/dL (7-20); CALCIUM 8.9 mg/dL (8.4-10.2); CARBON DIOXIDE 32 mmol/L (22-30); CHLORIDE 100 mmol/L (98-107); CREATINE KINASE 39 U/L (30-135); GLUCOSE 91 mg/dL (75-110); SODIUM 141.7 mmol/L (137-145); TOTAL PROTEIN 7.8 g/dL (6.3-8.2)
--- NOTE | 2017-10-14 11:53 | RADIOLOGY REPORT (SQ) ---
EXAM DESCRIPTION: CT HEAD WITHOUT COMPLETED DATE/TIME: 10/14/2017 11:43 am REASON FOR STUDY: headache, htn COMPARISON: 07/06/2017 TECHNIQUE: Axial images acquired through the brain without intravenous contrast. Images reviewed wi th bone, brain and subdural windows. Additional sagittal and coronal reconstructions were generated. Images stored on PACS. All CT scanners at this facility use dose modulation, iterative reconstruction, and/or weight based d osing when appropriate to reduce radiation dose to as low as reasonably achievable (ALARA). [facility]: Dose Right [facility]: CareDose [facility]: Dose Right [facility]: Teradose 4D [facility]: Smart [employer] RADIATION DOSE: CT Rad equipment meets quality standard of care and radiation dose reduction techniq ues were employed. CTDIvol: 53.2 mGy. DLP: 1044 mGy-cm. mGy. LIMITATIONS: None. FINDINGS: VENTRICLES: Normal size and contour. CEREBRUM: No masses. No hemorrhage. No midline shift. No evidence for acute infarction. Normal gra y/white matter differentiation. No areas of low density in the white matter. CEREBELLUM: No masses. No hemorrhage. No alteration of density. No evidence for acute infarction. EXTRAAXIAL SPACES: No fluid collections. No masses. ORBITS AND GLOBE: No intra- or extraconal masses. Normal contour of globe without masses. CALVARIUM: No fracture. PARANASAL SINUSES: No fluid or mucosal thickening. SOFT TISSUES: No mass or hematoma. OTHER: No other significant finding. IMPRESSION: NORMAL BRAIN CT WITHOUT CONTRAST. EVIDENCE OF ACUTE STROKE: NO. COMMENT: Quality ID # [id number]: Final reports with documentation of one or more dose reduction techniques (e.g., Automated exposure control, adjustment of the mA and/or kV according to patient size, use of iterative reconstruction technique) TECHNICAL DOCUMENTATION: JOB ID: [id number] [employer]- All Rights Reserved Reading location - IP/workstation name: [email or web address]
[2017-10-14 12:00] LABS: CREATINE KINASE MB 0.75 ng/mL (<4.55); NT PRO BNP 404 pg/mL (<125)
--- NOTE | 2017-10-14 12:00 | RADIOLOGY REPORT (SQ) ---
EXAM DESCRIPTION: CHEST SINGLE VIEW COMPLETED DATE/TIME: 10/14/2017 11:48 am REASON FOR STUDY: sob COMPARISON: 09/23/2017 EXAM PARAMETERS: NUMBER OF VIEWS: One view. TECHNIQUE: Single frontal radiographic view of the chest acquired. RADIATION DOSE: NA LIMITATIONS: None. FINDINGS: LUNGS AND PLEURA: Pulmonary vascular congestion. Mild pulmonary edema is suggested. MEDIASTINUM AND HILAR STRUCTURES: No masses. Contour normal. HEART AND VASCULAR STRUCTURES: Heart size is borderline. BONES: No acute findings. HARDWARE: None in the chest. OTHER: No other significant finding. IMPRESSION: Borderline cardiomegaly with pulmonary vascular congestion and the suggestion of mild pu lmonary edema. TECHNICAL DOCUMENTATION: JOB ID: [id number] [employer]- All Rights Reserved Reading location - IP/workstation name: [email or web address]
[2017-10-14 12:04] LABS: TROPONIN I < 0.012 ng/mL
[2017-10-14] MEDS ORDERED: MINOXIDIL 2.5 MG TABLET PO ONE (13:17)
[2017-10-14 13:35] LABS: APPEARANCE,URINE CLEAR; BILIRUBIN,URINE NEGATIVE (NEGATIVE); COLOR,URINE COLORLESS; GLUCOSE, URINE NEGATIVE (NEGATIVE); KETONES,URINE NEGATIVE (NEGATIVE); LEUKOCYTE ESTERASE,URINE NEGATIVE (NEGATIVE); NITRITE,URINE NEGATIVE (NEGATIVE); PROTEIN,URINE NEGATIVE (NEGATIVE); URINE SPECIFIC GRAVITY 1.001; UROBILINOGEN,URINE NEGATIVE mg/dL (<2.0)
[2017-10-14] MEDS ORDERED: ACETAMINOPHEN 325 MG TABLET PO PRN (13:47)
[2017-10-14] MEDS ORDERED: OXYCODONE-ACETAMINOPHEN 5-325 MG TABLET PO PRN (13:47)
[2017-10-14] MEDS ORDERED: HYDRALAZINE HCL INJ/PF 20 MG/1 ML SDV IV PRN (13:52)
[2017-10-14] MEDS ORDERED: CLONIDINE HCL 0.2 MG TABLET PO PRN (13:52)
[2017-10-14] MEDS: MINOXIDIL 2.5 MG TABLET PO SCH (21:27)
[2017-10-14] MEDS: METOPROLOL TARTRATE 100 MG TABLET PO SCH (21:28)
[2017-10-15] MEDS: METOPROLOL TARTRATE 100 MG TABLET PO SCH ×2 (09:20→20:58)
[2017-10-15] MEDS: MINOXIDIL 2.5 MG TABLET PO SCH ×2 (09:21→20:58)
[2017-10-15] MEDS ORDERED: (PENDING PHARMACY ID) (Lisinopril/Hydrochlorothiazide [Lisinopril-Hctz 20-25 Mg Tab] 1 EAC PO SCH (10:00)
[2017-10-15] MEDS ORDERED: LISINOPRIL 10 MG TABLET PO SCH (10:00)
[2017-10-15] MEDS ORDERED: ENOXAPARIN SODIUM INJ 40 MG/0.4 ML DISP.SYRIN SUBCUT SCH (10:00)
[2017-10-15] MEDS ORDERED: HYDROCHLOROTHIAZIDE 25 MG TABLET PO SCH (10:00)
[2017-10-16 05:20] LABS: ABSOLUTE BASOPHILS # (AUTO) 0.1 10^3/uL (0.0-0.2); ABSOLUTE EOSINOPHILS # (AUTO) 0.3 10^3/uL (0.0-0.6); ABSOLUTE LYMPHOCYTES (AUTO) 2.2 10^3/uL (0.5-4.7); ABSOLUTE MONOCYTES (AUTO) 0.7 10^3/uL (0.1-1.4); ABSOLUTE NEUT (AUTO) 5.1 10^3/uL (1.7-8.2); BASOPHILS % (AUTO) 0.7 % (0-2); EOSINOPHILS % (AUTO) 3.4 % (0-6); HEMATOCRIT 38.7 % (36.0-47.0); HEMOGLOBIN 12.2 g/dL (12.0-15.5); LYMPHOCYTES % (AUTO) 26.3 % (13-45); MEAN CORPUSCULAR HEMOGLOBIN 22.8 pg (27.0-33.4); MEAN CORPUSCULAR HGB CONC 31.5 g/dL (32.0-36.0); MEAN CORPUSCULAR VOLUME 72 fl (80-97); MONOCYTES % (AUTO) 8.8 % (3-13); PLATELET COUNT 267 10^3/uL (150-450); RED BLOOD COUNT 5.36 10^6/uL (3.72-5.28); RED CELL DISTRIBUTION WIDTH 18.6 % (11.5-14.0); SEGMENTED NEUTROPHILS % (AUTO) 60.8 % (42-78); TOTAL CELLS COUNTED % (AUTO) 100 %; WHITE BLOOD COUNT 8.4 10^3/uL (4.0-10.5)
[2017-10-16 06:02] LABS: ALBUMIN 3.4 g/dL (3.5-5.0); ANION GAP 9 (5-19); BLOOD UREA NITROGEN 21 mg/dL (7-20); CALCIUM 8.6 mg/dL (8.4-10.2); CARBON DIOXIDE 28 mmol/L (22-30); CHLORIDE 105 mmol/L (98-107); GLUCOSE 103 mg/dL (75-110); PHOSPHORUS 4.9 mg/dL (2.5-4.5); SODIUM 142.3 mmol/L (137-145)
[2017-10-16 08:20] VITALS: BP 131/83
--- NOTE | 2017-10-16 21:20 | DISCHARGE SUMMARY E ---
Discharge Summary NAME: BILL MARQUEZ : 1970 AGE: 47Y ADMITTED: 10/14/2017 DISCHARGED: 10/16/2017 ADMISSION DIAGNOSES: 1. Hypertensive emergency. 2. Morbid obesity. DISCHARGE DIAGNOSES: 1. Hypertensive emergency. 2. Morbid obesity. IMAGING STUDIES: CT scan of the head was unremarkable. HISTORY OF PRESENT ILLNESS: The patient is a 47-year-old female who has a history of hypertensive emergency, multiple admissions to the hospital and with high blood pressure. The patient came to the emergency room complaining of headache and she had a very high blood pressure. Her blood pressure was 228/126. The patient is on multiple medication. She is supposed to take clonidine 0.2 mg t.i.d., lisinopril/hydrochlorothiazide, hydralazine. She claims that she takes medication but there is suspicion for noncompliance with medication. HOSPITAL COURSE: The patient treated with p.r.n. hydralazine and she was started on her medications of lisinopril/hydrochlorothiazide, hydralazine p.r.n., and minoxidil 2.5 mg b.i.d. and her blood pressure well-controlled. The plan is to do workup for 24 hour urine for metanephrine. Unfortunately the urine collect was not done and the test was canceled by lab and it will be done as outpatient. The other problem also of the patient, she has a history of pulmonary embolism in the past, peripheral vascular disease, heart murmur. PHYSICAL EXAMINATION ON DISCHARGE: GENERAL: The patient is lying in bed, comfortable, not in distress. VITAL SIGNS: This morning blood pressure is 131/83, heart rate 78, temperature is 98.4, saturation 95%. HEENT: Head normocephalic, atraumatic. Pupils round, reactive to light and accommodation bilaterally. Extraocular movements intact. Ears: Tympanic membranes intact bilaterally. No discharge from the ear. No discharge from the nose. NECK: Supple, no increased JVD, no thyromegaly, no lymphadenopathy. CARDIOVASCULAR: Normal S1, S2. Regular rate and rhythm. No murmur, no gallop. RESPIRATORY: Lung clear. ABDOMEN: Soft, nontender. MUSCULOSKELETAL: No edema. NEUROLOGIC: Awake, alert. SKIN: No rash. LABORATORY DATA: White blood count 8.4, hemoglobin 12.2. Sodium 142, potassium 4.0, creatinine 0.7. DISCHARGE INSTRUCTIONS: 1. Discharge the patient home. 2. Diet: Low salt diet. 3. Medications: Metoprolol 100 mg b.i.d., lisinopril/ hydrochlorothiazide 20/25 mg p.o. daily, minoxidil 2.5 mg twice a day. 4. Activity as tolerated. 5. Follow up with her private care physician in 1 week. 6. Other instruction; needs workup as outpatient for secondary hypertension. TIME SPENT: Forty-five minutes. DICTATING PHYSICIAN: NELLY AUSTIN M.D. [id number] PHY#: [id number] ID: [id number] JOB#: [id number] ACCT: [id number] cc:NELLY AUSTIN M.D. [facility],
--- NOTE | 2017-10-17 13:09 | HISTORY AND PHYSICAL E ---
History and Physical NAME: BILL MARQUEZ : 1970 AGE: 47Y ADMITTED: 10/14/2017 ROOM: 302 CHIEF COMPLAINT: Headache. HISTORY OF PRESENT ILLNESS: The patient is a 47-year-old female who has a past medical history of hypertension, difficult to control. She is on clonidine, and her clonidine was discontinued. She takes also hydrochlorothiazide as well as hydralazine and metoprolol. She was admitted to the emergency room because she was found to have a high blood pressure of 209/115. The patient has received hydralazine IV p.r.n. Her clonidine restarted, as well as also she started on minoxidil. Her blood pressure is better controlled today. It is 159/93 today. Patient denies any headache or nausea or vomiting or diarrhea. She had labs ordered yesterday, including a 24-hour urine collection for catecholamine. REVIEW OF SYSTEMS: GENERAL: No fever or chills or nausea or vomiting. HEAD: No headache or dizziness. EYES: No discharge or dry. No redness. EARS: No tinnitus, no vertigo. NOSE: No discharge from the nose. NECK: No pain or swelling. CARDIOVASCULAR: No chest pain. No paroxysmal nocturnal dyspnea. RESPIRATORY: No cough. No wheezing. GASTROINTESTINAL: No nausea, no vomiting, no diarrhea. GENITOURINARY: No urgency, no frequency, no dysuria, no hematuria. ENDOCRINE: No polyuria, polyphagia, polydipsia. HEMATOLOGIC: No significant anemia. No easy bruising. PAST MEDICAL HISTORY: 1. Hypertension. 2. Heart murmur. 3. pneumonia. ALLERGIES: 1. ZOFRAN. 2. ERYTHROMYCIN. HOME MEDICATIONS: Include: 1. Metoprolol 100 mg twice a day. 2. Lisinopril hydrochlorothiazide . 3. Hydralazine 25 mg q.8 hours. 4. Clonidine 0.3 mg every 8 hours. FAMILY HISTORY: No family history of hypertension or diabetes. SOCIAL HISTORY: The patient has never smoked or drank. PAST SURGICAL HISTORY: 1. Cholecystectomy. 2. Hip surgery. 3. Knee replacement. PHYSICAL EXAMINATION: GENERAL: Patient looks well, obese, not in acute distress. VITAL SIGNS: Blood pressure 157/93, temperature 98.5, heart rate 85, respiratory 19, heart rate 92. HEENT: Normocephalic, atraumatic. Pupils equal, round, reactive to light and accommodation bilaterally. Extraocular movements intact. Ears: Tympanic membranes intact bilaterally. No discharge from the ears. No discharge from the nose. NECK: Supple. No increased JVD. No thyromegaly. No lymphadenopathy. CARDIOVASCULAR: Normal S1, S2. Regular rate and rhythm. No murmur, no gallop. RESPIRATORY: Lungs clear to auscultation bilaterally. No wheezing, no crackles. ABDOMEN: Obese. MUSCULOSKELETAL: No edema. NEUROLOGICAL: Awake, alert. SKIN: No rash. LABORATORY DATA: White blood count 8.5, hemoglobin 12.6. Sodium 141, potassium 4.0, creatinine 0.7. ASSESSMENT: 1. Hypertensive emergency. 2. Morbid obesity. 3. Headache. PLAN: Will continue her current treatment. The patient started on minoxidil and clonidine 0.2 mg every 6 hours p.r.n., hydrochlorothiazide 25 mg daily, hydralazine p.r.n. , lisinopril mg daily, metoprolol 100 twice a day, minoxidil 2.5 twice a day. Blood pressure seemed to be better controlled. Will get 24-hour urine free catecholamine. and stop it today. tomorrow morning. Low salt diet. DISPOSITION: Probably home tomorrow. DICTATING PHYSICIAN: NELLY AUSTIN M.D. [id number] HIRAL#: [id number] ID: [id number] JOB#: [id number] ACCT: [id number] cc: >
[2017-10-20 00:37] LABS: NORMETANEPHRINE 96 pg/mL (0-145)
[2017-10-20 07:13] LABS: METANEPHRINE 10 pg/mL (0-62)
== END 2017-10-16 08:46 | disposition home or self-care (01) | DRG 305 ==
LOC: ER 10:21 → EH 13:32 → 3N 15:13
PROVIDERS: ADMIT Internal Medicine; ATTEND Internal Medicine
DX: I16.1 Hypertensive emergency (principal); Z68.43 Body mass index [BMI] 50.0-59.9, adult; E66.01 Morbid (severe) obesity due to excess calories; I10 Essential (primary) hypertension; I73.9 Peripheral vascular disease, unspecified; M19.90 Unspecified osteoarthritis, unspecified site; F32.9 Major depressive disorder, single episode, unspecified; Z96.651 Presence of right artificial knee joint; Z91.14 Patient's other noncompliance with medication regimen; Z86.711 Personal history of pulmonary embolism; Z88.3 Allergy status to other anti-infective agents; Z88.8 Allergy status to other drugs, medicaments and biological substances; Z79.899 Other long term (current) drug therapy; Z90.49 Acquired absence of other specified parts of digestive tract
CPT/HCPCS: 36415; 70450; 71045; 80053; 80069; 81001; 82382; 82550; 82553; 82570; 83540; 83835; 83880; 84484; 85025; 96374; 96375; 99291; J0360; J0780; J1200; J1650; J3490

== ENCOUNTER 2017-12-17 09:07 | Inpatient (IN) | payer OTHER ==
[2017-12-17] MEDS ORDERED: CLONIDINE HCL 0.2 MG TABLET PO ONE (09:29)
--- NOTE | 2017-12-17 09:31 | ER Document Report ---
ED Medical Screen (RME) - General Chief Complaint: Flu Symptoms Stated Complaint: FLU LIKE SYMPTOMS Time Seen by Provider: 12/17/17 09:28 Mode of Arrival: Ambulatory Information source: Patient TRAVEL OUTSIDE OF THE [place] IN LAST 30 DAYS: No - HPI Patient complains to provider of: cough, fever, chills Onset: Other - pt with several day h/o cough, fever, chills, generalized arthralgias and myalgias - Related Data Allergies/Adverse Reactions: ondansetron HCl [From Zofran] Allergy (Severe, Verified 10/14/17 10:22) resp distress azithromycin [From Zithromax] Allergy (Verified 10/14/17 10:22) Past Medical History - Social History Chew tobacco use (# tins/day): No Frequency of alcohol use: None Drug Abuse: None Family history: Hypertension - Past Medical History Cardiac Medical History: Reports: Hx Hypertension, Hx Heart Murmur - with Denies: Hx Atrial Fibrillation, Hx Congestive Heart Failure, Hx Coronary Artery Disease, Hx Heart Attack, Hx Hypercholesterolemia, Hx Peripheral Vascular Disease, Hx Pulmonary Embolism Pulmonary Medical History: Reports: Hx Pneumonia Denies: Hx Asthma, Hx Bronchitis, Hx COPD, Hx Respiratory Failure, Hx Sleep Apnea, Hx Tuberculosis Neurological Medical History: Denies: Hx Seizures Renal/ Medical History: Reports: Hx Ovarian Cysts - x 2. Denies: Hx Peritoneal Dialysis, Hx Pelvic Inflammatory Disease Malignancy Medical History: Denies: Hx Breast Cancer, Hx Cervical Cancer, Hx Leukemia, Hx Lung Cancer, Hx Ovarian Cancer Musculoskeltal Medical History: Reports Hx Arthritis, Denies Hx Fibromyalgia, Denies Hx Muscular Dystrophy Skin Medical History: Denies Hx MRSA Psychiatric Medical History: Reports: Hx Depression Traumatic Medical History: Reports: Hx Fractures - rt knee, rt elbow Infectious Medical History: Denies: Hx HIV Past Surgical History: Reports: Hx Cholecystectomy, Hx Orthopedic Surgery - R knee replacement, elbow, Hx Tubal Ligation. Denies: Hx Appendectomy, Hx Bowel Surgery, Hx Section, Hx Coronary Artery Bypass Graft, Hx Gastric Bypass Surgery, Hx Herniorrhaphy, Hx Hysterectomy, Hx Mastectomy, Hx Pacemaker, Hx Tonsillectomy - Immunizations Hx Diphtheria, Pertussis, Tetanus Vaccination: Yes History of Influenza Vaccine for 02/2017 - 07/2017 Season: Yes Influenza Administration Date for 02/2017 - 07/2017 Season: 02/06/17 Physical Exam - Vital signs Vitals: Temp Pulse Resp BP Pulse Ox 98.8 F 116 H 28 H 211/132 H 92 12/17/17 09:14 12/17/17 09:14 12/17/17 09:14 12/17/17 09:14 12/17/17 09:14 Course - Vital Signs Vital signs: Temp Pulse Resp BP Pulse Ox 98.8 F 116 H 28 H 211/132 H 92 12/17/17 09:14 12/17/17 09:14 12/17/17 09:14 12/17/17 09:14 12/17/17 09:14 Doctor's Discharge - Discharge Referrals: LORY QUACH MD [Primary Care Provider] - Follow up as needed
[2017-12-17] MEDS ORDERED: IPRATROPIUM/ALBUTEROL 0.5-2.5 MG/3 ML AMPUL NEB ONE ×4 (10:00→23:30)
--- NOTE | 2017-12-17 10:08 | RADIOLOGY REPORT (SQ) ---
EXAM DESCRIPTION: CHEST 2 VIEWS COMPLETED DATE/TIME: 12/17/2017 10:00 am REASON FOR STUDY: cough COMPARISON: None. EXAM PARAMETERS: NUMBER OF VIEWS: two views TECHNIQUE: Digital Frontal and Lateral radiographic views of the chest acquired. RADIATION DOSE: NA LIMITATIONS: none FINDINGS: LUNGS AND PLEURA: No opacities, masses or pneumothorax. No pleural effusion. MEDIASTINUM AND HILAR STRUCTURES: No masses or contour abnormalities. HEART AND VASCULAR STRUCTURES: Heart normal size. No evidence for failure. BONES: No acute findings. HARDWARE: None in the chest. OTHER: No other significant finding. IMPRESSION: NO ACUTE RADIOGRAPHIC FINDING IN THE CHEST. TECHNICAL DOCUMENTATION: JOB ID: [id number] [employer]- All Rights Reserved Reading location - IP/workstation name: [email or web address]
[2017-12-17 10:29] LABS: ABSOLUTE EOSINOPHILS # (AUTO) 0.3 10^3/uL (0.0-0.6); ABSOLUTE LYMPHOCYTES (AUTO) 2.1 10^3/uL (0.5-4.7); ABSOLUTE NEUT (AUTO) 10.2 10^3/uL (1.7-8.2); BASOPHILS % (AUTO) 0.4 % (0-2); EOSINOPHILS % (AUTO) 2.1 % (0-6); HEMATOCRIT 42.1 % (36.0-47.0); HEMOGLOBIN 13.4 g/dL (12.0-15.5); LYMPHOCYTES % (AUTO) 15.4 % (13-45); MEAN CORPUSCULAR HEMOGLOBIN 22.6 pg (27.0-33.4); MEAN CORPUSCULAR HGB CONC 31.9 g/dL (32.0-36.0); MEAN CORPUSCULAR VOLUME 71 fl (80-97); MONOCYTES % (AUTO) 7.3 % (3-13); PLATELET COUNT 267 10^3/uL (150-450); RED BLOOD COUNT 5.92 10^6/uL (3.72-5.28); RED CELL DISTRIBUTION WIDTH 17.7 % (11.5-14.0); SEGMENTED NEUTROPHILS % (AUTO) 74.8 % (42-78); TOTAL CELLS COUNTED % (AUTO) 100 %; WHITE BLOOD COUNT 13.7 10^3/uL (4.0-10.5)
[2017-12-17] MEDS ORDERED: ALBUTEROL SULFATE 0.083% NEB 2.5 MG/3 ML AMPUL NEB ONE ×2 (10:42→12:10)
[2017-12-17] MEDS ORDERED: METHYLPREDNISOLONE INJ 125 MG/2 ML SDV IV ONE (10:42)
--- NOTE | 2017-12-17 10:45 | ER Document Report ---
ED Flu Like - General Chief Complaint: Flu Symptoms Stated Complaint: FLU LIKE SYMPTOMS Time Seen by Provider: 12/17/17 09:28 Mode of Arrival: Ambulatory Information source: Patient Notes: Patient presents with a 2 day history of cough, sore throat ear pain and congestion. Patient states she had a fever yesterday of 103. Patient states that she will occasionally vomit after coughing. Patient complains of lateral rib tenderness with coughing and deep inspiration. Patient denies any history of COPD, asthma, or use of cigarettes. Patient denies any history of PE or DVT. TRAVEL OUTSIDE OF THE [place] IN LAST 30 DAYS: No - HPI Onset: Other - 2 days Timing/Duration: Persistent Quality of pain: Achy Pain Level: 3 Associated symptoms: Chest pain - With coughing, Nonproductive cough, Earache, Fever, Vomiting, Sinus pain/drainage, Sore throat Similar symptoms previously: No - Related Data Allergies/Adverse Reactions: ondansetron HCl [From Zofran] Allergy (Severe, Verified 12/17/17 09:30) resp distress azithromycin [From Zithromax] Allergy (Verified 12/17/17 09:30) Past Medical History - General Information source: Patient - Social History Smoking Status: Never Smoker Chew tobacco use (# tins/day): No Frequency of alcohol use: None Drug Abuse: None Occupation: Foodservice Lives with: Family Family History: Reviewed & Not Pertinent Patient has suicidal ideation: No Patient has homicidal ideation: No - Past Medical History Cardiac Medical History: Reports: Hx Hypertension, Hx Heart Murmur - with Denies: Hx Atrial Fibrillation, Hx Congestive Heart Failure, Hx Coronary Artery Disease, Hx Heart Attack, Hx Hypercholesterolemia, Hx Peripheral Vascular Disease, Hx Pulmonary Embolism Pulmonary Medical History: Reports: Hx Pneumonia Denies: Hx Asthma, Hx Bronchitis, Hx COPD, Hx Respiratory Failure, Hx Sleep Apnea, Hx Tuberculosis Neurological Medical History: Denies: Hx Seizures Renal/ Medical History: Reports: Hx Ovarian Cysts - x 2. Denies: Hx Peritoneal Dialysis, Hx Pelvic Inflammatory Disease Malignancy Medical History: Denies: Hx Breast Cancer, Hx Cervical Cancer, Hx Leukemia, Hx Lung Cancer, Hx Ovarian Cancer Musculoskeletal Medical History: Reports Hx Arthritis, Denies Hx Fibromyalgia, Denies Hx Muscular Dystrophy Skin Medical History: Denies Hx MRSA Psychiatric Medical History: Reports: Hx Depression Traumatic Medical History: Reports: Hx Fractures - rt knee, rt elbow Infectious Medical History: Denies: Hx HIV Past Surgical History: Reports: Hx Cholecystectomy, Hx Orthopedic Surgery - R knee replacement, elbow, Hx Tubal Ligation. Denies: Hx Appendectomy, Hx Bowel Surgery, Hx Section, Hx Coronary Artery Bypass Graft, Hx Gastric Bypass Surgery, Hx Herniorrhaphy, Hx Hysterectomy, Hx Mastectomy, Hx Pacemaker, Hx Tonsillectomy - Immunizations Hx Diphtheria, Pertussis, Tetanus Vaccination: Yes Hx Pneumococcal Vaccination: 07/06/12 Review of Systems - Review of Systems Constitutional: Fever EENT: Nose congestion, Nose discharge, Sinus pressure Cardiovascular: Chest pain - with cough only. denies: Palpitations Respiratory: Cough, Short of breath, Wheezing Gastrointestinal: No symptoms reported. denies: Abdominal pain, Vomiting Genitourinary: No symptoms reported Female Genitourinary: No symptoms reported Musculoskeletal: No symptoms reported. denies: Back pain Skin: No symptoms reported Hematologic/Lymphatic: No symptoms reported Neurological/Psychological: No symptoms reported Physical Exam - Vital signs Vitals: Temp Pulse Resp BP Pulse Ox 98.8 F 116 H 28 H 211/132 H 92 12/17/17 09:14 12/17/17 09:14 12/17/17 09:14 12/17/17 09:14 12/17/17 09:14 - General General appearance: Alert In distress: Mild - HEENT Head: Normocephalic, Atraumatic Eyes: Normal Conjunctiva: Normal Ears: Normal External canal: Normal Tympanic membrane: Normal Nasal: Swelling, Clear rhinorrhea Mouth/Lips: Normal Mucous membranes: Normal Pharynx: Normal Neck: Normal, Supple. No: Lymphadenopathy - Respiratory Respiratory status: Tachypnea Chest status: Pain with cough, Pain with deep breathing Breath sounds: Nonproductive cough, Wheezing Chest palpation: Normal - Cardiovascular Rhythm: Tachycardia Heart sounds: S1 appreciated, S2 appreciated Murmur: No - Abdominal Inspection: Morbidly Obese Distension: No distension Bowel sounds: Normal Tenderness: Nontender - Back Back: Normal, Nontender. No: CVA tenderness - Extremities General upper extremity: Normal inspection, Normal ROM General lower extremity: Tender - bilat, Edema - bilat, Normal ROM - Neurological Neuro grossly intact: Yes Cognition: Normal [place] Coma Scale Eye Opening: Spontaneous [place] Coma Scale Verbal: Oriented Marce Coma Scale Motor: Obeys Commands [place] Coma Scale Total: 15 - Psychological Associated symptoms: Normal affect, Normal mood - Skin Skin Temperature: Warm Skin Moisture: Dry Skin Color: Normal Course - Re-evaluation Re-evalutation: 12/17/17 10:47 Review of patient's previous admission report states that patient has a history of PE. It was also documented in patient's medical record that there is a concern about noncompliance with her hypertensive medications despite patient saying that she does take her medicines. When patient was asked today, patient did state that she took all of her medications this morning as prescribed and listed them as lisinopril and metoprolol. When patient was asked what pharmacy she gets her medications filled and the two reported pharmacies were called, pharmacy states that patient did drop off prescription back in September but has not picked any of her prescription antihypertensive medications up. Nothing has been filled since September. Suspect that patient is likely noncompliant with her hypertensive medications. 12/17/17 12:11 Patient continues with bilateral wheezing. Patient's oxygen saturation 97% on 2 L oxygen and heart rate continues at 103. Additional nebulizer treatment ordered. 12/17/17 13:17 Pt amb[address] in [address], HR 120's, sat 91%, RR 30's, additional medications ordered. 12/17/17 14:54 Reviewed results of patient's peak flow, road test as well as ABG with Dr. Mack, recommends consultation with hospitalist for admission. Spoke with Dr. Flores who agrees to evaluate patient for admission. - Vital Signs Vital signs: Temp Pulse Resp BP Pulse Ox 98.8 F 116 H 24 H 179/95 H 98 12/17/17 09:14 12/17/17 09:14 12/17/17 15:12 12/17/17 15:12 12/17/17 15:12 - Laboratory Result Diagrams: 12/17/17 10:06 12/17/17 10:06 Laboratory results interpreted by me: 12/17/17 12/17/17 12/17/17 09:45 10:06 13:39 WBC 13.7 H RBC 5.92 H MCV 71 L MCH 22.6 L MCHC 31.9 L RDW 17.7 H Absolute Neutrophils 10.2 H Carbonic Acid 1.36 H ABG pCO2 45.3 H ABG pO2 50.0 L ABG HCO3 26.5 H ABG Total CO2 27.9 H ABG O2 Saturation 84.7 L Urine Protein >=500 H Ur Leukocyte Esterase SMALL H 12/17/17 14:55 Labs- Entire Visit 12/17/17 12/17/17 12/17/17 09:45 10:06 10:06 WBC 13.7 H RBC 5.92 H Hgb 13.4 Hct 42.1 MCV 71 L MCH 22.6 L MCHC 31.9 L RDW 17.7 H Plt Count 267 Seg Neutrophils % 74.8 Lymphocytes % 15.4 Monocytes % 7.3 Eosinophils % 2.1 Basophils % 0.4 Absolute Neutrophils 10.2 H Absolute Lymphocytes 2.1 Absolute Monocytes 1.0 Absolute Eosinophils 0.3 Absolute Basophils 0.0 Carbonic Acid HCO3/H2CO3 Ratio ABG pH ABG pCO2 ABG pO2 ABG HCO3 ABG Total CO2 ABG O2 Saturation ABG Base Excess FiO2 Sodium 140.9 Potassium 4.1 Chloride 101 Carbon Dioxide 28 Anion Gap 12 BUN 14 Creatinine 0.64 Est GFR ( Amer) > 60 Est GFR (Non-Af Amer) > 60 Glucose 103 Calcium 8.9 Magnesium Total Bilirubin 0.6 Direct Bilirubin 0.3 Neonat Total Bilirubin Not Reportable Neonat Direct Bilirubin Not Reportable Neonat Indirect Bili Not Reportable AST 18 ALT 22 Alkaline Phosphatase 97 Creatine Kinase CK-MB (CK-2) Troponin I NT-Pro-B Natriuret Pep Total Protein 7.6 Albumin 4.0 TSH Urine Color YELLOW Urine Appearance CLOUDY Urine pH 6.0 Ur Specific [place] 1.022 Urine Protein >=500 H Urine Glucose (UA) NEGATIVE Urine Ketones NEGATIVE Urine Blood NEGATIVE Urine Nitrite NEGATIVE Urine Bilirubin NEGATIVE Urine Urobilinogen NEGATIVE Ur Leukocyte Esterase SMALL H Urine WBC (Auto) 4 Urine RBC (Auto) 5 Urine Bacteria (Auto) TRACE Squamous Epi Cells Auto 29 Urine Mucus (Auto) FEW Urine Ascorbic Acid NEGATIVE 12/17/17 12/17/17 12/17/17 10:06 10:06 10:06 WBC RBC Hgb Hct MCV MCH MCHC RDW Plt Count Seg Neutrophils % Lymphocytes % Monocytes % Eosinophils % Basophils % Absolute Neutrophils Absolute Lymphocytes Absolute Monocytes Absolute Eosinophils Absolute Basophils Carbonic Acid HCO3/H2CO3 Ratio ABG pH ABG pCO2 ABG pO2 ABG HCO3 ABG Total CO2 ABG O2 Saturation ABG Base Excess FiO2 Sodium Potassium Chloride Carbon Dioxide Anion Gap BUN Creatinine Est GFR ( Amer) Est GFR (Non-Af Amer) Glucose Calcium Magnesium 1.8 Total Bilirubin Direct Bilirubin Neonat Total Bilirubin Neonat Direct Bilirubin Neonat Indirect Bili AST ALT Alkaline Phosphatase Creatine Kinase 62 CK-MB (CK-2) 0.63 Troponin I < 0.012 NT-Pro-B Natriuret Pep 45 Total Protein Albumin TSH 2.23 Urine Color Urine Appearance Urine pH Ur Specific [place] Urine Protein Urine Glucose (UA) Urine Ketones Urine Blood Urine Nitrite Urine Bilirubin Urine Urobilinogen Ur Leukocyte Esterase Urine WBC (Auto) Urine RBC (Auto) Urine Bacteria (Auto) Squamous Epi Cells Auto Urine Mucus (Auto) Urine Ascorbic Acid 12/17/17 13:39 WBC RBC Hgb Hct MCV MCH MCHC RDW Plt Count Seg Neutrophils % Lymphocytes % Monocytes % Eosinophils % Basophils % Absolute Neutrophils Absolute Lymphocytes Absolute Monocytes Absolute Eosinophils Absolute Basophils Carbonic Acid 1.36 H HCO3/H2CO3 Ratio 19:1 ABG pH 7.39 ABG pCO2 45.3 H ABG pO2 50.0 L ABG HCO3 26.5 H ABG Total CO2 27.9 H ABG O2 Saturation 84.7 L ABG Base Excess 1.0 FiO2 ROOM AIR Sodium Potassium Chloride Carbon Dioxide Anion Gap BUN Creatinine Est GFR ( Amer) Est GFR (Non-Af Amer) Glucose Calcium Magnesium Total Bilirubin Direct Bilirubin Neonat Total Bilirubin Neonat Direct Bilirubin Neonat Indirect Bili AST ALT Alkaline Phosphatase Creatine Kinase CK-MB (CK-2) Troponin I NT-Pro-B Natriuret Pep Total Protein Albumin TSH Urine Color Urine Appearance Urine pH Ur Specific [place] Urine Protein Urine Glucose (UA) Urine Ketones Urine Blood Urine Nitrite Urine Bilirubin Urine Urobilinogen Ur Leukocyte Esterase Urine WBC (Auto) Urine RBC (Auto) Urine Bacteria (Auto) Squamous Epi Cells Auto Urine Mucus (Auto) Urine Ascorbic Acid - Diagnostic Test Radiology reviewed: Reports reviewed Discharge - Discharge Clinical Impression: Wheezing Reactive airway disease Qualifiers: Asthma severity: unspecified severity Asthma persistence: unspecified Asthma complication type: with acute exacerbation Qualified Code(s): J45.901 - Unspecified asthma with (acute) exacerbation Dyspnea Qualifiers: Dyspnea type: unspecified Qualified Code(s): R06.00 - Dyspnea, unspecified Condition: Fair Disposition: ADMITTED INPATIENT Admitting Provider: Hospitalist Unit Admitted: Telemetry
[2017-12-17 10:48] LABS: ALANINE AMINOTRANSFERASE 22 U/L (9-52); ALKALINE PHOSPHATASE 97 U/L (38-126); ANION GAP 12 (5-19); ASPARTATE AMINO TRANSFERASE 18 U/L (14-36); BILIRUBIN,DIRECT 0.3 mg/dL (0.0-0.4); BILIRUBIN,TOTAL 0.6 mg/dL (0.2-1.3); BLOOD UREA NITROGEN 14 mg/dL (7-20); CALCIUM 8.9 mg/dL (8.4-10.2); CARBON DIOXIDE 28 mmol/L (22-30); CHLORIDE 101 mmol/L (98-107); GLUCOSE 103 mg/dL (75-110); POTASSIUM 4.1 mmol/L (3.6-5.0); SODIUM 140.9 mmol/L (137-145); TOTAL PROTEIN 7.6 g/dL (6.3-8.2)
[2017-12-17 10:58] LABS: APPEARANCE,URINE CLOUDY; BILIRUBIN,URINE NEGATIVE (NEGATIVE); COLOR,URINE YELLOW; GLUCOSE, URINE NEGATIVE (NEGATIVE); KETONES,URINE NEGATIVE (NEGATIVE); LEUKOCYTE ESTERASE,URINE SMALL (NEGATIVE); NITRITE,URINE NEGATIVE (NEGATIVE); PROTEIN,URINE >=500 mg/dL (NEGATIVE); URINE SPECIFIC GRAVITY 1.022; UROBILINOGEN,URINE NEGATIVE mg/dL (<2.0)
[2017-12-17 11:12] LABS: CREATINE KINASE 62 U/L (30-135)
[2017-12-17 11:25] LABS: CREATINE KINASE MB 0.63 ng/mL (<4.55); NT PRO BNP 45 pg/mL (<125)
[2017-12-17 11:28] LABS: TROPONIN I < 0.012 ng/mL
--- NOTE | 2017-12-17 12:05 | RADIOLOGY REPORT (SQ) ---
EXAM DESCRIPTION: CTA CHEST COMPLETED DATE/TIME: 12/17/2017 11:54 am REASON FOR STUDY: sob, tachycardia COMPARISON: 04/17/2017 TECHNIQUE: CT scan of the chest performed using helical scanning technique with dynamic intravenous contrast injection. Images reviewed with lung, soft tissue and bone windows. Reconstructed coronal and sagittal MPR images reviewed. Additional 3 dimensional post-processing performed to develop Maximal Intensity Projection images (CT P). All images stored on PACS. All CT scanners at this facility use dose modulation, iterative reconstruction, and/or weight based d osing when appropriate to reduce radiation dose to as low as reasonably achievable (ALARA). [facility]: Dose Right [facility]: CareDose [facility]: Dose Right [facility]: Teradose 4D [facility]: [employer] Group CONTRAST TYPE AND DOSE: contrast/concentration: Isovue 350.00 mg/ml; Total Contrast Delivered: 90.0 ml; Total Saline Delivered: 79.0 ml Contrast bolus optimized for the pulmonary arteries. Not diagnostic for the aorta. RENAL FUNCTION: GFR > 60. RADIATION DOSE: CT Rad equipment meets quality standard of care and radiation dose reduction techniq ues were employed. CTDIvol: 49.6 - 54.4 mGy. DLP: 2034 mGy-cm. . LIMITATIONS: Timing of contrast bolus. FINDINGS: LUNGS AND PLEURA: No masses, infiltrates, or pneumothorax. No pleural effusions or pleura l calcifications. AORTA AND GREAT VESSELS: No aneurysm. Contrast bolus not optimized for the aorta. HEART: No pericardial effusion. No significant coronary artery calcifications. PULMONARY ARTERIES: No emboli visualized in the main pulmonary arteries or the segmental branches. HILAR AND MEDIASTINAL STRUCTURES: No identified masses or abnormal nodes. HARDWARE: None in the chest. UPPER ABDOMEN: No significant findings. Limited exam. THYROID AND OTHER SOFT TISSUES: No masses. No adenopathy. BONES: No acute or significant finding. 3D MIPS: Confirm above findings. OTHER: No other significant finding. IMPRESSION: No evidence of pulmonary embolus. COMMENT: Quality ID # [id number]: Final reports with documentation of one or more dose reduction techniques (e.g., Automated exposure control, adjustment of the mA and/or kV according to patient size, use of iterative reconstruction technique) TECHNICAL DOCUMENTATION: JOB ID: [id number] [employer]- All Rights Reserved Reading location - IP/workstation name: [email or web address]
--- NOTE | 2017-12-17 12:18 | EKG REPORT ---
SEVERITY:- ABNORMAL ECG - SINUS TACHYCARDIA REPOL ABNRM SUGGESTS ISCHEMIA, LATERAL LEADS : Confirmed by: Vanessa Lucas MD 17-Dec-2017 12:17:39
[2017-12-17] MEDS ORDERED: NORMAL SALINE 500 ML IV ONE (13:18)
[2017-12-17] MEDS: MAGNESIUM SULFATE/D5W 1 GM/100 ML RTUPB IV SCH ×2 (13:59→14:20)
[2017-12-17 14:01] LABS: ARTERIAL BLOOD H2CO3 1.36 mmol/L (1.05-1.35); ARTERIAL BLOOD HCO3 26.5 mmol/L (20-26); ARTERIAL BLOOD O2 SATURATION 84.7 % (94-98); ARTERIAL BLOOD PCO2 45.3 mmHg (35-45); ARTERIAL BLOOD PH 7.39 (7.35-7.45); ARTERIAL BLOOD TOTAL CO2 27.9 mmol/L (21-25)
[2017-12-17 14:02] LABS: ARTERIAL BLOOD FIO2 ROOM AIR
[2017-12-17] MEDS ORDERED: PROMETHAZINE HCL INJ 25 MG/1 ML VIAL IV ONE (16:30)
[2017-12-17] MEDS: ENOXAPARIN SODIUM INJ 60 MG/0.6 ML DISP.SYRIN SUBCUT SCH (16:43)
[2017-12-17 18:02] LABS: URINE AMPHETAMINES SCREEN NEGATIVE; URINE BARBITURATES SCREEN NEGATIVE; URINE BENZODIAZEPINES SCREEN NEGATIVE; URINE COCAINE SCREEN NEGATIVE; URINE MARIJUANA (THC) SCREEN NEGATIVE; URINE METHADONE SCREEN NEGATIVE; URINE PHENCYCLIDINE SCREEN NEGATIVE
[2017-12-17 18:03] LABS: A TYPE INFLUENZA AG NEGATIVE (NEGATIVE); B INFLUENZA AG NEGATIVE (NEGATIVE)
[2017-12-17] MEDS ORDERED: GUAIFENESIN SYRP 200 MG/10 ML UDC PO PRN (21:52)
[2017-12-17] MEDS: METOPROLOL TARTRATE 100 MG TABLET PO SCH (22:08)
--- NOTE | 2017-12-17 22:08 | PDOC H&P ---
History of Present Illness Admission Date/PCP: 12/17/17 16:21 LORY QUACH MD Patient complains of: Shortness of breath, cough, myalgias, fever. History of Present Illness: BILL MARQUEZ is a 47 year old female. She states that her symptoms began suddenly yesterday. She has had fevers as high as 103. She complains of chest tightness, shortness of cough, and fevers. She states that she hurts all over. She carries a past medical history positive for severe hypertension and she is morbidly obese. Past Medical History Cardiac Medical History: Reports: Hypertension, Heart Murmur - with Denies: Atrial Fibrillation, Congestive Heart Failure, Coronary Artery Disease, Myocardial Infarction, Hyperlipidema, Peripheral Vascular Disease, Pulmonary Embolism Pulmonary Medical History: Reports: Pneumonia Denies: Asthma, Bronchitis, Chronic Obstructive Pulmonary Disease (COPD), Respiratory Failure, Sleep Apnea, Tuberculosis Neurological Medical History: Denies: Seizures Malignancy Medical History: Denies: Breast Cancer, Cervical Cancer, Leukemia, Lung Cancer, Ovarian Cancer Musculoskeltal Medical History: Reports: Arthritis Denies: Fibromyalgia Psychiatric Medical History: Denies: Depression Hematology: Reports: Anemia - heavy menses related Infectious Medical History: Denies: HIV Past Surgical History Past Surgical History: Reports: Cholecystectomy, Orthopedic Surgery - R knee replacement, elbow, Tubal Ligation Denies: Appendectomy, Section, Coronary Artery Bypass Graft, Gastric Bypass Surgery, Herniorrhaphy, Hysterectomy, Mastectomy, Pacemaker, Tonsillectomy Social History Lives with: Family Smoking Status: Never Smoker Frequency of Alcohol Use: None Hx Recreational Drug Use: No Drugs: None Hx Prescription Drug Abuse: No - Advance Directive Resuscitation Status: Full Code Family History Family History: Reviewed & Not Pertinent, CAD, DM Parental Family History Reviewed: Yes Children Family History Reviewed: Yes Sibling(s) Family History Reviewed.: Yes Medication/Allergy Home Medications: Metoprolol Tartrate [Lopressor 100 mg Tablet] 100 mg PO Q12 10/14/17 Minoxidil [Loniten 2.5 mg Tablet] 2.5 mg PO Q12 #60 tablet 10/16/17 Lisinopril/Hydrochlorothiazide [Lisinopril-Hctz 10-12.5 mg Tab] 1 each PO DAILY 12/17/17 Allergies/Adverse Reactions: ondansetron HCl [From Zofran] Allergy (Severe, Verified 12/17/17 09:30) resp distress azithromycin [From Zithromax] Allergy (Verified 12/17/17 09:30) Review of Systems Constitutional: PRESENT: chills, fever(s), other - myalgias Eyes: ABSENT: visual disturbances Ears: ABSENT: hearing changes Nose, Mouth, and Throat: PRESENT: sore throat. ABSENT: headache(s), vertigo Cardiovascular: ABSENT: chest pain, dyspnea on exertion, edema, palpitations Respiratory: PRESENT: cough, dyspnea. ABSENT: sputum Gastrointestinal: ABSENT: abdominal pain, constipation, diarrhea, dysphagia, hematemesis, hematochezia, melena, nausea, vomiting Musculoskeletal: ABSENT: deformity, joint swelling, muscle weakness Integumentary: ABSENT: erythema, pruritus, wounds Neurological: ABSENT: confusion, dizziness, focal weakness, paresthesias, syncope, tremor(s), vertigo, weakness Psychiatric: ABSENT: anxiety, depression Endocrine: ABSENT: cold intolerance, flushing, heat intolerance Hematologic/Lymphatic: ABSENT: easy bleeding, easy bruising Physical Exam Vital Signs: Temp Pulse Resp BP Pulse Ox 98.9 F 112 H 19 165/92 H 95 12/17/17 19:54 12/17/17 19:54 12/17/17 19:54 12/17/17 19:54 12/17/17 19:54 General appearance: PRESENT: cooperative, mild distress - From myalgias and dyspnea., morbidly obese Head exam: PRESENT: atraumatic, normocephalic Eye exam: PRESENT: EOMI, PERRLA, other - no scleral injection. ABSENT: scleral icterus Ear exam: PRESENT: normal external ear exam. ABSENT: bleeding, drainage Mouth exam: PRESENT: moist, tongue midline. ABSENT: dry mucosa, neck supple Neck exam: ABSENT: JVD - x, lymphadenopathy, meningismus, tenderness, thyromegaly Respiratory exam: PRESENT: chest wall tenderness, decreased breath sounds, rhonchi, wheezes, other - Positive for increased work of breathing.. ABSENT: accessory muscle use, rales Cardiovascular exam: PRESENT: other - No increased work of breathing. GI/Abdominal exam: PRESENT: soft. ABSENT: distended - The abdomen is morbidly obese. Bowel sounds are distant. I am unable to evaluate the abdomen for organomegaly, masses, or hernias due to the patient's body habitus., tenderness Rectal exam: PRESENT: deferred Extremities exam: ABSENT: clubbing, joint swelling, pedal edema, tenderness Musculoskeletal exam: PRESENT: normal inspection. ABSENT: deformity, dislocation, tenderness Neurological exam: PRESENT: alert, awake, oriented to person, oriented to place , oriented to time, oriented to situation, CN II-XII grossly intact. ABSENT: motor sensory deficit Psychiatric exam: PRESENT: appropriate affect, normal mood Skin exam: PRESENT: dry, intact, warm Results Laboratory Results: 12/17/17 12/17/17 12/17/17 09:45 10:06 10:06 WBC 13.7 H RBC 5.92 H Hgb 13.4 Hct 42.1 MCV 71 L MCH 22.6 L MCHC 31.9 L RDW 17.7 H Plt Count 267 Absolute Neutrophils 10.2 H ABG pH ABG pCO2 ABG pO2 ABG HCO3 ABG Total CO2 ABG O2 Saturation ABG Base Excess FiO2 Sodium 140.9 Potassium 4.1 Chloride 101 Carbon Dioxide 28 Anion Gap 12 BUN 14 Creatinine 0.64 Est GFR (Non-Af Amer) > 60 Glucose 103 Calcium 8.9 Magnesium Total Bilirubin 0.6 Direct Bilirubin 0.3 AST 18 ALT 22 Alkaline Phosphatase 97 Creatine Kinase CK-MB (CK-2) Troponin I NT-Pro-B Natriuret Pep Total Protein 7.6 Albumin 4.0 TSH Urine Color YELLOW Urine Appearance CLOUDY Urine pH 6.0 Ur Specific Kathleen 1.022 Urine Protein >=500 H Ur Leukocyte Esterase SMALL H Urine WBC (Auto) 4 Urine RBC (Auto) 5 12/17/17 12/17/17 12/17/17 10:06 10:06 10:06 WBC RBC Hgb Hct MCV MCH MCHC RDW Plt Count Absolute Neutrophils ABG pH ABG pCO2 ABG pO2 ABG HCO3 ABG Total CO2 ABG O2 Saturation ABG Base Excess FiO2 Sodium Potassium Chloride Carbon Dioxide Anion Gap BUN Creatinine Est GFR (Non-Af Amer) Glucose Calcium Magnesium 1.8 Total Bilirubin Direct Bilirubin AST ALT Alkaline Phosphatase Creatine Kinase 62 CK-MB (CK-2) 0.63 Troponin I < 0.012 NT-Pro-B Natriuret Pep 45 Total Protein Albumin TSH 2.23 Urine Color Urine Appearance Urine pH Ur Specific Kathleen Urine Protein Ur Leukocyte Esterase Urine WBC (Auto) Urine RBC (Auto) 12/17/17 13:39 WBC RBC Hgb Hct MCV MCH MCHC RDW Plt Count Absolute Neutrophils ABG pH 7.39 ABG pCO2 45.3 H ABG pO2 50.0 L ABG HCO3 26.5 H ABG Total CO2 27.9 H ABG O2 Saturation 84.7 L ABG Base Excess 1.0 FiO2 ROOM AIR Sodium Potassium Chloride Carbon Dioxide Anion Gap BUN Creatinine Est GFR (Non-Af Amer) Glucose Calcium Magnesium Total Bilirubin Direct Bilirubin AST ALT Alkaline Phosphatase Creatine Kinase CK-MB (CK-2) Troponin I NT-Pro-B Natriuret Pep Total Protein Albumin TSH Urine Color Urine Appearance Urine pH Ur Specific Kathleen Urine Protein Ur Leukocyte Esterase Urine WBC (Auto) Urine RBC (Auto) Impressions: Chest X-Ray 12/17/17 09:29 IMPRESSION: NO ACUTE RADIOGRAPHIC FINDING IN THE CHEST. Chest/Abdomen CTA 12/17/17 10:32 IMPRESSION: No evidence of pulmonary embolus. Assessment & Plan - Diagnosis (1) Nephrotic syndrome Is this a current diagnosis for this admission?: Yes Plan: Proteinuria and uncontrolled hypertension. (2) Wheezing Is this a current diagnosis for this admission?: Yes Plan: Steroids and nebulizers. (3) Acute bronchitis Qualifiers: Bronchitis organism: unspecified organism Qualified Code(s): J20.9 - Acute bronchitis, unspecified Is this a current diagnosis for this admission?: Yes Plan: Will treat with azithromycin, nebulizer treatments, and steroids. (4) Proteinuria Qualifiers: Proteinuria type: unspecified Qualified Code(s): R80.9 - Proteinuria, unspecified Is this a current diagnosis for this admission?: Yes (5) Uncontrolled hypertension Is this a current diagnosis for this admission?: Yes Plan: Continue home medications and consult nephrology on Tuesday. Possible nephrotic syndrome. - Time Time Spent: Greater than 70 Minutes Medications reviewed and adjusted accordingly: Yes Anticipated discharge: Home - Inpatient Certification Based on my medical assessment, after consideration of the patient's comorbidities, presenting symptoms, or acuity I expect that the services needed warrant INPATIENT care.: Yes I certify that my determination is in accordance with my understanding of Medicare's requirements for reasonable and necessary INPATIENT services [42 CFR 412.3e].: Yes Medical Necessity: Need Close Monitoring Due to Risk of Patient Decompensation, Need for Nebulizer Therapy and Monitoring of Response, Need for IV Antibiotics, Risk of Complication if Not Cared For in Hospital
[2017-12-17] MEDS ORDERED: MINOXIDIL 2.5 MG TABLET ONE (22:12)
[2017-12-17] MEDS: MINOXIDIL 2.5 MG TABLET PO SCH (22:44)
[2017-12-17] MEDS ORDERED: METHYLPREDNISOLONE INJ 40 MG/1 ML SDV IV ONE (23:00)
[2017-12-17] MEDS ORDERED: LEVOFLOXACIN 750 MG/D5W RTU 750 MG/150 ML RTUPB IV ONE (23:00)
[2017-12-18] MEDS ORDERED: HYDROCODONE BIT/HOMATROPINE SYRUP 5 ML UDCUP PO PRN (00:03)
[2017-12-18] MEDS: HYDROCODONE BIT/HOMATROPINE 5-1.5 MG TABLET PO PRN ×3 (00:48→21:36)
[2017-12-18] MEDS: IPRATROPIUM/ALBUTEROL 0.5-2.5 MG/3 ML AMPUL NEB SCH ×4 (01:18→20:15)
[2017-12-18] MEDS: METHYLPREDNISOLONE INJ 40 MG/1 ML SDV IV SCH ×3 (05:46→21:27)
[2017-12-18] MEDS ORDERED: METHYLPREDNISOLONE INJ 40 MG/1 ML SDV IV SCH (06:00)
[2017-12-18 06:32] LABS: ABSOLUTE LYMPHOCYTES (AUTO) 1.2 10^3/uL (0.5-4.7); ABSOLUTE MONOCYTES (AUTO) 0.3 10^3/uL (0.1-1.4); ABSOLUTE NEUT (AUTO) 17.1 10^3/uL (1.7-8.2); BASOPHILS % (AUTO) 0.1 % (0-2); HEMATOCRIT 38.9 % (36.0-47.0); HEMOGLOBIN 12.4 g/dL (12.0-15.5); LYMPHOCYTES % (AUTO) 6.4 % (13-45); MEAN CORPUSCULAR VOLUME 72 fl (80-97); MONOCYTES % (AUTO) 1.7 % (3-13); PLATELET COUNT 252 10^3/uL (150-450); RED CELL DISTRIBUTION WIDTH 17.7 % (11.5-14.0); SEGMENTED NEUTROPHILS % (AUTO) 91.8 % (42-78); TOTAL CELLS COUNTED % (AUTO) 100 %; WHITE BLOOD COUNT 18.6 10^3/uL (4.0-10.5)
[2017-12-18 07:14] LABS: ANION GAP 14 (5-19); BLOOD UREA NITROGEN 22 mg/dL (7-20); CALCIUM 8.9 mg/dL (8.4-10.2); CARBON DIOXIDE 22 mmol/L (22-30); CHLORIDE 104 mmol/L (98-107); GLUCOSE 144 mg/dL (75-110); SODIUM 139.5 mmol/L (137-145)
[2017-12-18] MEDS: PROMETHAZINE HCL INJ 25 MG/1 ML VIAL IV PRN (09:27)
[2017-12-18] MEDS: BENZOCAINE/MENTHOL SORE THROAT LOZENGE BUCCAL PRN ×2 (09:28→17:29)
[2017-12-18] MEDS: ENOXAPARIN SODIUM INJ 60 MG/0.6 ML DISP.SYRIN SUBCUT SCH (09:29)
[2017-12-18] MEDS: LISINOPRIL 10 MG TABLET PO SCH (09:30)
[2017-12-18] MEDS: HYDROCHLOROTHIAZIDE 12.5 MG TABLET PO SCH (09:33)
[2017-12-18] MEDS: METOPROLOL TARTRATE 100 MG TABLET PO SCH ×2 (09:33→21:28)
[2017-12-18] MEDS: MINOXIDIL 2.5 MG TABLET PO SCH ×2 (09:37→21:28)
[2017-12-18] MEDS ORDERED: ENOXAPARIN SODIUM INJ 40 MG/0.4 ML DISP.SYRIN SUBCUT SCH (10:00)
[2017-12-18] MEDS ORDERED: LEVOFLOXACIN 750 MG/D5W RTU 750 MG/150 ML RTUPB IV SCH (10:00)
--- NOTE | 2017-12-18 16:52 | PDOC PROGRESS REPORT ---
Subjective Progress Note for:: 12/18/17 Subjective:: The patient states that her breathing is improved, but still difficult. Reason For Visit: ACUTE BRONCHITIS,UNCONTROLLED HYPERTENSION Physical Exam Vital Signs: Temp Pulse Resp BP Pulse Ox 97.8 F 92 16 144/76 H 98 12/18/17 11:48 12/18/17 14:20 12/18/17 14:20 12/18/17 11:48 12/18/17 11:48 Intake & Output 12/17/17 12/18/17 12/19/17 06:59 06:59 06:59 Intake Total 476 Balance 476 Weight 165.5 kg General appearance: PRESENT: no acute distress, cooperative, morbidly obese Respiratory exam: PRESENT: other - Positive for increased work of breathing.. ABSENT: rales, rhonchi, wheezes Cardiovascular exam: PRESENT: RRR, other - No lateral PMI. No thrills.. ABSENT : gallop, rubs, systolic murmur Extremities exam: ABSENT: clubbing, joint swelling, tenderness Musculoskeletal exam: PRESENT: normal inspection. ABSENT: deformity, dislocation, tenderness Neurological exam: PRESENT: alert, awake, oriented to person, oriented to place , oriented to time, oriented to situation, CN II-XII grossly intact. ABSENT: motor sensory deficit Psychiatric exam: PRESENT: appropriate affect, normal mood Skin exam: PRESENT: dry, intact, warm Results Laboratory Results: 12/18/17 04:47 12/18/17 04:47 12/18/17 12/18/17 04:47 04:47 WBC 18.6 H RBC 5.40 H Hgb 12.4 Hct 38.9 MCV 72 L MCH 23.0 L MCHC 32.0 RDW 17.7 H Plt Count 252 Seg Neutrophils % 91.8 H Lymphocytes % 6.4 L Monocytes % 1.7 L Eosinophils % 0.0 Basophils % 0.1 Absolute Neutrophils 17.1 H Absolute Lymphocytes 1.2 Absolute Monocytes 0.3 Absolute Eosinophils 0.0 Absolute Basophils 0.0 Sodium 139.5 Potassium 5.0 Chloride 104 Carbon Dioxide 22 Anion Gap 14 BUN 22 H Creatinine 0.60 Est GFR ( Amer) > 60 Est GFR (Non-Af Amer) > 60 Glucose 144 H Calcium 8.9 Impressions: Chest X-Ray 12/17/17 09:29 IMPRESSION: NO ACUTE RADIOGRAPHIC FINDING IN THE CHEST. Chest/Abdomen CTA 12/17/17 10:32 IMPRESSION: No evidence of pulmonary embolus. Assessment & Plan - Diagnosis (1) Nephrotic syndrome Is this a current diagnosis for this admission?: Yes Plan: Proteinuria and uncontrolled hypertension. The patient will need to follow up with nephrology. (2) Wheezing Is this a current diagnosis for this admission?: Yes Plan: Steroids and nebulizers. Improving. Wean steroids as possible. (3) Acute bronchitis Qualifiers: Bronchitis organism: unspecified organism Qualified Code(s): J20.9 - Acute bronchitis, unspecified Is this a current diagnosis for this admission?: Yes Plan: Azithromycin, nebulizer treatments, and steroids. Wean steroids. (4) Proteinuria Qualifiers: Proteinuria type: unspecified Qualified Code(s): R80.9 - Proteinuria, unspecified Is this a current diagnosis for this admission?: Yes Plan: ANA MARIA I. Follow up with nephrology. (5) Uncontrolled hypertension Is this a current diagnosis for this admission?: Yes Plan: Improved on home medications. Nephrotic syndrome. Follow up with nephrology. (6) Morbid obesity with BMI of 50.0-59.9, adult Is this a current diagnosis for this admission?: Yes Plan: Complicates all cares. - Time Time Spent with patient: 25-34 minutes Medications reviewed and adjusted accordingly: Yes
--- NOTE | 2017-12-18 17:26 | EKG REPORT ---
SEVERITY:- ABNORMAL ECG - SINUS RHYTHM LEFT ATRIAL ABNORMALITY ABNORMAL T, CONSIDER ISCHEMIA, LATERAL LEADS : Confirmed by: Vanessa Lucas MD 18-Dec-2017 17:25:33
[2017-12-18] MEDS: LEVOFLOXACIN 750 MG/D5W RTU 750 MG/150 ML RTUPB IV SCH (21:27)
[2017-12-19] MEDS: IPRATROPIUM/ALBUTEROL 0.5-2.5 MG/3 ML AMPUL NEB SCH ×4 (01:30→20:11)
[2017-12-19] MEDS: METHYLPREDNISOLONE INJ 40 MG/1 ML SDV IV SCH ×3 (05:47→22:13)
[2017-12-19] MEDS: BENZOCAINE/MENTHOL SORE THROAT LOZENGE BUCCAL PRN ×4 (05:52→22:12)
[2017-12-19 10:16] LABS: HEMATOCRIT 40.4 % (36.0-47.0); HEMOGLOBIN 12.4 g/dL (12.0-15.5); MEAN CORPUSCULAR HEMOGLOBIN 22.4 pg (27.0-33.4); MEAN CORPUSCULAR HGB CONC 30.8 g/dL (32.0-36.0); MEAN CORPUSCULAR VOLUME 73 fl (80-97); PLATELET COUNT 296 10^3/uL (150-450); RED BLOOD COUNT 5.54 10^6/uL (3.72-5.28); RED CELL DISTRIBUTION WIDTH 18.2 % (11.5-14.0); WHITE BLOOD COUNT 26.2 10^3/uL (4.0-10.5)
[2017-12-19] MEDS: ENOXAPARIN SODIUM INJ 60 MG/0.6 ML DISP.SYRIN SUBCUT SCH (10:22)
[2017-12-19] MEDS: HYDROCHLOROTHIAZIDE 12.5 MG TABLET PO SCH (10:23)
[2017-12-19] MEDS: HYDROCODONE BIT/HOMATROPINE 5-1.5 MG TABLET PO PRN (10:23)
[2017-12-19] MEDS: METOPROLOL TARTRATE 100 MG TABLET PO SCH ×2 (10:23→22:13)
[2017-12-19] MEDS: MINOXIDIL 2.5 MG TABLET PO SCH ×2 (10:24→22:14)
[2017-12-19] MEDS: LISINOPRIL 10 MG TABLET PO SCH ×2 (10:24→22:14)
[2017-12-19 10:33] LABS: ANION GAP 15 (5-19); BLOOD UREA NITROGEN 30 mg/dL (7-20); CALCIUM 9.4 mg/dL (8.4-10.2); CARBON DIOXIDE 21 mmol/L (22-30); CHLORIDE 105 mmol/L (98-107); GLUCOSE 181 mg/dL (75-110); POTASSIUM 4.7 mmol/L (3.6-5.0); SODIUM 140.7 mmol/L (137-145)
[2017-12-19 11:29] LABS: ABSOLUTE LYMPHOCYTES# (MANUAL) 1.6 10^3/uL (0.5-4.7); ABSOLUTE MONOCYTES # (MANUAL) 0.5 10^3/uL (0.1-1.4); ABSOLUTE NEUTROPHILS# (MANUAL) 24.1 10^3/uL (1.7-8.2); BAND NEUTROPHILS % (MANUAL) 1 % (3-5); BASOPHILS % (MANUAL) 0 % (0-2); EOSINOPHILS % (MANUAL) 0 % (0-6); HYPOCHROMASIA 2+; LYMPHOCYTES % (MANUAL) 6 % (13-45); MONOCYTES % (MANUAL) 2 % (3-13); SEGMENTED NEUTROPHILS % (MAN) 91 % (42-78); TOTAL CELLS COUNTED 100
[2017-12-19 11:30] LABS: ANISOCYTOSIS 2+; PLATELET COMMENT ADEQUATE; POLYCHROMASIA 1+; TOXIC GRANULATION SLIGHT
--- NOTE | 2017-12-19 15:13 | PDOC CONSULTATION ---
Consultation Consult Date: 12/19/17 Consult reason:: proteinuria History of Present Illness Admission Date/PCP: 12/17/17 16:21 LORY QUACH MD History of Present Illness: BILL MARQUEZ is a 47 year old female with past medical history of hypertension, obesity, and proteinuria. She come to the hospital a few days ago for a fever as high as 103. She was complaining of chest tightness, shortness of breath, cough. She was also hurting all over. While in the hospital a urinalysis was done that showed 500+ proteins in her urine. Her creatinine has been in the 0.6 to 0.7. She stated that prior to this hospitalization she had not followed with her primary care for over a year. She at that time was told that she had proteinuria and was sent to a merchandising director in [place]. She followed up once and then did not go due to finical difficulties. She states that she does get some severe swelling in her legs and occasionally her comments that her face looks more swollen. She denies any frothy urine. She also denies any past medical history of diabetes, hepatitis, HIV or any autoimmune diseases. Past Medical History Cardiac Medical History: Reports: Heart Murmur - with Denies: Atrial Fibrillation, Coronary Artery Disease, Hyperlipidemia, Myocardial Infarction, Peripheral Vascular Disease, Pulmonary Embolism Pulmonary Medical History: Reports: Pneumonia Denies: Asthma, Bronchitis, Chronic Obstructive Pulmonary Disease (COPD), Respiratory Failure, Sleep Apnea, Tuberculosis Neurological Medical History: Denies: Seizures Malignancy Medical History: Denies: Breast Cancer, Cervical Cancer, Leukemia, Lung Cancer, Ovarian Cancer Musculoskeltal Medical History: Reports: Arthritis Denies: Fibromyalgia, Rheumatoid Arthritis Psychiatric Medical History: Denies: Depression Infectious Medical History: Denies: HIV Past Surgical History Past Surgical History: Reports: Cholecystectomy, Orthopedic Surgery - R knee replacement, elbow, Tubal Ligation Denies: Appendectomy, Section, Coronary Artery Bypass Graft, Gastric Bypass Surgery, Herniorrhaphy, Hysterectomy, Mastectomy, Pacemaker, Tonsillectomy Social History Lives with: Family Smoking Status: Never Smoker Frequency of Alcohol Use: None Hx Recreational Drug Use: No Drugs: None Hx Prescription Drug Abuse: No - Advance Directive Resuscitation Status: Full Code Family History Parental Family History Reviewed: No Children Family History Reviewed: NA Sibling(s) Family History Reviewed.: NA Medication/Allergy Home Medications: Metoprolol Tartrate [Lopressor 100 mg Tablet] 100 mg PO Q12 10/14/17 Minoxidil [Loniten 2.5 mg Tablet] 2.5 mg PO Q12 #60 tablet 10/16/17 Lisinopril/Hydrochlorothiazide [Lisinopril-Hctz 10-12.5 mg Tab] 1 each PO DAILY 12/17/17 Allergies/Adverse Reactions: ondansetron HCl [From Zofran] Allergy (Severe, Verified 12/17/17 09:30) resp distress azithromycin [From Zithromax] Allergy (Verified 12/17/17 09:30) Review of Systems Constitutional: PRESENT: fever(s). ABSENT: anorexia, chills, weakness Eyes: ABSENT: visual disturbances Nose, Mouth, and Throat: ABSENT: headache(s) Cardiovascular: PRESENT: dyspnea on exertion, edema. ABSENT: chest pain, orthropnea, palpitations Respiratory: ABSENT: cough, dyspnea, sputum Gastrointestinal: ABSENT: constipation, diarrhea, nausea, vomiting Genitourinary: ABSENT: difficulty urinating, dysuria, hematuria, nocturia Musculoskeletal: ABSENT: back pain, deformity, joint swelling, muscle weakness Neurological: ABSENT: confusion, dizziness, numbness, tingling, weakness Physical Exam Vital Signs: Temp Pulse Resp BP Pulse Ox 97.9 F 97 18 155/99 H 96 12/19/17 11:27 12/19/17 13:40 12/19/17 13:40 12/19/17 11:27 12/19/17 13:40 Intake & Output 12/18/17 12/19/17 12/20/17 06:59 06:59 06:59 Intake Total 476 1418 Balance 476 1418 Weight 165.5 kg 169.9 kg General appearance: PRESENT: no acute distress, well-developed, well-nourished Mouth exam: PRESENT: moist, neck supple Neck exam: ABSENT: JVD, tracheal deviation Respiratory exam: PRESENT: clear to auscultation kelly. ABSENT: accessory muscle use, crackles, rales, rhonchi, wheezes Cardiovascular exam: PRESENT: RRR, +S1, +S2 GI/Abdominal exam: PRESENT: distended. ABSENT: ascites Extremities exam: ABSENT: pedal edema, tenderness, +1 edema, +2 edema Musculoskeletal exam: PRESENT: normal inspection. ABSENT: tenderness Neurological exam: PRESENT: alert, awake, oriented to person, oriented to place , oriented to time, oriented to situation Skin exam: PRESENT: dry, intact, warm. ABSENT: cyanosis Results Laboratory Results: 12/19/17 09:41 12/19/17 09:41 12/19/17 12/19/17 09:41 09:41 WBC 26.2 H RBC 5.54 H Hgb 12.4 Hct 40.4 MCV 73 L MCH 22.4 L MCHC 30.8 L RDW 18.2 H Plt Count 296 Seg Neutrophils % Not Reportable Lymphocytes % Not Reportable Monocytes % Not Reportable Eosinophils % Not Reportable Basophils % Not Reportable Absolute Neutrophils Not Reportable Absolute Lymphocytes Not Reportable Absolute Monocytes Not Reportable Absolute Eosinophils Not Reportable Absolute Basophils Not Reportable Sodium 140.7 Potassium 4.7 Chloride 105 Carbon Dioxide 21 L Anion Gap 15 BUN 30 H Creatinine 0.70 Est GFR ( Amer) > 60 Est GFR (Non-Af Amer) > 60 Glucose 181 H Calcium 9.4 Impressions: Chest X-Ray 12/17/17 09:29 IMPRESSION: NO ACUTE RADIOGRAPHIC FINDING IN THE CHEST. Chest/Abdomen CTA 12/17/17 10:32 IMPRESSION: No evidence of pulmonary embolus. Assessment & Plan - Diagnosis (1) Proteinuria Qualifiers: Proteinuria type: unspecified Qualified Code(s): R80.9 - Proteinuria, unspecified Is this a current diagnosis for this admission?: Yes Plan: Several possible underlining causes. High on my differential is secondary FSGS due to obesity and hyperfiltration Will get upc and other screening labs. Increasing lisinopril and will also consider a renal biopsy. (2) Nephrotic syndrome Is this a current diagnosis for this admission?: Yes Plan: will get a UPC to quantafy the level of proteinuria. Will also look to increase the lisinorpril and order some more screening labs. Also will consider a biopsy (3) Morbid obesity Plan: discussed proper diet (4) Uncontrolled hypertension Is this a current diagnosis for this admission?: Yes Plan: increasing lisinopril to 10mg bid
--- NOTE | 2017-12-19 18:12 | PDOC PROGRESS REPORT ---
Subjective Progress Note for:: 12/19/17 Subjective:: The patient continues to wheeze quite a bit. No new complaints. Reason For Visit: ACUTE BRONCHITIS,UNCONTROLLED HYPERTENSION Physical Exam Vital Signs: Temp Pulse Resp BP Pulse Ox 98.3 F 90 20 145/82 H 97 12/19/17 15:25 12/19/17 15:25 12/19/17 15:25 12/19/17 15:25 12/19/17 15:25 Intake & Output 12/18/17 12/19/17 12/20/17 06:59 06:59 06:59 Intake Total 476 1418 532 Balance 476 1418 532 Weight 165.5 kg 169.9 kg General appearance: PRESENT: no acute distress, cooperative, morbidly obese Respiratory exam: PRESENT: rhonchi, wheezes, other - Positive for increased work of breathing, particularly with speech.. ABSENT: rales Cardiovascular exam: PRESENT: RRR, other - No lateral PMI. No thrills.. ABSENT : gallop, rubs, systolic murmur GI/Abdominal exam: PRESENT: soft, other - Bowel sounds are distant. I am unable to evaluate the abdomen for organomegaly, masses, or hernias due to the patient' s body habitus.. ABSENT: tenderness Extremities exam: PRESENT: +2 edema. ABSENT: clubbing, tenderness Musculoskeletal exam: PRESENT: normal inspection. ABSENT: deformity, dislocation Neurological exam: PRESENT: alert, awake, oriented to person, oriented to place , oriented to time, oriented to situation, CN II-XII grossly intact. ABSENT: motor sensory deficit Psychiatric exam: PRESENT: appropriate affect, normal mood Skin exam: PRESENT: dry, intact, warm Results Laboratory Results: 12/19/17 09:41 12/19/17 09:41 12/19/17 12/19/17 09:41 09:41 WBC 26.2 H RBC 5.54 H Hgb 12.4 Hct 40.4 MCV 73 L MCH 22.4 L MCHC 30.8 L RDW 18.2 H Plt Count 296 Seg Neutrophils % Not Reportable Lymphocytes % Not Reportable Monocytes % Not Reportable Eosinophils % Not Reportable Basophils % Not Reportable Absolute Neutrophils Not Reportable Absolute Lymphocytes Not Reportable Absolute Monocytes Not Reportable Absolute Eosinophils Not Reportable Absolute Basophils Not Reportable Sodium 140.7 Potassium 4.7 Chloride 105 Carbon Dioxide 21 L Anion Gap 15 BUN 30 H Creatinine 0.70 Est GFR ( Amer) > 60 Est GFR (Non-Af Amer) > 60 Glucose 181 H Calcium 9.4 Impressions: Chest X-Ray 12/17/17 09:29 IMPRESSION: NO ACUTE RADIOGRAPHIC FINDING IN THE CHEST. Chest/Abdomen CTA 12/17/17 10:32 IMPRESSION: No evidence of pulmonary embolus. Assessment & Plan - Diagnosis (1) Nephrotic syndrome Is this a current diagnosis for this admission?: Yes Plan: Proteinuria and uncontrolled hypertension. I appreciate nephrology's assistance.. (2) Wheezing Is this a current diagnosis for this admission?: Yes Plan: Steroids and nebulizers. Improving. Wean steroids as possible. (3) Acute bronchitis Qualifiers: Bronchitis organism: unspecified organism Qualified Code(s): J20.9 - Acute bronchitis, unspecified Is this a current diagnosis for this admission?: Yes Plan: Azithromycin, nebulizer treatments, and steroids. Wean steroids. (4) Proteinuria Qualifiers: Proteinuria type: unspecified Qualified Code(s): R80.9 - Proteinuria, unspecified Is this a current diagnosis for this admission?: Yes Plan: ANA MARIA I. I appreciate nephrology's assistance. (5) Uncontrolled hypertension Is this a current diagnosis for this admission?: Yes Plan: Improved on home medications. Nephrotic syndrome. I appreciate nephrology's assistance. (6) Morbid obesity with BMI of 50.0-59.9, adult Is this a current diagnosis for this admission?: Yes Plan: Complicates all cares. - Time Time Spent with patient: 35 or more minutes Medications reviewed and adjusted accordingly: Yes - Inpatient Certification Based on my medical assessment, after consideration of the patient's comorbidities, presenting symptoms, or acuity I expect that the services needed warrant INPATIENT care.: Yes I certify that my determination is in accordance with my understanding of Medicare's requirements for reasonable and necessary INPATIENT services [42 CFR 412.3e].: Yes Medical Necessity: Significant Comorbidiites Make Outpatient Treatment Too Risky , Need for Nebulizer Therapy and Monitoring of Response, Risk of Complication if Not Cared For in Hospital
[2017-12-19] MEDS: PROMETHAZINE HCL INJ 25 MG/1 ML VIAL IV PRN (22:11)
[2017-12-19] MEDS: LEVOFLOXACIN 750 MG/D5W RTU 750 MG/150 ML RTUPB IV SCH (22:11)
[2017-12-20] MEDS: IPRATROPIUM/ALBUTEROL 0.5-2.5 MG/3 ML AMPUL NEB SCH ×4 (01:56→20:18)
[2017-12-20] MEDS: METHYLPREDNISOLONE INJ 40 MG/1 ML SDV IV SCH (05:55)
[2017-12-20] MEDS: BENZOCAINE/MENTHOL SORE THROAT LOZENGE BUCCAL PRN ×3 (10:43→21:56)
[2017-12-20] MEDS: HYDROCODONE BIT/HOMATROPINE 5-1.5 MG TABLET PO PRN (10:48)
[2017-12-20] MEDS: LISINOPRIL 10 MG TABLET PO SCH ×2 (10:48→21:54)
[2017-12-20] MEDS: METOPROLOL TARTRATE 100 MG TABLET PO SCH ×2 (10:49→21:54)
[2017-12-20] MEDS: MINOXIDIL 2.5 MG TABLET PO SCH ×2 (10:49→21:53)
[2017-12-20] MEDS: HYDROCHLOROTHIAZIDE 12.5 MG TABLET PO SCH (10:50)
[2017-12-20] MEDS: ENOXAPARIN SODIUM INJ 60 MG/0.6 ML DISP.SYRIN SUBCUT SCH (10:51)
--- NOTE | 2017-12-20 15:15 | PDOC PROGRESS REPORT ---
Subjective Progress Note for:: 12/20/17 Subjective:: Patient was seen sitting up in her chair at the time of examination. She still remains SOB when she moves. She is also still wheezing. Currently no complaints of chest pain, n/v/d/c. Reason For Visit: ACUTE BRONCHITIS,UNCONTROLLED HYPERTENSION Physical Exam Vital Signs: Temp Pulse Resp BP Pulse Ox 98.5 F 74 18 163/89 H 96 12/20/17 11:58 12/20/17 14:14 12/20/17 14:14 12/20/17 11:58 12/20/17 14:14 Intake & Output 12/19/17 12/20/17 12/21/17 06:59 06:59 06:59 Intake Total 1568 1698 Balance 1568 1698 Weight 169.9 kg 172.6 kg General appearance: PRESENT: no acute distress, well-developed, well-nourished Mouth exam: PRESENT: moist, neck supple Neck exam: ABSENT: JVD, tracheal deviation Respiratory exam: PRESENT: wheezes. ABSENT: accessory muscle use, clear to auscultation kelly, crackles, rales, rhonchi Cardiovascular exam: PRESENT: RRR, +S1, +S2 Extremities exam: ABSENT: pedal edema, tenderness, +1 edema, +2 edema Musculoskeletal exam: PRESENT: normal inspection. ABSENT: tenderness Neurological exam: PRESENT: alert, awake, oriented to person, oriented to place , oriented to time, oriented to situation Psychiatric exam: PRESENT: appropriate affect, normal mood Skin exam: PRESENT: dry, intact, warm Results Laboratory Results: 12/19/17 09:41 12/19/17 09:41 Impressions: Chest X-Ray 12/17/17 09:29 IMPRESSION: NO ACUTE RADIOGRAPHIC FINDING IN THE CHEST. Chest/Abdomen CTA 12/17/17 10:32 IMPRESSION: No evidence of pulmonary embolus. Assessment & Plan - Diagnosis (1) Proteinuria Qualifiers: Proteinuria type: unspecified Qualified Code(s): R80.9 - Proteinuria, unspecified Is this a current diagnosis for this admission?: Yes Plan: awaiting lab results, kidney biopsy is not necessary due to upc of 0.4. (3) Uncontrolled hypertension Is this a current diagnosis for this admission?: Yes Plan: increasing lisinopril to 20mg bid
[2017-12-20 15:34] LABS: UR PRO/CREAT RATIO RESULT 0.4 mg/mg (0.0-0.2); URINE CREATININE 90.3 mg/dL (15-278); URINE PROTEIN 33.3 mg/dL (<12)
--- NOTE | 2017-12-20 18:29 | PDOC PROGRESS REPORT ---
Subjective Progress Note for:: 12/20/17 Subjective:: This is a 47 years old female patient who presented with chief complaint of shortness of breath, chest tightness myalgia and fever. Patient is being treated for acute bronchitis with Levaquin. Her urinalysis also shows marked proteinuria. She also being evaluated by configurator. Reason For Visit: ACUTE BRONCHITIS,UNCONTROLLED HYPERTENSION Physical Exam Vital Signs: Temp Pulse Resp BP Pulse Ox 97.6 F 95 20 160/67 H 99 12/20/17 15:49 12/20/17 15:49 12/20/17 15:49 12/20/17 15:49 12/20/17 15:49 Intake & Output 12/19/17 12/20/17 12/21/17 06:59 06:59 06:59 Intake Total 1568 1698 712 Output Total 900 Balance 1568 1698 -188 Weight 169.9 kg 172.6 kg General appearance: PRESENT: mild distress Head exam: PRESENT: atraumatic Mouth exam: PRESENT: moist Neck exam: ABSENT: carotid bruit, JVD, lymphadenopathy, thyromegaly Respiratory exam: PRESENT: wheezes Cardiovascular exam: PRESENT: RRR. ABSENT: diastolic murmur, rubs, systolic murmur GI/Abdominal exam: PRESENT: normal bowel sounds, soft. ABSENT: distended, guarding, mass, organolmegaly, rebound, tenderness Extremities exam: PRESENT: +2 edema Neurological exam: PRESENT: alert, awake, oriented to time, oriented to situation Psychiatric exam: PRESENT: normal mood Results Laboratory Results: 12/19/17 09:41 12/19/17 09:41 Impressions: Chest X-Ray 12/17/17 09:29 IMPRESSION: NO ACUTE RADIOGRAPHIC FINDING IN THE CHEST. Chest/Abdomen CTA 12/17/17 10:32 IMPRESSION: No evidence of pulmonary embolus. Assessment & Plan - Diagnosis (1) Acute bronchitis Qualifiers: Bronchitis organism: unspecified organism Qualified Code(s): J20.9 - Acute bronchitis, unspecified Is this a current diagnosis for this admission?: Yes Plan: Continue Levaquin (2) Nephrotic syndrome Is this a current diagnosis for this admission?: Yes Plan: Evidence of by proteinuria, edema and hypertension. Patient is being treated with steroids namely Solu-Medrol 60 mg 3 times a day. I switched her to prednisone 60 mg p.o. daily. Patient scheduled for renal biopsy tomorrow (3) Morbid obesity with BMI of 50.0-59.9, adult Is this a current diagnosis for this admission?: Yes Plan: Still modification advised (4) Uncontrolled hypertension Is this a current diagnosis for this admission?: Yes Plan: Continue current regimen.
[2017-12-20] MEDS: LEVOFLOXACIN 750 MG TABLET PO SCH (21:55)
[2017-12-21] MEDS: IPRATROPIUM/ALBUTEROL 0.5-2.5 MG/3 ML AMPUL NEB SCH ×4 (02:15→21:34)
[2017-12-21 06:38] LABS: COMPLEMENT C3 148 mg/dL (82-167); COMPLEMENT C4 19 mg/dL (14-44); HEPATITIS C VIRUS AB <0.1 s/co ratio (0.0-0.9); HEPATITS B SURFACE ANTIGEN Negative (Negative)
[2017-12-21 07:34] LABS: HEPATITIS B CORE AB TOT Negative (Negative); HEPATITIS B SURFACE AB QUANT <3.1 mIU/mL (Immunity>9)
[2017-12-21] MEDS: BENZOCAINE/MENTHOL SORE THROAT LOZENGE BUCCAL PRN ×3 (08:22→21:57)
[2017-12-21] MEDS: METOPROLOL TARTRATE 100 MG TABLET PO SCH ×2 (09:41→21:56)
[2017-12-21] MEDS: MINOXIDIL 2.5 MG TABLET PO SCH ×2 (09:41→21:57)
[2017-12-21] MEDS: LISINOPRIL 10 MG TABLET PO SCH ×2 (09:41→21:59)
[2017-12-21] MEDS: HYDROCHLOROTHIAZIDE 12.5 MG TABLET PO SCH (09:42)
[2017-12-21] MEDS: ENOXAPARIN SODIUM INJ 60 MG/0.6 ML DISP.SYRIN SUBCUT SCH (09:42)
[2017-12-21 09:45] LABS: HEMATOCRIT 41.8 % (36.0-47.0); MEAN CORPUSCULAR HEMOGLOBIN 22.6 pg (27.0-33.4); MEAN CORPUSCULAR HGB CONC 31.2 g/dL (32.0-36.0); MEAN CORPUSCULAR VOLUME 73 fl (80-97); PLATELET COUNT 288 10^3/uL (150-450); RED BLOOD COUNT 5.75 10^6/uL (3.72-5.28); RED CELL DISTRIBUTION WIDTH 17.9 % (11.5-14.0); WHITE BLOOD COUNT 12.7 10^3/uL (4.0-10.5)
[2017-12-21 09:56] LABS: ANION GAP 13 (5-19); BLOOD UREA NITROGEN 36 mg/dL (7-20); CALCIUM 9.1 mg/dL (8.4-10.2); CARBON DIOXIDE 26 mmol/L (22-30); CHLORIDE 103 mmol/L (98-107); GLUCOSE 100 mg/dL (75-110); POTASSIUM 4.3 mmol/L (3.6-5.0); SODIUM 141.6 mmol/L (137-145)
[2017-12-21] MEDS ORDERED: PREDNISONE 20 MG TABLET PO SCH ×2 (10:00→11:02)
[2017-12-21 10:28] LABS: ABSOLUTE LYMPHOCYTES# (MANUAL) 4.8 10^3/uL (0.5-4.7); ABSOLUTE MONOCYTES # (MANUAL) 0.9 10^3/uL (0.1-1.4); BAND NEUTROPHILS % (MANUAL) 1 % (3-5); BASOPHILS % (MANUAL) 0 % (0-2); EOSINOPHILS % (MANUAL) 0 % (0-6); LYMPHOCYTES % (MANUAL) 38 % (13-45); METAMYELOCYTES % (MANUAL) 1 % (0); MONOCYTES % (MANUAL) 7 % (3-13); SEGMENTED NEUTROPHILS % (MAN) 53 % (42-78); TOTAL CELLS COUNTED 100; TOXIC GRANULATION SLIGHT
[2017-12-21 10:29] LABS: ANISOCYTOSIS 2+; HYPOCHROMASIA 1+; PLATELET COMMENT ADEQUATE
--- NOTE | 2017-12-21 13:13 | PDOC PROGRESS REPORT ---
Subjective Progress Note for:: 12/21/17 Subjective:: Patient once again was sitting up in her chair. She was in no acute distress. She is ready to get out of the hospital. SOB is improving and she is ready to remove the oxygen. She denies chest pain, fevers, n/v/d/c. Reason For Visit: ACUTE BRONCHITIS,UNCONTROLLED HYPERTENSION Physical Exam Vital Signs: Temp Pulse Resp BP Pulse Ox 98.4 F 82 14 165/97 H 98 12/21/17 07:56 12/21/17 07:56 12/21/17 07:56 12/21/17 07:56 12/21/17 07:56 Intake & Output 12/20/17 12/21/17 12/22/17 06:59 06:59 06:59 Intake Total 1698 712 Output Total 900 Balance 1698 -188 Weight 172.6 kg 175 kg General appearance: PRESENT: no acute distress, morbidly obese, well-developed, well-nourished Mouth exam: PRESENT: moist, neck supple Neck exam: PRESENT: full ROM. ABSENT: JVD Respiratory exam: PRESENT: wheezes. ABSENT: accessory muscle use, clear to auscultation kelly, crackles, rales, rhonchi Cardiovascular exam: PRESENT: RRR, +S1, +S2 GI/Abdominal exam: PRESENT: distended. ABSENT: ascites Extremities exam: ABSENT: pedal edema, tenderness, +1 edema, +2 edema Musculoskeletal exam: PRESENT: normal inspection. ABSENT: tenderness Neurological exam: PRESENT: alert, awake, oriented to person, oriented to place , oriented to time, oriented to situation Psychiatric exam: PRESENT: appropriate affect, normal mood Skin exam: PRESENT: dry, intact, warm Results Laboratory Results: 12/21/17 09:15 12/21/17 09:15 12/21/17 12/21/17 09:15 09:15 WBC 12.7 H RBC 5.75 H Hgb 13.0 Hct 41.8 MCV 73 L MCH 22.6 L MCHC 31.2 L RDW 17.9 H Plt Count 288 Seg Neutrophils % Not Reportable Lymphocytes % Not Reportable Monocytes % Not Reportable Eosinophils % Not Reportable Basophils % Not Reportable Absolute Neutrophils Not Reportable Absolute Lymphocytes Not Reportable Absolute Monocytes Not Reportable Absolute Eosinophils Not Reportable Absolute Basophils Not Reportable Sodium 141.6 Potassium 4.3 Chloride 103 Carbon Dioxide 26 Anion Gap 13 BUN 36 H Creatinine 0.82 Est GFR ( Amer) > 60 Est GFR (Non-Af Amer) > 60 Glucose 100 Calcium 9.1 Impressions: Chest X-Ray 12/17/17 09:29 IMPRESSION: NO ACUTE RADIOGRAPHIC FINDING IN THE CHEST. Chest/Abdomen CTA 12/17/17 10:32 IMPRESSION: No evidence of pulmonary embolus. Assessment & Plan - Diagnosis (1) Proteinuria Qualifiers: Proteinuria type: unspecified Qualified Code(s): R80.9 - Proteinuria, unspecified Is this a current diagnosis for this admission?: Yes Plan: upc is 0.4. At this time she is stable and recommend that she follows up with Dr. Menchaca in 10 to 14 days. (2) Morbid obesity Plan: advised on weight loss (3) Uncontrolled hypertension Is this a current diagnosis for this admission?: Yes Plan: still slightly elevated, will look to adjust medications as outpatient. Right now it is elevated due to her being on a steroid.
--- NOTE | 2017-12-21 13:36 | RADIOLOGY REPORT (SQ) ---
EXAM DESCRIPTION: CT CHEST WITHOUT COMPLETED DATE/TIME: 12/21/2017 1:14 pm REASON FOR STUDY: Dyspnea COMPARISON: 03/28/2018. TECHNIQUE: CT scan performed of the chest without intravenous contrast. Images reviewed with lung, soft tissue and bone windows. Reconstructed coronal and sagittal MPR images reviewed. All images st ored on PACS. All CT scanners at this facility use dose modulation, iterative reconstruction, and/or weight based d osing when appropriate to reduce radiation dose to as low as reasonably achievable (ALARA). [facility]: Dose Right [facility]: CareDose [facility]: Dose Right [facility]: Teradose 4D [facility]: [employer] RADIATION DOSE: CT Rad equipment meets quality standard of care and radiation dose reduction techniq ues were employed. CTDIvol: 19.4 mGy. DLP: 646 mGy-cm. mGy. LIMITATIONS: No technical limitations. FINDINGS: LUNGS AND PLEURA: No masses, infiltrates, or pneumothorax. No pleural effusions or pleura l calcifications. HILAR AND MEDIASTINAL STRUCTURES: No identified masses or abnormal nodes. No obvious aneurysm. HEART AND VASCULAR STRUCTURES: Normal heart size. No pericardial effusion or aortic aneurysm. Mild coronary calcification. UPPER ABDOMEN: No significant findings. Limited exam. THYROID AND OTHER SOFT TISSUES: No masses. No adenopathy. BONES: No significant finding. HARDWARE: None in the chest. OTHER: No other significant findings. IMPRESSION: NO SIGNIFICANT FINDING ON NON-CONTRASTED CHEST CT. TECHNICAL DOCUMENTATION: JOB ID: [id number] Quality ID # [id number]: Final reports with documentation of one or more dose reduction techniques (e.g., Au tomated exposure control, adjustment of the mA and/or kV according to patient size, use of iterative reconstruction technique) 2010 [employer]- All Rights Reserved Reading location - IP/workstation name: [email or web address]
--- NOTE | 2017-12-21 15:54 | PDOC PROGRESS REPORT ---
Subjective Progress Note for:: 12/21/17 Subjective:: I seen patient resting her recliner. She complains of some shortness of breath and on auscultation she has bilateral wheezing. Her blood pressure is also in the hypertensive range with blood pressure recorded of 150/126 and 165/97. I did hydralazine 50 mg every 6 hours to her hypertensive regimen. Reason For Visit: ACUTE BRONCHITIS,UNCONTROLLED HYPERTENSION Physical Exam Vital Signs: Temp Pulse Resp BP Pulse Ox 98.4 F 81 17 165/97 H 98 12/21/17 07:56 12/21/17 13:50 12/21/17 13:50 12/21/17 07:56 12/21/17 07:56 Intake & Output 12/20/17 12/21/17 12/22/17 06:59 06:59 06:59 Intake Total 1698 712 Output Total 900 Balance 1698 -188 Weight 172.6 kg 175 kg Results Laboratory Results: 12/21/17 09:15 12/21/17 09:15 12/21/17 12/21/17 09:15 09:15 WBC 12.7 H RBC 5.75 H Hgb 13.0 Hct 41.8 MCV 73 L MCH 22.6 L MCHC 31.2 L RDW 17.9 H Plt Count 288 Seg Neutrophils % Not Reportable Lymphocytes % Not Reportable Monocytes % Not Reportable Eosinophils % Not Reportable Basophils % Not Reportable Absolute Neutrophils Not Reportable Absolute Lymphocytes Not Reportable Absolute Monocytes Not Reportable Absolute Eosinophils Not Reportable Absolute Basophils Not Reportable Sodium 141.6 Potassium 4.3 Chloride 103 Carbon Dioxide 26 Anion Gap 13 BUN 36 H Creatinine 0.82 Est GFR ( Amer) > 60 Est GFR (Non-Af Amer) > 60 Glucose 100 Calcium 9.1 Impressions: Chest X-Ray 12/17/17 09:29 IMPRESSION: NO ACUTE RADIOGRAPHIC FINDING IN THE CHEST. Chest/Abdomen CTA 12/17/17 10:32 IMPRESSION: No evidence of pulmonary embolus. Chest CT 12/21/17 00:00 IMPRESSION: NO SIGNIFICANT FINDING ON NON-CONTRASTED CHEST CT. Assessment & Plan - Diagnosis (1) Hypertensive urgency Is this a current diagnosis for this admission?: Yes Plan: Blood pressure is ranging between 165/97 and 150/126. I added hydralazine 50 mg every 6 hours on top of her current regimen. (2) Acute bronchitis Qualifiers: Bronchitis organism: unspecified organism Qualified Code(s): J20.9 - Acute bronchitis, unspecified Is this a current diagnosis for this admission?: Yes Plan: Continue Levaquin (3) Nephrotic syndrome Is this a current diagnosis for this admission?: Yes Plan: Patient will have renal biopsy as outpatient. (4) Morbid obesity with BMI of 50.0-59.9, adult Is this a current diagnosis for this admission?: Yes Plan: Still modification advised
[2017-12-21] MEDS: HYDRALAZINE HCL 50 MG TABLET PO SCH (16:42)
[2017-12-21 19:01] LABS: APPEARANCE,URINE CLEAR; BILIRUBIN,URINE NEGATIVE (NEGATIVE); COLOR,URINE YELLOW; GLUCOSE, URINE NEGATIVE (NEGATIVE); KETONES,URINE NEGATIVE (NEGATIVE); LEUKOCYTE ESTERASE,URINE TRACE (NEGATIVE); NITRITE,URINE NEGATIVE (NEGATIVE); PROTEIN,URINE NEGATIVE (NEGATIVE); URINE SPECIFIC GRAVITY 1.017; UROBILINOGEN,URINE NEGATIVE mg/dL (<2.0)
[2017-12-21] MEDS: LEVOFLOXACIN 750 MG TABLET PO SCH (21:57)
[2017-12-22] MEDS: HYDRALAZINE HCL 50 MG TABLET PO SCH ×2 (00:59→06:10)
[2017-12-22] MEDS: IPRATROPIUM/ALBUTEROL 0.5-2.5 MG/3 ML AMPUL NEB SCH ×2 (01:57→07:51)
[2017-12-22] MEDS: MINOXIDIL 2.5 MG TABLET PO SCH (10:43)
[2017-12-22] MEDS: HYDROCHLOROTHIAZIDE 12.5 MG TABLET PO SCH (10:43)
--- NOTE | 2017-12-22 10:48 | PDOC DISCHARGE SUMMARY ---
General - Admit/Disc Date/PCP Admission Date/Primary Care Provider: 12/17/17 16:21 LORY QUACH MD Discharge Date: 12/22/17 - Discharge Diagnosis (1) Hypertensive urgency Is this a current diagnosis for this admission?: Yes (2) Acute bronchitis Is this a current diagnosis for this admission?: Yes (3) Nephrotic syndrome Is this a current diagnosis for this admission?: Yes (4) Morbid obesity with BMI of 50.0-59.9, adult Is this a current diagnosis for this admission?: Yes - Additional Information Resuscitation Status: Full Code Home Medications: Metoprolol Tartrate [Lopressor 100 mg Tablet] 100 mg PO Q12 10/14/17 Minoxidil [Loniten 2.5 mg Tablet] 2.5 mg PO Q12 #60 tablet 10/16/17 Lisinopril/Hydrochlorothiazide [Lisinopril-Hctz 10-12.5 mg Tab] 1 each PO DAILY 12/17/17 History of Present Illness History of Present Illness: BILL MARQUEZ is a 47 year old female She states that her symptoms began suddenly yesterday. She has had fevers as high as 103. She complains of chest tightness, shortness of cough, and fevers. She states that she hurts all over. She carries a past medical history positive for severe hypertension and she is morbidly obese. Hospital Course Hospital Course: This is a 47 years old female patient who presented with chief complaint of shortness of breath, chest tightness myalgia and fever. Patient is being treated for acute bronchitis with Levaquin. Her urinalysis also shows marked proteinuria and the possibility of nephrotic considered and patient has been started on high-dose steroid. She is being evaluated by Dr. Menchaca station inspector. During her stay her hospital course is complicated by hypertensive urgency blood pressure ranging between 150/126 and 165/95. At this point hydralazine 50 mg every 6 hours I did to her antihypertensive regimen. Today on the day of discharge her blood pressure is the latest 142/ 83. Patient advised to keep her upcoming appointment with her station inspector for possible renal biopsy. Patient is stable enough to be discharged today. I will continue all her home medication and I will add hydralazine 50 mg every 8 hours and prednisone 40 mg every other day for 7 days. Physical Exam Vital Signs: Temp Pulse Resp BP Pulse Ox 98.7 F 80 16 142/83 H 98 12/22/17 07:34 12/22/17 07:34 12/22/17 07:34 12/22/17 07:34 12/22/17 07:34 Intake & Output 12/21/17 12/22/17 12/23/17 06:59 06:59 06:59 Intake Total 712 480 Output Total 900 Balance -188 480 Weight 175 kg General appearance: PRESENT: no acute distress Head exam: PRESENT: atraumatic Eye exam: PRESENT: conjunctiva pink Mouth exam: PRESENT: moist Neck exam: ABSENT: carotid bruit, JVD, lymphadenopathy, thyromegaly Respiratory exam: PRESENT: wheezes Cardiovascular exam: PRESENT: RRR. ABSENT: diastolic murmur, rubs, systolic murmur GI/Abdominal exam: PRESENT: normal bowel sounds, soft. ABSENT: distended, guarding, mass, organolmegaly, rebound, tenderness Extremities exam: PRESENT: +2 edema Neurological exam: PRESENT: alert, awake, oriented to time, oriented to situation Psychiatric exam: PRESENT: normal mood Results Laboratory Results: 12/21/17 09:15 12/21/17 09:15 12/21/17 15:46 Urine Color YELLOW Urine Appearance CLEAR Urine pH 5.0 Ur Specific [place] 1.017 Urine Protein NEGATIVE Urine Glucose (UA) NEGATIVE Urine Ketones NEGATIVE Urine Blood NEGATIVE Urine Nitrite NEGATIVE Ur Leukocyte Esterase TRACE H Urine WBC (Auto) 4 Urine RBC (Auto) 1 Impressions: Chest X-Ray 12/17/17 09:29 IMPRESSION: NO ACUTE RADIOGRAPHIC FINDING IN THE CHEST. Chest/Abdomen CTA 12/17/17 10:32 IMPRESSION: No evidence of pulmonary embolus. Chest CT 12/21/17 00:00 IMPRESSION: NO SIGNIFICANT FINDING ON NON-CONTRASTED CHEST CT. Qualifiers - * PATIENT BEING DISCHARGED WITH ANY OF THE FOLLOWING DIAGNOSIS: No
[2017-12-22] MEDS: METOPROLOL TARTRATE 100 MG TABLET PO SCH (10:56)
[2017-12-22] MEDS: LISINOPRIL 10 MG TABLET PO SCH (10:56)
[2017-12-22] MEDS: ENOXAPARIN SODIUM INJ 60 MG/0.6 ML DISP.SYRIN SUBCUT SCH (10:57)
[2017-12-22 11:24] VITALS: BP 130/82
[2017-12-22 15:39] LABS: ANTIMYELOPEROXIDASE (MPO) AB <9.0 U/mL (0.0-9.0); ANTIPROTEINASE 3 (PR-3) AB <3.5 U/mL (0.0-3.5); CYTOPLASMIC (C-ANCA) <1:20 titer (Neg:<1:20)
--- NOTE | 2017-12-22 19:12 | XCELERA REPORT ---
[address] [address] Transthoracic Echocardiogram Report Name: BILL MARQUEZ Age: 47 yrs Gender: Female : 1970 Patient Status: Inpatient Patient Location: [address] [place], [place] [id number] Study Date: 12/22/2017 10:13 AM Height: 66 in Weight: 385 lb BSA: 2.6 m2 Procedure: A two-dimensional transthoracic echocardiogram with color flow Doppler was performed. Study Quality: Poor. The study was technically difficult with many images being suboptimal in quality. Reason For Study: chf History: CHF. Ordering Physician: MARIVEL BROWN Performed By: Tawanna Pinto Interpretation Summary A two-dimensional transthoracic echocardiogram with color flow Doppler was performed. CHF The left ventricle is grossly normal size. LV EF is 65% Left ventricular systolic function is normal. Doppler measurements suggest impaired left ventricular relaxation, which is associated with grade I/IV or mild diastolic dysfunction The left ventricular wall motion is normal. There is no thrombus. The left atrial size is normal. There is no mitral valve stenosis. There is no evidence of mitral valve prolapse. There is no mitral regurgitation noted. There is mild aortic stenosis There is a peak gradient of 16 mm of Hg. No hemodynamically significant valvular aortic stenosis. No aortic regurgitation is present. There is no tricuspid stenosis. There is a trace amount of tricuspid regurgitation Unable to calculate RVSP due to lack of TR jet. There is no pericardial effusion. MMode/2D Measurements & Calculations RVDd: 3.2 cm LVIDd: 5.1 cm FS: 37.9 % Ao root diam: 2.8 cm IVSd: 1.6 cm LVIDs: 3.2 cm EDV(Teich): 123.5 ml Ao root area: 6.3 cm2 LVPWd: 1.6 cm ESV(Teich): 39.8 ml LA dimension: 3.8 cm EF(Teich): 67.8 % Doppler Measurements & Calculations MV E max victoria: MV P1/2t max victoria: Ao V2 max: LV V1 max P.9 cm/sec 89.6 cm/sec 199.8 cm/sec 14.6 mmHg MV A max victoria: MV P1/2t: 86.3 msec Ao max PG: LV V1 max: 106.1 cm/sec MVA(P1/2t): 2.5 cm2 16.0 mmHg 191.3 cm/sec MV E/A: 0.84 MV dec slope: 304.2 cm/sec2 MV dec time: 0.34 sec PA V2 max: MV P1/2t-pr_phl: 91.3 cm/sec 87.2 msec PA max P.3 mmHg Left Ventricle The left ventricle is grossly normal size. LV EF is 65%. Left ventricular systolic function is normal. Doppler measurements suggest impaired left ventricular relaxation, which is associated with grade I/IV or mild diastolic dysfunction. The left ventricular wall motion is normal. There is no thrombus. Right Ventricle The right ventricle is grossly normal size. The right ventricle is not well visualized secondary to technical limitations. Atria The right atrium is normal. The left atrial size is normal. Mitral Valve There is mild to moderate mitral annular calcification. There is no evidence of mitral valve prolapse. There is no vegetation seen on the mitral valve. There is no mitral valve stenosis. There is no mitral regurgitation noted. Aortic Valve There is no aortic valvular vegetation. There is mild aortic stenosis. There is a peak gradient of 16 mm of Hg. No hemodynamically significant valvular aortic stenosis. No aortic regurgitation is present. Tricuspid Valve There is no tricuspid stenosis. There is a trace amount of tricuspid regurgitation. Unable to calculate RVSP due to lack of TR jet. Pulmonic Valve There is no pulmonic valvular stenosis. There is no pulmonic valvular regurgitation. Great Vessels The aortic root is not well visualized but is probably normal size. Effusions There is no pericardial effusion. : MARIVEL BROWN > Vanessa Lucas
[2017-12-23 16:22] LABS: ATYPICAL PANCA <1:20 titer (Neg:<1:20); PERINUCLEAR (P-ANCA) <1:20 titer (Neg:<1:20)
== END 2017-12-22 12:18 | disposition home or self-care (01) | DRG 202 ==
LOC: ER 09:07 → EH 16:21 → 4N 19:15
PROVIDERS: ADMIT Internal Medicine; ATTEND Internal Medicine
PROC: 3E0F73Z Introduction of Anti-inflammatory into Respiratory Tract, Via Natural or Artificial Opening (ICD-10-PCS; principal; 2017-12-18)
DX: J20.9 Acute bronchitis, unspecified (principal); N04.9 Nephrotic syndrome with unspecified morphologic changes; Z68.44 Body mass index [BMI] 60.0-69.9, adult; I16.0 Hypertensive urgency; E66.01 Morbid (severe) obesity due to excess calories; I10 Essential (primary) hypertension; R80.9 Proteinuria, unspecified; Z90.49 Acquired absence of other specified parts of digestive tract; Z96.651 Presence of right artificial knee joint; Z98.51 Tubal ligation status; Z88.1 Allergy status to other antibiotic agents; Z79.899 Other long term (current) drug therapy
CPT/HCPCS: 36415; 71046; 71250; 71275; 80048; 80053; 80307; 81001; 82550; 82553; 82570; 82803; 83516; 83735; 83880; 84156; 84443; 84484; 85025; 86038; 86160; 86225; 86256; 86317; 86704; 86803; 86804; 87340; 87804; 93005; 93010; 93306; 94640; 99285; J1650; J1956; J2550; J2920; J2930; J3475; J3490; J7040; J7512; J7620

== ENCOUNTER 2018-04-18 13:52 | Emergency (ER) | payer SELFPAY ==
[2018-04-18 15:07] VITALS: BP 164/106
--- NOTE | 2018-04-18 15:15 | ER Document Report ---
ED General - General Chief Complaint: Ear Pain Stated Complaint: COUGH/SHORTNESS OF BREATH Time Seen by Provider: 04/18/18 14:46 TRAVEL OUTSIDE OF THE [place] IN LAST 30 DAYS: No - HPI Notes: Patient is a 47-year-old female that presents to the emergency department for chief complaint of right ear pain. Patient reports 3 weeks of not feeling well. She states the first week she had a dry cough with fevers. The fevers have since resolved. She is now complaining of the pain in her right ear. She also states that she is having hard time hearing out of her right ear. She noticed over the last week she has had no voice. She denies any sore throat, chest pain, shortness of breath, nausea, vomiting and diarrhea. She has been using Vicks at home for symptomatic relief. Past Medical History: Hypertension Past Surgical History: Reviewed in chart Social History: Denies drugs alcohol and tobacco Family History: Reviewed and noncontributory for presenting illness Allergies: Reviewed, see documented allergy list. REVIEW OF SYSTEMS: CONSTITUTIONAL : No fever No chills No diaphoresis No recent illness EENT: No vision changes No congestion No sore throat Ear pain CARDIOVASCULAR: No chest pain No palpitations RESPIRATORY: No shortness of breath No cough No difficulty breathing GASTROINTESTINAL: No abdominal pain No nausea No vomiting No diarrhea GENITOURINARY: No dysuria No hematuria No difficulty urinating MUSCULOSKELETAL: No back pain No leg pain No arm pain SKIN: No rashes No lesions LYMPHATIC: No swollen, enlarged glands. NEUROLOGICAL: No lightheadedness No headache No weakness No paresthesias PSYCHIATRIC: No anxiety No depression PHYSICAL EXAMINATION: Vital signs reviewed, nursing noted reviewed. GENERAL: Well-appearing, well-nourished and in no acute distress. HEAD: Atraumatic, normocephalic. EYES: Eyes appear normal, extraocular movements intact, sclera anicteric, conjunctiva are normal. ENT: nares patent, oropharynx clear without exudates. Moist mucous membranes. Right TM erythema, middle ear effusion, and TM retraction. NECK: Normal range of motion, supple without lymphadenopathy LUNGS: Breath sounds clear to auscultation bilaterally and equal. No wheezes rales or rhonchi. HEART: Regular rate and rhythm without murmurs ABDOMEN: Soft, nontender, normoactive bowel sounds. No rebound, guarding, or rigidity. No masses appreciated. EXTREMITIES: Nontender, good range of motion, no pitting or edema. NEUROLOGICAL: No focal neurological deficits. Moves all extremities spontaneously Motor and sensory grossly intact on exam. PSYCH: Normal mood, normal affect. SKIN: Warm, Dry, normal turgor, no rashes or lesions noted on exposed skin - Related Data Allergies/Adverse Reactions: ondansetron HCl [From Zofran] Allergy (Severe, Verified 04/18/18 14:02) resp distress azithromycin [From Zithromax] Allergy (Verified 04/18/18 14:02) Past Medical History - Social History Smoking Status: Unknown if Ever Smoked Family History: Reviewed & Not Pertinent, CAD, DM Patient has suicidal ideation: No Patient has homicidal ideation: No - Past Medical History Cardiac Medical History: Reports: Hx Hypertension, Hx Heart Murmur - with Denies: Hx Atrial Fibrillation, Hx Congestive Heart Failure, Hx Coronary Artery Disease, Hx Heart Attack, Hx Hypercholesterolemia, Hx Peripheral Vascular Disease, Hx Pulmonary Embolism Pulmonary Medical History: Reports: Hx Pneumonia Denies: Hx Asthma, Hx Bronchitis, Hx COPD, Hx Respiratory Failure, Hx Sleep Apnea, Hx Tuberculosis Neurological Medical History: Denies: Hx Seizures Renal/ Medical History: Reports: Hx Ovarian Cysts - x 2. Denies: Hx Peritoneal Dialysis, Hx Pelvic Inflammatory Disease Malignancy Medical History: Denies: Hx Breast Cancer, Hx Cervical Cancer, Hx Leukemia, Hx Lung Cancer, Hx Ovarian Cancer Musculoskeletal Medical History: Reports Hx Arthritis, Denies Hx Fibromyalgia, Denies Hx Muscular Dystrophy Skin Medical History: Denies Hx MRSA Psychiatric Medical History: Denies: Hx Depression Traumatic Medical History: Reports: Hx Fractures - rt knee, rt elbow Infectious Medical History: Denies: Hx HIV Past Surgical History: Reports: Hx Cholecystectomy, Hx Orthopedic Surgery - R knee replacement, elbow, Hx Tubal Ligation. Denies: Hx Appendectomy, Hx Bowel Surgery, Hx Section, Hx Coronary Artery Bypass Graft, Hx Gastric Bypass Surgery, Hx Herniorrhaphy, Hx Hysterectomy, Hx Mastectomy, Hx Pacemaker, Hx Tonsillectomy - Immunizations Hx Diphtheria, Pertussis, Tetanus Vaccination: Yes Hx Pneumococcal Vaccination: 07/06/12 Physical Exam - Vital signs Vitals: Temp Pulse Resp BP Pulse Ox 99.0 F 111 H 24 H 203/147 H 98 04/18/18 14:18 04/18/18 14:18 04/18/18 14:18 04/18/18 14:18 04/18/18 14:18 Course - Re-evaluation Re-evalutation: 04/18/18 15:14 Vitals reviewed. Nursing notes reviewed. Patient was significantly hypertensive at presentation, her blood pressure improved without treatment. She states her normal systolic blood pressure is 200 and she has very difficult to control hypertension. I advised her to follow closely with her PCP to discuss her medications and better blood pressure control. Patient has acute right otitis media that will be treated with antibiotics. She is otherwise stable for discharge. Patient will follow with PCP for reevaluation in the next few days. - Vital Signs Vital signs: Temp Pulse Resp BP Pulse Ox 99.0 F 111 H 24 H 164/106 H 98 04/18/18 14:18 04/18/18 14:18 04/18/18 14:18 04/18/18 15:07 04/18/18 14:18 Discharge - Discharge Clinical Impression: Laryngitis Otitis media, right Qualifiers: Otitis media type: suppurative Chronicity: acute Recurrence: non-recurrent Spontaneous tympanic membrane rupture: without spontaneous rupture Qualified Code(s): H66.001 - Acute suppurative otitis media without spontaneous rupture of ear drum, right ear Condition: Stable Disposition: HOME, SELF-CARE Instructions: Laryngitis ([facility]), Otitis Media ([facility]) Additional Instructions: Please return to the emergency department if you have any worsening, or concern of your symptoms. Please return to the emergency department if you develop chest pain, difficulty breathing, severe abdominal pain, or ongoing vomiting. Please follow-up with your primary care physician in 2-3 days and any other recommended physicians. If prescribed, take all medications as directed. If you have any questions or concerns do not hesitate to return the emergency department for evaluation. Follow with your primary care doctor to discuss your elevated blood pressure and medications Prescriptions: Amoxicillin Trihydrate [Amoxil 875 mg Tablet] 1 tab PO BID #20 tablet Referrals: LORY QUACH MD [Primary Care Provider] - Follow up in 3-5 days
== END 2018-04-18 15:10 | disposition home or self-care (01) ==
LOC: ER 13:52
DX: H66.001 Acute suppurative otitis media without spontaneous rupture of ear drum, right ear (principal); J04.0 Acute laryngitis; H92.01 Otalgia, right ear; I10 Essential (primary) hypertension; Z88.8 Allergy status to other drugs, medicaments and biological substances; Z88.1 Allergy status to other antibiotic agents
CPT/HCPCS: 99282

== ENCOUNTER 2018-05-23 14:04 | Inpatient (IN) | payer SELFPAY ==
--- NOTE | 2018-05-23 14:26 | ER Document Report ---
ED Medical Screen (RME) - General Chief Complaint: Shortness Of Breath Stated Complaint: COUGH Time Seen by Provider: 05/23/18 14:20 Notes: 47-year-old female to the emergency department chief complaint of shortness of breath, hypertension, wheezing and chest tightness. Patient has a long-standing history of uncontrolled hypertensive with multiple episodes of hypertensive emergencies. I have greeted and performed a rapid initial assessment of this patient. A comprehensive ED assessment and evaluation of the patient, analysis of test results and completion of the medical decision making process will be conducted by additional ED providers. TRAVEL OUTSIDE OF THE [place] IN LAST 30 DAYS: No - Related Data Allergies/Adverse Reactions: ondansetron HCl [From Zofran] Allergy (Severe, Verified 05/23/18 14:05) resp distress azithromycin [From Zithromax] Allergy (Verified 05/23/18 14:05) Past Medical History - General Information source: Patient - Social History Cigarette use (# per day): No Frequency of alcohol use: None Drug Abuse: None Lives with: Spouse/Significant other Family history: Hypertension - Past Medical History Cardiac Medical History: Reports: Hx Hypertension, Hx Heart Murmur - with Denies: Hx Atrial Fibrillation, Hx Congestive Heart Failure, Hx Coronary Artery Disease, Hx Heart Attack, Hx Hypercholesterolemia, Hx Peripheral Vascular Disease, Hx Pulmonary Embolism Pulmonary Medical History: Reports: Hx Pneumonia Denies: Hx Asthma, Hx Bronchitis, Hx COPD, Hx Respiratory Failure, Hx Sleep Apnea, Hx Tuberculosis Neurological Medical History: Denies: Hx Seizures Renal/ Medical History: Reports: Hx Ovarian Cysts - x 2. Denies: Hx Peritoneal Dialysis, Hx Pelvic Inflammatory Disease Malignancy Medical History: Denies: Hx Breast Cancer, Hx Cervical Cancer, Hx Leukemia, Hx Lung Cancer, Hx Ovarian Cancer Musculoskeltal Medical History: Reports Hx Arthritis, Denies Hx Fibromyalgia, Denies Hx Muscular Dystrophy Skin Medical History: Denies Hx MRSA Psychiatric Medical History: Denies: Hx Depression Traumatic Medical History: Reports: Hx Fractures - rt knee, rt elbow Infectious Medical History: Denies: Hx HIV Past Surgical History: Reports: Hx Cholecystectomy, Hx Orthopedic Surgery - R knee replacement, elbow, Hx Tubal Ligation. Denies: Hx Appendectomy, Hx Bowel Surgery, Hx Section, Hx Coronary Artery Bypass Graft, Hx Gastric Bypass Surgery, Hx Herniorrhaphy, Hx Hysterectomy, Hx Mastectomy, Hx Pacemaker, Hx Tonsillectomy - Immunizations Hx Diphtheria, Pertussis, Tetanus Vaccination: Yes History of Influenza Vaccine for 02/2017 - 07/2017 Season: Yes Influenza Administration Date for 02/2017 - 07/2017 Season: 02/06/17 Review of Systems - Review of Systems Notes: Review of systems positive for the following: Chest pain, shortness of breath, wheezing, tightness in the chest cough Physical Exam - Vital signs Vitals: Temp Pulse Resp BP Pulse Ox 98.9 F 113 H 20 228/132 H 100 05/23/18 14:17 05/23/18 14:17 05/23/18 14:17 05/23/18 14:17 05/23/18 14:17 Interpretation: Normal - Respiratory Respiratory status: No respiratory distress Chest status: Nontender Breath sounds: Wheezing Chest palpation: Normal - Cardiovascular Rhythm: Tachycardia Heart sounds: Normal auscultation Murmur: No - Abdominal Inspection: Normal Distension: No distension Bowel sounds: Normal Tenderness: Nontender Organomegaly: No organomegaly - Extremities General upper extremity: Normal inspection, Nontender, Normal color, Normal ROM, Normal temperature General lower extremity: Normal inspection, Nontender, Normal color, Normal ROM, Normal temperature, Normal weight bearing. No: Brandon's sign Course - Vital Signs Vital signs: Temp Pulse Resp BP Pulse Ox 98.9 F 113 H 20 228/132 H 100 05/23/18 14:17 05/23/18 14:17 05/23/18 14:17 05/23/18 14:17 05/23/18 14:17 Doctor's Discharge - Discharge Referrals: STEPHANI YAO MD [Primary Care Provider] - Follow up as needed
[2018-05-23] MEDS ORDERED: HYDRALAZINE HCL INJ/PF 20 MG/1 ML SDV IV ONE (14:28)
[2018-05-23] MEDS ORDERED: ALBUTEROL SULFATE 0.083% NEB 2.5 MG/3 ML AMPUL NEB ONE (14:31)
--- NOTE | 2018-05-23 15:11 | RADIOLOGY REPORT (SQ) ---
EXAM DESCRIPTION: CHEST 2 VIEWS COMPLETED DATE/TIME: 05/23/2018 3:00 pm REASON FOR STUDY: sob COMPARISON: 12/17/2017 EXAM PARAMETERS: NUMBER OF VIEWS: two views TECHNIQUE: Digital Frontal and Lateral radiographic views of the chest acquired. RADIATION DOSE: NA LIMITATIONS: none FINDINGS: LUNGS AND PLEURA: Chronic interstitial changes. No evidence of pulmonary edema or pneumon ia. No pleural effusion. MEDIASTINUM AND HILAR STRUCTURES: No masses or contour abnormalities. HEART AND VASCULAR STRUCTURES: Heart normal size. No evidence for failure. BONES: No acute findings. HARDWARE: None in the chest. OTHER: No other significant finding. IMPRESSION: NO ACUTE RADIOGRAPHIC FINDING IN THE CHEST. TECHNICAL DOCUMENTATION: JOB ID: [id number] [employer]- All Rights Reserved Reading location - IP/workstation name: [email or web address]
[2018-05-23] MEDS ORDERED: FUROSEMIDE INJ/PF 20 MG/2 ML SDV IV ONE (15:59)
[2018-05-23 16:00] LABS: ABSOLUTE BASOPHILS # (AUTO) 0.1 10^3/uL (0.0-0.2); ABSOLUTE EOSINOPHILS # (AUTO) 0.2 10^3/uL (0.0-0.6); ABSOLUTE LYMPHOCYTES (AUTO) 2.3 10^3/uL (0.5-4.7); ABSOLUTE MONOCYTES (AUTO) 0.6 10^3/uL (0.1-1.4); ABSOLUTE NEUT (AUTO) 6.1 10^3/uL (1.7-8.2); BASOPHILS % (AUTO) 0.6 % (0-2); HEMATOCRIT 42.3 % (36.0-47.0); HEMOGLOBIN 13.2 g/dL (12.0-15.5); LYMPHOCYTES % (AUTO) 24.7 % (13-45); MEAN CORPUSCULAR HEMOGLOBIN 22.5 pg (27.0-33.4); MEAN CORPUSCULAR HGB CONC 31.3 g/dL (32.0-36.0); MEAN CORPUSCULAR VOLUME 72 fl (80-97); MONOCYTES % (AUTO) 6.7 % (3-13); PLATELET COUNT 265 10^3/uL (150-450); RED BLOOD COUNT 5.87 10^6/uL (3.72-5.28); RED CELL DISTRIBUTION WIDTH 17.2 % (11.5-14.0); TOTAL CELLS COUNTED % (AUTO) 100 %; WHITE BLOOD COUNT 9.3 10^3/uL (4.0-10.5)
[2018-05-23 16:23] LABS: ALANINE AMINOTRANSFERASE 21 U/L (9-52); ALBUMIN 4.2 g/dL (3.5-5.0); ALKALINE PHOSPHATASE 94 U/L (38-126); ANION GAP 9 (5-19); ASPARTATE AMINO TRANSFERASE 18 U/L (14-36); BILIRUBIN,DIRECT 0.2 mg/dL (0.0-0.4); BILIRUBIN,TOTAL 0.4 mg/dL (0.2-1.3); BLOOD UREA NITROGEN 16 mg/dL (7-20); CALCIUM 9.1 mg/dL (8.4-10.2); CARBON DIOXIDE 31 mmol/L (22-30); CHLORIDE 102 mmol/L (98-107); CREATINE KINASE 35 U/L (30-135); GLUCOSE 122 mg/dL (75-110); POTASSIUM 4.3 mmol/L (3.6-5.0); SODIUM 141.8 mmol/L (137-145); TOTAL PROTEIN 7.4 g/dL (6.3-8.2)
[2018-05-23 16:32] LABS: CREATINE KINASE MB 0.61 ng/mL (<4.55); NT PRO BNP 466 pg/mL (<125)
[2018-05-23 16:33] LABS: TROPONIN I < 0.012 ng/mL
[2018-05-23] MEDS ORDERED: NICARDIPINE HCL RTU, ISO-OS 20 MG/200 ML RTUINJ IV PRN (18:11)
--- NOTE | 2018-05-23 18:26 | ER Document Report ---
ED General - General Chief Complaint: Shortness Of Breath Stated Complaint: COUGH Time Seen by Provider: 05/23/18 14:20 Notes: Patient is here complaining of shortness of breath for the past 2-1/2 months. She has swelling of both her lower extremities. Laying down flat worsens the difficulty breathing and shortness of breath. Even the slightest exertion worsens her shortness of breath. Patient denies any chest pains except when she is having difficulty breathing. Patient has a history of severe hypertension and is on several medications, but did not bring them with her and does not know their names, strength, or frequency of taking them. She knows the medicines are lisinopril, clonidine, and Lasix. Patient says that she is lost about 5 pounds recently, but she says her says she is gained weight. She does not have a history of COPD or asthma or other pulmonary disease. TRAVEL OUTSIDE OF THE [place] IN LAST 30 DAYS: No - Related Data Allergies/Adverse Reactions: ondansetron HCl [From Zofran] Allergy (Severe, Verified 05/23/18 14:05) resp distress azithromycin [From Zithromax] Allergy (Verified 05/23/18 14:05) Past Medical History - General Information source: Patient - Social History Smoking Status: Never Smoker Cigarette use (# per day): No Chew tobacco use (# tins/day): No Frequency of alcohol use: None Drug Abuse: None Lives with: Spouse/Significant other Family History: Reviewed & Not Pertinent, CAD, DM Patient has suicidal ideation: No Patient has homicidal ideation: No - Past Medical History Cardiac Medical History: Reports: Hx Hypertension, Hx Heart Murmur - with Denies: Hx Congestive Heart Failure, Hx Coronary Artery Disease, Hx DVT Pulmonary Medical History: Reports: Hx Pneumonia Denies: Hx Asthma, Hx Bronchitis, Hx COPD Neurological Medical History: Denies: Hx Seizures Renal/ Medical History: Reports: Hx Ovarian Cysts - x 2 Musculoskeletal Medical History: Reports Hx Arthritis Traumatic Medical History: Reports: Hx Fractures - rt knee, rt elbow Past Surgical History: Reports: Hx Cholecystectomy, Hx Orthopedic Surgery - R knee replacement, elbow, Hx Tubal Ligation - Immunizations Hx Diphtheria, Pertussis, Tetanus Vaccination: Yes Hx Pneumococcal Vaccination: 07/06/12 Review of Systems - Review of Systems Notes: REVIEW OF SYSTEMS: CONSTITUTIONAL : Denies fever. EENT: Denies eye, ear, nose or mouth or throat pain or other symptoms. CARDIOVASCULAR: Denies chest pain. See HPI. Edematous swelling of the lower extremities bilaterally. RESPIRATORY: See HPI. GASTROINTESTINAL: Denies abdominal pain or nausea, vomiting, or diarrhea. GENITOURINARY: Denies difficulty or painful urinating, urinary frequency, blood in urine. MUSCULOSKELETAL: Denies back or neck pain. Denies joint pain or swelling. SKIN: Denies rash or skin lesions. NEUROLOGICAL: Denies LOC or altered mental status. Denies headache. Denies sensory loss or motor deficits. ALL OTHER SYSTEMS REVIEWED AND NEGATIVE. Physical Exam - Vital signs Vitals: Temp Pulse Resp BP Pulse Ox 98.9 F 113 H 20 228/132 H 100 05/23/18 14:17 05/23/18 14:17 05/23/18 14:17 05/23/18 14:17 05/23/18 14:17 Interpretation: Hypertensive, Tachycardic - 113 Notes: PHYSICAL EXAMINATION: GENERAL: Well-appearing, in no acute distress. Weight is 168 kg. HEAD: Atraumatic, normocephalic. EYES: Pupils equal round and reactive to light, extraocular movements intact. ENT: oropharynx clear without exudates. Moist mucous membranes. NECK: Normal range of motion, supple. LUNGS: Breath sounds clear and equal bilaterally. No wheezes heard. Patient did not get the nebulizer treatment that was ordered in triage. I do not think she needs that treatment him especially with the already elevated blood pressure and heart rate. HEART: Regular rate and rhythm without murmurs. ABDOMEN: Soft, nontender. No guarding or rebound. No masses. BACK: No tenderness throughout entire back. EXTREMITIES: Normal range of motion without pain. Negative Homans bilaterally. No significant swelling or tenderness over the major venous areas of the lower extremities. NEUROLOGICAL: Normal speech, normal gait. Normal sensory, motor, and reflex exams. Awake, alert, and oriented x3. Cranial nerves normal. PSYCH: Normal mood, normal affect. SKIN: Warm, dry, no rashes. Course - Re-evaluation Re-evalutation: 05/23/18 18:31 Patient was given 10 mg of hydralazine IV and then 20 mg of Lasix IV. Her blood pressure decreased slightly but still had a systolic of about 220 and a diastolic of 110 220. I told the patient that I cannot safely get her blood pressure down and be able to discharge her home and feels she needs to be admitted and she is agreeable. Discussed with hospitalist who will admit the patient and we will start a nicardipine drip and admit the patient to ICU. - Vital Signs Vital signs: Temp Pulse Resp BP Pulse Ox 97.8 F 114 H 22 H 123/80 95 05/24/18 08:00 05/23/18 22:24 05/24/18 10:49 05/24/18 10:49 05/24/18 10:49 - Laboratory Result Diagrams: 05/23/18 15:37 05/24/18 04:11 Laboratory results interpreted by me: 05/23/18 05/23/18 05/23/18 15:37 15:37 15:37 RBC 5.87 H MCV 72 L MCH 22.5 L MCHC 31.3 L RDW 17.2 H Carbon Dioxide 31 H Glucose 122 H NT-Pro-B Natriuret Pep 466 H - Diagnostic Test Radiology results interpreted by me: 05/23/18 18:35 Chest x-ray is normal. No cardiac enlargement and no evidence of congestive failure. - EKG Interpretation by Me EKG shows normal: Sinus rhythm Rate: Normal Rhythm: NSR Voltage: Consistant with [facility] Critical Care Note - Critical Care Note Total time excluding time spent on procedures (mins): 40 Discharge - Discharge Clinical Impression: Hypertensive emergency Condition: Stable Disposition: ADMITTED INPATIENT Admitting Provider: Hospitalist Unit Admitted: ICU
[2018-05-23] MEDS: FUROSEMIDE INJ/PF 40 MG/4 ML SDV IV SCH (18:37)
[2018-05-23] MEDS: NICARDIPINE HCL RTU, ISO-OS 20 MG/200 ML RTUINJ IV PRN ×3 (18:41→23:49)
--- NOTE | 2018-05-23 19:07 | PDOC H&P ---
History of Present Illness Admission Date/PCP: STEPHANI YAO MD Patient complains of: SOB History of Present Illness: BILL MARQUEZ is a 47 year old female with a PMH of poorly controlled hypertension and diastolic heart failure who presented with worsening SOB. Patient has a long standing history of HTN and says she was on 7 antihypertensive medications before. She says she is now only taking 5 medications. She takes metoprolol, clonidine, valsartan-HCTZ, lasix and she also takes lisinopril on top of being on an ARB. She says she has been having worsening SOB in the past 3 months. She says she takes her medications but does not check her blood pressures regularly at home although she says the last time she checked it, they were mostly in the 160/100s. She says the SOB has been worsening over the past 4 weeks. This is also associated with increasing bipedal edema, 4 pillow orthopnea and exertional dyspnea in the past 4-5 weeks. When asked why she waited to come in today, she says she only agreed to go to the hospital as her granddaughter visited her last night and insisted that she go to the hospital. In the ER, BP was 228/132. She was given IV hydralazine and 20 mg of IV Lasix and pressure only went down to 200/115. She is not hypoxic. She denies chest pain or palpitations. Past Medical History Cardiac Medical History: Reports: Hypertension, Heart Murmur - with Denies: Atrial Fibrillation, Congestive Heart Failure, Coronary Artery Disease, Myocardial Infarction, Hyperlipidema, Peripheral Vascular Disease, Pulmonary Embolism Pulmonary Medical History: Reports: Pneumonia Denies: Asthma, Bronchitis, Chronic Obstructive Pulmonary Disease (COPD), Respiratory Failure, Sleep Apnea, Tuberculosis Neurological Medical History: Denies: Seizures Malignancy Medical History: Denies: Breast Cancer, Cervical Cancer, Leukemia, Lung Cancer, Ovarian Cancer Musculoskeltal Medical History: Reports: Arthritis Denies: Fibromyalgia Psychiatric Medical History: Denies: Depression Hematology: Reports: Anemia - heavy menses related Infectious Medical History: Denies: HIV Past Surgical History Past Surgical History: Reports: Cholecystectomy, Orthopedic Surgery - R knee replacement, elbow, Tubal Ligation Denies: Appendectomy, Section, Coronary Artery Bypass Graft, Gastric Bypass Surgery, Herniorrhaphy, Hysterectomy, Mastectomy, Pacemaker, Tonsille ctomy Social History Lives with: Spouse/Significant other Smoking Status: Never Smoker Frequency of Alcohol Use: None Hx Recreational Drug Use: No Drugs: None Hx Prescription Drug Abuse: No Family History Family History: Reviewed & Not Pertinent, CAD, DM Parental Family History Reviewed: Yes - no premature CAD Children Family History Reviewed: No Sibling(s) Family History Reviewed.: No Medication/Allergy Home Medications: Benzonatate [Tessalon Perles 100 mg Capsule] 100 mg PO Q12HP PRN #20 capsule 05/26/18 Clonidine HCl [Catapres 0.3 mg Tablet] 0.3 mg PO Q8 #90 tablet 05/26/18 Furosemide [Lasix 20 mg Tablet] 20 mg PO BID #60 tablet 05/26/18 Hydrochlorothiazide [Hydrodiuril 25 mg Tablet] 25 mg PO DAILY #30 tablet 05/26/18 Losartan Potassium [Cozaar 25 mg Tablet] 25 mg PO DAILY #30 tablet 05/26/18 Metoprolol Tartrate [Lopressor 100 mg Tablet] 100 mg PO Q12 #60 tablet 05/26/18 Allergies/Adverse Reactions: ondansetron HCl [From Zofran] Allergy (Severe, Verified 05/23/18 14:05) resp distress azithromycin [From Zithromax] Allergy (Verified 05/23/18 14:05) Review of Systems All systems: reviewed and no additional remarkable complaints except as stated - as mentioned above Physical Exam Vital Signs: Temp Pulse Resp BP Pulse Ox 98.9 F 113 H 20 228/132 H 100 05/23/18 14:17 05/23/18 14:17 05/23/18 14:17 05/23/18 14:17 05/23/18 14:17 Intake & Output 05/22/18 05/23/18 05/24/18 06:59 06:59 06:59 Weight 370 lb 6.025 oz General appearance: PRESENT: no acute distress, well-developed, well-nourished Head exam: PRESENT: atraumatic, normocephalic Eye exam: PRESENT: conjunctiva pink, EOMI, PERRLA. ABSENT: scleral icterus Ear exam: PRESENT: normal external ear exam Mouth exam: PRESENT: moist, tongue midline Neck exam: ABSENT: carotid bruit, JVD, lymphadenopathy, thyromegaly Respiratory exam: PRESENT: clear to auscultation kelly. ABSENT: rales, rhonchi, wheezes Cardiovascular exam: PRESENT: RRR. ABSENT: diastolic murmur, rubs, systolic murmur Pulses: PRESENT: normal dorsalis pedis pul GI/Abdominal exam: PRESENT: normal bowel sounds. ABSENT: tenderness Rectal exam: PRESENT: deferred Extremities exam: PRESENT: +2 edema Neurological exam: PRESENT: alert, awake, oriented to person, oriented to place, oriented to time, oriented to situation, CN II-XII grossly intact. ABSENT: motor sensory deficit Results Laboratory Results: 05/23/18 15:37 05/23/18 15:37 05/23/18 05/23/18 15:37 15:37 WBC 9.3 RBC 5.87 H Hgb 13.2 Hct 42.3 MCV 72 L MCH 22.5 L MCHC 31.3 L RDW 17.2 H Plt Count 265 Seg Neutrophils % 66.0 Lymphocytes % 24.7 Monocytes % 6.7 Eosinophils % 2.0 Basophils % 0.6 Absolute Neutrophils 6.1 Absolute Lymphocytes 2.3 Absolute Monocytes 0.6 Absolute Eosinophils 0.2 Absolute Basophils 0.1 Sodium 141.8 Potassium 4.3 Chloride 102 Carbon Dioxide 31 H Anion Gap 9 BUN 16 Creatinine 0.70 Est GFR ( Amer) > 60 Est GFR (Non-Af Amer) > 60 Glucose 122 H Calcium 9.1 Total Bilirubin 0.4 AST 18 ALT 21 Alkaline Phosphatase 94 Total Protein 7.4 Albumin 4.2 05/23/18 05/23/18 15:37 15:37 Creatine Kinase 35 CK-MB (CK-2) 0.61 Troponin I < 0.012 NT-Pro-B Natriuret Pep 466 H Impressions: Chest X-Ray 05/23/18 14:25 IMPRESSION: NO ACUTE RADIOGRAPHIC FINDING IN THE CHEST. Assessment & Plan - Diagnosis (1) Hypertensive emergency Is this a current diagnosis for this admission?: Yes Plan: Patient is presenting with elevated BP at 228/132 and appears to be in acute diastolic heart failure. Will start nicardipine drip and will also start her on IV Lasix 40 mg q12. (2) Acute diastolic (congestive) heart failure Is this a current diagnosis for this admission?: Yes Plan: Secondary to accelerated hypertension. Optimize blood pressure control. Will also add IV Lasix as she does appear to be fluid overloaded. She had a recent echo on December 2017. - Time Time Spent: 30 to 50 Minutes
--- NOTE | 2018-05-23 19:22 | EKG REPORT ---
SEVERITY:- ABNORMAL ECG - SINUS TACHYCARDIA PROBABLE LEFT ATRIAL ABNORMALITY REPOL ABNRM SUGGESTS ISCHEMIA, LATERAL LEADS versus [facility] : Confirmed by: Eddie Engel 23-May-2018 19:22:18
[2018-05-23] MEDS: HEPARIN SOD (PORCINE) 5,000 UNIT/ML 1 ML SYRINGE SUBCUT SCH (22:39)
[2018-05-23] MEDS ORDERED: GUAIFENESIN SYRP 200 MG/10 ML UDC PO PRN (23:32)
[2018-05-23] MEDS ORDERED: HYDROCODONE BIT/HOMATROPINE SYRUP 5 ML UDCUP PO PRN (23:32)
[2018-05-23] MEDS ORDERED: FLUTICASONE NASAL SPRAY 50 MCG/SPRY 120 SPRAY/16 GM NASL ONE (23:59)
[2018-05-23] MEDS ORDERED: CHLORPHENIRAMINE MALEATE 4 MG TABLET PO ONE (23:59)
[2018-05-24] MEDS ORDERED: FLUTICASONE NASAL SPRAY 50 MCG/SPRY 120 SPRAY/16 GM ONE (00:01)
[2018-05-24] MEDS ORDERED: CHLORPHENIRAMINE MALEATE 4 MG TABLET ONE (00:04)
[2018-05-24] MEDS: NICARDIPINE HCL RTU, ISO-OS 20 MG/200 ML RTUINJ IV PRN (03:24)
[2018-05-24 04:40] LABS: ANION GAP 7 (5-19); BLOOD UREA NITROGEN 18 mg/dL (7-20); CALCIUM 8.7 mg/dL (8.4-10.2); CARBON DIOXIDE 29 mmol/L (22-30); CHLORIDE 102 mmol/L (98-107); GLUCOSE 128 mg/dL (75-110); POTASSIUM 4.3 mmol/L (3.6-5.0); SODIUM 137.6 mmol/L (137-145)
[2018-05-24] MEDS: FUROSEMIDE INJ/PF 40 MG/4 ML SDV IV SCH ×2 (06:36→18:54)
[2018-05-24] MEDS ORDERED: (PENDING PHARMACY ID) (Clonidine Hcl [Catapres 0.3 Mg Tablet] 0.3 MG) PO SCH (07:45)
[2018-05-24] MEDS ORDERED: (PENDING PHARMACY ID) (Lisinopril/Hydrochlorothiazide [Zestoretic 20-25 Mg Tablet] 1 EACH) PO SCH (07:45)
[2018-05-24] MEDS ORDERED: LISINOPRIL 10 MG TABLET PO SCH (08:00)
[2018-05-24] MEDS: METOPROLOL TARTRATE 100 MG TABLET PO SCH ×2 (09:30→21:19)
[2018-05-24] MEDS: ACETAMINOPHEN 325 MG TABLET PO PRN (09:30)
[2018-05-24] MEDS: HYDROCHLOROTHIAZIDE 25 MG TABLET PO SCH (09:31)
[2018-05-24] MEDS: HEPARIN SOD (PORCINE) 5,000 UNIT/ML 1 ML SYRINGE SUBCUT SCH ×2 (09:34→21:20)
[2018-05-24] MEDS: BENZONATATE 100 MG CAPSULE PO PRN (09:34)
[2018-05-24] MEDS: CLONIDINE HCL 0.1 MG TABLET PO SCH ×3 (09:34→21:20)
[2018-05-24] MEDS: FLUTICASONE NASAL SPRAY 50 MCG/SPRY 120 SPRAY/16 GM NASL SCH ×2 (09:36→21:30)
--- NOTE | 2018-05-24 15:58 | PDOC PROGRESS REPORT ---
Subjective Progress Note for:: 05/24/18 Subjective:: BILL MARQUEZ is a 47 year old female with a PMH of poorly controlled hypertension and diastolic heart failure who was admitted for hypertensive emergency on diastolic heart failure. She was started on nicardipine drip and IV Lasix. no acute event overnight. Most of her oral home regimen were resumed and she was weaned of nicardipine this morning. She continues to have chronic SOB and orthopnea and says it has only very slightly improved. Denies chest pain. Reason For Visit: HYERTENSIVE CRISIS Physical Exam Vital Signs: Temp Pulse Resp BP Pulse Ox 98.3 F 112 H 23 H 118/79 97 05/24/18 14:36 05/24/18 10:24 05/24/18 14:34 05/24/18 14:34 05/24/18 14:34 Intake & Output 05/23/18 05/24/18 05/25/18 06:59 06:59 06:59 Intake Total 581 484 Output Total 400 400 Balance 181 84 Weight 370 lb 13.08 oz General appearance: PRESENT: no acute distress, morbidly obese Head exam: PRESENT: atraumatic, normocephalic Eye exam: PRESENT: conjunctiva pink, EOMI, PERRLA. ABSENT: scleral icterus Ear exam: PRESENT: normal external ear exam Mouth exam: PRESENT: moist, tongue midline Neck exam: ABSENT: carotid bruit, JVD, lymphadenopathy, thyromegaly Respiratory exam: PRESENT: clear to auscultation kelly. ABSENT: rales, rhonchi, wheezes Cardiovascular exam: PRESENT: RRR. ABSENT: diastolic murmur, rubs, systolic murmur Pulses: PRESENT: normal dorsalis pedis pul GI/Abdominal exam: ABSENT: mass, tenderness Rectal exam: PRESENT: deferred Extremities exam: PRESENT: +2 edema Neurological exam: PRESENT: alert, awake, oriented to person, oriented to place, oriented to time, oriented to situation, CN II-XII grossly intact. ABSENT: motor sensory deficit Results Laboratory Results: 05/23/18 15:37 05/24/18 04:11 05/23/18 05/23/18 05/23/18 15:37 15:37 15:37 WBC 9.3 RBC 5.87 H Hgb 13.2 Hct 42.3 MCV 72 L MCH 22.5 L MCHC 31.3 L RDW 17.2 H Plt Count 265 Seg Neutrophils % 66.0 Lymphocytes % 24.7 Monocytes % 6.7 Eosinophils % 2.0 Basophils % 0.6 Absolute Neutrophils 6.1 Absolute Lymphocytes 2.3 Absolute Monocytes 0.6 Absolute Eosinophils 0.2 Absolute Basophils 0.1 Sodium 141.8 Potassium 4.3 Chloride 102 Carbon Dioxide 31 H Anion Gap 9 BUN 16 Creatinine 0.70 Est GFR ( Amer) > 60 Est GFR (Non-Af Amer) > 60 Glucose 122 H Calcium 9.1 Magnesium Total Bilirubin 0.4 AST 18 ALT 21 Alkaline Phosphatase 94 Total Protein 7.4 Albumin 4.2 TSH 2.30 05/24/18 04:11 WBC RBC Hgb Hct MCV MCH MCHC RDW Plt Count Seg Neutrophils % Lymphocytes % Monocytes % Eosinophils % Basophils % Absolute Neutrophils Absolute Lymphocytes Absolute Monocytes Absolute Eosinophils Absolute Basophils Sodium 137.6 Potassium 4.3 Chloride 102 Carbon Dioxide 29 Anion Gap 7 BUN 18 Creatinine 0.64 Est GFR ( Amer) > 60 Est GFR (Non-Af Amer) > 60 Glucose 128 H Calcium 8.7 Magnesium 1.8 Total Bilirubin AST ALT Alkaline Phosphatase Total Protein Albumin TSH 05/23/18 05/23/18 15:37 15:37 Creatine Kinase 35 CK-MB (CK-2) 0.61 Troponin I < 0.012 NT-Pro-B Natriuret Pep 466 H Impressions: Chest X-Ray 05/23/18 14:25 IMPRESSION: NO ACUTE RADIOGRAPHIC FINDING IN THE CHEST. Assessment & Plan - Diagnosis (1) Hypertensive emergency Is this a current diagnosis for this admission?: Yes Plan: Resolved. Patient presented with elevated BP at 228/132 and was in acute diastolic heart failure. Off nicardipine. HCTZ, metoporol, clonidine and lisinopril resumed. Continue IV Lasix. Per RN, patient had transient low BP after resuming meds down to 80 systolic this morning. This has recovered to 130/80s. Will add PO hydralazine or PO labetalol if she continues to have BP spikes. (2) Acute diastolic (congestive) heart failure Is this a current diagnosis for this admission?: Yes Plan: Will continue to optimize blood pressure control. Continue IV Lasix. - Time Time Spent with patient: 25-34 minutes
[2018-05-25] MEDS: CLONIDINE HCL 0.1 MG TABLET PO SCH ×3 (06:00→22:06)
[2018-05-25] MEDS: BENZONATATE 100 MG CAPSULE PO PRN (07:56)
[2018-05-25] MEDS ORDERED: FUROSEMIDE INJ/PF 40 MG/4 ML SDV IV SCH (10:00)
[2018-05-25] MEDS: FUROSEMIDE INJ/PF 40 MG/4 ML SDV IV SCH (10:59)
[2018-05-25] MEDS: FLUTICASONE NASAL SPRAY 50 MCG/SPRY 120 SPRAY/16 GM NASL SCH ×2 (11:18→22:11)
[2018-05-25] MEDS: METOPROLOL TARTRATE 100 MG TABLET PO SCH ×2 (11:19→22:11)
[2018-05-25] MEDS: HEPARIN SOD (PORCINE) 5,000 UNIT/ML 1 ML SYRINGE SUBCUT SCH ×2 (11:19→22:07)
[2018-05-25] MEDS: HYDROCHLOROTHIAZIDE 25 MG TABLET PO SCH (11:20)
[2018-05-25] MEDS: FUROSEMIDE 20 MG TABLET PO SCH ×2 (11:21→18:42)
[2018-05-25 11:56] LABS: ANION GAP 7 (5-19); BLOOD UREA NITROGEN 28 mg/dL (7-20); CARBON DIOXIDE 30 mmol/L (22-30); CHLORIDE 100 mmol/L (98-107); GLUCOSE 91 mg/dL (75-110); POTASSIUM 3.9 mmol/L (3.6-5.0)
--- NOTE | 2018-05-25 16:01 | PDOC PROGRESS REPORT ---
Subjective Progress Note for:: 05/25/18 Subjective:: BILL MARQUEZ is a 47 year old female with a PMH of poorly controlled hypertension and diastolic heart failure who was admitted for hypertensive emergency on diastolic heart failure. She was started on nicardipine drip and IV Lasix. She was weaned off nicardipine on 05/24/18 No acute event overnight. She was resumed on most of her oral antihypertensives. She was continued on IV Lasix. Her blood pressure did drop to 95/70s and she says she felt generally weak. She continues to have chronic SOB and orthopnea but says it has slightly improved. She also appears less edematous today and she says her legs and abdomen feel less tight. Denies chest pain. Reason For Visit: HYERTENSIVE CRISIS Physical Exam Vital Signs: Temp Pulse Resp BP Pulse Ox 98.4 F 77 14 138/91 H 93 05/25/18 12:00 05/25/18 12:00 05/25/18 12:00 05/25/18 12:00 05/25/18 12:00 Intake & Output 05/24/18 05/25/18 05/26/18 06:59 06:59 06:59 Intake Total 581 1075 Output Total 400 400 Balance 181 675 Weight 370 lb 13.08 oz 367 lb 11.697 oz General appearance: PRESENT: no acute distress, morbidly obese Head exam: PRESENT: atraumatic, normocephalic Eye exam: PRESENT: conjunctiva pink, EOMI, PERRLA. ABSENT: scleral icterus Ear exam: PRESENT: normal external ear exam Neck exam: ABSENT: carotid bruit, JVD, lymphadenopathy, thyromegaly Respiratory exam: PRESENT: clear to auscultation kelly. ABSENT: rales, rhonchi, wheezes Cardiovascular exam: PRESENT: RRR. ABSENT: diastolic murmur, rubs, systolic murmur Pulses: PRESENT: normal dorsalis pedis pul GI/Abdominal exam: ABSENT: mass, tenderness Rectal exam: PRESENT: deferred Extremities exam: PRESENT: +2 edema Neurological exam: PRESENT: alert, awake, oriented to person, oriented to place, oriented to time, oriented to situation, CN II-XII grossly intact. ABSENT: motor sensory deficit Results Laboratory Results: 05/23/18 15:37 05/25/18 11:26 05/25/18 11:26 Sodium 137.0 Potassium 3.9 Chloride 100 Carbon Dioxide 30 Anion Gap 7 BUN 28 H Creatinine 0.76 Est GFR ( Amer) > 60 Est GFR (Non-Af Amer) > 60 Glucose 91 Calcium 9.0 05/23/18 05/23/18 15:37 15:37 Creatine Kinase 35 CK-MB (CK-2) 0.61 Troponin I < 0.012 NT-Pro-B Natriuret Pep 466 H Impressions: Chest X-Ray 05/23/18 14:25 IMPRESSION: NO ACUTE RADIOGRAPHIC FINDING IN THE CHEST. Assessment & Plan - Diagnosis (1) Hypertensive emergency Is this a current diagnosis for this admission?: Yes Plan: Resolved. Patient presented with elevated BP at 228/132 and was in acute diastolic heart failure. Off nicardipine. HCTZ, metoprolol, clonidine and lisinopril resumed. Discontinue IV Lasix due to low normal blood pressures. Will resume home dose of PO Lasix. (2) Acute diastolic (congestive) heart failure Is this a current diagnosis for this admission?: Yes Plan: Continue to optimize blood pressure control. DC IV Lasix. Switch back to oral home lasix. (3) Obesity Is this a current diagnosis for this admission?: Yes Plan: BMI of 59. Counseled on weight loss. - Time Time Spent with patient: 25-34 minutes
--- NOTE | 2018-05-25 23:29 | XCELERA REPORT ---
[address] [address] Transthoracic Echocardiogram Report Name: BILL MARQUEZ Age: 47 yrs Gender: Female : 1970 Patient Status: Inpatient Patient Location: [facility] Study Date: 05/24/2018 12:20 PM Procedure: A two-dimensional transthoracic echocardiogram with color flow and Doppler was performed. The study was technically difficult with many images being suboptimal in quality. Reason For Study: fluid overload,worsening orthopnea,SOB History: fluid overload,worsening orthopnea,SOB. Ordering Physician: DELLA ELLISON Performed By: Emma Pandya Interpretation Summary The left ventricle is normal in size. There is moderate concentric left ventricular hypertrophy. LV EF is > than 60% Left ventricular systolic function is normal. Doppler measurements suggest normal left ventricular diastolic function The left ventricular wall motion is normal. The right ventricle is grossly normal size. The right atrium is normal. The left atrium is mildly dilated. There is no evidence of mitral valve prolapse. There is no vegetation seen on the mitral valve. There is no mitral valve stenosis. There is no mitral regurgitation noted. There is no aortic valve stenosis No aortic regurgitation is present. There is no tricuspid stenosis. There is a trace amount of tricuspid regurgitation Right ventricular systolic pressure is normal. RVSP is 25 to 30 mm of Hg , with RA mean of 5 to 10. There is no pulmonic valvular regurgitation. There is no pericardial effusion. MMode/2D Measurements & Calculations RVDd: 3.1 cm LVIDd: 5.7 cm FS: 33.1 % Ao root diam: 2.7 cm IVSd: 1.4 cm LVIDs: 3.8 cm EDV(Teich): 161.3 ml Ao root area: 5.9 cm2 LVPWd: 1.5 cm ESV(Teich): 63.0 ml EF(Teich): 61.0 % Doppler Measurements & Calculations MV E max victoria: MV dec slope: Ao V2 max: LV V1 max P.0 cm/sec 146.3 cm/sec 5.6 mmHg MV A max victoria: 428.3 cm/sec2 Ao max PG: LV V1 max: 77.3 cm/sec MV dec time: 0.20 sec 8.6 mmHg 117.9 cm/sec MV E/A: 1.1 PA V2 max: TR max victoria: 98.2 cm/sec 224.9 cm/sec PA max P.9 mmHgTR max P.2 mmHg Left Ventricle The left ventricle is normal in size. There is moderate concentric left ventricular hypertrophy. LV EF is > than 60%. Left ventricular systolic function is normal. Doppler measurements suggest normal left ventricular diastolic function. The left ventricular wall motion is normal. Right Ventricle The right ventricular apex is not well visualized. The right ventricle is grossly normal size. Atria The right atrium is normal. The left atrium is mildly dilated. Mitral Valve There is mild mitral annular calcification. There is no evidence of mitral valve prolapse. There is no vegetation seen on the mitral valve. There is no mitral valve stenosis. There is no mitral regurgitation noted. Aortic Valve There is no aortic valvular vegetation. There is no aortic valve stenosis. There is no LVOT obstruction. No aortic regurgitation is present. Tricuspid Valve There is no tricuspid stenosis. There is a trace amount of tricuspid regurgitation. Right ventricular systolic pressure is normal. RVSP is 25 to 30 mm of Hg , with RA mean of 5 to 10. Pulmonic Valve There is no pulmonic valvular stenosis. There is no pulmonic valvular regurgitation. Great Vessels The aortic root is normal size. Effusions There is no pericardial effusion. : DELLA ELLISON > Vanessa Lucas
[2018-05-26] MEDS: CLONIDINE HCL 0.1 MG TABLET PO SCH (06:33)
[2018-05-26] MEDS: ACETAMINOPHEN 325 MG TABLET PO PRN (08:22)
[2018-05-26] MEDS: METOPROLOL TARTRATE 100 MG TABLET PO SCH (10:16)
[2018-05-26] MEDS: HYDROCHLOROTHIAZIDE 25 MG TABLET PO SCH (10:17)
[2018-05-26] MEDS: FLUTICASONE NASAL SPRAY 50 MCG/SPRY 120 SPRAY/16 GM NASL SCH (10:17)
[2018-05-26] MEDS: FUROSEMIDE 20 MG TABLET PO SCH (10:17)
[2018-05-26] MEDS: HEPARIN SOD (PORCINE) 5,000 UNIT/ML 1 ML SYRINGE SUBCUT SCH (10:19)
[2018-05-26 14:37] VITALS: BP 145/99
--- NOTE | 2018-05-26 19:05 | PDOC DISCHARGE SUMMARY ---
General - Admit/Disc Date/PCP Admission Date/Primary Care Provider: 05/23/18 19:06 STEPHANI YAO MD Discharge Date: 05/26/18 - Discharge Diagnosis (1) Hypertensive emergency Is this a current diagnosis for this admission?: Yes (2) Acute diastolic (congestive) heart failure Is this a current diagnosis for this admission?: Yes (3) Obesity Is this a current diagnosis for this admission?: Yes - Additional Information Resuscitation Status: Full Code Discharge Diet: Cardiac Discharge Activity: Activity As Tolerated, Balance Activity w/Rest, Weigh Daily Prescriptions: Benzonatate [Tessalon Perles 100 mg Capsule] 100 mg PO Q12HP PRN #20 capsule PRN Reason: Clonidine HCl [Catapres 0.3 mg Tablet] 0.3 mg PO Q8 #90 tablet Furosemide [Lasix 20 mg Tablet] 20 mg PO BID #60 tablet Hydrochlorothiazide [Hydrodiuril 25 mg Tablet] 25 mg PO DAILY #30 tablet Losartan Potassium [Cozaar 25 mg Tablet] 25 mg PO DAILY #30 tablet Metoprolol Tartrate [Lopressor 100 mg Tablet] 100 mg PO Q12 #60 tablet Home Medications: Benzonatate [Tessalon Perles 100 mg Capsule] 100 mg PO Q12HP PRN #20 capsule 05/26/18 Clonidine HCl [Catapres 0.3 mg Tablet] 0.3 mg PO Q8 #90 tablet 05/26/18 Furosemide [Lasix 20 mg Tablet] 20 mg PO BID #60 tablet 05/26/18 Hydrochlorothiazide [Hydrodiuril 25 mg Tablet] 25 mg PO DAILY #30 tablet 05/26/18 Losartan Potassium [Cozaar 25 mg Tablet] 25 mg PO DAILY #30 tablet 05/26/18 Metoprolol Tartrate [Lopressor 100 mg Tablet] 100 mg PO Q12 #60 tablet 05/26/18 History of Present Illness History of Present Illness: BILL MARQUEZ is a 47 year old female with a PMH of poorly controlled hypertension, diastolic heart failure and proteinuria who presented with worsening SOB. Patient has a long standing history of HTN and says she was on 7 antihypertensive medications before. She says she is now only taking 5 med ications. She takes metoprolol, clonidine, valsartan-HCTZ, lasix and she also takes lisinopril on top of being on an ARB. She says she has been having worsening SOB in the past 3 months. She says she takes her medications but does not check her blood pressures regularly at home although she says the last time she checked it, they were mostly in the 160/100s. She says the SOB has been worsening over the past 4 weeks. This is also associated with increasing bipedal edema, 4 pillow orthopnea and exertional dyspnea in the past 4-5 weeks. When asked why she waited to come in today, she says she only agreed to go to the hospital as her granddaughter visited her last night and insisted that she go to the hospital. Hospital Course Hospital Course: BILL MARQUEZ is a 47 year old female with a PMH of poorly controlled hypertension and diastolic heart failure who was admitted for hypertensive emergency on diastolic heart failure. In the ER, BP was 228/132. She was given IV hydralazine and 20 mg of IV Lasix and pressure only went down to 200/115. She was started on nicardipine drip and IV Lasix. She was weaned off nicardipine on 05/24/18. She was resumed on her oral antihypertensives. She was continued on IV Lasix. Her blood pressure did drop to 95/70s and she says she felt generally weak. IV Lasix was d/morenita and she was switched to her home PO Lasix. Previous echo showed diastolic dysfunction but repeat echo showed normal results (normal EF and diastolic function). She likely went to acute heart failure from severe hypertension. Her SOB did improve and her edema and abdominal tightness also significantly improved. She was discharged on most of her home medications: lopressor, lasix, clonidine, and HCTZ. Losartan was added. Physical Exam Vital Signs: Temp Pulse Resp BP Pulse Ox 98.0 F 79 17 156/87 H 92 05/26/18 07:21 05/26/18 07:21 05/26/18 07:21 05/26/18 07:21 05/26/18 07:21 Intake & Output 05/25/18 05/26/18 05/27/18 06:59 06:59 06:59 Intake Total 1075 720 Output Total 400 2500 Balance 675 -1780 Weight 367 lb 11.697 oz 369 lb 11.443 oz General appearance: PRESENT: no acute distress, morbidly obese Head exam: PRESENT: atraumatic, normocephalic Eye exam: PRESENT: conjunctiva pink, EOMI, PERRLA. ABSENT: scleral icterus Ear exam: PRESENT: normal external ear exam Mouth exam: PRESENT: moist, tongue midline Neck exam: ABSENT: carotid bruit, JVD, lymphadenopathy, thyromegaly Respiratory exam: PRESENT: clear to auscultation kelly. ABSENT: rales, rhonchi, wheezes Cardiovascular exam: PRESENT: RRR. ABSENT: diastolic murmur, rubs, systolic murmur Pulses: PRESENT: normal dorsalis pedis pul GI/Abdominal exam: PRESENT: normal bowel sounds, soft. ABSENT: distended, guarding, mass, organolmegaly, rebound, tenderness Rectal exam: PRESENT: deferred Extremities exam: PRESENT: full ROM, +2 edema. ABSENT: calf tenderness, clubbing, pedal edema Neurological exam: PRESENT: alert, awake, oriented to person, oriented to place, oriented to time, oriented to situation, CN II-XII grossly intact. ABSENT: motor sensory deficit Results Laboratory Results: 05/23/18 15:37 05/25/18 11:26 05/25/18 11:26 Sodium 137.0 Potassium 3.9 Chloride 100 Carbon Dioxide 30 Anion Gap 7 BUN 28 H Creatinine 0.76 Est GFR ( Amer) > 60 Est GFR (Non-Af Amer) > 60 Glucose 91 Calcium 9.0 05/23/18 05/23/18 15:37 15:37 Creatine Kinase 35 CK-MB (CK-2) 0.61 Troponin I < 0.012 NT-Pro-B Natriuret Pep 466 H Impressions: Chest X-Ray 05/23/18 14:25 IMPRESSION: NO ACUTE RADIOGRAPHIC FINDING IN THE CHEST. Qualifiers - * PATIENT BEING DISCHARGED WITH ANY OF THE FOLLOWING DIAGNOSIS: No
== END 2018-05-26 16:08 | disposition home or self-care (01) | DRG 304 ==
LOC: ER 14:04 → EH 19:06 → ICU 22:08 → 4S 05-24 18:25
PROVIDERS: ADMIT Internal Medicine; ATTEND Internal Medicine
DX: I16.1 Hypertensive emergency (principal); I50.31 Acute diastolic (congestive) heart failure; Z68.43 Body mass index [BMI] 50.0-59.9, adult; Z79.899 Other long term (current) drug therapy; I11.0 Hypertensive heart disease with heart failure; E66.9 Obesity, unspecified; Z96.651 Presence of right artificial knee joint; Z90.49 Acquired absence of other specified parts of digestive tract; Z23 Encounter for immunization
CPT/HCPCS: 36415; 71046; 80048; 80053; 82550; 82553; 83735; 83880; 84443; 84484; 85025; 90471; 90686; 93005; 93010; 93306; 96374; 96375; 96376; 99291; G0008; J0360; J1644; J1940; J3490

== ENCOUNTER 2018-07-01 07:14 | Emergency (ER) | payer SELFPAY ==
[2018-07-01] MEDS ORDERED: IBUPROFEN 600 MG TABLET PO ONE (08:16)
--- NOTE | 2018-07-01 08:28 | ER Document Report ---
HPI - HPI Time Seen by Provider: 07/01/18 07:41 Pain Level: 3 Notes: Patient is a 47-year-old female who presents the emergency department with complaints of pain after sustaining a fall yesterday. Patient reports she tripped and fell landing on her right elbow, right knee and left hand. She reports significant pain to the right elbow and left hand. She does have a history of a knee replacement to the right knee, states this was back in 2010. Patient did ambulate into the emergency department with a steady gait. Patient reports she last took pain medication last night, states she took acetaminophen with minimal relief. - REPRODUCTIVE LMP: 06-20-18 Reproductive: DENIES: : - MUSCULOSKELETAL Musculoskeletal: REPORTS: Extremity pain - left hand right elbow Past Medical History - General Information source: Patient - Social History Smoking Status: Never Smoker Chew tobacco use (# tins/day): No Frequency of alcohol use: None Drug Abuse: None Family History: Reviewed & Not Pertinent, CAD, DM Patient has suicidal ideation: No Patient has homicidal ideation: No - Past Medical History Cardiac Medical History: Reports: Hx Hypertension, Hx Heart Murmur - with Denies: Hx Atrial Fibrillation, Hx Congestive Heart Failure, Hx Coronary Artery Disease, Hx DVT, Hx Heart Attack, Hx Hypercholesterolemia, Hx Peripheral Vascular Disease, Hx Pulmonary Embolism Pulmonary Medical History: Reports: Hx Pneumonia Denies: Hx Asthma, Hx Bronchitis, Hx COPD, Hx Respiratory Failure, Hx Sleep Apnea, Hx Tuberculosis Neurological Medical History: Denies: Hx Seizures Renal/ Medical History: Reports: Hx Ovarian Cysts - x 2. Denies: Hx Peritoneal Dialysis, Hx Pelvic Inflammatory Disease Malignancy Medical History: Denies: Hx Breast Cancer, Hx Cervical Cancer, Hx Leukemia, Hx Lung Cancer, Hx Ovarian Cancer Musculoskeletal Medical History: Reports Hx Arthritis, Denies Hx Fibromyalgia, Denies Hx Muscular Dystrophy Skin Medical History: Denies Hx MRSA Psychiatric Medical History: Denies: Hx Depression Traumatic Medical History: Reports: Hx Fractures - rt knee, rt elbow Infectious Medical History: Denies: Hx HIV Past Surgical History: Reports: Hx Cholecystectomy, Hx Orthopedic Surgery - R knee replacement, Hx Tubal Ligation. Denies: Hx Appendectomy, Hx Bowel Surgery, Hx Section, Hx Coronary Artery Bypass Graft, Hx Gastric Bypass Surgery, Hx Herniorrhaphy, Hx Hysterectomy, Hx Mastectomy, Hx Pacemaker, Hx Tonsillectomy - Immunizations Hx Diphtheria, Pertussis, Tetanus Vaccination: Yes Hx Pneumococcal Vaccination: 07/06/12 Vertical Provider Document - CONSTITUTIONAL Notes: PHYSICAL EXAMINATION: GENERAL: Well-appearing, well-nourished and in no acute distress. HEAD: Atraumatic, normocephalic. EYES: Pupils equal round extraocular movements intact, conjunctiva are normal. ENT: Nares patent NECK: Normal range of motion LUNGS: No respiratory distress Musculoskeletal: Normal range of motion, swelling with ecchymosis to right elbow, ecchymosis noted to left hand on the palmar surface near the wrist. Normal radial pulse, normal motor and sensation distal to all injuries. NEUROLOGICAL: Normal speech, normal gait. PSYCH: Normal mood, normal affect. SKIN: Warm, Dry, normal turgor, no rashes or lesions noted. - INFECTION CONTROL TRAVEL OUTSIDE OF THE [place] IN LAST 30 DAYS: No Course - Re-evaluation Re-evalutation: 07/01/18 08:27 Patient was sent for x-rays. Patient opted to not have any x-rays done of her left knee as she states that she is able to walk on it without any difficulty. Will order patient ibuprofen and ice packs while awaiting x-ray results. 07/01/18 09:15 X-ray negative of the left wrist and right elbow. Patient will be discharged home in stable condition. - Vital Signs Vital signs: Temp Pulse Resp BP Pulse Ox 97.6 F 68 18 150/93 H 100 07/01/18 07:20 07/01/18 07:20 07/01/18 07:20 07/01/18 07:20 07/01/18 07:20 Discharge - Discharge Clinical Impression: Contusion of right elbow Qualifiers: Encounter type: initial encounter Qualified Code(s): S50.01XA - Contusion of right elbow, initial encounter Contusion of left hand Qualifiers: Encounter type: initial encounter Qualified Code(s): S60.222A - Contusion of left hand, initial encounter Condition: Stable Disposition: HOME, SELF-CARE Additional Instructions: Contusion Your injury has resulted in a contusion -- a crushing of the deep tissues. No injury to important structures was detected during the physician's exam. Contusions vary in the amount of pain they cause, and in the length of time required for healing. Typically, the area will become bruised, and will remain painful to touch for two or three weeks. However, most patients are back to working and playing within a few days. After the initial period of rest and cold-packs, your symptoms (together with the doctor's recommendations) will determine how rapidly you can get back to full activity. Usually this means "do what feels okay, but don't do things that hurt." If re-examination was recommended, it's important to follow up as instructed. Call the doctor or return any time if pain increases, if swelling becomes severe, if you develop numbness or weakness in an injured extremity, or if any other alarming symptoms occur. Ice & Elevation Apply ice packs frequently against the painful area. Many different schedules are recommended, such as "20 minutes on, 20 minutes off" or "one hour ice, two hours rest." If you need to work, you may need to go longer between ice treatments. You should plan to have the area ice packed AT LEAST one-fourth of the time. The ice should be applied over the wrap, tape, or splint, or over a layer of cloth -- not directly against the skin. Some ice bags have a built-in cloth and can be put directly on the skin. Your injured part should be elevated as much as possible over the next 48 hours. Try to keep the injury above the level of the heart. Avoid use of the injured area. Elevation and rest will decrease the swelling. Ibuprofen Ibuprofen is an excellent, safe drug for pain control. In addition, it has potent antiinflammatory effects which are beneficial, especially in the treatment of injuries, arthritis, or tendonitis. It's best to take ibuprofen with food. Persons with ulcer disease or allergy to aspirin should notify their physician of this before taking ibuprofen. Take the medication exactly as prescribed. Don't take additional doses unless instructed to do so by your doctor. If you develop wheezing, shortness of breath, hives, faintness, stomach pain, vomiting, or dark black stools, return for re-evaluation at once. The x-rays were negative for any fracture or dislocation. Please take ibuprofen [id number] as directed to help with pain and inflammation. Forms: Return to Work Referrals: STEPHANI YAO MD [Primary Care Provider] - Follow up as needed
--- NOTE | 2018-07-01 08:50 | RADIOLOGY REPORT (SQ) ---
EXAM DESCRIPTION: WRIST LEFT 3 VIEWS COMPLETED DATE/TIME: 07/01/2018 8:04 am REASON FOR STUDY: bed 32 s/p fall with tenderness/swelling COMPARISON: None. NUMBER OF VIEWS: Three views. TECHNIQUE: AP, lateral, and oblique radiographic images acquired of the left wrist. LIMITATIONS: None. FINDINGS: MINERALIZATION: Normal. BONES: No acute fracture or dislocation. No worrisome bone lesions. Normal alignment. SOFT TISSUES: No soft tissue swelling. No foreign body. OTHER: No other significant finding. IMPRESSION: NEGATIVE STUDY OF THE LEFT WRIST. NO RADIOGRAPHIC EVIDENCE OF ACUTE INJURY. TECHNICAL DOCUMENTATION: JOB ID: [id number] Copyright Agent- All Rights Reserved Reading location - IP/workstation name: [email or web address]
--- NOTE | 2018-07-01 08:52 | RADIOLOGY REPORT (SQ) ---
EXAM DESCRIPTION: ELBOW RIGHT OVER 2 VIEWS COMPLETED DATE/TIME: 07/01/2018 8:04 am REASON FOR STUDY: bed 32 s/p fall with tenderness/swelling COMPARISON: None. NUMBER OF VIEWS: Four views. TECHNIQUE: AP, lateral, and both oblique radiographic images acquired of the right elbow. LIMITATIONS: None. FINDINGS: MINERALIZATION: Normal. BONES: No acute fracture or dislocation. No worrisome bone lesions. JOINT: No effusion. SOFT TISSUES: No soft tissue swelling. No foreign body. OTHER: No other significant finding. IMPRESSION: NEGATIVE STUDY OF THE RIGHT ELBOW. NO RADIOGRAPHIC EVIDENCE OF ACUTE INJURY. TECHNICAL DOCUMENTATION: JOB ID: [id number] [employer]- All Rights Reserved Reading location - IP/workstation name: [email or web address]
[2018-07-01 09:36] VITALS: BP 145/95
== END 2018-07-01 09:32 | disposition home or self-care (01) ==
LOC: ER 07:14
DX: S50.01XA Contusion of right elbow, initial encounter (principal); S60.222A Contusion of left hand, initial encounter; M25.521 Pain in right elbow; M79.643 Pain in unspecified hand; W19.XXXA Unspecified fall, initial encounter; I10 Essential (primary) hypertension
CPT/HCPCS: 99283

== ENCOUNTER 2018-07-22 11:30 | Emergency (ER) | payer SELFPAY ==
[2018-07-22] MEDS ORDERED: CLONIDINE HCL 0.2 MG TABLET PO ONE (11:44)
--- NOTE | 2018-07-22 11:47 | ER Document Report ---
ED Medical Screen (RME) - General Chief Complaint: Medication Refill Stated Complaint: BP ISSUES Time Seen by Provider: 07/22/18 11:40 Primary Care Provider: STEPHANI YAO MD [Primary Care Provider] - Follow up as needed Notes: RAPID MEDICAL EVALUATION DISCLOSURE I have seen this patient as part of a Rapid Medical Evaluation and, if applicable, placed any initially appropriate orders. The patient will be seen and fully evaluated, including a full history and physical exam, by a provider (in Main ED or Fast Track) when a room becomes available. 47-year-old female PMH hypertension and noncompliance here requesting a refill of her blood pressure medications. Additionally, she has had a severe headache over the past few days. Headache has been intermittent. She reports that she was admitted to the ICU for hypertensive crisis recently and had an appointment with her PCP 1 month ago, in June, for medication refills but states that she missed the medication refill appointment because "I am bad about appointments". She did not bother to reschedule the appointment. She has been out of her medications now for about 5 days. She did not call her doctor's office to have refills sent over to the pharmacy. Instead, she came here. She denies any chest pain shortness of breath. TRAVEL OUTSIDE OF THE [place] IN LAST 30 DAYS: No - Related Data Allergies/Adverse Reactions: ondansetron HCl [From Zofran] Allergy (Severe, Verified 07/22/18 11:31) resp distress azithromycin [From Zithromax] Allergy (Verified 07/22/18 11:31) Past Medical History - Social History Family history: Hypertension - Past Medical History Cardiac Medical History: Reports: Hx Hypertension, Hx Heart Murmur - with Denies: Hx Atrial Fibrillation, Hx Congestive Heart Failure, Hx Coronary Artery Disease, Hx DVT, Hx Heart Attack, Hx Hypercholesterolemia, Hx Peripheral Vascular Disease, Hx Pulmonary Embolism Pulmonary Medical History: Reports: Hx Pneumonia Denies: Hx Asthma, Hx Bronchitis, Hx COPD, Hx Respiratory Failure, Hx Sleep Apnea, Hx Tuberculosis Neurological Medical History: Denies: Hx Seizures Renal/ Medical History: Reports: Hx Ovarian Cysts - x 2. Denies: Hx Peritoneal Dialysis, Hx Pelvic Inflammatory Disease Malignancy Medical History: Denies: Hx Breast Cancer, Hx Cervical Cancer, Hx Leukemia, Hx Lung Cancer, Hx Ovarian Cancer Musculoskeltal Medical History: Reports Hx Arthritis, Denies Hx Fibromyalgia, Denies Hx Muscular Dystrophy Skin Medical History: Denies Hx MRSA Psychiatric Medical History: Denies: Hx Depression Traumatic Medical History: Reports: Hx Fractures - rt knee, rt elbow Infectious Medical History: Denies: Hx HIV Past Surgical History: Reports: Hx Cholecystectomy, Hx Orthopedic Surgery - R knee replacement, Hx Tubal Ligation. Denies: Hx Appendectomy, Hx Bowel Surgery, Hx Section, Hx Coronary Artery Bypass Graft, Hx Gastric Bypass Surgery, Hx Herniorrhaphy, Hx Hysterectomy, Hx Mastectomy, Hx Pacemaker, Hx Tonsillectomy - Immunizations Hx Diphtheria, Pertussis, Tetanus Vaccination: Yes History of Influenza Vaccine for 02/2017 - 07/2017 Season: Yes Influenza Administration Date for 02/2017 - 07/2017 Season: 02/06/17 Physical Exam - Vital signs Vitals: Temp Pulse Resp BP Pulse Ox 97.6 F 106 H 20 213/100 H 98 07/22/18 11:36 07/22/18 11:36 07/22/18 11:36 07/22/18 11:36 07/22/18 11:36 Course - Vital Signs Vital signs: Temp Pulse Resp BP Pulse Ox 97.6 F 106 H 20 213/100 H 98 07/22/18 11:36 07/22/18 11:36 07/22/18 11:36 07/22/18 11:36 07/22/18 11:36 Doctor's Discharge - Discharge Referrals: STEPHANI YAO MD [Primary Care Provider] - Follow up as needed
--- NOTE | 2018-07-22 14:02 | ER Document Report ---
ED General - General Chief Complaint: Medication Refill Stated Complaint: BP ISSUES Time Seen by Provider: 07/22/18 11:40 Primary Care Provider: STEPHANI YAO MD [Primary Care Provider] - Follow up as needed Notes: 47-year-old female PMH hypertension and noncompliance here requesting a refill of her blood pressure medications. Additionally, she has had a severe intermittent headache over the past few days. She states she had an appointment with her PCP 1 month ago, in June, for medication refills but states that she missed the medication refill appointment because "I am bad about appointments". She did not bother to reschedule the appointment. She has been out of her medications now for about 5 days. She did not call her doctor's office to have refills sent over to the pharmacy. Instead, she came here. She denies any chest pain shortness of breath. No altered mental status, no anuria. Also, she complains of left ear pain after swimming in a pool. TRAVEL OUTSIDE OF THE [place] IN LAST 30 DAYS: No - Related Data Allergies/Adverse Reactions: ondansetron HCl [From Zofran] Allergy (Severe, Verified 07/22/18 11:31) resp distress azithromycin [From Zithromax] Allergy (Verified 07/22/18 11:31) Past Medical History - Social History Smoking Status: Never Smoker Family History: Reviewed & Not Pertinent, CAD, DM Patient has suicidal ideation: No Patient has homicidal ideation: No - Past Medical History Cardiac Medical History: Reports: Hx Hypertension, Hx Heart Murmur - with Denies: Hx Atrial Fibrillation, Hx Congestive Heart Failure, Hx Coronary Artery Disease, Hx DVT, Hx Heart Attack, Hx Hypercholesterolemia, Hx Peripheral Vascular Disease, Hx Pulmonary Embolism Pulmonary Medical History: Reports: Hx Pneumonia Denies: Hx Asthma, Hx Bronchitis, Hx COPD, Hx Respiratory Failure, Hx Sleep Apnea, Hx Tuberculosis Neurological Medical History: Denies: Hx Seizures Renal/ Medical History: Reports: Hx Ovarian Cysts - x 2. Denies: Hx Peritoneal Dialysis, Hx Pelvic Inflammatory Disease Malignancy Medical History: Denies: Hx Breast Cancer, Hx Cervical Cancer, Hx Leukemia, Hx Lung Cancer, Hx Ovarian Cancer Musculoskeletal Medical History: Reports Hx Arthritis, Denies Hx Fibromyalgia, Denies Hx Muscular Dystrophy Skin Medical History: Denies Hx MRSA Psychiatric Medical History: Denies: Hx Depression Traumatic Medical History: Reports: Hx Fractures - rt knee, rt elbow Infectious Medical History: Denies: Hx HIV Past Surgical History: Reports: Hx Cholecystectomy, Hx Orthopedic Surgery - R knee replacement, Hx Tubal Ligation. Denies: Hx Appendectomy, Hx Bowel Surgery, Hx Section, Hx Coronary Artery Bypass Graft, Hx Gastric Bypass Surgery, Hx Herniorrhaphy, Hx Hysterectomy, Hx Mastectomy, Hx Pacemaker, Hx Tonsillectomy - Immunizations Hx Diphtheria, Pertussis, Tetanus Vaccination: Yes Hx Pneumococcal Vaccination: 07/06/12 Review of Systems - Review of Systems Constitutional: See HPI EENT: No symptoms reported Cardiovascular: No symptoms reported Respiratory: See HPI Gastrointestinal: See HPI Genitourinary: See HPI Female Genitourinary: No symptoms reported Musculoskeletal: No symptoms reported Skin: No symptoms reported Hematologic/Lymphatic: No symptoms reported Neurological/Psychological: No symptoms reported Physical Exam - Vital signs Vitals: Temp Pulse Resp BP Pulse Ox 97.6 F 106 H 20 213/100 H 98 07/22/18 11:36 07/22/18 11:36 07/22/18 11:36 07/22/18 11:36 07/22/18 11:36 - Notes Notes: PHYSICAL EXAMINATION: Reviewed vital signs and charting by RN GENERAL: Alert, interacts well. No acute distress. HEAD: Normocephalic, atraumatic. EYES: Pupils equal, round, and reactive to light. Extraocular movements intact. ENT: Left TM with scab evident that she had a recent left TM rupture. NECK: Full range of motion. Supple. Trachea midline. LUNGS: Clear to auscultation bilaterally, no wheezes, rales, or rhonchi. No respiratory distress. HEART: Regular rate and rhythm. No murmur EXTREMITIES: Moves all 4 extremities spontaneously. No edema, No cyanosis. NEUROLOGICAL: Alert and oriented x3. Normal speech. PSYCH: Normal affect, normal mood. SKIN: Warm, dry, normal turgor. No rashes or lesions noted. Course - Re-evaluation Re-evalutation: 07/22/18 14:00 Patient presents requesting blood pressure med refills. Patient is noncompliant and ran out 5 days ago. I have given her a 14-day supply of her antihypertensives because she has follow-up. Also, she does have evidence of a perforated tympanic membrane of the left ear. Psych it is in the healing stages. Nonetheless, I will treat her for otitis media with Augmentin for 10 days. Patient's current blood pressure is 157/107. Patient has been given strict return precautions. Patient does not have any symptoms consistent with hypertensive emergency like altered mental status bilateral leg swelling, chest pain, numbness or tingling in any of her extremities, or anuria - Vital Signs Vital signs: Temp Pulse Resp BP Pulse Ox 97.6 F 106 H 25 H 165/105 H 95 07/22/18 11:36 07/22/18 11:36 07/22/18 13:01 07/22/18 13:01 07/22/18 13:01 Discharge - Discharge Clinical Impression: High blood pressure Qualifiers: Hypertension type: essential hypertension Qualified Code(s): I10 - Essential (primary) hypertension Otitis media Qualifiers: Otitis media type: suppurative Chronicity: acute Laterality: left Recurrence: non-recurrent Spontaneous tympanic membrane rupture: with spontaneous rupture Qualified Code(s): H66.012 - Acute suppurative otitis media with spontaneous rupture of ear drum, left ear Condition: Good Instructions: High Blood Pressure ([facility]) Additional Instructions: You were seen today for ear pain and have an acute ear infection. Please take the antibiotic that has been prescribed until it is completed even if you are feeling better before you have finished all the antibiotics. For your pain: Take ibuprofen 600 mg and acetaminophen 1000 mg every 6 hours together as needed for pain. Return if you have worsening of your pain, loss of hearing in the affected ear, worsening facial pain, headaches, pass out, or any other symptoms that are worrisome to you. Prescriptions: Amox Tr/Potassium Clavulanate [Augmentin 875-125 mg Tablet] 1 tab PO BID #20 tablet Clonidine HCl [Catapres 0.3 mg Tablet] 0.3 mg PO TID #42 tablet Furosemide [Lasix 20 mg Tablet] 20 mg PO BID #30 tablet Hydrochlorothiazide [Hydrodiuril 25 mg Tablet] 25 mg PO QAM #14 tablet Losartan Potassium [Cozaar 25 mg Tablet] 25 mg PO DAILY #14 tablet Metoprolol Tartrate [Lopressor 100 mg Tablet] 100 mg PO Q12 #28 tab Referrals: STEPHANI YAO MD [Primary Care Provider] - Follow up as needed
[2018-07-22 14:11] VITALS: BP 157/107
== END 2018-07-22 14:16 | disposition home or self-care (01) ==
LOC: ER 11:30
DX: I10 Essential (primary) hypertension (principal); T46.5X6A Underdosing of other antihypertensive drugs, initial encounter; T50.1X6A Underdosing of loop [high-ceiling] diuretics, initial encounter; T50.2X6A Underdosing of carbonic-anhydrase inhibitors, benzothiadiazides and other diuretics, initial encounter; T44.7X6A Underdosing of beta-adrenoreceptor antagonists, initial encounter; Z91.128 Patient's intentional underdosing of medication regimen for other reason; Z91.14 Patient's other noncompliance with medication regimen; Z76.0 Encounter for issue of repeat prescription; H66.012 Acute suppurative otitis media with spontaneous rupture of ear drum, left ear; R51 Headache; H92.02 Otalgia, left ear; Z88.8 Allergy status to other drugs, medicaments and biological substances; Z88.1 Allergy status to other antibiotic agents
CPT/HCPCS: 99281

== ENCOUNTER 2018-12-02 09:35 | Emergency (ER) | payer SELFPAY ==
[2018-12-02] MEDS ORDERED: KETOROLAC TROMETHAMINE INJ/PF 30 MG/1 ML SDV IV ONE (10:09)
--- NOTE | 2018-12-02 10:20 | ER Document Report ---
ED General - General Chief Complaint: Headache Stated Complaint: BLOOD PRESSURE ISSUES Time Seen by Provider: 12/02/18 10:00 Primary Care Provider: STEPHANI YAO MD [Primary Care Provider] - Follow up as needed TRAVEL OUTSIDE OF THE [place] IN LAST 30 DAYS: No - HPI Notes: Patient is a 48-year-old female who presents to the emergency department for evaluation. She states that last evening she just started feeling "bad." She states she just felt weak, overall poorly. She developed a headache. She has a history of headaches, but states is been nearly a year since she had one. She developed pain in the left side of her ear. She has had a cough recently, some nasal congestion. This is not the worst headache of her life. She denies any visual changes. She is had no chest pain or shortness of breath. She does have a history of hypertension. She states she took her medications this morning. She states is not infrequent that her blood pressure is markedly elevated, but she was concerned about why it was this morning. She is still urinating normally. Moving arms and legs without difficulty. - Related Data Allergies/Adverse Reactions: ondansetron HCl [From Zofran] Allergy (Severe, Verified 12/02/18 09:36) resp distress azithromycin [From Zithromax] Allergy (Verified 12/02/18 09:36) Home Medications: Metoprolol, losartan, HCTZ, Lasix Past Medical History - General Information source: Patient - Social History Smoking Status: Former Smoker Chew tobacco use (# tins/day): No Frequency of alcohol use: None Drug Abuse: None Family History: Reviewed & Not Pertinent, CAD, DM Patient has suicidal ideation: No Patient has homicidal ideation: No - Past Medical History Cardiac Medical History: Reports: Hx Congestive Heart Failure, Hx Hypertension, Hx Heart Murmur - with Denies: Hx Atrial Fibrillation, Hx Coronary Artery Disease, Hx DVT, Hx Heart Attack, Hx Hypercholesterolemia, Hx Peripheral Vascular Disease, Hx Pulmonary Embolism Pulmonary Medical History: Reports: Hx Pneumonia Denies: Hx Asthma, Hx Bronchitis, Hx COPD, Hx Respiratory Failure, Hx Sleep Apnea, Hx Tuberculosis Neurological Medical History: Denies: Hx Seizures Renal/ Medical History: Reports: Hx Ovarian Cysts - x 2. Denies: Hx Peritoneal Dialysis, Hx Pelvic Inflammatory Disease Malignancy Medical History: Denies: Hx Breast Cancer, Hx Cervical Cancer, Hx Leukemia, Hx Lung Cancer, Hx Ovarian Cancer Musculoskeletal Medical History: Reports Hx Arthritis, Denies Hx Fibromyalgia, Denies Hx Muscular Dystrophy Skin Medical History: Denies Hx MRSA Psychiatric Medical History: Denies: Hx Depression Traumatic Medical History: Reports: Hx Fractures - rt knee, rt elbow Infectious Medical History: Denies: Hx HIV Past Surgical History: Reports: Hx Cholecystectomy, Hx Orthopedic Surgery - R knee replacement, Hx Tubal Ligation. Denies: Hx Appendectomy, Hx Bowel Surgery, Hx Section, Hx Coronary Artery Bypass Graft, Hx Gastric Bypass Surgery, Hx Herniorrhaphy, Hx Hysterectomy, Hx Mastectomy, Hx Pacemaker, Hx Tonsillectomy - Immunizations Hx Diphtheria, Pertussis, Tetanus Vaccination: Yes Hx Pneumococcal Vaccination: 07/06/12 Review of Systems - Review of Systems Constitutional: See HPI EENT: See HPI Cardiovascular: No symptoms reported Respiratory: No symptoms reported Gastrointestinal: No symptoms reported Genitourinary: No symptoms reported Musculoskeletal: No symptoms reported Skin: No symptoms reported Neurological/Psychological: No symptoms reported Physical Exam - Vital signs Vitals: Temp Pulse Resp BP Pulse Ox 98.0 F 107 H 24 H 207/146 H 94 12/02/18 09:41 12/02/18 09:41 12/02/18 09:41 12/02/18 09:41 12/02/18 09:41 - Notes Notes: This is a very pleasant morbidly obese female, appears her stated age in no acute distress. Vital signs reviewed, please refer to chart. Head is normocephalic, atraumatic. Pupils equal round, reactive to light. Examination of the right ear yields no focal abnormalities. Left ear reveals no external abnormalities. She has tenderness with tragus palpation as well as pulling on the pinna. She has a moderate amount of external canal edema with clear discharge. I am unable to fully visualize the tympanic membrane. She does have some mild erythema on the visualized portion. Neck is supple without meningismus. Heart is regular rate and rhythm. Lungs are clear to auscultation bilaterally. Abdomen is soft, nontender, normoactive bowel sounds throughout. Extremities without cyanosis, clubbing. Posterior calves are nontender. Peripheral pulses are equal. Skin is warm and dry. Patient is awake, alert, oriented x3. Cranial nerves II - XII are grossly intact without focal neurological deficits. Strength is plus 5 out of 5 bilateral upper and lower extremities. Sensation is intact. Reflexes symmetrical. Intact [id number], rapid alternating movements, [id number]. Course - Re-evaluation Re-evalutation: 12/02/18 10:20 Patient presents emergency department for evaluation. Overall I suspect her symptoms are secondary to URI/otitis media with perforated tympanic membrane. Patient does not swim. She has no risk factors for otitis externa. She is had upper respiratory infection symptoms as of late. In regards to her blood p ressure, she states it is not at all uncommon for her blood pressure to be this high. She denies any symptoms of endorgan damage other than "just feeling bad." We will then check some basic blood work. Patient states she reacts poorly with even just a low dose of medication through the IV to lower her blood pressure. I do not see any reason to do so at this time. We will continue to monitor. 12/02/18 13:17 I went back and reexamined the patient. On further inspection, I did note that the patient's blood pressure cuff was actually at least 5 and she is too small for her upper arm. Manual pressure was obtained, found to be 172/96. Patient already has poorly controlled blood pressure. My suspicion is that it was elevated today because she was having increased ear pain. I am unable to visualize her tympanic membrane. She does have a history of perforation, and symptoms that would likely lead to an otitis media. I am inclined to treat her with oral antibiotics. She is to follow-up with her primary care physician this week. She is to return to the ED with worsening or new concerning symptoms of any sort. - Vital Signs Vital signs: Temp Pulse Resp BP Pulse Ox 98.0 F 99 24 H 176/96 H 94 12/02/18 09:41 12/02/18 09:44 12/02/18 12:32 12/02/18 13:10 12/02/18 12:32 - Laboratory Result Diagrams: 12/02/18 09:56 12/02/18 09:56 Laboratory results interpreted by me: 12/02/18 12/02/18 09:56 09:56 RBC 5.83 H MCV 73 L MCH 23.7 L RDW 16.7 H AST 107 H ALT 81 H - Diagnostic Test Radiology reviewed: Reports reviewed Radiology results interpreted by me: 12/02/18 13:18 Chest X-Ray 12/02/18 10:09 IMPRESSION: NO SIGNIFICANT RADIOGRAPHIC FINDING IN THE CHEST. - EKG Interpretation by Me Additional EKG results interpreted by me: 12/02/18 13:18 Sinus mechanism with rate of 87 bpm. Normal axis and intervals, no acute ST elevation. She does have T wave inversions and ST depressions noted in the lateral leads, consistent with strain. This is not change in compared to prior study of May 23, 2018. Discharge - Discharge Clinical Impression: Uncontrolled hypertension, Left otitis media with spontaneous rupture of eardrum Condition: Stable Disposition: HOME, SELF-CARE Instructions: Otitis Media ([facility]), High Blood Pressure ([facility]) Additional Instructions: Based on exam and history, I suspect a middle ear infection on the left. I will treat with antibiotics. Please take them until gone. Your blood pressure was elevated here today. Please continue to take your medications as prescribed. Continue to take your blood pressure at home, bring a list of these values to your primary care provider. Medication adjustment may be indicated. Tylenol or ibuprofen as needed for your pain. Return to the emergency department with worsening or new concerning symptoms of any sort. Referrals: STEPHANI YAO MD [Primary Care Provider] - Follow up as needed
[2018-12-02 10:44] LABS: ABSOLUTE BASOPHILS # (AUTO) 0.1 10^3/uL (0.0-0.2); ABSOLUTE EOSINOPHILS # (AUTO) 0.3 10^3/uL (0.0-0.6); ABSOLUTE LYMPHOCYTES (AUTO) 2.2 10^3/uL (0.5-4.7); ABSOLUTE MONOCYTES (AUTO) 0.8 10^3/uL (0.1-1.4); ABSOLUTE NEUT (AUTO) 6.4 10^3/uL (1.7-8.2); BASOPHILS % (AUTO) 0.6 % (0-2); EOSINOPHILS % (AUTO) 2.6 % (0-6); HEMATOCRIT 42.7 % (36.0-47.0); HEMOGLOBIN 13.8 g/dL (12.0-15.5); LYMPHOCYTES % (AUTO) 22.7 % (13-45); MEAN CORPUSCULAR HEMOGLOBIN 23.7 pg (27.0-33.4); MEAN CORPUSCULAR HGB CONC 32.3 g/dL (32.0-36.0); MEAN CORPUSCULAR VOLUME 73 fl (80-97); MONOCYTES % (AUTO) 8.4 % (3-13); PLATELET COUNT 272 10^3/uL (150-450); RED BLOOD COUNT 5.83 10^6/uL (3.72-5.28); RED CELL DISTRIBUTION WIDTH 16.7 % (11.5-14.0); SEGMENTED NEUTROPHILS % (AUTO) 65.7 % (42-78); TOTAL CELLS COUNTED % (AUTO) 100 %; WHITE BLOOD COUNT 9.7 10^3/uL (4.0-10.5)
[2018-12-02 10:46] LABS: ALANINE AMINOTRANSFERASE 81 U/L (9-52); ALBUMIN 4.1 g/dL (3.5-5.0); ALKALINE PHOSPHATASE 109 U/L (38-126); ANION GAP 6 (5-19); ASPARTATE AMINO TRANSFERASE 107 U/L (14-36); BILIRUBIN,DIRECT 0.3 mg/dL (0.0-0.4); BILIRUBIN,TOTAL 0.8 mg/dL (0.2-1.3); BLOOD UREA NITROGEN 15 mg/dL (7-20); CALCIUM 8.9 mg/dL (8.4-10.2); CARBON DIOXIDE 30 mmol/L (22-30); CHLORIDE 103 mmol/L (98-107); GLUCOSE 96 mg/dL (75-110); POTASSIUM 4.4 mmol/L (3.6-5.0); TOTAL PROTEIN 7.4 g/dL (6.3-8.2)
--- NOTE | 2018-12-02 11:02 | RADIOLOGY REPORT (SQ) ---
EXAM DESCRIPTION: CHEST 2 VIEWS COMPLETED DATE/TIME: 12/02/2018 10:49 am REASON FOR STUDY: cough COMPARISON: 05/23/2018 TECHNIQUE: Frontal and lateral radiographic views of the chest acquired. NUMBER OF VIEWS: Two view. LIMITATIONS: None. FINDINGS: LUNGS AND PLEURA: No opacities, masses or pneumothorax. No pleural effusion. MEDIASTINUM AND HILAR STRUCTURES: No masses or contour abnormalities. HEART AND VASCULAR STRUCTURES: Heart normal size. No evidence for failure. BONES: No acute findings. HARDWARE: None in the chest. OTHER: No other significant finding. IMPRESSION: NO SIGNIFICANT RADIOGRAPHIC FINDING IN THE CHEST. TECHNICAL DOCUMENTATION: JOB ID: [id number] [employer]- All Rights Reserved Reading location - IP/workstation name: [email or web address]
[2018-12-02 13:11] VITALS: BP 176/96
--- NOTE | 2018-12-02 22:51 | EKG REPORT ---
SEVERITY:- ABNORMAL ECG - SINUS RHYTHM PROBABLE LEFT ATRIAL ABNORMALITY REPOL ABNRM SUGGESTS ISCHEMIA, LATERAL LEADS vs LVH : Confirmed by: Eddie Engel 02-Dec-2018 22:50:47
== END 2018-12-02 13:27 | disposition home or self-care (01) ==
LOC: ER 09:35
DX: H66.92 Otitis media, unspecified, left ear (principal); H72.92 Unspecified perforation of tympanic membrane, left ear; I11.0 Hypertensive heart disease with heart failure; I50.9 Heart failure, unspecified; Z79.899 Other long term (current) drug therapy; R51 Headache; E66.01 Morbid (severe) obesity due to excess calories; R53.1 Weakness; R05 Cough; R09.81 Nasal congestion; Z88.8 Allergy status to other drugs, medicaments and biological substances; Z88.1 Allergy status to other antibiotic agents; Z87.891 Personal history of nicotine dependence; Z82.49 Family history of ischemic heart disease and other diseases of the circulatory system
CPT/HCPCS: 93005; 99284; 96374; 36415; 85025; 80053; 84484; 71046; 93010; J1885

== ENCOUNTER 2019-06-21 16:54 | Emergency (ER) | payer SELFPAY ==
[2019-06-21] MEDS ORDERED: METOPROLOL TARTRATE 100 MG TABLET PO ONE (18:45)
--- NOTE | 2019-06-21 18:47 | ER Document Report ---
ED Medical Screen (RME) - General Chief Complaint: Blood Pressure Problem Stated Complaint: BLOOD PRESSURE ISSUR Time Seen by Provider: 06/21/19 18:33 Primary Care Provider: STEPHANI YAO MD [Primary Care Provider] - Follow up as needed Notes: Patient is a 48-year-old female with morbid obesity, CHF, hypertension who presents emergency department with a chief complaint of elevated blood pressure. Patient reports she has been taking her blood pressure medication as prescribed. Patient reports the last dose was clonidine 0.6 mg around 2 PM this afternoon. Patient reports she does take 0.3 of clonidine 3 times daily, hydrochlorothiazide, metoprolol. Patient denies chest pain but does report some shortness of breath. Patient reports she has a headache and blurred vision with nausea. Patient denies vomiting. Patient reports last time she felt like this she had to be admitted and placed on a blood pressure drip. TRAVEL OUTSIDE OF THE [place] IN LAST 30 DAYS: No - Related Data Allergies/Adverse Reactions: ondansetron HCl [From Zofran] Allergy (Severe, Verified 01/03/19 15:27) resp distress azithromycin [From Zithromax] Allergy (Verified 01/03/19 15:27) Home Medications: clonidine, metoprolol, losartan, hctz, lasix Past Medical History - Social History Chew tobacco use (# tins/day): No Frequency of alcohol use: None Drug Abuse: None Family history: Hypertension - Past Medical History Cardiac Medical History: Reports: Hx Congestive Heart Failure, Hx Hypertension, Hx Heart Murmur - with Denies: Hx Atrial Fibrillation, Hx Coronary Artery Disease, Hx DVT, Hx Heart Attack, Hx Hypercholesterolemia, Hx Peripheral Vascular Disease, Hx Pulmonary Embolism Pulmonary Medical History: Reports: Hx Pneumonia Denies: Hx Asthma, Hx Bronchitis, Hx COPD, Hx Respiratory Failure, Hx Sleep Apnea, Hx Tuberculosis Neurological Medical History: Denies: Hx Seizures Renal/ Medical History: Reports: Hx Ovarian Cysts - x 2. Denies: Hx Peritoneal Dialysis, Hx Pelvic Inflammatory Disease Malignancy Medical History: Denies: Hx Breast Cancer, Hx Cervical Cancer, Hx Leukemia, Hx Lung Cancer, Hx Ovarian Cancer Musculoskeltal Medical History: Reports Hx Arthritis, Denies Hx Fibromyalgia, Denies Hx Muscular Dystrophy Skin Medical History: Denies Hx MRSA Psychiatric Medical History: Denies: Hx Depression Traumatic Medical History: Reports: Hx Fractures - rt knee, rt elbow Infectious Medical History: Denies: Hx HIV Past Surgical History: Reports: Hx Cholecystectomy, Hx Orthopedic Surgery - R knee replacement, Hx Tubal Ligation. Denies: Hx Appendectomy, Hx Bowel Surgery, Hx Section, Hx Coronary Artery Bypass Graft, Hx Gastric Bypass Surgery, Hx Herniorrhaphy, Hx Hysterectomy, Hx Mastectomy, Hx Pacemaker, Hx Tonsillectomy - Immunizations Hx Diphtheria, Pertussis, Tetanus Vaccination: Yes Physical Exam - Vital signs Vitals: Temp Pulse Resp BP Pulse Ox 99.3 F 113 H 20 165/120 H 94 06/21/19 17:12 06/21/19 17:12 06/21/19 17:12 06/21/19 17:12 06/21/19 17:12 - HEENT Head: Normocephalic Eyes: Normal Pupils: PERRL Course - Re-evaluation Re-evalutation: 06/21/19 18:47 Patient is due for her dose of metoprolol tartrate 100 mg p.o. I will give this here in triage. Will order basic labs. Will reevaluate patient's blood pressure. I have greeted and performed a rapid initial assessment of this patient. A comprehensive ED assessment and evaluation of the patient, analysis of test results and completion of the medical decision making process will be conducted by additional ED providers. - Vital Signs Vital signs: Temp Pulse Resp BP Pulse Ox 99.3 F 113 H 20 165/120 H 94 06/21/19 17:12 06/21/19 17:12 06/21/19 17:12 06/21/19 17:12 06/21/19 17:12 Doctor's Discharge - Discharge Referrals: STEPHANI YAO MD [Primary Care Provider] - Follow up as needed
--- NOTE | 2019-06-21 19:30 | RADIOLOGY REPORT (SQ) ---
EXAM DESCRIPTION: CHEST 2 VIEWS COMPLETED DATE/TIME: 06/21/2019 7:06 pm REASON FOR STUDY: shortness of breath COMPARISON: 01/03/2019 TECHNIQUE: Frontal and lateral radiographic views of the chest acquired. NUMBER OF VIEWS: Two view. LIMITATIONS: None. FINDINGS: LUNGS AND PLEURA: No pneumothorax. Mild bronchial wall thickening -interstitial prominenc e. No consolidation or pleural effusion. MEDIASTINUM AND HILAR STRUCTURES: Stable. HEART AND VASCULAR STRUCTURES: Stable. BONES: No acute findings. HARDWARE: None in the chest. OTHER: No other significant finding. IMPRESSION: Mild bronchial wall thickening -interstitial prominence. No consolidation or pleural e ffusion. TECHNICAL DOCUMENTATION: JOB ID: [id number] 2010 [employer]- All Rights Reserved Reading location - IP/workstation name: [email or web address]
[2019-06-21 19:45] LABS: ABSOLUTE BASOPHILS # (AUTO) 0.1 10^3/uL (0.0-0.2); ABSOLUTE EOSINOPHILS # (AUTO) 0.3 10^3/uL (0.0-0.6); ABSOLUTE LYMPHOCYTES (AUTO) 2.6 10^3/uL (0.5-4.7); ABSOLUTE MONOCYTES (AUTO) 0.8 10^3/uL (0.1-1.4); ABSOLUTE NEUT (AUTO) 6.9 10^3/uL (1.7-8.2); BASOPHILS % (AUTO) 0.6 % (0-2); EOSINOPHILS % (AUTO) 2.5 % (0-6); HEMOGLOBIN 13.4 g/dL (12.0-15.5); LYMPHOCYTES % (AUTO) 24.6 % (13-45); MEAN CORPUSCULAR HGB CONC 31.9 g/dL (32.0-36.0); MEAN CORPUSCULAR VOLUME 72 fl (80-97); MONOCYTES % (AUTO) 7.1 % (3-13); PLATELET COUNT 250 10^3/uL (150-450); RED BLOOD COUNT 5.82 10^6/uL (3.72-5.28); RED CELL DISTRIBUTION WIDTH 18.5 % (11.5-14.0); SEGMENTED NEUTROPHILS % (AUTO) 65.2 % (42-78); TOTAL CELLS COUNTED % (AUTO) 100 %; WHITE BLOOD COUNT 10.6 10^3/uL (4.0-10.5)
[2019-06-21 20:16] LABS: ALBUMIN 3.8 g/dL (3.5-5.0); ALKALINE PHOSPHATASE 92 U/L (38-126); ANION GAP 9 (5-19); ASPARTATE AMINO TRANSFERASE 23 U/L (14-36); BILIRUBIN,DIRECT 0.2 mg/dL (0.0-0.4); BILIRUBIN,TOTAL 0.5 mg/dL (0.2-1.3); BLOOD UREA NITROGEN 17 mg/dL (7-20); CARBON DIOXIDE 30 mmol/L (22-30); CHLORIDE 100 mmol/L (98-107); GLUCOSE 96 mg/dL (75-110); POTASSIUM 4.3 mmol/L (3.6-5.0); TOTAL PROTEIN 7.4 g/dL (6.3-8.2)
[2019-06-21] MEDS ORDERED: LABETALOL HCL INJ 20 MG/4 ML DISP.SYRIN IV ONE (21:32)
--- NOTE | 2019-06-21 21:48 | ER Document Report ---
Entered by BRIANNA MACIEL SCRIBE 06/21/192118 Acting as scribe for:CHRISTIANO MATUTE IV, MD ED Blood Pressure Problem - General Chief Complaint: Blood Pressure Problem Stated Complaint: BLOOD PRESSURE ISSUR Time Seen by Provider: 06/21/19 18:33 Primary Care Provider: STEPHANI YAO MD [Primary Care Provider] - Follow up as needed Mode of Arrival: Ambulatory Information source: Patient Notes: This 48 year old female patient with a history of CHF and hypertension presents to the ED today with complaints of an elevated blood pressure. Patient states that she is compliant with all of her blood pressure medications and that her last dose was 0.6 mg Clonidine around 1400 this afternoon. Patient reports that she takes 0.3 mg Clonidine tid, Hydrochlorothiazide, and Metropolol. Patient notes that her blood pressure has been controlled for about x1 year, but was worse today. Patient states that when she used to come to the ED in the past for her blood pressure about every x2 months, she would see Dr. Snell who would place her on a blood pressure drip. Patient also reports shortness of breath, headache, blurred vision, and nausea. Patient denies any chest pain or vomiting. TRAVEL OUTSIDE OF THE [place] IN LAST 30 DAYS: No - Related Data Allergies/Adverse Reactions: ondansetron HCl [From Zofran] Allergy (Severe, Verified 01/03/19 15:27) resp distress azithromycin [From Zithromax] Allergy (Verified 01/03/19 15:27) Home Medications: clonidine, metoprolol, losartan, hctz, lasix Past Medical History - General Information source: Patient, [facility] Records - Social History Smoking Status: Never Smoker Cigarette use (# per day): No Chew tobacco use (# tins/day): No Smoking Education Provided: No Frequency of alcohol use: None Drug Abuse: None Family History: Reviewed & Not Pertinent, CAD, DM Patient has suicidal ideation: No Patient has homicidal ideation: No - Past Medical History Cardiac Medical History: Reports: Hx Congestive Heart Failure, Hx Hypertension, Hx Heart Murmur - with Pulmonary Medical History: Reports: Hx Pneumonia Renal/ Medical History: Reports: Hx Ovarian Cysts - x 2 Musculoskeletal Medical History: Reports Hx Arthritis Traumatic Medical History: Reports: Hx Fractures - rt knee, rt elbow Past Surgical History: Reports: Hx Cholecystectomy, Hx Orthopedic Surgery - R knee replacement, Hx Tubal Ligation - Immunizations Hx Diphtheria, Pertussis, Tetanus Vaccination: Yes Hx Pneumococcal Vaccination: 07/06/12 Review of Systems - Review of Systems Constitutional: See HPI, Other - Hypertension EENT: See HPI, Blurred vision Cardiovascular: See HPI. denies: Chest pain Respiratory: See HPI, Short of breath Gastrointestinal: See HPI, Nausea. denies: Vomiting Genitourinary: No symptoms reported Female Genitourinary: No symptoms reported Musculoskeletal: No symptoms reported Skin: No symptoms reported Hematologic/Lymphatic: No symptoms reported Neurological/Psychological: See HPI, Headaches -: Yes All other systems reviewed and negative Physical Exam - Vital signs Vitals: Temp Pulse Resp BP Pulse Ox 99.3 F 113 H 20 165/120 H 94 06/21/19 17:12 06/21/19 17:12 06/21/19 17:12 06/21/19 17:12 06/21/19 17:12 Interpretation: Hypertensive - General General appearance: Alert - HEENT Head: Normocephalic, Atraumatic Eyes: Normal Pupils: PERRL - Respiratory Respiratory status: No respiratory distress Chest status: Nontender Breath sounds: Normal Chest palpation: Normal - Cardiovascular Rhythm: Regular Heart sounds: Normal auscultation Murmur: No - Abdominal Inspection: Morbidly Obese Distension: No distension Bowel sounds: Normal Tenderness: Nontender - Abdomen soft Organomegaly: No organomegaly - Back Back: Normal, Nontender - Extremities General upper extremity: Normal inspection General lower extremity: Normal inspection - Neurological Neuro grossly intact: Yes - Psychological Associated symptoms: Normal affect, Normal mood - Skin Skin Temperature: Warm Skin Moisture: Dry Skin Color: Normal Course - Re-evaluation Re-evalutation: 06/21/19 23:09 Patient's blood pressure is now 185/117. Patient states she feels better at this time and feels comfortable being discharged home. Results of ED MSE discussed with patient. Emergency signs and symptoms, reasons to return to the emergency department discussed with patient. - Vital Signs Vital signs: Temp Pulse Resp BP Pulse Ox 99.3 F 113 H 26 H 185/117 H 97 06/21/19 17:12 06/21/19 17:12 06/21/19 23:02 06/21/19 23:02 06/21/19 23:02 - Laboratory Result Diagrams: 06/21/19 19:29 06/21/19 19:29 Laboratory results interpreted by me: 06/21/19 19:29 WBC 10.6 H RBC 5.82 H MCV 72 L MCH 23.0 L MCHC 31.9 L RDW 18.5 H - EKG Interpretation by Me Additional EKG results interpreted by me: 06/21/19 21:34 EKG obtained on 06/21/2019 at 1915 hrs. was reviewed by this MD. Findings: Sinus tachycardia, rate 102, P waves proceed QRS complexes, QRS complexes appear narrow, normal axis, there are no patterns of ST elevation or depression seen to suggest acute myocardial ischemia or infarction. Impression: Sinus tachycardia with nonspecific ST segments. Discharge - Discharge Clinical Impression: Elevated blood pressure reading with diagnosis of hypertension Condition: Good Disposition: HOME, SELF-CARE Additional Instructions: Return to the Emergency Department without delay if any worse. HOME CARE INSTRUCTIONS & INFORMATION: Thank you for choosing us for your medical needs. We hope you're satisfied with the care you received. After you leave, you must properly care for your problem and, at the same time, observe its progress. Any condition can change. Some illnesses can change rapidly over hours or days. If your condition worsens, return to the Emergency Department or see your physician promptly. ABOUT YOUR X-RAYS AND EKG'S: If you had an EKG or X-rays taken, they have been read by the Emergency Physician. The X-rays and EKG's will also be read by a Radiologist or Family Health Nurse Practitioner within 24 hours. If discrepancies are noted, you will be notified by telephone. Please be certain the ED has a correct telephone number & address where you can be reached. Also, realize that some fractures or abnormalities do not show up on initial X-rays. If your symptoms continue, see your physician. ABOUT YOUR LABORATORY TEST: If you had laboratory tests, the results have been reviewed by the Emergency Physician. Some test results (for example cultures) may not be available for several days. You will be contacted if any test result shows you need additional treatment. Please be certain the ED has a correct telephone number and address where you can be reached. ABOUT YOUR MEDICATIONS: You will receive instructions on how to take your medicine on the prescription label you receive. Additional information may be provided by the Pharmacy. If you have questions afterwards, call the ED for clarification or further instructions. Some prescribed medications may cause drowsiness. Do not perform tasks such as driving a car or operating machinery without consulting your Pharmacist. If you feel you need a refill of pain medication, your condition will need re-evaluation. Please do not call for a refill of any medication. ABOUT YOUR SIGNATURE: Signature of this document acknowledges to followin. Understanding that you received emergency treatment and that you may be released before al medical problems are known or treated. Please be certain the ED has a correct phone number & address where you can be reached. 2. Acknowledgement that you will arrange for follow-up care as recommended. 3. Authorization for the Emergency Physician to provide information to your follow-up Physician in order to maximize your care. AT ANY TIME, IF YOUR SYMPTOMS CHANGE SIGNIFICANTLY OR WORSEN OR YOU DEVELOP NEW SYMPTOMS, RETURN TO THE EMERGENCY DEPARTMENT IMMEDIATELY FOR RE-EVALUATION. OUR GOAL IS TO PROVIDE EXCELLENT MEDICAL CARE! WE HOPE THAT WE HAVE MET YOUR EXPECTATIONS DURING YOUR EMERGENCY DEPARTMENT VISIT AND THAT YOU FEEL YOU HAVE RECEIVED EXCELLENT CARE! Referrals: STEPHANI YAO MD [Primary Care Provider] - 06/22/19 I personally performed the services described in the documentation, reviewed and edited the documentation which was dictated to the scribe in my presence, and it accurately records my words and actions.
[2019-06-21 23:04] VITALS: BP 185/117
--- NOTE | 2019-06-21 23:14 | EKG REPORT ---
SEVERITY:- ABNORMAL ECG - SINUS TACHYCARDIA YUDY, CONSIDER BIATRIAL ABNORMALITIES REPOL ABNRM SUGGESTS ISCHEMIA, LATERAL LEADS,UNCHANGED FROM 01/03/19 EKG : Confirmed by: Lele Garza MD 21-Jun-2019 23:13:32
== END 2019-06-22 00:01 | disposition home or self-care (01) ==
LOC: ER 16:54
DX: I11.0 Hypertensive heart disease with heart failure (principal); I50.9 Heart failure, unspecified; Z79.899 Other long term (current) drug therapy; R06.02 Shortness of breath; R51 Headache; H53.8 Other visual disturbances; R11.0 Nausea; R00.0 Tachycardia, unspecified; Z88.8 Allergy status to other drugs, medicaments and biological substances; Z88.1 Allergy status to other antibiotic agents
CPT/HCPCS: 99284; 96374; 36415; 85025; 80053; 84484; 71046; 93005; 93010; J3490

== ENCOUNTER 2019-07-04 12:09 | Observation (INO) | payer SELFPAY ==
--- NOTE | 2019-07-04 12:32 | ER Document Report ---
ED Medical Screen (RME) - General Stated Complaint: POSSIBLE STROKE Time Seen by Provider: 07/04/19 12:26 Primary Care Provider: STEPHANI YAO MD [Primary Care Provider] - Follow up as needed Notes: Patient is a 48-year-old female with a history of hypertension and obesity presents emergency department with a chief complaint of left facial numbness. Patient reports her last known well was at 2100 last night when she went to bed. Patient reports waking up around 6 AM having left sided facial numbness and tingling. Patient also reports some tingling in her left hand. Patient reports blurred vision. Denies headache. Denies chest pain. Does report some increased shortness of breath over the past 2 weeks that is worse when she ambulates. TRAVEL OUTSIDE OF THE [place] IN LAST 30 DAYS: No - Related Data Allergies/Adverse Reactions: ondansetron HCl [From Zofran] Allergy (Severe, Verified 01/03/19 15:27) resp distress azithromycin [From Zithromax] Allergy (Verified 01/03/19 15:27) Past Medical History - Social History Family history: Hypertension - Past Medical History Cardiac Medical History: Reports: Hx Congestive Heart Failure, Hx Hypertension, Hx Heart Murmur - with Denies: Hx Atrial Fibrillation, Hx Coronary Artery Disease, Hx DVT, Hx Heart Attack, Hx Hypercholesterolemia, Hx Peripheral Vascular Disease, Hx Pulmonary Embolism Pulmonary Medical History: Reports: Hx Pneumonia Denies: Hx Asthma, Hx Bronchitis, Hx COPD, Hx Respiratory Failure, Hx Sleep Apnea, Hx Tuberculosis Neurological Medical History: Denies: Hx Seizures Renal/ Medical History: Reports: Hx Ovarian Cysts - x 2. Denies: Hx Peritoneal Dialysis, Hx Pelvic Inflammatory Disease Malignancy Medical History: Denies: Hx Breast Cancer, Hx Cervical Cancer, Hx L eukemia, Hx Lung Cancer, Hx Ovarian Cancer Musculoskeltal Medical History: Reports Hx Arthritis, Denies Hx Fibromyalgia, Denies Hx Muscular Dystrophy Skin Medical History: Denies Hx MRSA Psychiatric Medical History: Denies: Hx Depression Traumatic Medical History: Reports: Hx Fractures - rt knee, rt elbow Infectious Medical History: Denies: Hx HIV Past Surgical History: Reports: Hx Cholecystectomy, Hx Orthopedic Surgery - R knee replacement, Hx Tubal Ligation. Denies: Hx Appendectomy, Hx Bowel Surgery, Hx Section, Hx Coronary Artery Bypass Graft, Hx Gastric Bypass Surgery, Hx Herniorrhaphy, Hx Hysterectomy, Hx Mastectomy, Hx Pacemaker, Hx Tonsillectomy - Immunizations Hx Diphtheria, Pertussis, Tetanus Vaccination: Yes Physical Exam - Vital signs Vitals: Temp Pulse Resp BP Pulse Ox 98.1 F 107 H 20 216/123 H 95 07/04/19 12:15 07/04/19 12:15 07/04/19 12:15 07/04/19 12:15 07/04/19 12:15 Course - Re-evaluation Re-evalutation: 07/04/19 12:31 Patient is noted to have some left-sided facial droop in triage. Patient does have decreased sensation in the left side of the face when compared to the right. Will initiate stroke protocol. Orders have been placed into the computer. Patient to go to CAT scan. Airways patent. Patient was also noted to be extremely hypertensive with a blood pressure of 216/123. I have greeted and performed a rapid initial assessment of this patient. A comprehensive ED assessment and evaluation of the patient, analysis of test results and completion of the medical decision making process will be conducted by additional ED providers. - Vital Signs Vital signs: Temp Pulse Resp BP Pulse Ox 98.1 F 107 H 20 216/123 H 95 07/04/19 12:15 07/04/19 12:15 07/04/19 12:15 07/04/19 12:15 07/04/19 12:15 Doctor's Discharge - Discharge Referrals: STEPHANI YAO MD [Primary Care Provider] - Follow up as needed
--- NOTE | 2019-07-04 12:52 | RADIOLOGY REPORT (SQ) ---
EXAM DESCRIPTION: CT HEAD WITHOUT COMPLETED DATE/TIME: 07/04/2019 12:40 pm REASON FOR STUDY: left sided facial numbness, hypertensive COMPARISON: 10/14/2017 TECHNIQUE: Axial images acquired through the brain without intravenous contrast. Images reviewed wi th bone, brain and subdural windows. Additional sagittal and coronal reconstructions were generated. Images stored on PACS. All CT scanners at this facility use dose modulation, iterative reconstruction, and/or weight based d osing when appropriate to reduce radiation dose to as low as reasonably achievable (ALARA). [facility]: Dose Right [facility]: CareDose [facility]: Dose Right [facility]: Teradose 4D [facility]: [employer] RADIATION DOSE: CT Rad equipment meets quality standard of care and radiation dose reduction techniq ues were employed. CTDIvol: 53.2 mGy. DLP: 991 mGy-cm. mGy. LIMITATIONS: None. FINDINGS: VENTRICLES: Normal size and contour. CEREBRUM: No masses. No hemorrhage. No midline shift. No evidence for acute infarction. Normal gra y/white matter differentiation. No areas of low density in the white matter. CEREBELLUM: No masses. No hemorrhage. No alteration of density. No evidence for acute infarction. EXTRAAXIAL SPACES: No fluid collections. No masses. ORBITS AND GLOBE: No intra- or extraconal masses. Normal contour of globe without masses. CALVARIUM: No fracture. PARANASAL SINUSES: No fluid or mucosal thickening. SOFT TISSUES: No mass or hematoma. OTHER: No other significant finding. IMPRESSION: NORMAL BRAIN CT WITHOUT CONTRAST. EVIDENCE OF ACUTE STROKE: NO. COMMENT: Quality ID # [id number]: Final reports with documentation of one or more dose reduction techniques (e.g., Automated exposure control, adjustment of the mA and/or kV according to patient size, use of iterative reconstruction technique) TECHNICAL DOCUMENTATION: JOB ID: [id number] 2010 [employer]- All Rights Reserved Reading location - IP/workstation name: [email or web address]
--- NOTE | 2019-07-04 12:59 | RADIOLOGY REPORT (SQ) ---
EXAM DESCRIPTION: CHEST SINGLE VIEW COMPLETED DATE/TIME: 07/04/2019 12:49 pm REASON FOR STUDY: left sided facial numbness, hypertensive COMPARISON: 06/21/2019 EXAM PARAMETERS: NUMBER OF VIEWS: One view. TECHNIQUE: Single frontal radiographic view of the chest acquired. RADIATION DOSE: NA LIMITATIONS: None. FINDINGS: LUNGS AND PLEURA: No opacities, masses or pneumothorax. No pleural effusion. MEDIASTINUM AND HILAR STRUCTURES: No masses. Contour normal. HEART AND VASCULAR STRUCTURES: Heart remains enlarged with persistent central vascular prominence. BONES: No acute findings. HARDWARE: None in the chest. OTHER: No other significant finding. IMPRESSION: No interval change in the chest. Cardiomegaly with mild central vascular prominence. N o overt failure. TECHNICAL DOCUMENTATION: JOB ID: [id number] 2010 [employer]- All Rights Reserved Reading location - IP/workstation name: [email or web address]
[2019-07-04 13:36] LABS: ABSOLUTE BASOPHILS # (AUTO) 0.1 10^3/uL (0.0-0.2); ABSOLUTE EOSINOPHILS # (AUTO) 0.2 10^3/uL (0.0-0.6); ABSOLUTE LYMPHOCYTES (AUTO) 2.1 10^3/uL (0.5-4.7); ABSOLUTE MONOCYTES (AUTO) 0.8 10^3/uL (0.1-1.4); ABSOLUTE NEUT (AUTO) 6.8 10^3/uL (1.7-8.2); BASOPHILS % (AUTO) 0.9 % (0-2); EOSINOPHILS % (AUTO) 2.3 % (0-6); HEMATOCRIT 40.6 % (36.0-47.0); HEMOGLOBIN 12.9 g/dL (12.0-15.5); INTERNATIONAL RATION (INR) 0.95; LYMPHOCYTES % (AUTO) 20.7 % (13-45); MEAN CORPUSCULAR HEMOGLOBIN 23.1 pg (27.0-33.4); MEAN CORPUSCULAR HGB CONC 31.8 g/dL (32.0-36.0); MEAN CORPUSCULAR VOLUME 73 fl (80-97); MONOCYTES % (AUTO) 7.8 % (3-13); PLATELET COUNT 287 10^3/uL (150-450); RED BLOOD COUNT 5.59 10^6/uL (3.72-5.28); RED CELL DISTRIBUTION WIDTH 18.4 % (11.5-14.0); SEGMENTED NEUTROPHILS % (AUTO) 68.3 % (42-78); TOTAL CELLS COUNTED % (AUTO) 100 %
[2019-07-04 13:37] LABS: PARTIAL THROMBOPLASTIN TIME 28.1 SEC (23.5-35.8)
[2019-07-04 13:41] LABS: PROTHROMBIN TIME 12.6 SEC (11.4-15.4)
[2019-07-04 14:02] LABS: ALBUMIN 4.1 g/dL (3.5-5.0); ALKALINE PHOSPHATASE 110 U/L (38-126); ANION GAP 8 (5-19); ASPARTATE AMINO TRANSFERASE 26 U/L (14-36); BILIRUBIN,DIRECT 0.3 mg/dL (0.0-0.4); BILIRUBIN,TOTAL 0.5 mg/dL (0.2-1.3); BLOOD UREA NITROGEN 17 mg/dL (7-20); CALCIUM 8.8 mg/dL (8.4-10.2); CARBON DIOXIDE 33 mmol/L (22-30); CHLORIDE 100 mmol/L (98-107); CREATINE KINASE 39 U/L (30-135); GLUCOSE 93 mg/dL (75-110); POTASSIUM 4.3 mmol/L (3.6-5.0)
[2019-07-04 14:13] LABS: CREATINE KINASE MB 1.1 ng/mL (<4.55); TROPONIN I 0.013 ng/mL
[2019-07-04] MEDS ORDERED: ASPIRIN 325 MG TABLET PO ONE (16:19)
[2019-07-04] MEDS ORDERED: METOPROLOL TARTRATE 25 MG TABLET PO ONE ×2 (16:22→19:30)
--- NOTE | 2019-07-04 16:24 | ER Document Report ---
ED General - General Chief Complaint: S/S of Possible Stroke Stated Complaint: POSSIBLE STROKE Time Seen by Provider: 07/04/19 12:26 Primary Care Provider: STEPHANI YAO MD [Primary Care Provider] - Follow up as needed Information source: Patient, Parent, Relative Notes: Patient is a 48-year-old female presenting to the emergency department chief complaint of facial drooping. Patient states that she woke up at 7 AM feeling odd and then woke up again around 9 AM and family mentioned that her face seem like she had drooping to the left side of her face. She states she also had num bness and tingling to her left hand. Patient denies any travel history trauma history sick contacts or bad food exposure. Patient does report a positive family history of CVA. Patient states over the past several days she has had shortness of breath and generalized weakness and increased swelling to the bilateral lower extremities which she attributes to worsening of her congestive heart failure. TRAVEL OUTSIDE OF THE [place] IN LAST 30 DAYS: No - HPI Onset: This morning Onset/Duration: Gradual, Better Quality of pain: No pain Severity: None Pain Level: 0 Associated symptoms: Leg swelling, Shortness of breath, Weakness Exacerbated by: Denies Relieved by: Denies Similar symptoms previously: No Recently seen / treated by doctor: No - Related Data Allergies/Adverse Reactions: ondansetron HCl [From Zofran] Allergy (Severe, Verified 07/04/19 13:08) resp distress azithromycin [From Zithromax] Allergy (Verified 07/04/19 13:08) Past Medical History - General Information source: Patient, Parent, Relative - Social History Smoking Status: Never Smoker Frequency of alcohol use: None Drug Abuse: None Lives with: Spouse/Significant other Family History: Reviewed & Not Pertinent, CAD, DM Patient has suicidal ideation: No Patient has homicidal ideation: No - Past Medical History Cardiac Medical History: Reports: Hx Congestive Heart Failure, Hx Hypertension, Hx Heart Murmur - with Denies: Hx Atrial Fibrillation, Hx Coronary Artery Disease, Hx DVT, Hx Heart Attack, Hx Hypercholesterolemia, Hx Peripheral Vascular Disease, Hx Pulmonary Embolism Pulmonary Medical History: Reports: Hx Pneumonia Denies: Hx Asthma, Hx Bronchitis, Hx COPD, Hx Respiratory Failure, Hx Sleep Apnea, Hx Tuberculosis Neurological Medical History: Denies: Hx Seizures Renal/ Medical History: Reports: Hx Ovarian Cysts - x 2. Denies: Hx Peritoneal Dialysis, Hx Pelvic Inflammatory Disease Malignancy Medical History: Denies: Hx Breast Cancer, Hx Cervical Cancer, Hx Leukemia, Hx Lung Cancer, Hx Ovarian Cancer Musculoskeletal Medical History: Reports Hx Arthritis, Denies Hx Fibromyalgia, Denies Hx Muscular Dystrophy Skin Medical History: Denies Hx MRSA Psychiatric Medical History: Denies: Hx Depression Traumatic Medical History: Reports: Hx Fractures - rt knee, rt elbow Infectious Medical History: Denies: Hx HIV Past Surgical History: Reports: Hx Cholecystectomy, Hx Orthopedic Surgery - R knee replacement, Hx Tubal Ligation. Denies: Hx Appendectomy, Hx Bowel Surgery, Hx Section, Hx Coronary Artery Bypass Graft, Hx Gastric Bypass Surgery, Hx Herniorrhaphy, Hx Hysterectomy, Hx Mastectomy, Hx Pacemaker, Hx Tonsillectomy - Immunizations Hx Diphtheria, Pertussis, Tetanus Vaccination: Yes Hx Pneumococcal Vaccination: 07/06/12 Review of Systems - Review of Systems Notes: REVIEW OF SYSTEMS: CONSTITUTIONAL : Denies fever, chills, or sweats. Denies recent illness. EENT: Denies eye, ear, throat, or mouth pain or symptoms. Denies nasal or sinus congestion. CARDIOVASCULAR: Denies chest pain. RESPIRATORY: Denies cough, cold, or chest congestion. Denies shortness of breath, difficulty breathing, or wheezing. GASTROINTESTINAL: Denies abdominal pain. Denies nausea, vomiting, or diarrhea. Denies constipation. GENITOURINARY: Denies difficulty urinating, painful urination, burning, frequency, or blood in urine. MUSCULOSKELETAL: Denies neck or back pain or joint pain or swelling. SKIN: Denies rash or skin lesions. HEMATOLOGIC : Denies easy bruising or bleeding. NEUROLOGICAL: Patient reports drooping to the left side of the face numbness to the left hand both of which have resolved at time of exam. PSYCHIATRIC: Denies suicidal or homicidal ideations 10 Systems are negative unless otherwise specified above Physical Exam - Vital signs Vitals: Temp Pulse Resp BP Pulse Ox 98.1 F 107 H 20 216/123 H 95 07/04/19 12:15 07/04/19 12:15 07/04/19 12:15 07/04/19 12:15 07/04/19 12:15 - Notes Notes: PHYSICAL EXAMINATION: GENERAL: Well-appearing, well-nourished and in no acute distress. HEAD: Atraumatic, normocephalic. EYES: Pupils equal round and reactive to light, extraocular movements intact, sclera anicteric, conjunctiva are normal. ENT: nares patent, oropharynx clear without exudates. Moist mucous membranes. NECK: Normal range of motion, supple without lymphadenopathy, no appreciable JVD LUNGS: Lungs clear to auscultation bilaterally and equal. No wheezes rales or rhonchi. HEART: Regular rate and rhythm without murmurs ABDOMEN: Soft, nontender, normal bowel sounds. No guarding, no rebound. No masses appreciated. EXTREMITIES: Active full range of motion, no pitting or edema. No cyanosis. 2+ pulses x4 NEUROLOGICAL: At this time: At time of evaluation the patient is alert and oriented x3, Glascow coma scale of 15, cranial nerves II through XII are grossly intact, sensations intact, motor is intact, there are no signs of nystagmus, there is no pronator drift, there is no facial asymmetry, tongue protrusion is midline, reflexes are equal and bilateral, patient ambulates without ataxia, patient answers all questions appropriately follows commands appropriately. SKIN: Warm, Dry, and intact. Normal turgor, no rashes or lesions noted. Course - Re-evaluation Re-evalutation: 07/04/19 16:25 Patient has been maintained on a cardiac monitor technician while in the emergency department. Patient is remained stable without signs of decompensation. Patient is received aspirin per protocol for TIA prophylaxis. Patient is remained hypertensive while present and is receiving 25 mg p.o. Lopressor will be reevaluated prior to admission. I spoke with the patient's primary care provider and he is agreeable with admission for TIA to the [facility]. - Vital Signs Vital signs: Temp Pulse Resp BP Pulse Ox 98.1 F 107 H 20 216/123 H 95 07/04/19 12:15 07/04/19 12:15 07/04/19 12:15 07/04/19 12:15 07/04/19 12:15 - Laboratory Result Diagrams: 07/04/19 13:15 07/04/19 13:15 Laboratory results interpreted by me: 07/04/19 07/04/19 13:15 13:15 RBC 5.59 H MCV 73 L MCH 23.1 L MCHC 31.8 L RDW 18.4 H Carbon Dioxide 33 H - Diagnostic Test Radiology reviewed: Reports reviewed - EKG Interpretation by Me EKG shows normal: Sinus rhythm Rate: Tachycardia Rhythm: NSR Additional EKG results interpreted by me: 07/04/19 16:24 EKG demonstrated sinus tachycardia rate of 109 bpm there is lateral ST depress ion minimally but similar to prior EKG of June 21, 2019. Discharge - Discharge Clinical Impression: TIA (transient ischemic attack) HTN (hypertension) Qualifiers: Hypertension type: unspecified Qualified Code(s): I10 - Essential (primary) hypertension Condition: Stable Disposition: ADMITTED INPATIENT Admitting Provider: [facility] Admitted: [facility] Referrals: STEPHANI YAO MD [Primary Care Provider] - Follow up as needed
[2019-07-04] MEDS ORDERED: CLONIDINE HCL 0.2 MG TABLET PO ONE (16:28)
--- NOTE | 2019-07-04 17:22 | EKG REPORT ---
SEVERITY:- ABNORMAL ECG - SINUS TACHYCARDIA REPOL ABNRM SUGGESTS ISCHEMIA, LATERAL LEADS : Confirmed by: Vanessa Lucas MD 04-Jul-2019 17:22:08
[2019-07-04] MEDS ORDERED: LABETALOL HCL INJ 20 MG/4 ML DISP.SYRIN IV PRN (18:18)
[2019-07-04] MEDS: ENOXAPARIN SODIUM INJ 40 MG/0.4 ML DISP.SYRIN SUBCUT SCH (19:06)
[2019-07-04] MEDS: ASPIRIN/DIPYRIDAMOLE 25-200 MG 1 CAP.SR CPMP.12HR PO SCH (19:06)
[2019-07-04 19:07] LABS: ARTERIAL BLOOD BASE EXCESS 5.3 mmol/L; ARTERIAL BLOOD H2CO3 1.53 mmol/L (1.05-1.35); ARTERIAL BLOOD HCO3 31.1 mmol/L (20-24); ARTERIAL BLOOD PCO2 50.8 mmHg (35-45); ARTERIAL BLOOD PH 7.41 (7.35-7.45); ARTERIAL BLOOD PO2 70.4 mmHg (80-100); ARTERIAL BLOOD TOTAL CO2 32.7 mmol/L (21-25)
[2019-07-04 19:08] LABS: ARTERIAL BLOOD FIO2 ROOM AIR
[2019-07-04] MEDS ORDERED: (PENDING PHARMACY ID) (Clonidine Hcl [Clonidine Hcl] 0.3 MG) PO SCH (19:45)
[2019-07-04] MEDS: FUROSEMIDE 20 MG TABLET PO SCH (20:23)
[2019-07-04] MEDS: CLONIDINE HCL 0.1 MG TABLET PO SCH (20:27)
--- NOTE | 2019-07-04 21:30 | RADIOLOGY REPORT (SQ) ---
EXAM DESCRIPTION: US CAROTID DOPPLER BILATERAL COMPLETED DATE/TME: 07/04/2019 00:00 CLINICAL HISTORY: 48 years, Female, TIA SUSPECT CVA COMPARISON: None. TECHNIQUE: Axial 2-D grayscale images of the neck were acquired. Doppler was utilized. LIMITATIONS: Limited study secondary to patient body habitus. As a result, the distal right ICA was not well-visualized.. Findings: Peak systolic (PS) and end diastolic (ED) velocities are as follows: RIGHT SIDE Proximal CCA: PS 116 cm/s. ED 2 cm/s. Distal CCA: PS 112 cm/s. ED 14 cm/s. Proximal ICA: PS 112 cm/s. ED 21 cm/s. Distal ICA: Not visualized ECA: 149 cm/s. ICA/CCA PS ratio: 1.0 Vertebral artery: 27 cm/s; antegrade flow. LEFT SIDE Proximal CCA: PS 142 cm/s. ED 29 cm/s. Distal CCA: PS 100 cm/s. ED 20 cm/s. Proximal ICA: PS 78 cm/s. ED 34 cm/s. Distal ICA: PS 106 cm/s. ED 39 cm/s. ECA: 166 cm/s. ICA/CCA PS ratio: 1.06 Vertebral artery: 31 cm/s; antegrade flow IMPRESSION: No evidence for hemodynamically significant stenosis in the extracranial carotid arteries bilaterally. copyright 2011 [employer]- All Rights Reserved
[2019-07-04] MEDS: METOPROLOL TARTRATE 100 MG TABLET PO SCH (22:07)
[2019-07-04] MEDS: ATORVASTATIN CALCIUM 80 MG TABLET PO SCH (22:07)
[2019-07-05 01:26] LABS: CREATINE KINASE MB 0.54 ng/mL (<4.55); TROPONIN I 0.015 ng/mL
[2019-07-05] MEDS ORDERED: INFLUENZA QUAD (6MOS+) 2019-20 VAC 0.5 ML SYR IM ONE (02:12)
[2019-07-05] MEDS: CLONIDINE HCL 0.1 MG TABLET PO SCH ×3 (06:41→21:51)
[2019-07-05] MEDS: ASPIRIN/DIPYRIDAMOLE 25-200 MG 1 CAP.SR CPMP.12HR PO SCH ×2 (06:41→18:16)
[2019-07-05 07:25] LABS: CREATINE KINASE MB 0.58 ng/mL (<4.55)
[2019-07-05 07:30] LABS: TROPONIN I < 0.012 ng/mL
[2019-07-05] MEDS: ENOXAPARIN SODIUM INJ 40 MG/0.4 ML DISP.SYRIN SUBCUT SCH (10:19)
[2019-07-05] MEDS: METOPROLOL TARTRATE 100 MG TABLET PO SCH ×2 (10:20→21:51)
[2019-07-05] MEDS: LOSARTAN POTASSIUM 25 MG TABLET PO SCH (10:20)
[2019-07-05] MEDS: FUROSEMIDE 20 MG TABLET PO SCH ×2 (10:20→21:51)
[2019-07-05 13:58] LABS: CREATINE KINASE MB 0.51 ng/mL (<4.55); TROPONIN I 0.014 ng/mL
--- NOTE | 2019-07-05 19:38 | EKG REPORT ---
SEVERITY:- ABNORMAL ECG - SINUS RHYTHM ABNORMAL T, PROBABLE ISCHEMIA, LATERAL LEADS : Confirmed by: Vanessa Lucas MD 05-Jul-2019 19:38:10
--- NOTE | 2019-07-05 20:27 | PDOC H&P ---
History of Present Illness Admission Date/PCP: 07/04/19 16:46 STEPHANI YAO MD History of Present Illness: BILL MARQUEZ is a 48 year old female She has a history of poorly cont rolled hypertension, morbid obesity, she has not follow-up in the office for many years now because she lost her insurance, Medicaid, she has gained a lot of weight, the body mass index is 63.She came to the emergency room for evaluation of facial droop, hemisensory loss affecting left side of the body. She also complained of shortness of breath on mild exertion with increased swelling of both lower extremities. She has permissive hypercapnia the arterial blood gas on ambient air, pH 7.4, PCO2 50.8, PO2 70.4, bicarbonate 31.3, she has a normal pH in the setting of abnormal PCO2 and bicarbonate this most likely from obesity hypoventilation syndrome Past Medical History Cardiac Medical History: Reports: Congestive Heart Failure, Hypertension, Heart Murmur - with Pulmonary Medical History: Reports: Pneumonia Musculoskeltal Medical History: Reports: Arthritis Denies: Fibromyalgia Hematology: Reports: Anemia - heavy menses related Infectious Medical History: Denies: HIV Past Surgical History Past Surgical History: Reports: Cholecystectomy, Orthopedic Surgery - R knee replacement, Tubal Ligation Social History Lives with: Spouse/Significant other Smoking Status: Never Smoker Frequency of Alcohol Use: None Hx Recreational Drug Use: No Drugs: None Hx Prescription Drug Abuse: No - Advance Directive Resuscitation Status: Full Code Family History Family History: Reviewed & Not Pertinent, CAD, DM Parental Family History Reviewed: Yes Children Family History Reviewed: Yes Sibling(s) Family History Reviewed.: Yes Medication/Allergy Home Medications: Clonidine HCl 0.3 mg PO Q8 07/04/19 Furosemide [Lasix 20 mg Tablet] 20 mg PO Q12 07/04/19 Losartan Potassium [Cozaar 25 mg Tablet] 25 mg PO DAILY 07/04/19 Metoprolol Tartrate [Lopressor 100 mg Tablet] 100 mg PO Q12 07/04/19 Allergies/Adverse Reactions: ondansetron HCl [From Zofran] Allergy (Severe, Verified 07/04/19 13:08) resp distress azithromycin [From Zithromax] Allergy (Verified 07/04/19 13:08) Review of Systems Constitutional: ABSENT: chills, fever(s), headache(s), weight gain, weight loss Eyes: ABSENT: visual disturbances Ears: ABSENT: hearing changes Cardiovascular: PRESENT: dyspnea on exertion. ABSENT: chest pain, edema, orthropnea, palpitations Respiratory: ABSENT: cough, hemoptysis Gastrointestinal: ABSENT: abdominal pain, constipation, diarrhea, hematemesis, hematochezia, nausea, vomiting Genitourinary: ABSENT: dysuria, hematuria Musculoskeletal: ABSENT: joint swelling Integumentary: ABSENT: rash, wounds Neurological: PRESENT: focal weakness, numbness, paresthesias Psychiatric: ABSENT: anxiety, depression, homidical ideation, suicidal ideation Endocrine: ABSENT: cold intolerance, heat intolerance, menstrual abnormalities, polydipsia, polyuria Hematologic/Lymphatic: ABSENT: easy bleeding, easy bruising, lymphadenopathy Physical Exam Vital Signs: Temp Pulse Resp BP Pulse Ox 98.5 F 76 17 126/78 H 99 07/05/19 16:33 07/05/19 18:00 07/05/19 18:00 07/05/19 18:00 07/05/19 18:00 Intake & Output 07/04/19 07/05/19 07/06/19 06:59 06:59 06:59 Intake Total 150 470 Output Total 200 200 Balance -50 270 Weight 178 kg General appearance: PRESENT: morbidly obese Head exam: PRESENT: atraumatic, normocephalic Eye exam: PRESENT: PERRLA Ear exam: PRESENT: normal external ear exam Mouth exam: PRESENT: moist, tongue midline Neck exam: PRESENT: full ROM Respiratory exam: PRESENT: clear to auscultation kelly Cardiovascular exam: PRESENT: RRR, +S1, +S2 Pulses: PRESENT: normal dorsalis pedis pul, +2 pedal pulses bilateral Vascular exam: PRESENT: normal capillary refill GI/Abdominal exam: PRESENT: normal bowel sounds, soft Rectal exam: PRESENT: deferred Neurological exam: PRESENT: alert, CN II-XII grossly intact Psychiatric exam: PRESENT: appropriate affect, normal mood Skin exam: PRESENT: dry, intact, warm. ABSENT: cyanosis, rash Results Laboratory Results: 07/04/19 13:15 07/04/19 13:15 07/04/19 07/04/19 07/04/19 13:15 13:15 13:15 Creatine Kinase 39 CK-MB (CK-2) 1.10 Troponin I 0.013 NT-Pro-B Natriuret Pep 437 H 07/05/19 07/05/19 07/05/19 00:32 00:32 06:46 Creatine Kinase 24 L 21 L CK-MB (CK-2) 0.54 Troponin I 0.015 NT-Pro-B Natriuret Pep 07/05/19 07/05/19 07/05/19 06:46 13:01 13:01 Creatine Kinase < 20 L CK-MB (CK-2) 0.58 0.51 Troponin I < 0.012 0.014 NT-Pro-B Natriuret Pep Impressions: Carotid Doppler Study 07/04/19 00:00 IMPRESSION: No evidence for hemodynamically significant stenosis in the extracranial carotid arteries bilaterally. copyright 2011 [employer]- All Rights Reserved Chest X-Ray 07/04/19 12:27 IMPRESSION: No interval change in the chest. Cardiomegaly with mild central vascular prominence. No overt failure. Head CT 07/04/19 12:27 IMPRESSION: NORMAL BRAIN CT WITHOUT CONTRAST. EVIDENCE OF ACUTE STROKE: NO. Assessment & Plan - Diagnosis (1) TIA (transient ischemic attack) Is this a current diagnosis for this admission?: Yes Plan: The symptoms she presented with has resolved this is consistent with transient ischemic attack, She will manage according to protocol (2) Obesity hypoventilation syndrome Is this a current diagnosis for this admission?: Yes Plan: She has permissive hypercapnia the pH is normal in the setting of abnormal PCO2 and bicarbonate (3) Morbid obesity due to excess calories Is this a current diagnosis for this admission?: Yes
[2019-07-05] MEDS: ATORVASTATIN CALCIUM 80 MG TABLET PO SCH (21:51)
[2019-07-06] MEDS: ASPIRIN/DIPYRIDAMOLE 25-200 MG 1 CAP.SR CPMP.12HR PO SCH ×2 (06:00→18:43)
[2019-07-06] MEDS: CLONIDINE HCL 0.1 MG TABLET PO SCH ×3 (06:00→21:33)
[2019-07-06] MEDS: FUROSEMIDE 20 MG TABLET PO SCH ×2 (11:32→21:34)
[2019-07-06] MEDS: METOPROLOL TARTRATE 100 MG TABLET PO SCH ×2 (11:32→21:33)
[2019-07-06] MEDS: LOSARTAN POTASSIUM 25 MG TABLET PO SCH (11:32)
[2019-07-06] MEDS: ENOXAPARIN SODIUM INJ 40 MG/0.4 ML DISP.SYRIN SUBCUT SCH (11:32)
[2019-07-06 16:17] LABS: CHOLESTEROL 123.26 mg/dL (0-200); TRIGLYCERIDES 147 mg/dL (<150)
[2019-07-06 16:27] LABS: DIRECT LDL 64 mg/dL (<100)
[2019-07-06] MEDS: ATORVASTATIN CALCIUM 80 MG TABLET PO SCH (21:35)
--- NOTE | 2019-07-06 21:59 | PDOC PROGRESS REPORT ---
Subjective Progress Note for:: 07/06/19 Subjective:: Patient seen by the bedside, no new complaints Reason For Visit: TIA,HYPERTENSION Physical Exam Vital Signs: Temp Pulse Resp BP Pulse Ox 98.5 F 71 18 138/62 H 100 07/06/19 12:31 07/06/19 14:00 07/06/19 12:31 07/06/19 12:31 07/06/19 12:31 Intake & Output 07/05/19 07/06/19 07/07/19 06:59 06:59 06:59 Intake Total 150 870 720 Output Total 200 200 Balance -50 670 720 Weight 178 kg 178 kg 178 kg General appearance: PRESENT: no acute distress Eye exam: PRESENT: PERRLA Respiratory exam: PRESENT: clear to auscultation kelly Cardiovascular exam: PRESENT: +S1, +S2 GI/Abdominal exam: PRESENT: soft Neurological exam: PRESENT: alert, CN II-XII grossly intact Results Laboratory Results: 07/04/19 13:15 07/04/19 13:15 07/06/19 13:40 Triglycerides 147 Cholesterol 123.26 LDL Cholesterol Direct 64 VLDL Cholesterol 29.0 HDL Cholesterol 45 07/04/19 07/04/19 07/04/19 13:15 13:15 13:15 Creatine Kinase 39 CK-MB (CK-2) 1.10 Troponin I 0.013 NT-Pro-B Natriuret Pep 437 H 07/05/19 07/05/19 07/05/19 00:32 00:32 06:46 Creatine Kinase 24 L 21 L CK-MB (CK-2) 0.54 Troponin I 0.015 NT-Pro-B Natriuret Pep 07/05/19 07/05/19 07/05/19 06:46 13:01 13:01 Creatine Kinase < 20 L CK-MB (CK-2) 0.58 0.51 Troponin I < 0.012 0.014 NT-Pro-B Natriuret Pep Impressions: Carotid Doppler Study 07/04/19 00:00 IMPRESSION: No evidence for hemodynamically significant stenosis in the extracranial carotid arteries bilaterally. copyright 2010 [employer]- All Rights Reserved Chest X-Ray 07/04/19 12:27 IMPRESSION: No interval change in the chest. Cardiomegaly with mild central vascular prominence. No overt failure. Head CT 07/04/19 12:27 IMPRESSION: NORMAL BRAIN CT WITHOUT CONTRAST. EVIDENCE OF ACUTE STROKE: NO. Assessment & Plan - Diagnosis (1) TIA (transient ischemic attack) Is this a current diagnosis for this admission?: Yes (2) Obesity hypoventilation syndrome Is this a current diagnosis for this admission?: Yes (3) Morbid obesity due to excess calories Is this a current diagnosis for this admission?: Yes - Time Time Spent with patient: 25-34 minutes
[2019-07-07 05:32] LABS: CHOLESTEROL 97.97 mg/dL (0-200); TRIGLYCERIDES 89 mg/dL (<150)
[2019-07-07 05:43] LABS: DIRECT LDL 49 mg/dL (<100)
[2019-07-07] MEDS: CLONIDINE HCL 0.1 MG TABLET PO SCH ×2 (05:51→13:57)
[2019-07-07] MEDS: ASPIRIN/DIPYRIDAMOLE 25-200 MG 1 CAP.SR CPMP.12HR PO SCH (05:52)
[2019-07-07] MEDS: ENOXAPARIN SODIUM INJ 40 MG/0.4 ML DISP.SYRIN SUBCUT SCH (09:45)
[2019-07-07] MEDS: LOSARTAN POTASSIUM 25 MG TABLET PO SCH (09:45)
[2019-07-07] MEDS: FUROSEMIDE 20 MG TABLET PO SCH (09:45)
[2019-07-07] MEDS: METOPROLOL TARTRATE 100 MG TABLET PO SCH (09:45)
--- NOTE | 2019-07-07 15:04 | PDOC DISCHARGE SUMMARY ---
Impression - Admit/DC Date/PCP Admission Date/Primary Care Provider: 07/04/19 16:46 STEPHANI YAO MD Discharge Date: 07/07/19 - Discharge Diagnosis (1) TIA (transient ischemic attack) Is this a current diagnosis for this admission?: Yes (2) Obesity hypoventilation syndrome Is this a current diagnosis for this admission?: Yes (3) Morbid obesity due to excess calories Is this a current diagnosis for this admission?: Yes - Additional Information Resuscitation Status: Do Not Resuscitate Referrals: STEPHANI YAO MD [Primary Care Provider] - 07/16/19 2:00 pm Prescriptions: RX: Atorvastatin Calcium [Lipitor 80 mg Tablet] 80 mg PO QHS #90 tablet RX: Aspirin/Dipyridamole [Aggrenox 25 mg/200 mg Capsule SA] 1 cap.sr PO Q12A #90 cpmp.12hr RX: Metoprolol Tartrate [Lopressor 100 mg Tablet] 100 mg PO Q12 #60 Home Medications: RX: Losartan Potassium [Cozaar 25 mg Tablet] 25 mg PO DAILY 07/04/19 RX: Aspirin/Dipyridamole [Aggrenox 25 mg/200 mg Capsule SA] 1 cap.sr PO Q12A #90 cpmp.12hr 07/07/19 RX: Atorvastatin Calcium [Lipitor 80 mg Tablet] 80 mg PO QHS #90 tablet 07/07/19 RX: Clonidine HCl [Catapres 0.1 mg Tablet] 0.3 mg PO Q8 tablet 07/07/19 RX: Furosemide [Lasix 20 mg Tablet] 20 mg PO Q12 #60 07/07/19 RX: Metoprolol Tartrate [Lopressor 100 mg Tablet] 100 mg PO Q12 #60 07/07/19 History of Present Illiness History of Present Illness: BILL MARQUEZ is a 48 year old female She has a history of poorly controlled hypertension, morbid obesity, she has not follow-up in the office for many years now because she lost her insurance, Medicaid, she has gained a lot of weight, the body mass index is 63.She came to the emergency room for evaluation of facial droop, hemisensory loss affecting left side of the body. She also complained of shortness of breath on mild exertion with increased swelling of both lower extremities. She has permissive hypercapnia the arterial blood gas on ambient air, pH 7.4, PCO2 50.8, PO2 70.4, bicarbonate 31.3, she has a normal pH in the setting of abnormal PCO2 and bicarbonate this most likely from obesity hypoventilation syndrome Hospital Course Hospital Course: Patient was admitted for the management of transient ischemic attack, she presented with transient left hemisensory loss, weakness, she was treated according to stroke protocol, she was treated with antiplatelet, Aggrenox, MRI of the brain could not be obtained because she is extremely obese, BMI 33. She also found to have obesity hypoventilation syndrome, a 2D echo was done, it was a challenging study, it seems that she has preserved ejection fraction of left ventricle, patient be discharged home today Physical Exam Vital Signs: Temp Pulse Resp BP Pulse Ox 98.1 F 59 L 17 119/70 93 07/07/19 11:21 07/07/19 11:21 07/07/19 11:21 07/07/19 11:21 07/07/19 11:21 Intake & Output 07/06/19 07/07/19 07/08/19 06:59 06:59 06:59 Intake Total 870 720 120 Output Total 200 Balance 670 720 120 Weight 178 kg 178 kg General appearance: PRESENT: no acute distress Eye exam: PRESENT: PERRLA Respiratory exam: PRESENT: clear to auscultation kelly Cardiovascular exam: PRESENT: +S1, +S2 GI/Abdominal exam: PRESENT: soft Neurological exam: PRESENT: alert, CN II-XII grossly intact Results Laboratory Results: WBC 10.0 10^3/uL (4.0-10.5) 07/04/19 13:15 RBC 5.59 10^6/uL (3.72-5.28) H 07/04/19 13:15 Hgb 12.9 g/dL (12.0-15.5) 07/04/19 13:15 Hct 40.6 % (36.0-47.0) 07/04/19 13:15 MCV 73 fl (80-97) L 07/04/19 13:15 MCH 23.1 pg (27.0-33.4) L 07/04/19 13:15 MCHC 31.8 g/dL (32.0-36.0) L 07/04/19 13:15 RDW 18.4 % (11.5-14.0) H 07/04/19 13:15 Plt Count 287 10^3/uL (150-450) 07/04/19 13:15 Lymph % (Auto) 20.7 % (13-45) 07/04/19 13:15 Ness % (Auto) 7.8 % (3-13) 07/04/19 13:15 Eos % (Auto) 2.3 % (0-6) 07/04/19 13:15 Baso % (Auto) 0.9 % (0-2) 07/04/19 13:15 Absolute Neuts (auto) 6.8 10^3/uL (1.7-8.2) 07/04/19 13:15 Absolute Lymphs (auto) 2.1 10^3/uL (0.5-4.7) 07/04/19 13:15 Absolute Monos (auto) 0.8 10^3/uL (0.1-1.4) 07/04/19 13:15 Absolute Eos (auto) 0.2 10^3/uL (0.0-0.6) 07/04/19 13:15 Absolute Basos (auto) 0.1 10^3/uL (0.0-0.2) 07/04/19 13:15 Seg Neutrophils % 68.3 % (42-78) 07/04/19 13:15 PT 12.6 SEC (11.4-15.4) 07/04/19 13:15 INR 0.95 07/04/19 13:15 APTT 28.1 SEC (23.5-35.8) 07/04/19 13:15 Carbonic Acid 1.53 mmol/L (1.05-1.35) H 07/04/19 18:52 HCO3/H2CO3 Ratio 20:1 07/04/19 18:52 ABG pH 7.41 (7.35-7.45) 07/04/19 18:52 ABG pCO2 50.8 mmHg (35-45) H 07/04/19 18:52 ABG pO2 70.4 mmHg (80-100) L 07/04/19 18:52 ABG HCO3 31.1 mmol/L (20-24) H 07/04/19 18:52 ABG Total CO2 32.7 mmol/L (21-25) H 07/04/19 18:52 ABG O2 Saturation 94.0 % (94-98) 07/04/19 18:52 ABG Base Excess 5.3 mmol/L 07/04/19 18:52 FiO2 ROOM AIR 07/04/19 18:52 Sodium 140.9 mmol/L (137-145) 07/04/19 13:15 Potassium 4.3 mmol/L (3.6-5.0) 07/04/19 13:15 Chloride 100 mmol/L (98-107) 07/04/19 13:15 Carbon Dioxide 33 mmol/L (22-30) H 07/04/19 13:15 Anion Gap 8 (5-19) 07/04/19 13:15 BUN 17 mg/dL (7-20) 07/04/19 13:15 Creatinine 0.65 mg/dL (0.52-1.25) 07/04/19 13:15 Est GFR ( Amer) > 60 (>60) 07/04/19 13:15 Est GFR (MDRD) Non-Af > 60 (>60) 07/04/19 13:15 Glucose 93 mg/dL (75-110) 07/04/19 13:15 POC Glucose 96 mg/dL (70-110) 07/04/19 13:19 Hemoglobin A1c % 5.7 % (4.7-6.0) 07/06/19 13:40 Calcium 8.8 mg/dL (8.4-10.2) 07/04/19 13:15 Total Bilirubin 0.5 mg/dL (0.2-1.3) 07/04/19 13:15 Direct Bilirubin 0.3 mg/dL (0.0-0.4) 07/04/19 13:15 Neonat Total Bilirubin Not Reportable 07/04/19 13:15 Neonat Direct Bilirubin Not Reportable 07/04/19 13:15 Neonat Indirect Bili Not Reportable 07/04/19 13:15 AST 26 U/L (14-36) 07/04/19 13:15 ALT 25 U/L (<35) 07/04/19 13:15 Alkaline Phosphatase 110 U/L (38-126) 07/04/19 13:15 Creatine Kinase < 20 U/L (30-135) L 07/05/19 13:01 CK-MB (CK-2) 0.51 ng/mL (<4.55) 07/05/19 13:01 Troponin I 0.014 ng/mL 07/05/19 13:01 NT-Pro-B Natriuret Pep 437 pg/mL (<125) H 07/04/19 13:15 Total Protein 8.0 g/dL (6.3-8.2) 07/04/19 13:15 Albumin 4.1 g/dL (3.5-5.0) 07/04/19 13:15 Triglycerides 89 mg/dL (<150) 07/07/19 04:29 Cholesterol 97.97 mg/dL (0-200) 07/07/19 04:29 LDL Cholesterol Direct 49 mg/dL (<100) 07/07/19 04:29 VLDL Cholesterol 18.0 mg/dL (10-31) 07/07/19 04:29 HDL Cholesterol 39 mg/dL (>40) L 07/07/19 04:29 07/04/19 07/04/19 07/05/19 13:15 13:15 00:32 CK-MB (CK-2) 1.10 0.54 Troponin I 0.013 0.015 NT-Pro-B Natriuret Pep 437 H 07/05/19 07/05/19 06:46 13:01 CK-MB (CK-2) 0.58 0.51 Troponin I < 0.012 0.014 NT-Pro-B Natriuret Pep Impressions: Carotid Doppler Study 07/04/19 00:00 IMPRESSION: No evidence for hemodynamically significant stenosis in the extracranial carotid arteries bilaterally. copyright 2011 [employer]- All Rights Reserved Chest X-Ray 07/04/19 12:27 IMPRESSION: No interval change in the chest. Cardiomegaly with mild central vascular prominence. No overt failure. Head CT 07/04/19 12:27 IMPRESSION: NORMAL BRAIN CT WITHOUT CONTRAST. EVIDENCE OF ACUTE STROKE: NO. Stroke Is this a Stroke Patient?: No Acute Heart Failure - Is this a Heart Failure Patient?: No
[2019-07-07 15:41] VITALS: BP 150/99
--- NOTE | 2019-07-08 17:09 | XCELERA REPORT ---
[address] [address] Transthoracic Echocardiogram Report Name: BILL MARQUEZ Age: 48 yrs Gender: Female : 1970 Patient Status: Inpatient Patient Location: [facility]^B Study Date: 07/05/2019 06:42 PM Height: 66 in Weight: 392 lb BSA: 2.7 m2 Procedure: A two-dimensional transthoracic echocardiogram with color flow and Doppler was performed. The study was technically limited with all images being suboptimal in quality. Reason For Study: TIA/SOB History: TIA/SOB. Ordering Physician: STEPHANI YAO Performed By: Zuly Márquez Interpretation Summary There is no obvious cardiac source of embolus noted on this transthoracic echocardiogram. Follow-up with a KISHAN is suggested if cardiac source is still suspected. The left ventricle is normal in size. There is normal left ventricular wall thickness. LV EF is 65% Left ventricular systolic function is normal. Doppler measurements suggest normal left ventricular diastolic function The left ventricular wall motion is normal. There is no thrombus. No ASD,VSD,or PFO seen. The right atrium is normal. The left atrium is mildly dilated. There is moderate mitral annular calcification. There is no evidence of mitral valve prolapse. There is no vegetation seen on the mitral valve. There is no mitral valve stenosis. There is no mitral regurgitation noted. There is no aortic valvular vegetation. There is no aortic valve stenosis There is no LVOT obstruction. No aortic regurgitation is present. There is no tricuspid stenosis. There is a trace amount of tricuspid regurgitation Tricuspid regurgitation jet envelope not well defined to measure RV systolic pressure accurately. There is no pulmonic valvular stenosis. There is no pulmonic valvular regurgitation. The aortic root is normal size. The inferior vena cava appeared normal and decreased > 50% with respiration (RAP 5-10 mmHg) There is no pericardial effusion. There is no obvious cardiac source of embolus noted on this transthoracic echocardiogram. Follow-up with a KISHAN is suggested if cardiac source is still suspected MMode/2D Measurements & Calculations RVDd: 3.2 cm LVIDd: 5.3 cm FS: 37.8 % Ao root diam: 3.0 cm IVSd: 1.3 cm LVIDs: 3.3 cm EDV(Teich): 136.5 ml Ao root area: 7.3 cm2 LVPWd: 1.2 cm ESV(Teich): 44.5 ml LA dimension: 4.2 cm EF(Teich): 67.4 % Doppler Measurements & Calculations MV E max victoria: MV P1/2t max victoria: Ao V2 max: LV V1 max P.4 cm/sec 129.0 cm/sec 151.9 cm/sec 7.7 mmHg MV A max victoria: MV P1/2t: 99.0 msec Ao max PG: LV V1 max: 95.8 cm/sec MVA(P1/2t): 2.2 cm2 9.2 mmHg 139.2 cm/sec MV E/A: 1.3 MV dec slope: 381.4 cm/sec2 MV dec time: 0.30 sec PA V2 max: MV P1/2t-pr_phl: 87.4 cm/sec 99.0 msec PA max P.1 mmHg Left Ventricle The left ventricle is normal in size. There is normal left ventricular wall thickness. LV EF is 65%. Left ventricular systolic function is normal. Doppler measurements suggest normal left ventricular diastolic function. The left ventricular wall motion is normal. There is no thrombus. No ASD,VSD,or PFO seen. Right Ventricle The right ventricle is grossly normal size. The right ventricle is not well visualized secondary to technical limitations. Atria The right atrium is normal. The left atrium is mildly dilated. Mitral Valve There is moderate mitral annular calcification. There is no evidence of mitral valve prolapse. There is no vegetation seen on the mitral valve. There is no mitral valve stenosis. There is no mitral regurgitation noted. Aortic Valve There is no aortic valvular vegetation. There is no aortic valve stenosis. There is no LVOT obstruction. No aortic regurgitation is present. Tricuspid Valve There is no tricuspid stenosis. There is a trace amount of tricuspid regurgitation. Tricuspid regurgitation jet envelope not well defined to measure RV systolic pressure accurately. Pulmonic Valve There is no pulmonic valvular stenosis. There is no pulmonic valvular regurgitation. Great Vessels The aortic root is normal size. The inferior vena cava appeared normal and decreased > 50% with respiration (RAP 5-10 mmHg). Effusions There is no pericardial effusion. : STEPHANI YAO Lakshmi
== END 2019-07-07 16:54 | disposition home or self-care (01) ==
LOC: ER 12:09 → INTOOBSV 16:46 → EH 16:46 → 3N 23:06
PROVIDERS: ADMIT Internal Medicine; ATTEND Internal Medicine
DX: G45.9 Transient cerebral ischemic attack, unspecified (principal); E66.2 Morbid (severe) obesity with alveolar hypoventilation; I11.0 Hypertensive heart disease with heart failure; I50.9 Heart failure, unspecified; R00.0 Tachycardia, unspecified; Z66 Do not resuscitate; Z79.899 Other long term (current) drug therapy; Z68.44 Body mass index [BMI] 60.0-69.9, adult; Z23 Encounter for immunization; Z96.651 Presence of right artificial knee joint; Z82.49 Family history of ischemic heart disease and other diseases of the circulatory system; Z82.3 Family history of stroke
CPT/HCPCS: 93005 ×2; 99285; 36415 ×4; 82553 ×2; 82962; 82803; 82550 ×2; 85025; 85610; 85730; 80053; 84484 ×2; 83036; 80061 ×2; 83880; 93306; 93880; 71045; 70450; 90686; 93010 ×2; 36600; 97116; 97163; 97110; 97166; G0378 ×5; J1650 ×4